=== PATIENT | female | born 1980 | race Caucasian/White ===

== ENCOUNTER 2019-06-24 13:53 | Outpatient (CLI) | payer OTHER, SELFPAY ==
--- NOTE | ~2019-06-24 | XR_ITS ---
EXAMINATION: XR knee RT min 4V DATE: 06/24/2019 14:50 INDICATION: Right knee pain. TECHNIQUE: 4 views of right knee were obtained. COMPARISON: None. FINDINGS: Bone alignment is normal. No fracture. There is mild tricompartmental osteoarthritis. No kn ee joint effusion. IMPRESSION: 1. Mild right knee osteoarthritis. Reviewed, dictated and finalized at location A. T UTILITY PERSON
== END 2019-06-24 13:54 | disposition home or self-care (01) ==
DX: M17.11 Unilateral primary osteoarthritis, right knee (principal)
CPT/HCPCS: 73564

== ENCOUNTER 2019-07-09 09:04 | Outpatient (CLI) | payer OTHER, SELFPAY ==
--- NOTE | 2019-07-09 10:30 | NEURO_ITS ---
Patient Number: [id number] Impression: # Complains of feeling of walking on pins and needles. History of fibromyalgia. # Normal nerve conduction study including motor and sensory nerves. # Normal needle/EMG exam. # Problem could be related to small fiber neuropathy. Nerve Conduction Studies Anti Sensory Summary Table Stim Site NR Peak (ms) P-T Amp (?V) Site1 Site2 Delta-P (ms) Dist (cm) Josh (m/s) Left Sup Fibular Anti Sensory (Ant Lat Mall) 14 cm 3.9 1.5 14 cm Ant Lat Mall 3.9 16.0 41 Right Sup Fibular Anti Sensory (Ant Lat Mall) 14 cm 3.8 48.0 14 cm Ant Lat Mall 3.8 16.0 42 Left Sural Anti Sensory (Lat Mall) Calf 3.9 8.9 Calf Lat Mall 3.9 16.0 41 Right Sural Anti Sensory (Lat Mall) Calf 3.8 6.0 Calf Lat Mall 3.8 16.0 42 Motor Summary Table Stim Site NR Onset (ms) O-P Amp (mV) Site1 Site2 Delta-0 (ms) Dist (cm) Josh (m/s) Left Peroneal Motor (Vastus Med) Ankle 4.3 1.9 Popit Ankle 8.1 38.0 47 Popit 12.4 1.9 Right Peroneal Motor (Vastus Med) Ankle 4.0 1.2 Popit Ankle 7.6 36.0 47 Popit 11.6 1.0 Left Tibial Motor (Abd Woody Brev) Ankle 4.5 6.3 Knee Ankle 9.6 42.0 44 Knee 14.1 2.4 Right Tibial Motor (Abd Woody Brev) Ankle 4.1 3.9 Knee Ankle 10.1 41.0 41 Knee 14.2 2.2 F Wave Studies NR F-Lat (ms) L-R F-Lat (ms) Left Peroneal (Mrkrs) (EDB) 49.58 0.00 Right Peroneal (Mrkrs) (EDB) 49.58 0.00 Left Tibial (Mrkrs) (Abd Hallucis) 52.03 0.39 Right Tibial (Mrkrs) (Abd Hallucis) 51.65 0.39 EMG Side Muscle Nerve Root Ins Act Fibs Amp Dur Recrt Comment Right AntTibialis Dp Br Fibular L4-5 Nml Nml Nml Nml Nml Right Gastroc Tibial S1-2 Nml Nml Nml Nml Nml Right Fibularis Long Sup Br Fibular L5-S1 Nml Nml Nml Nml Nml Right Flex Dig Long Tibial L5-S2 Nml Nml Nml Nml Nml Right Ext Dig Brev Dp Br Fibular L5, S1 Nml Nml Nml Nml Nml Left AntTibialis Dp Br Fibular L4-5 Nml Nml Nml Nml Nml Left Gastroc Tibial S1-2 Nml Nml Nml Nml Nml Left Fibularis Long Sup Br Fibular L5-S1 Nml Nml Nml Nml Nml Left Flex Dig Long Tibial L5-S2 Nml Nml Nml Nml Nml Left Ext Dig Brev Dp Br Fibular L5, S1 Nml Nml Nml Nml Nml MTDD
== END 2019-07-09 09:05 | disposition home or self-care (01) ==
DX: R20.0 Anesthesia of skin (principal)
CPT/HCPCS: 95886; 95910

== ENCOUNTER 2019-07-17 09:15 | Outpatient (CLI) | payer OTHER, SELFPAY | END 2019-07-17 09:16 | disposition home or self-care (01) | PROVIDERS: PCP Internal Medicine | DX: E06.3 Autoimmune thyroiditis (principal) | CPT/HCPCS: 36415; 84443 ==

== ENCOUNTER 2019-11-10 12:21 | Outpatient (CLI) | payer OTHER, SELFPAY ==
[2019-11-10 13:10] LABS: Basophils Absolute Auto 0.1 K/mm3 (0.0-0.1); Basophils Percent Auto 0.6 % (0.2-1.2); Eosinophils Absolute Auto 0.3 K/mm3 (0-0.3); Eosinophils Percent Auto 2.2 % (0-4.4); Hematocrit 39.6 % (37.0-47.0); Hemoglobin 13.3 g/dL (12.0-15.0); Immature Granulocyte Absolute 0.08 K/mm3 (0.00-0.031); Immature Granulocyte Percent A 0.7 % (0-0.5); Lymphocytes Absolute Auto 2.86 K/mm3 (0.9-3.2); Lymphocytes Percent Auto 25.4 % (18.3-44.2); Mean Corpuscular HGB Conc 33.6 g/dl (32-36); Mean Corpuscular Hemoglobin 29.3 pg (26-34); Mean Corpuscular Volume 87.2 fl (80-100); Mean Platelet Volume 9.3 fl (7.4-10.4); Monocytes Absolute Auto 0.6 K/mm3 (0.1-0.6); Monocytes Percent Auto 5.7 % (2.6-8.5); Neutrophils Absolute Auto 7.4 K/mm3 (1.3-6.7); Neutrophils Percent Auto 65.4 % (45.5-73.1); Platelet Count Result 337 k/mm3 (150-375); Red Blood Count 4.54 M/mm3 (4.2-5.4); Red Cell Distribution Width 13.4 % (11.5-14.5); White Blood Count 11.3 K/mm3 (4.5-10.0)
[2019-11-10 13:28] LABS: CRP 2.8 mg/dL (<1.0)
[2019-11-10 13:29] LABS: Rheumatoid Factor < 8.6 IU/ML (<12)
[2019-11-10 14:04] LABS: Hepatitis B Surface Antigen Negative (Negative)
[2019-11-10 14:10] LABS: HAV RESULT Negative (Negative); Hepatitis B Core IgM Result Negative (Negative)
[2019-11-10 14:22] LABS: Hepatitis C Virus Antibody Negative (Negative)
== END 2019-11-10 12:22 | disposition home or self-care (01) ==
PROVIDERS: PCP Nurse Practitioner; Visit Provider Nurse Practitioner
DX: M25.50 Pain in unspecified joint (principal)
CPT/HCPCS: 36415; 80074; 85025; 86038; 86140; 86430

== ENCOUNTER 2019-11-26 08:47 | Outpatient (CLI) | payer OTHER, SELFPAY | END 2019-11-26 08:48 | disposition home or self-care (01) | LOC: ANHLAB 08:50 | PROVIDERS: PCP Nurse Practitioner; Visit Provider Nurse Practitioner | DX: E06.3 Autoimmune thyroiditis (principal) | CPT/HCPCS: 36415; 84443 ==

== ENCOUNTER 2019-11-30 13:42 | Outpatient (CLI) | payer OTHER, SELFPAY ==
[2019-11-30 14:43] LABS: Basophils Absolute Auto 0.1 K/mm3 (0.0-0.1); Basophils Percent Auto 0.5 % (0.2-1.2); Eosinophils Absolute Auto 0.2 K/mm3 (0-0.3); Eosinophils Percent Auto 1.5 % (0-4.4); Hematocrit 41.4 % (37.0-47.0); Hemoglobin 13.9 g/dL (12.0-15.0); Immature Granulocyte Absolute 0.05 K/mm3 (0.00-0.031); Immature Granulocyte Percent A 0.5 % (0-0.5); Lymphocytes Absolute Auto 2.84 K/mm3 (0.9-3.2); Mean Corpuscular HGB Conc 33.6 g/dl (32-36); Mean Corpuscular Volume 86.4 fl (80-100); Mean Platelet Volume 9.4 fl (7.4-10.4); Monocytes Absolute Auto 0.6 K/mm3 (0.1-0.6); Monocytes Percent Auto 5.6 % (2.6-8.5); Neutrophils Absolute Auto 7.2 K/mm3 (1.3-6.7); Neutrophils Percent Auto 65.9 % (45.5-73.1); Platelet Count Result 330 k/mm3 (150-375); Red Blood Count 4.79 M/mm3 (4.2-5.4); Red Cell Distribution Width 13.2 % (11.5-14.5); White Blood Count 10.9 K/mm3 (4.5-10.0)
[2019-11-30 14:53] LABS: Add Urine Microscopic? YES; Appearance Urine Clear (Clear); Bacteria Urine Trace /hpf; Bilirubin Urine Negative (Negative); Blood Urine 1+ (Negative); Color Urine Yellow (Yellow); Glucose Urine UA Negative (Negative); Ketones Urine Negative (Negative); Leukocyte Esterase Ur 1+ LEU/UL (Negative); Mucus Urine Rare /lpf; Nitrate Urine Negative (Negative); Protein Urine Negative (Negative); RBC Urine 0-2 /hpf (0-2); Specific Grav Ur 1.015 (1.001-1.035); Squamous Epithelial Cell Urine Many /hpf (Few); Urobilinogen Urine Negative mg/dL (<2.0); WBC Urine 0-3 /hpf
[2019-11-30 14:59] LABS: Alanine Aminotransferase 16 U/L (4-35); Albumin Level 4.5 g/dL (3.5-5.1); Alkaline Phosphatase 111 U/L (38-126); Anion Gap 10 mmol/L (8-16); Aspartate Amino Transferase 20 U/L (14-36); Bilirubin,Total 0.4 mg/dL (0.2-1.3); Blood Urea Nitrogen 9 mg/dL (7-17); CRP 2.6 mg/dL (<1.0); Calcium 9.3 mg/dL (8.4-10.2); Carbon Dioxide 21 mmol/L (22-30); Chloride 103 mmol/L (98-107); Estimated Glomerular Filt Rate > 60; Glucose 105 mg/dL (65-105); Lipase 93 U/L (23-300); Potassium 3.9 mmol/L (3.4-5.0); Sodium 134 mmol/L (137-145)
[2019-11-30 15:19] LABS: Iron 72 ug/dL (37-170)
[2019-11-30 15:30] LABS: Percent Iron Saturation 20 % (20-50)
[2019-11-30 16:03] LABS: Folic Acid 6.7 ng/mL (2.76->20)
[2019-11-30 16:33] LABS: Vitamin D 25 Hydroxy 42.8 ng/mL
[2019-12-01 08:17] LABS: Rapid Plasma Reagin Non-Reactive (NonReactive)
[2019-12-03 11:53] LABS: Lyme Disease Ab (IgM), Blot Negative (Negative); Lyme Disease Ab(IgG), Blot Negative (Negative)
[2019-12-07 13:24] LABS: Reference Lab Test Result Not Detected
== END 2019-11-30 13:43 | disposition home or self-care (01) ==
PROVIDERS: PCP Internal Medicine; Visit Provider Internal Medicine
DX: E61.1 Iron deficiency (principal); E55.9 Vitamin D deficiency, unspecified; R10.84 Generalized abdominal pain; M79.7 Fibromyalgia; E06.3 Autoimmune thyroiditis; R53.82 Chronic fatigue, unspecified
CPT/HCPCS: 36415; 80053; 81001; 82306; 82607; 82746; 83516; 83540; 83550; 83690; 84443; 85025; 86140; 86592; 86617; 87798

== ENCOUNTER 2019-12-04 15:41 | Outpatient (CLI) | payer OTHER, SELFPAY ==
[2019-12-04 18:24] LABS: Erythrocyte Sedimentation Rate 18 mm/hr (0-20)
[2019-12-08 17:43] LABS: Lyme Disease Ab (IgM), Blot Positive (Negative); Lyme Disease Ab(IgG), Blot Negative (Negative)
[2019-12-09 04:30] LABS: Homocysteine 18.7 umol/L (<10.4)
[2019-12-10 07:00] LABS: Methylmalonic Acid 228 nmol/L (87-318)
== END 2019-12-04 15:42 | disposition home or self-care (01) ==
LOC: ANHLAB 16:06
PROVIDERS: PCP Internal Medicine; Visit Provider Internal Medicine
DX: E53.8 Deficiency of other specified B group vitamins (principal); M79.7 Fibromyalgia; R10.84 Generalized abdominal pain
CPT/HCPCS: 36415; 83090; 83516; 83921; 85652; 86617

== ENCOUNTER 2020-04-09 13:38 | Outpatient (CLI) | payer OTHER, SELFPAY ==
[2020-04-09 14:27] LABS: CRP 1.7 mg/dL (<1.0)
[2020-04-12 21:36] LABS: Anti Cyclic Citrullinated Pept <16 Units (<20)
== END 2020-04-09 13:39 | disposition home or self-care (01) ==
PROVIDERS: PCP Internal Medicine; Visit Provider Internal Medicine
DX: M19.90 Unspecified osteoarthritis, unspecified site (principal)
CPT/HCPCS: 36415; 86140; 86200

== ENCOUNTER 2020-04-09 14:16 | Emergency (ER) | payer OTHER, SELFPAY ==
[2020-04-09 14:18] VITALS: BP 146/100; PULSE 113; RESP 20; TEMP 36.4; O2SAT 100
--- NOTE | 2020-04-09 15:53 | ED.GENADULT ---
HPI - General Adult General Chief complaint: Unspecified Stated complaint: pain Time Seen by Provider: 04/09/20 14:26 Source: patient and family Mode of arrival: ambulatory Limitations: no limitations History of Present Illness HPI narrative: Patient is a 39-year-old female who presents to emergency department for evaluation of bilateral feet pain patient with history of fibromyalgia with history of bilateral foot pain followed by Dr. Briceño who has been evaluating the patient for this and currently has her on medications patient on arrival in no distress was having outpatient blood work performed when she came to the ER for evaluation of her foot discomfort patient denies injury or trauma fever chills or other complaints pain is worse with activity and movement Related Data Allergies Allergy/AdvReac Type Severity Reaction Status Date / Time No Known Allergies Allergy Unknown X Verified 04/09/20 14:39 Review of Systems Review of Systems: All systems reviewed & are unremarkable except as noted in HPI and below PMFSH Past Medical History Medical History (Updated 04/09/20 @ 15:56 by Samson Ball PA-C) Anxiety Depression Fibromyalgia Social History Social History Smoking status: Current every day smoker Alcohol intake: never Gender identity (if verbalized by the patient): Female Exam Narrative: Exam Narrative: GENERAL: Well-appearing, obese, and in no acute distress. HEAD: Normocephalic, atraumatic. EYES: PERRLA and EOMI. ENT: Nares clear, no rhinorrhea or epistaxis. Mucous membranes moist. CHEST: Clear to auscultation. No respiratory distress. No wheezes rales or rhonchi HEART: Regular rate and rhythm. No murmur heard. EXTREMITIES: Normal range of motion. No edema. No deformity of the feet noted SKIN: Warm, dry, no rash. NEURO: No focal deficits. Alert and oriented x3. Cranial nerves II through XII grossly intact. Neurovascularly intact PSYCH: Normal mood and affect. Course Course Emergency Course: Patient in the room in no distress will be discharged home for follow-up with primary care aware of discussion with primary care patient is felt to not warrant further testing at this time given that her primary care doctor is currently working her up for her complaints patient will be given medications to help with her symptoms patient in afebrile nontoxic-appearing in no distress Consultations Consultation #1: Jose Luis patient with Dr. Briceño primary care who will follow the patient Date: 04/09/20 Time: 15:55 Vital Signs Vital signs: Vital Signs Temperature 97.5 F L 04/09/20 14:18 Pulse Rate 113 H 04/09/20 14:18 Respiratory Rate 04/09/20 14:18 Blood Pressure 146/100 H 04/09/20 14:18 Pulse Oximetry 100 04/09/20 14:18 Temperature 97.5 F L 04/09/20 14:18 Pulse Rate 113 H 04/09/20 14:18 Respiratory Rate 20 04/09/20 14:18 Blood Pressure 146/100 H 04/09/20 14:18 Pulse Oximetry 100 04/09/20 14:18 Medical Decision Making MDM Narrative Medical decision making narrative: Patients injury or pain is consistent with musculoskeletal etiology. No signs of neurological or vascular compromise on exam. Compartments and tisues are soft without signs of compartment syndrome. Pain is felt appropriate for further evaluation on an outpatient basis. Vital Signs Vital Signs: Vital Signs Temperature 97.5 F L 04/09/20 14:18 Pulse Rate 113 H 04/09/20 14:18 Respiratory Rate 04/09/20 14:18 Blood Pressure 146/100 H 04/09/20 14:18 Pulse Oximetry 100 04/09/20 14:18 Temperature 97.5 F L 04/09/20 14:18 Pulse Rate 113 H 04/09/20 14:18 Respiratory Rate 04/09/20 14:18 Blood Pressure 146/100 H 04/09/20 14:18 Pulse Oximetry 100 04/09/20 14:18 Discharge Plan Discharge Clinical Impression: Bilateral foot pain Patient Disposition: Home, Self-Care Condition: Stable Instructions: Antibiotic Form, A
== END 2020-04-09 16:05 | disposition home or self-care (01) ==
PROVIDERS: Emergency Provider Emergency Medicine; PCP Internal Medicine
DX: M79.672 Pain in left foot (principal); M79.671 Pain in right foot; M79.7 Fibromyalgia
CPT/HCPCS: 36415; 86140; 86200; 99283

== ENCOUNTER 2020-05-26 12:59 | Outpatient (CLI) | payer OTHER, SELFPAY ==
[2020-05-26 15:44] LABS: Hepatitis B Surface Antigen Negative (Negative)
[2020-05-26 15:50] LABS: HAV RESULT Negative (Negative); Hepatitis B Core IgM Result Negative (Negative)
[2020-05-26 16:02] LABS: Hepatitis C Virus Antibody Negative (Negative)
[2020-05-30 15:09] LABS: Lyme Disease Ab (IgM), Blot Negative (Negative); Lyme Disease Ab(IgG), Blot Negative (Negative)
== END 2020-05-26 13:00 | disposition home or self-care (01) ==
PROVIDERS: PCP Internal Medicine; Visit Provider Internal Medicine Infectious Disease
DX: M25.50 Pain in unspecified joint (principal)
CPT/HCPCS: 36415; 80074; 84439; 84443; 86617; 87801

== ENCOUNTER 2020-05-26 13:11 | Outpatient (CLI) | payer OTHER, SELFPAY ==
[2020-05-26 15:11] LABS: Thyroid Stimulating Hormone 0.017 uIU/mL (0.465-4.680)
[2020-05-26 15:26] LABS: Free T4 Free Thyroxine 1.53 ng/mL (0.78-2.19)
== END 2020-05-26 13:12 | disposition home or self-care (01) ==
LOC: ANHLAB 13:13
PROVIDERS: PCP Internal Medicine; Visit Provider Nurse Practitioner
DX: E03.9 Hypothyroidism, unspecified (principal)
CPT/HCPCS: 36415; 84439; 84443

== ENCOUNTER 2020-08-20 13:23 | Outpatient (CLI) | payer OTHER, SELFPAY ==
[2020-08-20 13:51] LABS: Basophils Percent Auto 0.4 % (0.2-1.2); Eosinophils Absolute Auto 0.1 K/mm3 (0-0.3); Eosinophils Percent Auto 0.8 % (0-4.4); Hematocrit 40.2 % (37.0-47.0); Hemoglobin 13.8 g/dL (12.0-15.0); Immature Granulocyte Absolute 0.05 K/mm3 (0.00-0.031); Immature Granulocyte Percent A 0.5 % (0-0.5); Lymphocytes Absolute Auto 2.78 K/mm3 (0.9-3.2); Lymphocytes Percent Auto 27.2 % (18.3-44.2); Mean Corpuscular HGB Conc 34.3 g/dl (32-36); Mean Corpuscular Hemoglobin 30.3 pg (26-34); Mean Corpuscular Volume 88.2 fl (80-100); Mean Platelet Volume 9.5 fl (7.4-10.4); Monocytes Absolute Auto 0.6 K/mm3 (0.1-0.6); Neutrophils Absolute Auto 6.7 K/mm3 (1.3-6.7); Neutrophils Percent Auto 65.1 % (45.5-73.1); Platelet Count Result 236 k/mm3 (150-375); Red Blood Count 4.56 M/mm3 (4.2-5.4); White Blood Count 10.2 K/mm3 (4.5-10.0)
[2020-08-20 14:03] LABS: Alanine Aminotransferase 12 U/L (4-35); Albumin Level 4.3 g/dL (3.5-5.1); Alkaline Phosphatase 68 U/L (38-126); Anion Gap 10 mmol/L (8-16); Aspartate Amino Transferase 21 U/L (14-36); Bilirubin,Total 0.4 mg/dL (0.2-1.3); Blood Urea Nitrogen 11 mg/dL (7-17); Calcium 9.4 mg/dL (8.4-10.2); Carbon Dioxide 16 mmol/L (22-30); Chloride 110 mmol/L (98-107); Estimated Glomerular Filt Rate 55; Glucose 106 mg/dL (65-105); Phosphorus 3.6 mg/dL (2.5-4.5); Sodium 136 mmol/L (137-145)
[2020-08-20 14:11] LABS: Potassium 3.9 mmol/L (3.4-5.0)
[2020-08-20 15:43] LABS: Thyroid Stimulating Hormone Reflex 0.149 uIU/mL (0.465-4.68)
[2020-08-20 17:40] LABS: Free T4 Free Thyroxine Reflex 1.49 ng/dL (0.78-2.19)
[2020-08-20 18:24] LABS: Total Triiodothyronine (T3) 1.17 NG/ML (0.97-1.69)
[2020-08-21 08:04] LABS: CRP 1.4 mg/dL (<1.0)
[2020-08-24 16:27] LABS: Beta-Gamma Tocopherol 1.2 mg/L (<=4.3); Vitamin A 38 mcg/dL (38-98)
[2020-09-04 08:53] LABS: Scleroderma 70 Antibody <1.0
== END 2020-08-20 13:24 | disposition home or self-care (01) ==
LOC: ANHLAB 13:25
PROVIDERS: PCP Internal Medicine; Visit Provider Internal Medicine
DX: Q80.9 Congenital ichthyosis, unspecified (principal); E06.3 Autoimmune thyroiditis; M15.0 Primary generalized (osteo)arthritis; M79.7 Fibromyalgia; L29.9 Pruritus, unspecified
CPT/HCPCS: 36415; 80069; 80076; 82380; 84439; 84443; 84446; 84480; 84590; 85025; 86003; 86140; 86235; 86695; 86696

== ENCOUNTER 2020-08-29 15:21 | Outpatient (CLI) | payer OTHER, SELFPAY ==
[2020-09-08 21:14] LABS: ANCA Screen Negative (Negative); Myeloperoxidase Ab <1.0 AI (<1.0); Proteinase-3 Ab <1.0 AI (<1.0); S cerevisiae Ab (IgA) 5.6 U (<=20.0); S cerevisiae Ab (IgG) 17.5 U (<=20.0)
== END 2020-08-29 15:22 | disposition home or self-care (01) ==
LOC: ANHLAB 15:23
PROVIDERS: PCP Internal Medicine; Visit Provider Internal Medicine Gastroenterology
DX: R10.84 Generalized abdominal pain (principal); K62.5 Hemorrhage of anus and rectum
CPT/HCPCS: 36415; 86021; 86038; 86671

== ENCOUNTER 2020-11-01 09:52 | Outpatient (CLI) | payer OTHER, SELFPAY ==
--- NOTE | ~2020-11-01 | XR_ITS ---
EXAMINATION: XR UGIAC w barium swallow DATE: 11/01/2020 10:51 INDICATION: Epigastric pain. Dysphagia. TECHNIQUE: The patient drank thick barium, gas-producing crystals, and thin barium. Fluoroscopic spot radiographs of the hypopharynx, esophagus, stomach and proximal small bowel were obtained. Fluorosco py exposure time was 2.2 minutes. A total of 1069 fluoroscopic images were recorded. Total DAP was 14 .845 mGycm^2 COMPARISON: None. FINDINGS: The pharynx is symmetric and without evidence of mass lesion or mucosal irregularity. The esophagus i s normal without mass or stricture. Esophageal motility is normal. There is no hiatal hernia. There w as no gastroesophageal reflux with provocative maneuvers. The stomach and proximal small bowel are no rmal. IMPRESSION: 1. Normal esophagram and upper GI study. Reviewed, dictated and finalized at location A.
== END 2020-11-01 09:53 | disposition home or self-care (01) ==
PROVIDERS: PCP Internal Medicine; Visit Provider Internal Medicine Gastroenterology
DX: R13.10 Dysphagia, unspecified (principal)
CPT/HCPCS: 74246

== ENCOUNTER 2020-11-05 11:11 | Outpatient (CLI) | payer OTHER, SELFPAY ==
--- NOTE | ~2020-11-05 | CT_ITS ---
EXAMINATION: CT abdomen pelvis w con DATE: 11/05/2020 12:42 INDICATION: Abdominal pain, rectal bleeding and melena. TECHNIQUE: Computed tomography (CT) of the abdomen and pelvis was performed with 100 mL Omnipaque-350 intravenous contrast. Automated exposure control and iterative reconstruction technique were employe d. The dose-length product was 976.01 mGy-cm. COMPARISON: None FINDINGS: Mild right basilar atelectasis along the mildly elevated right hemidiaphragm. Heart size is normal. N o pericardial or pleural effusion. Bilateral breast implants. Minimal focal hepatic steatosis at the ligamentum teres. Gallbladder, spleen, pancreas and bilateral adrenal glands are normal. Horseshoe ki dney with 5 mm cyst at the left sided moiety. There is some retained oral contrast material within th e colon from the esophagram and upper GI study performed 4 days prior. There are few diverticula nikita g the sigmoid colon without adjacent from 3 change to suggest diverticulitis. Small bowel and appendi x are normal. Bladder, anteverted uterus and left adnexa are normal. 2.0 cm cyst with peripheral enha ncement at the right ovary likely corpus luteum cyst. Trace amount of likely physiologic free fluid a t the cul-de-sac. No pathologically enlarged abdominal or pelvic lymphadenopathy. Bones are unremarka ble. IMPRESSION: 1. Mild sigmoid diverticulosis. No acute intra-abdominal/pelvic process. 2. Anatomic variant horseshoe kidney. Reviewed, dictated and finalized at location A.
== END 2020-11-05 11:12 | disposition home or self-care (01) ==
LOC: ANHIMG 11:12
PROVIDERS: PCP Internal Medicine; Visit Provider Internal Medicine Gastroenterology
DX: R10.9 Unspecified abdominal pain (principal); K62.5 Hemorrhage of anus and rectum; K57.30 Diverticulosis of large intestine without perforation or abscess without bleeding; Q63.1 Lobulated, fused and horseshoe kidney
CPT/HCPCS: 74177; Q9967

== ENCOUNTER 2020-11-08 16:42 | Outpatient (CLI) | payer OTHER, SELFPAY ==
[2020-11-08 17:14] LABS: Basophils Absolute Auto 0.1 K/mm3 (0.0-0.1); Basophils Percent Auto 0.5 % (0.2-1.2); Eosinophils Absolute Auto 0.1 K/mm3 (0-0.3); Eosinophils Percent Auto 0.9 % (0-4.4); Hematocrit 41.6 % (37.0-47.0); Hemoglobin 13.9 g/dL (12.0-15.0); Immature Granulocyte Absolute 0.05 K/mm3 (0.00-0.031); Immature Granulocyte Percent A 0.5 % (0-0.5); Lymphocytes Absolute Auto 3.09 K/mm3 (0.9-3.2); Lymphocytes Percent Auto 27.9 % (18.3-44.2); Mean Corpuscular HGB Conc 33.4 g/dl (32-36); Mean Corpuscular Hemoglobin 29.4 pg (26-34); Mean Corpuscular Volume 88.1 fl (80-100); Mean Platelet Volume 9.8 fl (7.4-10.4); Monocytes Absolute Auto 0.6 K/mm3 (0.1-0.6); Neutrophils Absolute Auto 7.2 K/mm3 (1.3-6.7); Neutrophils Percent Auto 65.2 % (45.5-73.1); Platelet Count Result 274 k/mm3 (150-375); Red Blood Count 4.72 M/mm3 (4.2-5.4); White Blood Count 11.1 K/mm3 (4.5-10.0)
[2020-11-08 17:15] LABS: Add Urine Microscopic? NO; Appearance Urine Clear (Clear); Bilirubin Urine Negative (Negative); Blood Urine Negative (Negative); Color Urine Yellow (Yellow); Glucose Urine UA Negative (Negative); Ketones Urine Negative (Negative); Leukocyte Esterase Ur Negative LEU/UL (NEGATIVE); Nitrate Urine Negative (Negative); Protein Urine Negative (Negative); Specific Grav Ur 1.016 (1.001-1.035); Urobilinogen Urine Negative mg/dL (<2.0)
[2020-11-08 17:34] LABS: Anion Gap 13 mmol/L (8-16); Blood Urea Nitrogen 8 mg/dL (7-17); CRP 1.2 mg/dL (<1.0); Calcium 9.8 mg/dL (8.4-10.2); Carbon Dioxide 17 mmol/L (22-30); Chloride 107 mmol/L (98-107); Estimated Glomerular Filt Rate 50; Glucose 93 mg/dL (65-110); Potassium 3.6 mmol/L (3.4-5.0); Sodium 137 mmol/L (137-145)
[2020-11-08 18:01] LABS: Iron 63 ug/dL (37-170); Thyroid Stimulating Hormone 0.838 uIU/mL (0.465-4.680)
[2020-11-08 18:10] LABS: Percent Iron Saturation 19 % (20-50)
[2020-11-08 18:19] LABS: Free T4 Free Thyroxine 1.34 ng/mL (0.78-2.19)
== END 2020-11-08 16:43 | disposition home or self-care (01) ==
LOC: ANHLAB 16:45
PROVIDERS: PCP Internal Medicine; Visit Provider Internal Medicine
DX: M79.7 Fibromyalgia (principal); E03.9 Hypothyroidism, unspecified; E61.1 Iron deficiency; Q63.1 Lobulated, fused and horseshoe kidney; K52.9 Noninfective gastroenteritis and colitis, unspecified
CPT/HCPCS: 36415; 80048; 81003; 83540; 83550; 84439; 84443; 85025; 86140

== ENCOUNTER 2020-11-09 16:28 | Outpatient (CLI) | payer OTHER, SELFPAY | END 2020-11-09 16:29 | disposition home or self-care (01) | LOC: ANHLAB 16:31 | PROVIDERS: PCP Internal Medicine; Visit Provider Internal Medicine | DX: K52.9 Noninfective gastroenteritis and colitis, unspecified (principal) | CPT/HCPCS: 87045; 87046; 87269; 87427 ==

== ENCOUNTER 2020-12-08 16:23 | Outpatient (CLI) | payer OTHER, SELFPAY ==
[2020-12-08 16:57] LABS: Basophils Percent Auto 0.3 % (0.2-1.2); Eosinophils Absolute Auto 0.2 K/mm3 (0-0.3); Eosinophils Percent Auto 1.3 % (0-4.4); Hematocrit 38.9 % (37.0-47.0); Hemoglobin 13.5 g/dL (12.0-15.0); Immature Granulocyte Absolute 0.06 K/mm3 (0.00-0.031); Immature Granulocyte Percent A 0.5 % (0-0.5); Lymphocytes Absolute Auto 3.09 K/mm3 (0.9-3.2); Lymphocytes Percent Auto 25.7 % (18.3-44.2); Mean Corpuscular HGB Conc 34.7 g/dl (32-36); Mean Corpuscular Hemoglobin 29.9 pg (26-34); Mean Corpuscular Volume 86.3 fl (80-100); Mean Platelet Volume 9.6 fl (7.4-10.4); Monocytes Absolute Auto 0.6 K/mm3 (0.1-0.6); Monocytes Percent Auto 5.3 % (2.6-8.5); Neutrophils Percent Auto 66.9 % (45.5-73.1); Platelet Count Result 271 k/mm3 (150-375); Red Blood Count 4.51 M/mm3 (4.2-5.4); Red Cell Distribution Width 13.2 % (11.5-14.5)
[2020-12-08 17:08] LABS: Albumin Level 4.5 g/dL (3.5-5.1); Anion Gap 9 mmol/L (8-16); Blood Urea Nitrogen 7 mg/dL (7-17); Calcium 9.3 mg/dL (8.4-10.2); Carbon Dioxide 19 mmol/L (22-30); Chloride 109 mmol/L (98-107); Estimated Glomerular Filt Rate 55; Glucose 90 mg/dL (65-110); Phosphorus 3.7 mg/dL (2.5-4.5); Potassium 3.5 mmol/L (3.4-5.0); Sodium 137 mmol/L (137-145)
[2020-12-08 18:30] LABS: Vitamin D 25 Hydroxy 52.7 ng/mL
== END 2020-12-08 16:24 | disposition home or self-care (01) ==
PROVIDERS: PCP Internal Medicine; Visit Provider Internal Medicine
DX: M79.7 Fibromyalgia (principal); N18.31 Chronic kidney disease, stage 3a; E61.1 Iron deficiency; E03.9 Hypothyroidism, unspecified; E55.9 Vitamin D deficiency, unspecified
CPT/HCPCS: 36415; 80069; 82306; 84443; 85025

== ENCOUNTER 2021-02-14 12:54 | Outpatient (CLI) | payer OTHER, SELFPAY ==
[2021-02-14 13:19] LABS: Basophils Percent Auto 0.3 % (0.2-1.2); Eosinophils Absolute Auto 0.1 K/mm3 (0-0.3); Eosinophils Percent Auto 1.5 % (0-4.4); Hematocrit 39.5 % (37.0-47.0); Hemoglobin 13.1 g/dL (12.0-15.0); Immature Granulocyte Absolute 0.05 K/mm3 (0.00-0.031); Immature Granulocyte Percent A 0.6 % (0-0.5); Lymphocytes Absolute Auto 2.64 K/mm3 (0.9-3.2); Lymphocytes Percent Auto 29.8 % (18.3-44.2); Mean Corpuscular HGB Conc 33.2 g/dl (32-36); Mean Corpuscular Hemoglobin 30.6 pg (26-34); Mean Corpuscular Volume 92.3 fl (80-100); Monocytes Absolute Auto 0.6 K/mm3 (0.1-0.6); Neutrophils Absolute Auto 5.4 K/mm3 (1.3-6.7); Neutrophils Percent Auto 60.8 % (45.5-73.1); Platelet Count Result 243 k/mm3 (150-375); Red Blood Count 4.28 M/mm3 (4.2-5.4); Red Cell Distribution Width 13.2 % (11.5-14.5); White Blood Count 8.9 K/mm3 (4.5-10.0)
[2021-02-14 13:31] LABS: Albumin Level 4.4 g/dL (3.5-5.1); Anion Gap 13 mmol/L (8-16); Blood Urea Nitrogen 20 mg/dL (7-17); Calcium 9.7 mg/dL (8.4-10.2); Carbon Dioxide 17 mmol/L (22-30); Chloride 109 mmol/L (98-107); Estimated Glomerular Filt Rate 54; Glucose 101 mg/dL (65-110); Phosphorus 4.8 mg/dL (2.5-4.5); Sodium 139 mmol/L (137-145)
[2021-02-14 14:00] LABS: Vitamin D 25 Hydroxy 55.1 ng/mL
[2021-02-14 14:14] LABS: Thyroid Stimulating Hormone Reflex 0.084 uIU/mL (0.465-4.68)
[2021-02-14 18:00] LABS: Free T4 Free Thyroxine Reflex 1.53 ng/dL (0.78-2.19)
[2021-02-14 23:05] LABS: Total Triiodothyronine (T3) 1.41 NG/ML (0.97-1.69)
== END 2021-02-14 12:55 | disposition home or self-care (01) ==
LOC: ANHLAB 12:56
PROVIDERS: PCP Internal Medicine; Visit Provider Internal Medicine
DX: M79.7 Fibromyalgia (principal); N18.31 Chronic kidney disease, stage 3a; E61.1 Iron deficiency; E55.9 Vitamin D deficiency, unspecified; E03.9 Hypothyroidism, unspecified
CPT/HCPCS: 36415; 80069; 82306; 84439; 84443; 84480; 85025

== ENCOUNTER 2021-02-27 11:29 | Outpatient (CLI) | payer OTHER, SELFPAY ==
[2021-02-27 18:12] LABS: Sodium Urine Random 76 meq/L
[2021-02-27 18:32] LABS: Sodium 24 Hour Urine 68 mmol/day (40-220); Total Volume 24 Hour Urine 900 ml
[2021-02-28 05:46] LABS: Potassium 24 Hour Urine 20.7 mmol/24 (25-125)
== END 2021-02-27 11:30 | disposition home or self-care (01) ==
LOC: ANHLAB 11:31
PROVIDERS: PCP Internal Medicine; Visit Provider Internal Medicine
DX: E87.2 Acidosis (principal)
CPT/HCPCS: 81050; 82436; 84133; 84300

== ENCOUNTER 2021-09-22 14:59 | Outpatient (CLI) | payer OTHER, SELFPAY ==
[2021-09-22 15:25] LABS: Basophils Percent Auto 0.4 % (0.2-1.2); Eosinophils Absolute Auto 0.1 K/mm3 (0-0.3); Eosinophils Percent Auto 1.2 % (0-4.4); Hematocrit 39.9 % (37.0-47.0); Hemoglobin 13.5 g/dL (12.0-15.0); Immature Granulocyte Absolute 0.03 K/mm3 (0.00-0.031); Immature Granulocyte Percent A 0.3 % (0-0.5); Lymphocytes Absolute Auto 2.65 K/mm3 (0.9-3.2); Lymphocytes Percent Auto 26.2 % (18.3-44.2); Mean Corpuscular HGB Conc 33.8 g/dl (32-36); Mean Corpuscular Hemoglobin 30.5 pg (26-34); Mean Corpuscular Volume 90.1 fl (80-100); Mean Platelet Volume 10.1 fl (7.4-10.4); Monocytes Absolute Auto 0.6 K/mm3 (0.1-0.6); Neutrophils Absolute Auto 6.7 K/mm3 (1.3-6.7); Neutrophils Percent Auto 65.9 % (45.5-73.1); Platelet Count Result 237 k/mm3 (150-375); Red Blood Count 4.43 M/mm3 (4.2-5.4); Red Cell Distribution Width 13.2 % (11.5-14.5); White Blood Count 10.1 K/mm3 (4.5-10.0)
[2021-09-22 15:34] LABS: Hemoglobin A1C 5.1 % (<5.7)
[2021-09-22 15:38] LABS: Alanine Aminotransferase 29 U/L (6-35); Albumin Level 4.5 g/dL (3.5-5.1); Alkaline Phosphatase 69 U/L (38-126); Anion Gap 10 mmol/L (8-16); Aspartate Amino Transferase 29 U/L (14-36); Bilirubin,Total 0.6 mg/dL (0.2-1.3); Blood Urea Nitrogen 12 mg/dL (7-17); CRP 1.3 mg/dL (<1.0); Calcium 9.1 mg/dL (8.4-10.2); Carbon Dioxide 18 mmol/L (22-30); Chloride 109 mmol/L (98-107); Estimated Glomerular Filt Rate 54; Glucose 91 mg/dL (65-110); Potassium 3.9 mmol/L (3.4-5.0); Sodium 137 mmol/L (137-145)
[2021-09-22 15:47] LABS: Iron 81 ug/dL (37-170)
[2021-09-22 15:57] LABS: Percent Iron Saturation 24 % (20-50)
[2021-09-22 16:19] LABS: Thyroid Stimulating Hormone Reflex 0.042 uIU/mL (0.465-4.68)
[2021-09-22 16:31] LABS: Vitamin D 25 Hydroxy 51.2 ng/mL
[2021-09-22 16:41] LABS: Folic Acid 4.7 ng/mL (2.76->20)
[2021-09-22 16:45] LABS: Hepatitis B Surface Antigen Negative (Negative)
[2021-09-22 16:58] LABS: HIV 1/2 Ab P24 Ag Result Negative (Negative)
[2021-09-22 17:03] LABS: Hepatitis C Virus Antibody Negative (Negative)
[2021-09-22 18:12] LABS: Free T4 Free Thyroxine Reflex 1.79 ng/dL (0.78-2.19)
[2021-09-22 19:04] LABS: Total Triiodothyronine (T3) 1.32 NG/ML (0.97-1.69)
== END 2021-09-22 15:00 | disposition home or self-care (01) ==
LOC: ANHLAB 15:03
PROVIDERS: PCP Internal Medicine; Visit Provider Internal Medicine
DX: R20.8 Other disturbances of skin sensation (principal); R53.82 Chronic fatigue, unspecified; E55.9 Vitamin D deficiency, unspecified; Z11.4 Encounter for screening for human immunodeficiency virus [HIV]
CPT/HCPCS: 36415; 80053; 82306; 82607; 82746; 83036; 83540; 83550; 84439; 84443; 84480; 85025; 86140; 86703; 86803; 87340; G0432

== ENCOUNTER 2021-12-14 10:02 | Outpatient (CLI) | payer OTHER, SELFPAY ==
--- NOTE | 2021-12-14 11:00 | NEURO_ITS ---
Impression: # Complains of numbness all over. 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 # Normal needle/EMG exam. # Clinical correlation recommended. Nerve Conduction Studies Anti Sensory Summary Table Stim Site NR Peak (ms) P-T Amp (?V) Site1 Site2 Delta-P (ms) Dist (cm) Josh (m/s) Left Median Anti Sensory (2-3nd Digit) Wrist 2.8 72.5 Wrist 2-3nd Digit 2.8 14.0 50 Wrist 2.7 45.4 Wrist 2-3nd Digit 2.8 14.0 50 Right Median Anti Sensory (2-3nd Digit) Wrist 2.5 42.8 Wrist 2-3nd Digit 2.5 14.0 56 Wrist 2.6 75.1 Wrist 2-3nd Digit 2.5 14.0 56 Left Radial Anti Sensory (Base 1st Digit) Wrist 2.2 38.7 Wrist Base 1st Digit 2.2 0.0 Right Radial Anti Sensory (Base 1st Digit) Wrist 2.3 22.6 Wrist Base 1st Digit 2.3 0.0 Left Sup Fibular Anti Sensory (Ant Lat Mall) NO RESPONSE 14 cm NR 14 cm Ant Lat Mall 16.0 Right Sup Fibular Anti Sensory (Ant Lat Mall) 14 cm 4.0 4.6 14 cm Ant Lat Mall 4.0 16.0 40 Left Sural Anti Sensory (Lat Mall) NO RESPONSE Calf NR Calf Lat Mall 16.0 Right Sural Anti Sensory (Lat Mall) NO RESPONSE Calf NR Calf Lat Mall 16.0 Left Ulnar Anti Sensory (5th Digit) Wrist 2.4 41.9 Wrist 5th Digit 2.4 14.0 58 Right Ulnar Anti Sensory (5th Digit) Wrist 2.3 26.9 Wrist 5th Digit 2.3 14.0 61 Motor Summary Table Stim Site NR Onset (ms) O-P Amp (mV) Site1 Site2 Delta-0 (ms) Dist (cm) Josh (m/s) Left Median Motor (Abd Poll Brev) Wrist 2.5 3.5 Elbow Wrist 4.5 28.0 62 Elbow 7.0 3.2 Right Median Motor (Abd Poll Brev) Wrist 2.4 7.9 Elbow Wrist 4.9 29.0 59 Elbow 7.3 7.4 Left Peroneal Motor (Vastus Med) Ankle 4.0 1.9 Popit Ankle 8.4 40.0 48 Popit 12.4 1.4 Right Peroneal Motor (Vastus Med) Ankle 4.0 2.3 Popit Ankle 7.5 36.0 48 Popit 11.5 2.0 Left Tibial Motor (Abd Woody Brev) Ankle 4.2 6.3 Knee Ankle 8.7 41.0 47 Knee 12.9 4.9 Right Tibial Motor (Abd Woody Brev) Ankle 4.4 8.0 Knee Ankle 9.2 38.0 41 Knee 13.6 3.0 Left Ulnar Motor (Abd Dig Minimi) Wrist 2.2 7.9 A Elbow Wrist 5.5 29.0 53 A Elbow 7.7 5.9 B Elbow Wrist 4.8 22.0 46 B Elbow 7.0 5.8 Right Ulnar Motor (Abd Dig Minimi) Wrist 2.3 7.4 A Elbow Wrist 5.7 30.0 53 A Elbow 8.0 6.6 B Elbow Wrist 4.2 21.0 50 B Elbow 6.5 5.8 F Wave Studies NR F-Lat (ms) L-R F-Lat (ms) Left Median (Mrkrs) (Abd Poll Brev) 26.61 0.18 Right Median (Mrkrs) (Abd Poll Brev) 26.78 0.18 Left Peroneal (Mrkrs) (EDB) 49.53 1.45 Right Peroneal (Mrkrs) (EDB) 50.98 1.45 Left Tibial (Mrkrs) (Abd Hallucis) 49.74 1.23 Right Tibial (Mrkrs) (Abd Hallucis) 50.97 1.23 Left Ulnar (Mrkrs) (Abd Dig Min) 26.62 0.60 Right Ulnar (Mrkrs) (Abd Dig Min) 26.02 0.60 EMG Side Muscle Nerve Root Ins Act Fibs Amp Dur Recrt Comment Right 1stDorInt Ulnar C8-T1 Nml Nml Nml Nml Nml Right Ext Indicis Radial (Post Int) C7-8 Nml Nml Nml Nml Nml Right Ext Digitorum Radial (Post Int) C7-8 Nml Nml Nml Nml Nml Right BrachioRad Radial C5-6 Nml Nml Nml Nml Nml Right PronatorTeres Median C6-7 Nml Nml Nml Nml Nml Right Abd Poll Brev Me
== END 2021-12-14 10:03 | disposition home or self-care (01) ==
LOC: ANHNEURO 10:05
PROVIDERS: PCP Internal Medicine; Visit Provider Internal Medicine
DX: G62.9 Polyneuropathy, unspecified (principal); G56.23 Lesion of ulnar nerve, bilateral upper limbs
CPT/HCPCS: 95886; 95913

== ENCOUNTER 2022-01-12 17:15 | Outpatient (CLI) | payer OTHER, SELFPAY ==
[2022-01-12 17:43] LABS: Albumin Level 4.3 g/dL (3.5-5.1); Anion Gap 11 mmol/L (8-16); Blood Urea Nitrogen 10 mg/dL (7-17); Calcium 9.2 mg/dL (8.4-10.2); Carbon Dioxide 18 mmol/L (22-30); Chloride 108 mmol/L (98-107); Estimated Glomerular Filt Rate 54; Glucose 101 mg/dL (65-110); Phosphorus 3.4 mg/dL (2.5-4.5); Potassium 3.8 mmol/L (3.4-5.0); Sodium 137 mmol/L (137-145)
[2022-01-12 18:14] LABS: Thyroid Stimulating Hormone 0.017 uIU/mL (0.465-4.680)
[2022-01-12 19:02] LABS: Free T4 Free Thyroxine 1.79 ng/mL (0.78-2.19)
== END 2022-01-12 17:16 | disposition home or self-care (01) ==
LOC: ANHLAB 17:16
PROVIDERS: PCP Internal Medicine; Visit Provider Internal Medicine
DX: N18.31 Chronic kidney disease, stage 3a (principal); E03.9 Hypothyroidism, unspecified
CPT/HCPCS: 36415; 80069; 84439; 84443

== ENCOUNTER 2022-11-28 10:05 | Emergency (ER) | payer OTHER, SELFPAY ==
--- NOTE | ~2022-11-28 | US_ITS ---
EXAMINATION: US transvaginal DATE: 11/28/2022 13:52 INDICATION: Abnormal CT with right ovarian cyst TECHNIQUE: Multiple endovaginal sonographic images of the pelvis were obtained. COMPARISON: None. FINDINGS: The uterus measures 7.8 x 4.8 x 4.3 cm. The endometrial complex measures 13 mm in thickness. An echo genic and shadowing IUD is seen in expected position within the endometrial canal. A couple subcentim eter anechoic nabothian cysts at the cervix. The right ovary measures 3.2 x 1.5 x 1.7 cm. 1.4 cm anec hoic cyst/follicle in the right ovary which corresponds to the lesion of concern on prior CT. The lef t ovary measures 2.0 x 1.4 x 1.9 cm. There are couple additional anechoic cysts/follicles in the left ovary the largest measuring 1.4 cm. Vascular flow identified on color Doppler at both ovaries. There is no free fluid in the pelvis. IMPRESSION: 1. Bilateral small anechoic ovarian cysts/follicles which includes the indeterminate cystic lesion of concern noted on the prior CT. 2. IUD in expected position within the endometrial canal of the uterus. Reviewed, dictated and finalized at location B. IMPRESSION: 1. Bilateral small anechoic ovarian cysts/follicles which includes the indeterm inate cystic lesion of concern noted on the prior CT. 2. IUD in expected position within the endometrial canal of the uterus.
--- NOTE | ~2022-11-28 | CT_ITS ---
EXAMINATION: CT abdomen pelvis w con DATE: 11/28/2022 11:50 INDICATION: Right lower quadrant abdominal pain and nausea TECHNIQUE: Computed tomography (CT) of the abdomen and pelvis was performed without intravenous contr ast. Automated exposure control and iterative reconstruction technique were employed. The dose-length product was 620.05 mGy-cm. COMPARISON: 11/05/2020 FINDINGS: Unchanged mild right basilar atelectasis along the mildly elevated right hemidiaphragm. Heart size is normal. No pericardial or pleural effusion. Bilateral breast implants. Unchanged mild focal hepatic steatosis along the ligamentum teres. Gallbladder, spleen, pancreas and bilateral adrenal glands are normal. Horseshoe kidney with no 8 mm cyst at the left-sided moiety. There are few scattered colonic diverticula without adjacent from trace stranding to suggest diverticulitis. Small bowel and appendix are normal. Bladder is normal. T-shaped IUD in expected position within the anteverted uterus. 11 mm cystic lesion with the right-sided uterine fundus abuts the right ovary, unclear whether this is wit hin the ovary or uterus. 1.3 cm left adnexal cyst. Minimal likely physiologic free fluid in the cul-d e-sac. No pathologically enlarged abdominal or pelvic lymphadenopathy. Bones are unremarkable. IMPRESSION: 1. 1.1 cm cystic lesion at the junction of the right adnexa and the right-sided uterine fundus. Is un clear whether this is within the ovary, uterus or intervening broad ligament with differential includ ing ovarian cyst including corpus luteum cyst and tubular cornual ectopic . Recommend correl ation with beta-hCG level. Dr. Trujillo discussed these findings with Dr. Martinez at 12:20 PM. 2. Anatomic variant horseshoe kidney. Reviewed, dictated and finalized at location B. IMPRESSION: 1. 1.1 cm cystic lesion at the junction of the right adnexa and the right-sided uterine fundus. Is unclear whether this is within the ovary, uterus or interve chris broad ligament with differential including ovarian cyst including corpus l uteum cyst and tubular cornual ectopic . Recommend correlation with be ta-hCG level. Dr. Trujillo discussed these findings with Dr. Martinez at 12:2 0 PM. 2. Anatomic variant horseshoe kidney.
[2022-11-28 10:25] VITALS: BP 135/92; PULSE 93; RESP 16; TEMP 36.7; O2SAT 100
[2022-11-28 10:32] VITALS: BP 135/92; PULSE 88; RESP 13; O2SAT 100
[2022-11-28 10:51] LABS: Basophils Percent Auto 0.5 % (0.2-1.2); Eosinophils Absolute Auto 0.1 K/mm3 (0-0.3); Eosinophils Percent Auto 0.7 % (0-4.4); Hematocrit 39.1 % (37.0-47.0); Hemoglobin 13.3 g/dL (12.0-15.0); Immature Granulocyte Absolute 0.03 K/mm3 (0.00-0.031); Immature Granulocyte Percent A 0.4 % (0-0.5); Lymphocytes Percent Auto 25.7 % (18.3-44.2); Mean Corpuscular Hemoglobin 30.2 pg (26-34); Mean Corpuscular Volume 88.9 fl (80-100); Mean Platelet Volume 10.4 fl (7.4-10.4); Monocytes Absolute Auto 0.5 K/mm3 (0.1-0.6); Monocytes Percent Auto 6.1 % (2.6-8.5); Neutrophils Absolute Auto 4.9 K/mm3 (1.3-6.7); Neutrophils Percent Auto 66.6 % (45.5-73.1); Platelet Count Result 204 k/mm3 (150-375); Red Cell Distribution Width 12.2 % (11.5-14.5); White Blood Count 7.4 K/mm3 (4.5-10.0)
[2022-11-28 11:00] VITALS: PULSE 81; RESP 15; O2SAT 100
[2022-11-28 11:01] VITALS: BP 106/75; PULSE 84; RESP 17; O2SAT 97
--- NOTE | 2022-11-28 11:13 | ED.ABDPAIN ---
HPI - Abdominal Pain General Chief Complaint: Abdominal Pain Stated Complaint: severe abd pain Time Seen by Provider: 11/28/22 10:09 Source: patient Mode of arrival: ambulatory Limitations: no limitations History of Present Illness HPI narrative: Patient is a 41-year-old female who presents to the ED with report of RLQ abdominal pain. Patient reports she had a dream that she was having pain in her right lower abdomen on Saturday night. When she woke up Saturday morning, she had pain in her right lower abdomen. Pain has been persistent and constant since then. Progressively worsening. Worse this morning, which prompted her presentation. She has not tried anything for the pain over the last couple of days. She notes history of IBS with diarrhea and history of ovarian cyst. She denies any diarrhea, constipation, nausea, vomiting, fevers, dysuria, hematuria. Related Data Home Medications Medication Instructions Recorded Confirmed aripiprazole 5 mg tablet (Abilify) 5 mg PO DAILY 04/12/21 04/12/21 dextroamphetamine-amphetamine 30 30 mg PO BID 04/12/21 04/12/21 mg tablet (Adderall) ferrous sulfate 27 mg iron tablet 27 mg PO DAILY 04/12/21 04/12/21 levothyroxine 25 mcg tablet 25 mcg PO DAILY 04/12/21 04/12/21 (Synthroid) topiramate 200 mg tablet (Topamax) 200 mg PO DAILY 04/12/21 04/12/21 trazodone 300 mg tablet 300 mg PO QHS 04/12/21 04/12/21 Allergies Allergy/AdvReac Type Severity Reaction Status Date / Time No Known Allergies Allergy Unknown X Verified 04/12/21 10:27 Review of Systems Review of Systems: CONSTITUTIONAL: Denies fever, chills, or sweats. CARDIOVASCULAR: Denies chest pain. RESPIRATORY: Denies dyspnea. GASTROINTESTINAL: See HPI. GENITOURINARY: Denies dysuria or hematuria. SKIN: Denies rash or itching. MUSCULOSKELETAL: Denies back pain, joint pain, or myalgia. All systems reviewed & are unremarkable except as noted in HPI and below PMFSH Past Medical History Medical History Anxiety Depression Fibromyalgia Irritable bowel syndrome with diarrhea Obese Small intestinal bacterial overgrowth (SIBO) Social History Social History Smoking status: Current some day smoker Tobacco type: cigarettes Alcohol intake: never Substance use: never Gender identity (if verbalized by the patient): Female Exam Narrative: GENERAL: Well appearing, well-nourished, non-toxic, in no acute distress. HEAD: Normocephalic, atraumatic. NECK: Supple. No adenopathy, no masses. RESPIRATORY: Airway patent, respirations nonlabored. Clear to auscultation bilaterally, no rales, rhonchi, wheezing. CARDIOVASCULAR: Regular rate and rhythm without murmurs, rubs, or gallops. Peripheral pulses 2+ and equal bilaterally. ABDOMINAL: Soft, focal mild tenderness in right lower abdomen, no rebound, nondistended, no hepatosplenomegaly. Normoactive BS. MUSCULOSKELETAL: Moves all extremities. Strength/ROM intact without gross deformities. SKIN: Warm, dry, normal color. No rashes. NEURO: A&O X3. Somewhat hard of hearing. Speech clear. Cranial nerves II-XII grossly intact. Steady gait. No ataxic movements. PSYCHIATRIC: Appropriate mood and affect. Normal interaction. Course Vital Signs Vital signs: Vital Signs Temperature 98.1 F 11/28/22 10:25 Pulse Rate 93 11/28/22 10:25 Respiratory Rate 16 11/28/22 10:25 Blood Pressure 135/92 H 11/28/22 10:25 Pulse Oximetry 100 11/28/22 10:25 Oxygen Delivery Room Air 11/28/22 10:25 Temperature 98.1 F 11/28/22 10:25 Pulse Rate 63 11/28/22 15:50 Respiratory Rate 18 11/28/22 15:50 Blood Pressure 120/80 11/28/22 15:50 Pulse Oximetry 100 11/28/22 15:50 Oxygen Delivery Room Air 11/28/22 10:25 MDM - Abdominal Pain MDM Narrative Medical decision making narrative: Patient presented to ED with 3-day history of right lower kelby
[2022-11-28 11:14] LABS: Alanine Aminotransferase 17 U/L (6-35); Albumin Level 4.2 g/dL (3.5-5.1); Alkaline Phosphatase 60 U/L (38-126); Anion Gap 10 mmol/L (8-16); Aspartate Amino Transferase 19 U/L (14-36); Bilirubin,Total 0.5 mg/dL (0.2-1.3); Blood Urea Nitrogen 7 mg/dL (7-17); Carbon Dioxide 18 mmol/L (22-30); Chloride 109 mmol/L (98-107); Estimated Glomerular Filt Rate > 60; Glucose 121 mg/dL (65-110); Lipase 59 U/L (23-300); Potassium 3.3 mmol/L (3.4-5.0); Sodium 137 mmol/L (137-145)
[2022-11-28 11:27] VITALS: O2SAT 100
[2022-11-28] MEDS: MORPHINE SULFATE (*CRX) 4 MG/ML INJ IV PUSH ×2 (11:32→14:05)
[2022-11-28] MEDS: ONDANSETRON INJ 4 MG/2 ML VIAL IV PUSH (11:32)
[2022-11-28] MEDS: SODIUM CHLORIDE 0.9% IV 1,000 ML 999 ML IV CONT (11:32)
[2022-11-28 11:37] LABS: Appearance Urine Clear (Clear); Bilirubin Urine Negative (Negative); Blood Urine Negative (Negative); Color Urine Yellow (Yellow); Glucose Urine UA Negative (Negative); Ketones Urine Negative (Negative); Leukocyte Esterase Ur Negative LEU/UL (Negative); Nitrate Urine Negative (Negative); Protein Urine Negative (Negative); Specific Grav Ur 1.006 (1.001-1.035); Urobilinogen Urine 0.2 mg/dL (<2.0)
[2022-11-28 11:42] LABS: Add Urine Microscopic? NO
[2022-11-28 12:42] LABS: Beta HCG Quantitative < 2.39 mIU/ML
[2022-11-28] MEDS: POTASSIUM CHLORIDE 20 MEQ ER TABLET 40 MEQ PO (15:20)
[2022-11-28] MEDS: KETOROLAC 30 MG/ML VIAL (*BKC) IV PUSH (15:20)
--- NOTE | 2022-11-28 15:31 | PC.NURSE ---
Pt advised to call for a ride home. Pt told she was not permitted to drive self home due to morphine. Pt verbalized understanding and states she has arranged for ride home.
--- NOTE | 2022-11-28 15:49 | PC.NURSE ---
pt wheeled to ER waiting room by tech to await ride home. Pt states parents will be picking her up.
[2022-11-28 15:50] VITALS: BP 120/80; PULSE 63; RESP 18; O2SAT 100
== END 2022-11-28 15:53 | disposition home or self-care (01) ==
PROVIDERS: Emergency Provider Physician Assistant; PCP Internal Medicine
DX: N83.201 Unspecified ovarian cyst, right side (principal); M79.7 Fibromyalgia; K58.0 Irritable bowel syndrome with diarrhea; F41.9 Anxiety disorder, unspecified; F32.A Depression, unspecified; F17.210 Nicotine dependence, cigarettes, uncomplicated; Z97.5 Presence of (intrauterine) contraceptive device; Q63.1 Lobulated, fused and horseshoe kidney
CPT/HCPCS: 36415; 74177; 76830; 80053; 81003; 81025; 83690; 84702; 85025; 96361; 96374; 96375; 96376; 99284; A9270; J1885; J2270; J2405; J7030; Q9967

== ENCOUNTER 2022-12-03 11:07 | Outpatient (CLI) | payer OTHER, SELFPAY ==
[2022-12-03 11:54] LABS: Hematocrit 41.1 % (37.0-47.0); Hemoglobin 13.7 g/dL (12.0-15.0); Mean Corpuscular HGB Conc 33.3 g/dl (32-36); Mean Corpuscular Volume 89.9 fl (80-100); Mean Platelet Volume 10.8 fl (7.4-10.4); Platelet Count Result 214 k/mm3 (150-375); Red Blood Count 4.57 M/mm3 (4.2-5.4); Red Cell Distribution Width 12.3 % (11.5-14.5); White Blood Count 8.6 K/mm3 (4.5-10.0)
[2022-12-03 12:03] LABS: Alanine Aminotransferase 17 U/L (6-35); Albumin Level 4.1 g/dL (3.5-5.1); Alkaline Phosphatase 57 U/L (38-126); Anion Gap 6 mmol/L (8-16); Aspartate Amino Transferase 18 U/L (14-36); Bilirubin,Total 0.3 mg/dL (0.2-1.3); Blood Urea Nitrogen 9 mg/dL (7-17); CRP 1.5 mg/dL (<1.0); Calcium 8.9 mg/dL (8.4-10.2); Carbon Dioxide 21 mmol/L (22-30); Chloride 106 mmol/L (98-107); Estimated Glomerular Filt Rate > 60; Glucose 105 mg/dL (65-110); Potassium 3.4 mmol/L (3.4-5.0); Sodium 133 mmol/L (137-145)
[2022-12-03 12:26] LABS: Erythrocyte Sedimentation Rate 15 mm/hr (0-20)
== END 2022-12-03 11:08 | disposition home or self-care (01) ==
LOC: ANHLAB 11:08
PROVIDERS: PCP Internal Medicine; Visit Provider Nurse Practitioner Family
DX: R10.31 Right lower quadrant pain (principal)
CPT/HCPCS: 36415; 80053; 85027; 85652; 86140

== ENCOUNTER 2022-12-05 12:44 | Outpatient (CLI) | payer OTHER, SELFPAY ==
[2022-12-14 22:13] LABS: Calprotectin, Stool 12 mcg/g
== END 2022-12-05 12:45 | disposition home or self-care (01) ==
LOC: ANHLAB 12:46
PROVIDERS: PCP Internal Medicine; Visit Provider Nurse Practitioner Family
DX: R10.31 Right lower quadrant pain (principal)
CPT/HCPCS: 83993

== ENCOUNTER 2022-12-14 12:39 | Outpatient (CLI) | payer OTHER, SELFPAY ==
--- NOTE | ~2022-12-14 | XR_ITS ---
EXAMINATION: XR lumbar spine 2-3V DATE: 12/14/2022 12:57 INDICATION: Low back pain TECHNIQUE: Anteroposterior and lateral views of the lumbar spine, and cone-down lateral view of the l umbosacral junction were obtained. COMPARISON: CT, 11/28/2022 FINDINGS: No fracture, dislocation, or subluxation. The vertebral body heights, alignment, and interv ertebral disc spaces are normal. The paravertebral soft tissues are unremarkable. An IUD is noted. IMPRESSION: 1. No acute osseous abnormality. Reviewed, dictated and finalized at location A.
== END 2022-12-14 12:40 | disposition home or self-care (01) ==
PROVIDERS: PCP Internal Medicine; Visit Provider Internal Medicine
DX: M54.50 Low back pain, unspecified (principal)
CPT/HCPCS: 72100

== ENCOUNTER 2023-01-30 03:18 | Day surgery (SDC) | payer OTHER, SELFPAY ==
[2023-01-22 11:20] VITALS: BMI 30.2
--- NOTE | 2023-01-22 11:37 | PC.NURSE ---
Report to the Outpatient Waiting Room, entrance under the green pavilion located off [facility], at time _0800_ on date _[id number]_. Planned Procedure Time: _1000_. Time changes happen often and if your time is changed the preop area will call you the afternoon before. - You and your visitor will be asked to self-screen and do not enter if you have any COVID symptoms. - A mask is optional within the hospital at this time. Patients may have clear liquids (water, carbonated beverages, clear teas, apple juice) until 3 hours prior to surgery with a maximum of 20 ounces. - No food from midnight until time of surgery Take the following medications with a SIP of water the morning of surgery: ___Aripiprazole, Adderol and Levothyroxine DO NOT STOP ANY OF YOUR OTHER PRESCRIPTION MEDICATIONS PRIOR TO SURGERY ?EXCEPT THE FOLLOWING Medications to discontinue per physician None Date to take last dose Please no make-up, nail malawian, hairspray, perfume, deodorant, or body powder the day of surgery. No jewelry (including any body piercings) or valuables the day of surgery, leave them at home. Please take a shower or bath the night before, or the morning of, surgery with an antibacterial soap. Wear comfortable, loose fitting clothing. - Jewelry must be removed prior to entering the operating room. Rings and piercings that are not removed may be cut off. - The hospital will not accept responsibility for valuables. - Please leave all valuables, including medications, at home the day of surgery. If you are going home after surgery, a licensed batch mixing truck driver must drive you home. - NO public transportation without another adult if you receive anesthesia. - We recommend that an adult stay with you for 24 hours following discharge. - We also recommend that you do not drive, make important decision, drink alcoholic beverages, or take any drugs that were not prescribed by your health care provider for at least 24 hours after your discharge time. Follow any additional instructions given to you from your surgeon. If you or anyone in your household have experienced Covid symptoms in the past week, please notify your surgeon or the nurse liaison at the phone number below for possible testing. Telephone instructions given to __Patient___and asked if any additional questions and then verbalized understanding. Patient advised to call surgeon office or pre surgery nurse liaison [phone] if any additional questions.
[2023-01-30] VITALS (10 sets, daily range): BP systolic 100–136; BP diastolic 52–87; PULSE 46–79; RESP 10–20; TEMP 36.1–36.9; O2SAT 97–100
[2023-01-30] MEDS: LACTATED RINGERS 1,000 ML 30 ML IV CONT ×2 (08:31→12:45)
[2023-01-30] MEDS: ACETAMINOPHEN 500 MG TABLET 1000 MG PO (08:32)
[2023-01-30] MEDS: KETOROLAC 15 MG/ML VIAL (*BKC) IV PUSH (08:33)
[2023-01-30] MEDS: SCOPOLAMINE 1.5 MG PATCH TRANSDERM (08:37)
--- NOTE | 2023-01-30 09:29 | WPDANESEPPF ---
Anes - Initial Pre Proc Eval Procedure: Operation Date: 01/30/23 10:00 Proposed Procedures p Diagnostic Laparoscopy, Hysteroscopy with Valencia Endometrial Ablation - Ankush Amin MD Date/Time: 01/30/23 09:29 Surgeon: Ankush Amin MD Pre Op Diagnosis: Pain in Pelvis, Menorrhagia Patient Data Age: 42 Gender: F Height: 1.68 m Weight: 80.5 kg Last Vital Signs Temp 36.9 C 01/30/23 08:20 Pulse 79 01/30/23 08:20 Resp 20 01/30/23 08:20 BP 136/87 01/30/23 08:20 Pulse Ox 98 01/30/23 08:20 O2 Del Method Room Air 01/30/23 08:20 Allergies Allergy/AdvReac Type Severity Reaction Status Date / Time No Known Allergies Allergy Unknown X Verified 01/30/23 08:07 Home Medications Medication Instructions Recorded Confirmed Type aripiprazole 5 mg tablet (Abilify) 5 mg PO DAILY 04/12/21 01/22/23 History ferrous sulfate 27 mg iron tablet 27 mg PO DAILY 04/12/21 01/22/23 History topiramate 200 mg tablet (Topamax) 200 mg PO DAILY 04/12/21 01/22/23 History trazodone 300 mg tablet 300 mg PO QHS 04/12/21 01/22/23 History aripiprazole 2 mg tablet 2 mg PO DAILY 01/22/23 01/22/23 History dextroamphetamine-amphetamine 10 10 mg PO DAILY 01/22/23 01/22/23 History mg tablet dextroamphetamine-amphetamine 20 20 mg PO QAM 01/22/23 01/22/23 History mg tablet levothyroxine 125 mcg tablet 125 mcg PO DAILY 01/22/23 01/22/23 History Patient hx anesthesia problems: post op nausea/vomiting Family hx anesthesia problems: none Results Review: All pre-operative results and documents have been reviewed as part of the pre-operative evaluation. FORMERLY [facility], [facility] Past Medical History Medical History Anxiety Depression Fibromyalgia Irritable bowel syndrome with diarrhea Obese Small intestinal bacterial overgrowth (SIBO) Surgical History Surgical History (Updated 01/30/23 @ 09:29 by Naman Poon MD) H/O arthroscopic knee surgery H/O breast augmentation Social History Social History Years smoked: 8 Smoking status: Current every day smoker Tobacco type: cigarettes Alcohol intake: former Alcohol use details: Recovering alcoholic Substance use: never Living arrangements: alone Gender identity (if verbalized by the patient): Female Spiritual care concerns: No Anes - Eval Final PreProcedure Day of Procedure 01/30/23 09:29 Patient weight: overweight Heart: regular rate and rhythm Lungs: clear to auscultation Airway: Mallampati scale class II Neurological: alert and oriented Last oral intake: >/= 8 hours ASA classification: III Emergent: no Anesthetic plan: proceed Anesthesia type and monitoring: general ETT and standard monitoring Results Review: All pre-operative results and documents have been reviewed as part of the pre-operative evaluation. Informed Consent: The patient's anesthetic plan and its attendant risks and benefits were discussed with the patient/family/POA. Questions were solicited and answers provided to the satisfaction of the patient/family/POA.
--- NOTE | 2023-01-30 09:55 | WPDHPUPDATE1 ---
History and Physical Update Update Date/Time: 01/30/23 09:55 History and Physical has been reviewed, including an updated exam of the patient. There are NO changes in the patient's condition. Risks, benefits, and alternatives have been discussed and questions answered. Patient agrees to proceed with procedure.
[2023-01-30] MEDS: fentaNYL CITRATE INJ (*CRX) 100 MCG/2 ML VIAL 25 MCG IV PUSH ×4 (12:30→12:56)
--- NOTE | 2023-01-30 12:43 | W.PM.PROC2 ---
Procedure Note - Detailed Date of Procedure 01/30/23 Pre-op Diagnosis Pain in Pelvis, Menorrhagia Post-op Diagnosis Same (With endometriosis.) Procedure Performed Diagnostic laparoscopy, resection fulguration of endometriosis, left ovarian cystectomy, hysteroscopy with endometrial ablation. Surgeon Ankush Amin MD Anesthesia General Indications Pelvic pain, menorrhagia Findings Endometriosis primarily in the left hemipelvis. Some scattered endometrial implants on the right. There was some in the deep cul-de-sac. Left ovarian cyst. Normal vulva vagina and cervix. Normal endometrium and endometrial cavity. Description of Procedure The patient was taken to the operating room. She was prepped and draped in the dorsal lithotomy position after induction general anesthesia. A 5 mm incision was made with a scalpel on the abdominal skin in the left upper quadrant of the abdomen. A 5 mm trocar was inserted into the intra-abdominal cavity under direct visualization the scope. In the same fashion a 5 mm left lower quadrant trocar was inserted and a 5 mm infraumbilical trocar was inserted. The ovary was suspended. A Mikey-Susan needle with an 0 Vicryl was placed through the abdominal wall in the left lower quadrant. The needle was then passed through the ovary. The suture was grasped on the opposite side in brought back through the same defect created by the Mikey-Susan needle. Hemostat was used on the outer surface of the abdomen to hold the uterus suspended. Remanipulated placed the intrauterine cavity using a speculum a tenaculum. A bulb was inflated. The uterus was anteflexed. Using cautery along with blunt and sharp dissection, the peritoneal surface on the left hemipelvis was removed. This is done from the pelvic brim down to the uterine artery area. It was done from the lateral perirectal area on the left to the suspensory ligament the ovary and the ovary. Ureter was dissected out and intact. Veress endometrial implants were cauterized with the deep cul-de-sac and the right hemipelvis. Samples were removed through the trocars. Left ovarian cyst was performed with cautery and sharp dissection. A speculum was placed in the vagina.? Cervix grasped with a tenaculum.? The cervix was dilated to about 1 cm.? The hysteroscope was inserted.? The above findings were noted.? Endometrial curettage was performed with a medium-size curette.? All surfaces of the endometrium were affected by the curettage.? The specimens were collected and sent to pathology.? Measurements were taken of the uterus and cervix.? The uterine length was then entered into the hand piece of the Valencia device.? The device was inserted into the intrauterine cavity.? The array of the device was expanded.? The balloon cuff was inflated.? A good seal was achieved.? The energy and safety cycles were initiated and completed.? The array was collapsed and the instrument was withdrawn after deflating the balloon cuff.? Hysteroscope was reinserted.? Above findings were noted. The hysteroscope was removed. The pelvis was irrigated. The pneumoperitoneum was reduced. The trocars were removed. Skin was closed with subcuticular 4 micro. The patient's incisions were covered with Dermabond. She was taken recovery room in stable condition. Sponge lap and needle counts were correct x2. Estimated Blood Loss -50.0 Urine Output -100.0 Complications No immediate complications Condition Stable Disposition Same day
[2023-01-30] MEDS: oxyCODONE HCL (*CRX) 5 MG TAB IR PO (13:45)
== END 2023-01-30 14:36 | disposition home or self-care (01) ==
PROVIDERS: PCP Internal Medicine; Visit Provider Obstetrics & Gynecology
PROC: 0UDB8ZZ Extraction of Endometrium, Via Natural or Artificial Opening Endoscopic (ICD-10-PCS; CPT 58558; principal; 2023-01-30 10:00)
DX: N92.0 Excessive and frequent menstruation with regular cycle (principal); N83.02 Follicular cyst of left ovary; N80.399 Endometriosis of the pelvic peritoneum, other specified sites, unspecified depth; R10.2 Pelvic and perineal pain; F41.9 Anxiety disorder, unspecified; F32.A Depression, unspecified; K58.0 Irritable bowel syndrome with diarrhea; M79.7 Fibromyalgia; F17.210 Nicotine dependence, cigarettes, uncomplicated; F10.21 Alcohol dependence, in remission
CPT/HCPCS: 58563; 58662; 88305; A9270; J0330; J1100; J1200; J1885; J2250; J2405; J2704; J3010; J7030; J7120

== ENCOUNTER 2023-02-18 12:00 | Inpatient (IN) | payer OTHER, SELFPAY ==
[2023-02-18] VITALS (9 sets, daily range): BP systolic 91–138; BP diastolic 51–89; PULSE 67–93; RESP 14–18; TEMP 36.9–39.2; O2SAT 96–100
--- NOTE | ~2023-02-18 | CT_ITS ---
EXAMINATION: CT abdomen pelvis w con DATE: 02/22/2023 08:37 INDICATION: Abdominal pain and distention. TECHNIQUE: Computed tomography (CT) of the abdomen and pelvis was performed with 100 mL Omnipaque 350 intravenous contrast. Automated exposure control and iterative reconstruction technique were employe d. The dose-length product was 922.71 mGy-cm. COMPARISON: CT abdomen and pelvis 02/18/2023, 11/05/2020 FINDINGS: The visualized portions of the lung bases demonstrate small pleural effusions and mild atel ectasis. There is a small pneumatocele in left lower lobe. There is smooth septal thickening, consist ent with mild pulmonary edema. The heart size is normal. No pericardial effusion. Bilateral breast im plants are noted. There is periportal edema in the liver. The gallbladder is normal in size. Gallblad rosette wall thickening is noted, likely interstitial edema. The spleen, pancreas, and adrenal glands are normal. 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 There is liquid stool in the colon suggesting diarrhea. The appendix measures 8 mm in diameter, which is chron ic. There are no pathologically enlarged lymph nodes. There is trace ascites. There is edema in the t highs and body wall. There is mild thoracic spondylosis. IMPRESSION: 1. Mild pulmonary edema. 2. Small pleural effusions. Reviewed, dictated and finalized at location [facility].
--- NOTE | ~2023-02-18 | CT_ITS ---
EXAMINATION: CT abdomen pelvis w con DATE: 02/18/2023 15:26 INDICATION: Increasing abdominal and pelvic pain following exploratory laparotomy on 01/30/2023 TECHNIQUE: Computed tomography (CT) of the abdomen and pelvis was performed with 100 CC Omnipaque 350 intravenous contrast. Automated exposure control and iterative reconstruction technique were employe d. Exam dose: 907.12 mGy-cm total exam DLP. COMPARISON: 12/08/2022 transvaginal pelvic ultrasound examination 11/28/2022 CT abdomen pelvis FINDINGS: Mild atelectasis in the right lower lobe. The left lung base is clear. Heart size is within normal range. No pericardial or pleural effusion. Bilateral breast implants. No hepatic, splenic, pancreatic, adrenal space-occupying mass lesion. The gallbladder appears unremar kable. No bile duct or pancreatic duct dilatation. Horseshoe kidney. 1 cm left renal cyst. No urinary tract calculus or hydroureteronephrosis is evident . Moderate diffuse thickening of the urinary bladder wall. Normal caliber of the abdominal aorta. No intraperitoneal or retroperitoneal or pelvic mass lesion or adenopathy or ascites is noted. Mild fluid accumulation in the endometrial cavity of uterus. The IUD has been removed since 11/28/2022. There are bilateral adnexal cystic areas, measuring up to approximately 2.3 cm maximal dimension on t he right. There is soft tissue infiltration of the There are bilateral adnexal cystic areas, measuring up to 2.3 cm maximal dimension on the right. Ther e is soft tissue stranding or and/or fluid in both adnexal area since 12/08/2022. Differential diagnos is includes postoperative change, ruptured ovarian cyst, ruptured ectopic gestation, pelvic inflammat ory disease. Mildly increased diameter of the appendix since 11/28/2022, currently measuring up to 8.9 mm. There is minimal periappendiceal stranding or fluid. Recommend clinical correlation to exclude acute appendici tis. IMPRESSION: Removal of IUD; mild fluid accumulation in the endometrial cavity Interval soft tissue and/or fluid density in the adnexal areas since 11/28/2022 which may represent pos toperative change, ruptured cyst, less likely ruptured ectopic gestation, pelvic inflammatory disease Bilateral adnexal cysts, measuring up to 2.3 cm maximal dimension, on the right Borderline size of the appendix and minimal periappendiceal fluid or stranding; recommend clinical co rrelation to exclude acute appendicitis Reviewed, dictated and finalized at [facility]. Reviewed, dictated and finalized at location [facility]. IMPRESSION: Removal of IUD; mild fluid accumulation in the endometrial cavity Interval soft tissue and/or fluid density in the adnexal areas since 11/28/2022 w hich may represent postoperative change, ruptured cyst, less likely ruptured ec topic gestation, pelvic inflammatory disease Bilateral adnexal cysts, measuring up to 2.3 cm maximal dimension, on the right Borderline size of the appendix and minimal periappendiceal fluid or stranding; recommend clinical correlation to exclude acute appendicitis
--- NOTE | 2023-02-18 13:13 | ED.GENADULT ---
HPI - General Adult General Chief complaint: Abdominal Pain Stated complaint: pelvic and abdominal pain Time Seen by Provider: 02/18/23 14:38 History of Present Illness HPI narrative: Joselyn Caraballo is a 42 y/o female [facility] PMHx of getting a laparoscopic exploratory abdominal surgery here on for continued lower abdominal pain. [facility] complaints of worsening lower abdominal pain since the surgery/ she reports her last BM was yesterday / urinary frequency and she feels that her abdomen is bloating. Related Data Home Medications Medication Instructions Recorded Confirmed aripiprazole 5 mg tablet (Abilify) 5 mg PO DAILY 04/12/21 02/18/23 ferrous sulfate 27 mg iron tablet 325 mg PO DAILY 04/12/21 02/18/23 topiramate 200 mg tablet (Topamax) 200 mg PO DAILY 04/12/21 02/18/23 trazodone 300 mg tablet 300 mg PO QHS 04/12/21 02/18/23 aripiprazole 2 mg tablet 2 mg PO DAILY 01/22/23 02/18/23 dextroamphetamine-amphetamine 10 10 mg PO DAILY 01/22/23 02/18/23 mg tablet dextroamphetamine-amphetamine 20 20 mg PO QAM 01/22/23 02/18/23 mg tablet levothyroxine 125 mcg tablet 125 mcg PO DAILY 01/22/23 02/18/23 cyclobenzaprine 10 mg PO Q8H PRN Muscle Pain 02/18/23 02/18/23 Allergies Allergy/AdvReac Type Severity Reaction Status Date / Time aloe vera Allergy Rash Verified 02/23/23 12:45 [facility] Past Medical History Medical History (Updated 02/24/23 @ 14:34 by Keith Briceño MD) CHAVEZ (acute kidney injury) Anxiety Depression Fibromyalgia Hypothyroidism (acquired) Irritable bowel syndrome with diarrhea Obese Small intestinal bacterial overgrowth (SIBO) Surgical History Surgical History H/O arthroscopic knee surgery H/O breast augmentation Family History Family History (Updated 02/24/23 @ 14:22 by Keith Briceño MD) Father No problems noted. Mother No problems noted. Social History Social History Years smoked: 8 Smoking status: Current every day smoker Tobacco type: cigarettes Alcohol intake: former Alcohol use details: Recovering alcoholic Substance use: never Substance use type: does not use Lack of Transportation: No Lack of Food: Never True Current Housing: I Have Housing Concerned About Future Housing: No Difficulty Paying Gas/Electric Bills: No Difficulty Paying for Meds: No Currently Unemployed: No Education: Associate Degree Difficulty w/ Childcare or Family Care: No Living arrangements: alone Gender identity (if verbalized by the patient): Female Spiritual care concerns: No Course Vital Signs Vital signs: Vital Signs Temperature 37.1 C 02/18/23 12:05 Pulse Rate 93 02/18/23 12:05 Respiratory Rate 16 02/18/23 12:05 Blood Pressure 138/76 02/18/23 12:05 Pulse Oximetry 100 02/18/23 12:05 Oxygen Delivery Room Air 02/18/23 12:05 Temperature 36.0 C L 02/25/23 06:00 Pulse Rate 66 02/25/23 06:00 Respiratory Rate 18 02/25/23 06:00 Blood Pressure 109/72 02/25/23 06:00 Pulse Oximetry 100 02/25/23 06:00 Oxygen Delivery Room Air 02/24/23 08:00 Medical Decision Making Vital Signs Vital Signs: Vital Signs Temperature 37.1 C 02/18/23 12:05 Pulse Rate 93 02/18/23 12:05 Respiratory Rate 16 02/18/23 12:05 Blood Pressure 138/76 02/18/23 12:05 Pulse Oximetry 100 02/18/23 12:05 Oxygen Delivery Room Air 02/18/23 12:05 Temperature 36.0 C L 02/25/23 06:00 Pulse Rate 66 02/25/23 06:00 Respiratory Rate 18 02/25/23 06:00 Blood Pressure 109/72 02/25/23 06:00 Pulse Oximetry 100 02/25/23 06:00 Oxygen Delivery Room Air 02/24/23 08:00 Lab Data 02/25/23 06:12 02/25/23 06:12 Labs: Lab Results 02/18/23 02/18/23 02/19/23 Range/Units 13:26 14:34 07:34 WBC 21.7 H 15.7 H (4.5-10.0) K/mm3 RBC 4.59 3.34 L
[2023-02-18 13:32] LABS: Basophils Absolute Auto 0.1 K/mm3 (0.0-0.1); Basophils Percent Auto 0.3 % (0.2-1.2); Hematocrit 42.5 % (37.0-47.0); Hemoglobin 13.8 g/dL (12.0-15.0); Immature Granulocyte Absolute 0.11 K/mm3 (0.00-0.031); Immature Granulocyte Percent A 0.5 % (0-0.5); Lymphocytes Absolute Auto 1.53 K/mm3 (0.9-3.2); Lymphocytes Percent Auto 7.1 % (18.3-44.2); Mean Corpuscular HGB Conc 32.5 g/dl (32-36); Mean Corpuscular Hemoglobin 30.1 pg (26-34); Mean Corpuscular Volume 92.6 fl (80-100); Mean Platelet Volume 10.4 fl (7.4-10.4); Monocytes Percent Auto 4.6 % (2.6-8.5); Neutrophils Percent Auto 87.5 % (45.5-73.1); Platelet Count Result 217 k/mm3 (150-375); Red Blood Count 4.59 M/mm3 (4.2-5.4); Red Cell Distribution Width 13.2 % (11.5-14.5); White Blood Count 21.7 K/mm3 (4.5-10.0)
[2023-02-18 13:45] LABS: Alanine Aminotransferase 16 U/L (6-35); Albumin Level 4.3 g/dL (3.5-5.1); Alkaline Phosphatase 63 U/L (38-126); Anion Gap 7 mmol/L (8-16); Aspartate Amino Transferase 17 U/L (14-36); Bilirubin,Total 1.4 mg/dL (0.2-1.3); Blood Urea Nitrogen 13 mg/dL (7-17); Calcium 8.9 mg/dL (8.4-10.2); Carbon Dioxide 18 mmol/L (22-30); Chloride 108 mmol/L (98-107); Estimated CRCL calculation 63 ml/min; Estimated Glomerular Filt Rate 54; Glucose 103 mg/dL (65-110); Lipase 45 U/L (23-300); Potassium 3.9 mmol/L (3.4-5.0); Sodium 133 mmol/L (137-145)
[2023-02-18 13:46] LABS: Lactic Acid Reflex 1.2 mmol/L (0.7-2.0)
--- NOTE | 2023-02-18 14:38 | ED.ABDPAIN ---
HPI - Abdominal Pain General Chief Complaint: Abdominal Pain Stated Complaint: pelvic and abdominal pain Time Seen by Provider: 02/18/23 14:38 Source: patient Mode of arrival: ambulatory Limitations: no limitations History of Present Illness HPI narrative: 32 years old white female came to the emergency room with diffuse abdominal pain started November 20, 2022, was seen by Dr. Amin, underwent left ovarian cyst removed. And was referred to sailing instructor for further evaluation. Patient reported that nobody knows what is going on and her pain is getting worse. She denies any fever or chills or nausea or vomiting. History of Noah disease, IBS, endometriosis, tobacco abuse. Pain is 10 out of 10. Worse with any movement, steady, nothing make it. She denies any vaginal bleeding or discharge. Related Data Home Medications Medication Instructions Recorded Confirmed aripiprazole 5 mg tablet (Abilify) 5 mg PO DAILY 04/12/21 02/18/23 ferrous sulfate 27 mg iron tablet 325 mg PO DAILY 04/12/21 02/18/23 topiramate 200 mg tablet (Topamax) 200 mg PO DAILY 04/12/21 02/18/23 trazodone 300 mg tablet 300 mg PO QHS 04/12/21 02/18/23 aripiprazole 2 mg tablet 2 mg PO DAILY 01/22/23 02/18/23 dextroamphetamine-amphetamine 10 10 mg PO DAILY 01/22/23 02/18/23 mg tablet dextroamphetamine-amphetamine 20 20 mg PO QAM 01/22/23 02/18/23 mg tablet levothyroxine 125 mcg tablet 125 mcg PO DAILY 01/22/23 02/18/23 cyclobenzaprine 10 mg PO Q8H PRN Muscle Pain 02/18/23 02/18/23 Allergies Allergy/AdvReac Type Severity Reaction Status Date / Time No Known Allergies Allergy Unknown X Verified 01/30/23 08:07 Review of Systems Review of Systems: All systems reviewed & are unremarkable except as noted in HPI and below PMFSH Past Medical History Medical History Anxiety Depression Fibromyalgia Irritable bowel syndrome with diarrhea Obese Small intestinal bacterial overgrowth (SIBO) Surgical History Surgical History H/O arthroscopic knee surgery H/O breast augmentation Social History Social History Years smoked: 8 Smoking status: Current every day smoker Tobacco type: cigarettes Alcohol intake: former Alcohol use details: Recovering alcoholic Substance use: never Living arrangements: alone Gender identity (if verbalized by the patient): Female Spiritual care concerns: No Exam Narrative: General appearance: Well-developed, well-nourished Skin: Normal color Head: Normocephalic, nontraumatic Eyes: Clear conjunctiva ENT: Oropharynx normal, ears normal, nose normal Neck: Supple, nontender Chest and respiratory: Airway patent, no respiratory distress, no accessory muscle use Heart: Regular rate/rhythm Abdomen: Soft, diffuse tenderness, positive guarding, and rebound , Vascular: Normal peripheral pulses, normal capillary refill. Musculoskeletal: Normal range of motion, nontender back Neurologic: Alert and oriented ?3, PERFORMANCE ENGINEER is normal as tested, no gross motor deficit Course Consultations Consultation #1: Dr. Amin Admit to my service Date: 02/18/23 Time: 16:56 Consultation #2: Dr. Bedolla Date: 02/18/23 Time: 16:56 Vital Signs Vital signs: Vital Signs Temperature 37.1 C 02/18/23 12:05 Pulse Rate 93 02/18/23 12:05 Respiratory Rate 16 02/18/23 12:05 Blood Pressure 138/76 02/18/23 12:05 Pulse Oximetry 100 02/18/23 12:05 Oxygen Delivery Room Air 02/18/23 12:05 Temperature 38.3 C H 02/18/23 19:37 Pulse Rate 89 02/18/23 18:23 Respiratory Rate 16
[2023-02-18] MEDS: HYDROmorphone HCL INJ (*CRX) 1 MG/ML SYR 0.5 MG IV PUSH ×2 (14:50→18:50)
[2023-02-18] MEDS: SODIUM CHLORIDE 0.9% IV 1,000 ML 999 ML IV CONT (14:50)
[2023-02-18] MEDS: ONDANSETRON INJ 4 MG/2 ML VIAL IV PUSH (14:51)
[2023-02-18 14:57] LABS: Appearance Urine Clear (Clear); Bacteria Urine None Seen /hpf; Bilirubin Urine Negative (Negative); Blood Urine Trace (Negative); Color Urine Yellow (Yellow); Glucose Urine UA Negative (Negative); Ketones Urine Negative (Negative); Leukocyte Esterase Ur Negative LEU/UL (Negative); Nitrate Urine Negative (Negative); Non Pathogenic Casts 0-2; Protein Urine Negative (Negative); RBC Urine 0-2 /hpf (0-2); Specific Grav Ur 1.018 (1.001-1.035); Squamous Epithelial Cell Urine None seen /hpf (Few); WBC Urine 0-5 /hpf; pH Urine 6.5 (5.0-9.0)
[2023-02-18 15:03] LABS: Add Urine Microscopic? YES
[2023-02-18] MEDS: PIPERACILLN/TAZ 3.375GM/NS50ML 3.375 GM/50 ML BAG IVPB (17:03)
[2023-02-18] MEDS: SODIUM CHLORIDE 0.9% IV 1,000 ML 150 ML IV CONT (17:18)
[2023-02-18] MEDS: ACETAMINOPHEN 500 MG TABLET 1000 MG PO (18:38)
--- NOTE | 2023-02-18 20:36 | PC.NURSE ---
Spoke with Dr. Amin at this time r/t patient having uncontrolled pain with current orders. New orders received for dilaudid 2mg IVP Q4H PRN for pain.
[2023-02-18] MEDS: HYDROmorphone HCL INJ (*CRX) 1 MG/ML SYR 2 MG IV PUSH (20:58)
[2023-02-19] VITALS: BP 99/55; PULSE 65; RESP 14; TEMP 37; O2SAT 98
[2023-02-19] MEDS: PIPERACILLN/TAZ 3.375GM/NS50ML 3.375 GM/50 ML BAG IVPB ×5 (00:17→23:03)
[2023-02-19] MEDS: SODIUM CHLORIDE 0.9% IV 1,000 ML 150 ML IV CONT ×4 (00:27→23:03)
[2023-02-19] MEDS: HYDROmorphone HCL INJ (*CRX) 1 MG/ML SYR 2 MG IV PUSH ×6 (01:23→23:02)
[2023-02-19 04:00] VITALS: BP 90/54; PULSE 82; RESP 16; TEMP 37.1; O2SAT 100
--- NOTE | 2023-02-19 06:03 | PC.NURSE ---
Spoke with Dr. Amin r/t patient's low BP's this shift. New order received for NS 1L IV bolus x1.
[2023-02-19 06:41] VITALS: BP 106/62
[2023-02-19] MEDS: SODIUM CHLORIDE 0.9% IV 1,000 ML 999 ML IV CONT (06:45)
[2023-02-19 07:50] LABS: Basophils Percent Auto 0.2 % (0.2-1.2); Eosinophils Percent Auto 0.3 % (0-4.4); Hematocrit 31.3 % (37.0-47.0); Hemoglobin 10.2 g/dL (12.0-15.0); Immature Granulocyte Absolute 0.12 K/mm3 (0.00-0.031); Immature Granulocyte Percent A 0.8 % (0-0.5); Lymphocytes Absolute Auto 1.37 K/mm3 (0.9-3.2); Lymphocytes Percent Auto 8.7 % (18.3-44.2); Mean Corpuscular HGB Conc 32.6 g/dl (32-36); Mean Corpuscular Hemoglobin 30.5 pg (26-34); Mean Corpuscular Volume 93.7 fl (80-100); Mean Platelet Volume 10.3 fl (7.4-10.4); Monocytes Absolute Auto 0.8 K/mm3 (0.1-0.6); Monocytes Percent Auto 5.3 % (2.6-8.5); Neutrophils Absolute Auto 13.3 K/mm3 (1.3-6.7); Neutrophils Percent Auto 84.7 % (45.5-73.1); Platelet Count Result 152 k/mm3 (150-375); Red Blood Count 3.34 M/mm3 (4.2-5.4); Red Cell Distribution Width 13.2 % (11.5-14.5); White Blood Count 15.7 K/mm3 (4.5-10.0)
--- NOTE | 2023-02-19 09:03 | PM.IMHP ---
H&P: HPI History of Present Illness Date/Time: 02/19/23 09:03 Chief Complaint: Abdominal pain Narrative: This patient is a 42-year-old female who is 3 weeks postop from resection fulguration of endometriosis in the deep pelvis. She presented to the emergency department with acute abdominal pain. She has severe abdominal pain. It started about 24 hours ago and became worse over time. Seems to be focused in the right lower quadrant. She was evaluated in the emergency department. She was afebrile, with guarding and diffuse abdominal pain she has elevated white count. CT scan revealed some concern about the appendix and also some concern about the bilateral adnexa adnexa. The bilateral adnexa areas or deep pelvic sidewalls did have resection of the peritoneum on the left and fulguration of some endometriosis on the right. This could cause or explain the findings there. Being 3 weeks postop I feel it is unlikely that this is related to an infection or causative. But, it is still possible. I will await General surgery's opinion. Perhaps diagnostic laparoscopy is required here. Review of Systems Review of Systems: All systems reviewed & are unremarkable except as noted in HPI and below Constitutional: Constitutional: Denies chills, Denies fatigue, Denies fever(s) and Denies weakness Eyes: Eyes: Denies blurry vision, Denies change in vision, Denies loss of peripheral vision, Denies loss of vision, Denies other visual disturbances and Denies eye pain ENT: Denies vertigo, Denies dizziness, Denies hearing loss, Denies mouth pain, Denies nasal obstruction, Denies neck mass and Denies neck pain Cardiovascular: Cardiovascular: Denies chest pain, Denies diaphoresis, Denies syncope, Denies leg edema and Denies dyspnea Respiratory: Respiratory: Denies chest congestion, Denies cough, Denies hemoptysis, Denies dyspnea and Denies wheezing Gastrointestinal: Gastrointestinal: Denies abdominal pain, Denies constipation, Denies diarrhea, Denies nausea and Denies vomiting Genitourinary: Genitourinary: Denies hematuria, Denies change in libido, Denies nocturia, Denies genital lesions, Denies flank pain and Denies urinary urgency Musculoskeletal: Musculoskeletal: Denies abnormal gait, Denies back pain, Denies myalgias, Denies arthralgias, Denies joint swelling, Denies muscle weakness and Denies neck pain Integumentary/Breasts: Skin/Breast: Denies swelling, Denies breast pain, Denies breast mass, Denies dry skin, Denies nipple discharge, Denies unusual bruising and Denies jaundice Neurologic: Denies Neuro-related abnormal movements, Denies Abnormal speech present, Denies abnormal gait, Denies behavioral changes, Denies confusion, Denies vertigo, Denies dizziness, Denies syncope, Denies loss of vision, Denies memory loss, Denies convulsions and Denies weakness Psychiatric: Psychiatric: Denies abnormal sleep pattern, Denies behavioral changes, Denies change in libido, Denies confusion, Denies depression, Denies anhedonia and Denies memory loss Endocrine: Endocrine: Reports no additional endocrine complaints, Denies change in libido and Denies fatigue Hematologic/Lymphatic: Hematologic/Lymphatic: Reports no additional hematologic/lymphatic complaints Allergic/Immunologic: Allergic/Immunologic: Reports no additional allergic/immunologic complaints and Denies wheezing PMFSH Past Medical History Medical History Anxiety Depression Fibromyalgia Irritable bowel syndrome with diarrhea Obese Small intestinal bacterial overgrowth (SIBO) Surgical History Surgical History H/O arthroscopic knee surgery H/O breast augmentation Social History Social History Years smoked: 8 Smoking status: Current every day smoker Tobacco type: cigarettes Alcohol intake: former Alcohol use details: Recovering alcoholic
--- NOTE | 2023-02-19 11:23 | PM.CNGS ---
Assessment and Plan Assessment and plan (1) Abnormal CT of the abdomen: Code(s): R93.5 - Abnormal findings on diagnostic imaging of other abdominal regions, including retroperitoneum Status: Acute Assessment and Plan: CT abdomen and pelvis was reviewed by Dr. Bedolla with the Radiologist this morning. The appendix is filled with gas and does not have any significant inflammatory stranding around it to suggest acute appendicitis. Most inflammatory stranding is actually on the left side around her left ovary. She is primarily complaining of generalized abdominal pain worse on the left towards the left flank. On exam, she is diffusely tender and does not seem localized to the RLQ. At this time, it seems unlikely that her ongoing abdominal pain since November is related to her appendix. Her presentation and exam do not correlate with acute appendicitis. We would recommend continuing IV antibiotics and monitoring for now. Dr. Bedolla will discuss the case with Dr. Amin with further plans pending their conversation. (2) Abdominal pain: Code(s): R10.9 - Unspecified abdominal pain Status: Acute Assessment and Plan: Her presentation with abdominal pain since November and her physical exam do not correlate with what is typically seen with acute appendicitis. Would recommend evaluating for other possible etiologies. Dr. Bedolla will discuss with OBGYN. (3) Leukocytosis: Code(s): D72.829 - Elevated white blood cell count, unspecified Status: Acute Assessment and Plan: WBC 21.7 on admission and down to 15 today. Continue IV Antibiotics and monitor. This does not appear to be related to her appendix as mentioned above. (4) Irritable bowel syndrome with diarrhea: Code(s): K58.0 - Irritable bowel syndrome with diarrhea Status: Acute Plan I have discussed the patient's case and plan of care with Dr. Bedolla. History of Present Illness Consult details Consult date: 02/19/23 Reason for consult: other (Possible acute appendicitis) Requesting physician: Lisa Bedolla MD Narrative: This is a 42-year-old woman who recently underwent diagnostic laparoscopy, resection fulguration of endometriosis, left ovarian cystectomy, hysteroscopy with endometrial ablation by Dr. Amin on 01/30/23. She has a history of IBS and SIBO after workup for chronic abdominal pain for many years. She developed a new onset of generalized abdominal pain in November of 2022 that brought her into the ER. Her pain began 1 week after IUD placement by her Avionics Manager. Initially, she also noted urinary frequency and thought it could be urinary related. Her abdominal pain became severe enough that she went into the ER. CT scan abdomen and pelvis showed a cystic lesion at the junction of the right adnexa and right-sided uterine fundus. No other acute intraabdominal findings. Labs showed a normal WBC count. She was discharged home and recommended to follow-up with OBGYN. She saw her wind science and planning who gave the option of doing a diagnostic laparoscopic. Initially, she was hesitant as she thought her abdominal pain was GI related. Eventually, her pain was not improving and she decided to proceed with surgery on 01/30/23 as mentioned above. Following surgery, her abdominal pain has been unchanged. When asked to describe her pain, she reports this is cramping, sharp, and severe in nature. She had additional incisional soreness, but no improvement in abdominal pain. She also reports associated nausea, but no vomiting. Bowels have been moving normally since surgery. She does report a subjective fever over the past few days as well and took Tylenol. She reports she came into the ER last night because she could not take the pain any longer. In the ER, her WBC count was 21,700. UA negative. CT abdomen/pelvis showed mild fluid accumulation in the endometrial cavity, interval soft tissue and/or fluid density in the adnexal areas since November, bilateral adnexal cysts measuring
[2023-02-19 12:00] LABS: Basophils Percent Auto 0.3 % (0.2-1.2); Eosinophils Percent Auto 0.3 % (0-4.4); Hematocrit 31.5 % (37.0-47.0); Hemoglobin 10.2 g/dL (12.0-15.0); Immature Granulocyte Absolute 0.11 K/mm3 (0.00-0.031); Immature Granulocyte Percent A 0.7 % (0-0.5); Lymphocytes Absolute Auto 1.66 K/mm3 (0.9-3.2); Lymphocytes Percent Auto 11.1 % (18.3-44.2); Mean Corpuscular HGB Conc 32.4 g/dl (32-36); Mean Corpuscular Hemoglobin 30.5 pg (26-34); Mean Corpuscular Volume 94.3 fl (80-100); Mean Platelet Volume 10.2 fl (7.4-10.4); Monocytes Absolute Auto 0.8 K/mm3 (0.1-0.6); Monocytes Percent Auto 5.2 % (2.6-8.5); Neutrophils Absolute Auto 12.3 K/mm3 (1.3-6.7); Neutrophils Percent Auto 82.4 % (45.5-73.1); Platelet Count Result 153 k/mm3 (150-375); Red Blood Count 3.34 M/mm3 (4.2-5.4); Red Cell Distribution Width 13.2 % (11.5-14.5)
[2023-02-19 14:00] VITALS: BP 101/62; PULSE 75; RESP 22; TEMP 36.6; O2SAT 100
[2023-02-19] MEDS: ONDANSETRON INJ 4 MG/2 ML VIAL IV PUSH ×2 (18:46→23:08)
[2023-02-19 20:00] VITALS: PULSE 92; RESP 12; O2SAT 100
[2023-02-19] MEDS: traZODone HCL 50 MG TABLET 300 MG PO (21:02)
[2023-02-19 22:00] VITALS: BP 122/76; PULSE 92; RESP 12; TEMP 36.9; O2SAT 100
[2023-02-20] MEDS: ACETAMINOPHEN 500 MG TABLET PO ×3 (01:24→15:40)
[2023-02-20] MEDS: PIPERACILLN/TAZ 3.375GM/NS50ML 3.375 GM/50 ML BAG IVPB ×3 (05:35→17:17)
[2023-02-20] MEDS: LEVOTHYROXINE SODIUM 125 MCG TABLET PO (05:35)
[2023-02-20 06:00] VITALS: BP 94/56; PULSE 72; RESP 18; TEMP 36.2; O2SAT 100
[2023-02-20] MEDS: HYDROmorphone HCL INJ (*CRX) 1 MG/ML SYR 2 MG IV PUSH ×5 (06:05→22:22)
[2023-02-20 08:00] VITALS: BP 110/64; PULSE 60; RESP 18; TEMP 36.7; O2SAT 98
[2023-02-20] MEDS: TOPIRAMATE 100 MG TABLET 200 MG PO ×2 (09:26→20:55)
[2023-02-20] MEDS: ARIPiprazole 5 MG TABLET PO (09:26)
[2023-02-20 09:42] LABS: Basophils Percent Auto 0.3 % (0.2-1.2); Eosinophils Absolute Auto 0.2 K/mm3 (0-0.3); Eosinophils Percent Auto 1.3 % (0-4.4); Hematocrit 30.6 % (37.0-47.0); Hemoglobin 10.1 g/dL (12.0-15.0); Immature Granulocyte Absolute 0.05 K/mm3 (0.00-0.031); Immature Granulocyte Percent A 0.4 % (0-0.5); Lymphocytes Absolute Auto 2.49 K/mm3 (0.9-3.2); Mean Corpuscular Hemoglobin 30.5 pg (26-34); Mean Corpuscular Volume 92.4 fl (80-100); Mean Platelet Volume 10.1 fl (7.4-10.4); Monocytes Absolute Auto 0.7 K/mm3 (0.1-0.6); Monocytes Percent Auto 5.9 % (2.6-8.5); Neutrophils Absolute Auto 8.5 K/mm3 (1.3-6.7); Neutrophils Percent Auto 71.1 % (45.5-73.1); Platelet Count Result 158 k/mm3 (150-375); Red Blood Count 3.31 M/mm3 (4.2-5.4); Red Cell Distribution Width 13.3 % (11.5-14.5); White Blood Count 11.9 K/mm3 (4.5-10.0)
[2023-02-20 12:00] VITALS: BP 96/67; PULSE 55; RESP 18; TEMP 36.8; O2SAT 99
--- NOTE | 2023-02-20 12:08 | PM.GYNPNOP ---
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 Describes some increased abdominal distension. She has some diarrhea. This is probably related to her antibiotics both the distension, gas, diarrhea. No distress, afebrile now for over 24 hours, white count is coming down. Patient does continue to have significant pain. She has required IV pain medication. To continue observation IV antibiotics. Infection source cannot be identified but she appears to be improving. Time Spent With Patient Time: Total time spent is greater than 50% in coordination of care (as documented) at patient's floor/unit and/or counseling patient: Time with patient: 15 - 25 minutes CRIMINAL JUSTICE SOCIAL WORKER- PN:Jasiel Post-Op Subjective Date/time seen: 02/20/23 12:08 Interval history: Patient appears to be improved today, states she is in less pain. Describes some increased abdominal distension. She has some diarrhea. This is probably related to her antibiotics both the distension, gas, diarrhea. No distress, afebrile now for over 24 hours, white count is coming down. Patient does continue to have significant pain. She has required IV pain medication. To continue observation IV antibiotics. Infection source cannot be identified but she appears to be improving. Exam Const: General: cooperative, healthy appearing, comfortable and no acute distress Orientation/consciousness: oriented to person, oriented to place and oriented to time HENMT: Head: normal to inspection Ears: external ears normal Face/Nose/Sinus: Normal external nose present and normal facial exam Face and sinus: normal facial exam Eyes: General: appearance normal, both eyes and all related structures Neck: Neck: normal visual inspection, trachea midline and supple Resp: Auscultation: clear to auscultation bilaterally, no crackles, no rales, no rhonchi and no wheezes Cardio: Rate: regular rate Rhythm: regular rhythm Heart sounds: no click, no murmurs and no rubs GI: GI Palp: No abdominal tenderness, No Soft to palpation, No Tenderness to palpation present (GI) and No Palpable mass present Auscultation: normal bowel sounds Skin: General skin exam: normal color and no rashes or lesions noted Neuro: General: oriented to person, oriented to place and oriented to time Extrem: General: normal to inspection, no joint enlargement, no clubbing, cyanosis or edema, no pedal edema and no calf tenderness Psych: Appearance: grossly normal Mental Status: mental status grossly normal Speech and movement: Normal speech and movement present CRIMINAL JUSTICE SOCIAL WORKER - PN: Obj Data Vital Signs Vital Signs: Vital Signs - 24 hr 02/19/23 14:00 02/19/23 22:00 02/19/23 20:00 Temperature 97.8 F 98.4 F Pulse Rate 75 92 92 Respiratory Rate 22 H 12 12 Blood Pressure 101/62 122/76 Pulse Oximetry 100 100 100 Oxygen Delivery Room Air 02/20/23 06:00 02/20/23 08:00 02/20/23 08:00 Temperature 97.1 F L 98.1 F Pulse Rate 72 60 Respiratory Rate 18 18 Blood Pressure 94/56 L 110/64 Pulse Oximetry 100 98 Oxygen Delivery Room Air Intake/Output Intake/Output: Intake & Output 02/17/23 02/18/23 02/19/23 02/20/23 23:59 23:59 23:59 23:59 Intake Total 2049 3950 1092 Balance 2049 3950 1092 Meds/Results Medications: Active Medications Generic Name Dose Route Start Last Admin Trade Name Freq PRN Reason Stop Dose Admin Acetaminophen 500 mg 02/20/23 01:07 02/20/23 11:35 Acetaminophen 500 Mg Tablet PO 500 mg Q4H PRN Administration Mild Pain (1-3) or Fever Aripiprazole 5 mg 02/20/23 09:00 02/20/23 09:26 Aripiprazole 5 Mg Tablet PO 5 mg DAILY TONIE Administration Cyclobenzaprine HCl 10 mg 02/19/23 17:26 Cyclobenzaprine Hcl 10 Mg Tablet PO Q8H PRN [facility] [place]
--- NOTE | 2023-02-20 12:12 | PM.PNGS ---
Progress Note: A&P Assessment and Plan (1) Abdominal pain: Code(s): R10.9 - Unspecified abdominal pain Status: Acute Assessment and Plan: exam slightly improved, WBC 11k, cont abx, serial exams, ADAT Subjective Subjective Date/Time Seen: 02/20/23 12:12 Interval history: feels a little better, reports bloating, some diarrhea Review of Systems Review of Systems: All systems reviewed & are unremarkable except as noted in HPI and below Exam Const: General: cooperative, no acute distress and lethargic Resp: Auscultation: clear to auscultation bilaterally Cardio: Rate: regular rate Rhythm: regular rhythm GI: Inspection: normal to inspection and distended GI Palp: Yes abdominal tenderness, Yes Soft to palpation, Yes Tenderness to palpation present (GI), No Guarding due to palpation present (GI) and No Rigid due to palpation Other: diffuse TTP, L>R, improved since yest Objective Data Vital Signs Vital Signs: Vital Signs - 24 hr 02/19/23 14:00 02/19/23 22:00 02/19/23 20:00 Temperature 36.6 C 36.9 C Pulse Rate 75 92 92 Respiratory Rate 22 H 12 12 Blood Pressure 101/62 122/76 Pulse Oximetry 100 100 100 Oxygen Delivery Room Air 02/20/23 06:00 02/20/23 08:00 02/20/23 08:00 Temperature 36.2 C L 36.7 C Pulse Rate 72 60 Respiratory Rate 18 18 Blood Pressure 94/56 L 110/64 Pulse Oximetry 100 98 Oxygen Delivery Room Air Intake/Output Intake/Output: Intake & Output 02/17/23 02/18/23 02/19/23 02/20/23 23:59 23:59 23:59 23:59 Intake Total 2049 3950 1092 Balance 2049 3950 1092 Meds/Results Medications: Active Medications Generic Name Dose Route Start Last Admin Trade Name Freq PRN Reason Stop Dose Admin Acetaminophen 500 mg 02/20/23 01:07 02/20/23 11:35 Acetaminophen 500 Mg Tablet PO 500 mg Q4H PRN Administration Mild Pain (1-3) or Fever Aripiprazole 5 mg 02/20/23 09:00 02/20/23 09:26 Aripiprazole 5 Mg Tablet PO 5 mg DAILY TONIE Administration Cyclobenzaprine HCl 10 mg 02/19/23 17:26 Cyclobenzaprine Hcl 10 Mg Tablet PO Q8H PRN Muscle Spasm Ferrous Sulfate 325 mg 02/20/23 12:00 Ferrous Sulfate [address] PO NOON [facility] Hydromorphone HCl 2 mg 02/18/23 20:37 02/20/23 10:09 Hydromorphone Hcl Inj (*Crx) 1 Mg/Ml Syr IV PUSH 2 mg Q4H PRN Administration Pain Piperacillin/Tazobactam/Dextrose 3.375 gm in 50 mls @ 100 mls/hr 02/19/23 00:00 02/20/23 11:36 Zosyn 3.375 Gm/Ns 50 Ml IVPB 100 mls/hr Q6H TONIE Administration Sodium Chloride 1,000 mls @ 150 mls/hr 02/18/23 17:00 02/19/23 23:03 Normal Saline Iv IV CONT 150 mls/hr .Q6H40M TONIE Administration Levothyroxine Sodium 125 mcg 02/20/23 06:30 02/20/23 05:35 Levothyroxine Sodium 125 Mcg Tablet PO 125 mcg DAILY@0630 TONIE Administration Ondansetron HCl 4 mg 02/18/23 16:59 02/19/23 23:08 Ondansetron Inj 4 Mg/2 Ml Vial IV PUSH 4 mg Q4H PRN Administration Nausea Oxycodone/Acetaminophen 1 tablet 02/19/23 17:36 Oxycodone/Acetaminophen (*Crx) 5-325 Mg Tablet PO Q4H PRN Pain Rated 4-6 Topiramate 200 mg 02/20/23 09:00 02/20/23 09:26 Topiramate 100 Mg Tablet PO 200 mg DAILY TONIE Administration Trazodone HCl 300 mg 02/19/23 20:00 02/19/23 21:02 Trazodone Hcl 50 Mg Tablet PO 300 mg HS PRN Administration Insomnia Radiology Results: ITS Impressions Abdomen/Pelvis CT 02/18/23 15:41 IMPRESSION: Removal of IUD; mild fluid accumulation in the endometrial cavity Interval soft tissue and/or fluid density in the adnexal areas since 11/28/2022 which may represent postoperative change, ruptured cyst, less likely ruptured ectopic gestation, pelvic inflammatory disease Bilateral adnexal cysts, measuring up to 2.3 cm maximal dimension, on the right Borderline size of the appendix and minimal periappendiceal fluid or stranding; recommend clinical correlation to exclude acute ap
[2023-02-20 12:15] LABS: Alanine Aminotransferase 10 U/L (6-35); Alkaline Phosphatase 45 U/L (38-126); Anion Gap 5 mmol/L (8-16); Aspartate Amino Transferase 13 U/L (14-36); Bilirubin,Total 0.9 mg/dL (0.2-1.3); Blood Urea Nitrogen 5 mg/dL (7-17); Calcium 8.1 mg/dL (8.4-10.2); Carbon Dioxide 19 mmol/L (22-30); Chloride 114 mmol/L (98-107); Estimated CRCL calculation 63 ml/min; Estimated Glomerular Filt Rate 54; Glucose 99 mg/dL (65-110); Potassium 3.4 mmol/L (3.4-5.0); Sodium 138 mmol/L (137-145)
[2023-02-20] MEDS: SODIUM CHLORIDE 0.9% IV 1,000 ML 150 ML IV CONT ×2 (17:16→22:21)
[2023-02-20] MEDS: oxyCODONE/ACETAMINOPHEN (*CRX) 5-325 MG TABLET 1 TABLET PO (20:55)
[2023-02-20] MEDS: traZODone HCL 50 MG TABLET 300 MG PO (20:55)
[2023-02-20 21:41] VITALS: BP 102/68; PULSE 56; RESP 16; TEMP 36.6; O2SAT 100
[2023-02-21] MEDS: PIPERACILLN/TAZ 3.375GM/NS50ML 3.375 GM/50 ML BAG IVPB ×5 (00:31→23:44)
[2023-02-21 01:01] VITALS: BP 92/55; PULSE 50; RESP 16; TEMP 37.1; O2SAT 99
[2023-02-21] MEDS: HYDROmorphone HCL INJ (*CRX) 1 MG/ML SYR 2 MG IV PUSH (02:18)
[2023-02-21] MEDS: oxyCODONE/ACETAMINOPHEN (*CRX) 5-325 MG TABLET 1 TABLET PO ×5 (05:33→23:48)
[2023-02-21] MEDS: LEVOTHYROXINE SODIUM 125 MCG TABLET PO (05:33)
[2023-02-21 06:00] VITALS: BP 107/73; PULSE 60; RESP 14; TEMP 36.2; O2SAT 99
[2023-02-21] MEDS: ACETAMINOPHEN 500 MG TABLET PO ×2 (07:16→11:13)
[2023-02-21] MEDS: ARIPiprazole 5 MG TABLET PO (08:06)
[2023-02-21] MEDS: CYCLOBENZAPRINE HCL 10 MG TABLET PO (08:18)
[2023-02-21] MEDS: FERROUS SULFATE 325 MG TABLET DR PO (11:10)
[2023-02-21] MEDS: SODIUM CHLORIDE 0.9% IV 1,000 ML 150 ML IV CONT (12:17)
[2023-02-21 14:00] VITALS: PULSE 68; RESP 16; TEMP 36.4; O2SAT 97
--- NOTE | 2023-02-21 14:40 | PM.PNGS ---
Progress Note: A&P Assessment and Plan (1) Abdominal pain: Code(s): R10.9 - Unspecified abdominal pain Status: Acute Assessment and Plan: Still having abdominal pain that has moved to the upper abdomen, but still also having lower abdominal pain worse on the left. We feel this is not acute appendicitis. Unclear source for her abdominal pain, but no improvement. Recommend to continue the IV antibiotics and will consult GI today as she was scheduled to see GI as an outpatient for further workup but pain continues to be uncontrolled. WBC trending down as of yesterday. Will repeat labs again tomorrow. Plan I have discussed the patient's case and plan of care with Dr. Bedolla. Subjective Subjective Date/Time Seen: 02/21/23 14:40 Patient reports: still having pain, flatus, diarrhea, nausea and vomiting Interval history: Patient feels her abdominal pain has gotten worse today and is primarily in the upper abdomen under her breasts. She still have lower abdominal pain, but this has improved. The worst pain is still in the LUQ and LLQ radiating to her left flank. She reports intermittent nausea and had an episode of vomiting 2 nights ago, but not yesterday or today. She has a hx of IBS and deals with constipation and diarrhea. Since admission, she feels her diarrhea has gotten worse. No fevers. No other complaints at this time. Exam Const: General: uncomfortable Orientation/consciousness: patient oriented x3 GI: Inspection: non-distended GI Palp: Yes Soft to palpation, Yes Tenderness to palpation present (GI) (diffusely tender, worse in the LUQ and LLQ), No Guarding due to palpation present (GI) and No Rebound tenderness present Auscultation: normal bowel sounds Objective Data Vital Signs Vital Signs: Vital Signs - 24 hr 02/20/23 21:41 02/21/23 01:01 02/21/23 06:00 Temperature 97.8 F 98.7 F 97.2 F L Pulse Rate 56 L 50 L 60 Respiratory Rate 16 16 14 Blood Pressure 102/68 92/55 L 107/73 Pulse Oximetry 100 99 99 Intake/Output Intake/Output: Intake & Output 02/18/23 02/19/23 02/20/23 02/21/23 23:59 23:59 23:59 23:59 Intake Total 2049 3950 4186 1650 Balance 2050 3950 4186 1650 Meds/Results Medications: Active Medications Generic Name Dose Route Start Last Admin Trade Name Freq PRN Reason Stop Dose Admin Acetaminophen 500 mg 02/20/23 01:07 02/21/23 11:13 Acetaminophen 500 Mg Tablet PO 500 mg Q4H PRN Administration Mild Pain (1-3) or Fever Aripiprazole 5 mg 02/20/23 09:00 02/21/23 08:06 Aripiprazole 5 Mg Tablet PO 5 mg DAILY TONIE Administration Cyclobenzaprine HCl 10 mg 02/19/23 17:26 02/21/23 08:18 Cyclobenzaprine Hcl 10 Mg Tablet PO 10 mg Q8H PRN Administration Muscle Spasm Ferrous Sulfate 325 mg 02/20/23 12:00 02/21/23 11:10 Ferrous Sulfate [address] PO 325 mg NOON TONIE Administration Hydromorphone HCl 2 mg 02/18/23 20:37 02/21/23 02:18 Hydromorphone Hcl Inj (*Crx) 1 Mg/Ml Syr IV PUSH 2 mg Q4H PRN Administration Pain Piperacillin/Tazobactam/Dextrose 3.375 gm in 50 mls @ 100 mls/hr 02/19/23 00:00 02/21/23 11:40 Zosyn 3.375 Gm/Ns 50 Ml IVPB Infused Q6H TONIE Infusion Sodium Chloride 1,000 mls @ 150 mls/hr 02/18/23 17:00 02/21/23 12:17 Normal Saline Iv IV CONT 150 mls/hr .Q6H40M TONIE Administration Levothyroxine Sodium 125 mcg 02/20/23 06:30 02/21/23 05:33 Levothyroxine Sodium 125 Mcg Tablet PO 125 mcg DAILY@0630 TONIE Administration Ondansetron HCl 4 mg 02/18/23 16:59 02/19/23 23:08 Ondansetron Inj 4 Mg/2 Ml Vial IV PUSH 4 mg Q4H PRN Administration Nausea Oxycodone/Acetaminophen 1 tablet 02/19/23 17:36 02/21/23 13:39 Oxycodone/Acetaminophen (*Crx) 5-325 Mg Tablet PO 1 tablet Q4H PRN Administration Pain Rated 4-6 Topiramate 200 mg 02/20/23 21:00 02/20/23 20:55 Topiramate 100 Mg Tablet PO 200 mg HS TONIE Administration Trazodone HCl 300 mg 1
--- NOTE | 2023-02-21 19:05 | PM.GYNPNOP ---
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 Resolution of fever and white count Time Spent With Patient Time: Total time spent is greater than 50% in coordination of care (as documented) at patient's floor/unit and/or counseling patient: Time with patient: 15 - 25 minutes STRAW HAT PLUNGER OPERATOR- PN:Subj Post-Op Subjective Date/time seen: 02/21/23 19:05 Interval history: Reports increasing abdominal distension, positive flatus, positive bowel movement, no nausea or vomiting. She denies any fevers or chills. She denies any chest pain shortness of breath. Denies any diarrhea Exam Const: General: cooperative, healthy appearing, comfortable and no acute distress Orientation/consciousness: oriented to person, oriented to place and oriented to time HENMT: Head: normal to inspection Ears: external ears normal Face/Nose/Sinus: Normal external nose present and normal facial exam Face and sinus: normal facial exam Eyes: General: appearance normal, both eyes and all related structures Neck: Neck: normal visual inspection, trachea midline and supple Resp: Auscultation: clear to auscultation bilaterally, no crackles, no rales, no rhonchi and no wheezes Cardio: Rate: regular rate Rhythm: regular rhythm Heart sounds: no click, no murmurs and no rubs GI: GI Palp: Yes abdominal tenderness, Yes Firmness to palpation present (GI), Yes Tenderness to palpation present (GI), No Guarding due to palpation present (GI), No Rigid due to palpation, No Palpable mass present and Yes Other GI palpation findings present ( distended, positive bowel sounds) Auscultation: normal bowel sounds Skin: General skin exam: normal color and no rashes or lesions noted Neuro: General: oriented to person, oriented to place and oriented to time Extrem: General: normal to inspection, no joint enlargement, no clubbing, cyanosis or edema, no pedal edema and no calf tenderness Psych: Appearance: grossly normal Mental Status: mental status grossly normal Speech and movement: Normal speech and movement present STRAW HAT PLUNGER OPERATOR - PN: Obj Data Vital Signs Vital Signs: Vital Signs - 24 hr 02/20/23 21:41 02/21/23 01:01 02/21/23 06:00 Temperature 97.8 F 98.7 F 97.2 F L Pulse Rate 56 L 50 L 60 Respiratory Rate 16 16 14 Blood Pressure 102/68 92/55 L 107/73 Pulse Oximetry 100 99 99 02/21/23 14:00 Temperature 97.6 F Pulse Rate 68 Respiratory Rate 16 Blood Pressure Pulse Oximetry 97 Intake/Output Intake/Output: Intake & Output 02/18/23 02/19/23 02/20/23 02/21/23 23:59 23:59 23:59 23:59 Intake Total 2049 3950 4186 1820 Balance 2049 3950 4186 1820 Meds/Results Medications: Active Medications Generic Name Dose Route Start Last Admin Trade Name Freq PRN Reason Stop Dose Admin Acetaminophen 500 mg 02/20/23 01:07 02/21/23 11:13 Acetaminophen 500 Mg Tablet PO 500 mg Q4H PRN Administration Mild Pain (1-3) or Fever Aripiprazole 5 mg 02/20/23 09:00 02/21/23 08:06 Aripiprazole 5 Mg Tablet PO 5 mg DAILY OTNIE Administration Cyclobenzaprine HCl 10 mg 02/19/23 17:26 02/21/23 08:18 Cyclobenzaprine Hcl 10 Mg Tablet PO 10 mg Q8H PRN Administration Muscle Spasm Ferrous Sulfate 325 mg 02/20/23 12:00 02/21/23 11:10 Ferrous Sulfate [address] PO 325 mg NOON TONIE Administration Hydromorphone HCl 2 mg 02/18/23 20:37 02/21/23 02:18 Hydromorphone Hcl Inj (*Crx) 1 Mg/Ml Syr IV PUSH 2 mg Q4H PRN Administration Pain Piperacillin/Tazobactam/Dextrose 3.375 gm in 50 mls @ 100 mls/hr 02/19/23 00:00 02/21/23 17:55 Zosyn 3.375 Gm/Ns 50 Ml IVPB Infused Q6H TONIE Infusion Levothyroxine Sodium 125 mcg 02/20/23 06:30 02/21/23 05:33 Levothyroxine Sodium 125 Mcg Tablet PO 125 mcg D
[2023-02-21] MEDS: TOPIRAMATE 100 MG TABLET 200 MG PO (20:19)
[2023-02-21] MEDS: traZODone HCL 50 MG TABLET 300 MG PO (20:20)
[2023-02-21 22:00] VITALS: BP 102/61; PULSE 53; RESP 16; TEMP 36.8; O2SAT 99
[2023-02-22] MEDS: oxyCODONE/ACETAMINOPHEN (*CRX) 5-325 MG TABLET 1 TABLET PO ×5 (05:56→23:50)
[2023-02-22] MEDS: LEVOTHYROXINE SODIUM 125 MCG TABLET PO (05:56)
[2023-02-22] MEDS: PIPERACILLN/TAZ 3.375GM/NS50ML 3.375 GM/50 ML BAG IVPB ×4 (05:57→23:17)
[2023-02-22 06:00] VITALS: BP 90/59; PULSE 54; RESP 16; TEMP 36.9; O2SAT 99
[2023-02-22 07:01] LABS: Hematocrit 31.3 % (37.0-47.0); Hemoglobin 9.8 g/dL (12.0-15.0); Mean Corpuscular HGB Conc 31.3 g/dl (32-36); Mean Corpuscular Hemoglobin 30.2 pg (26-34); Mean Corpuscular Volume 96.6 fl (80-100); Mean Platelet Volume 11.9 fl (7.4-10.4); Platelet Count Result 158 k/mm3 (150-375); Red Blood Count 3.24 M/mm3 (4.2-5.4); Red Cell Distribution Width 14.1 % (11.5-14.5); White Blood Count 9.2 K/mm3 (4.5-10.0)
[2023-02-22 07:14] LABS: Anion Gap 5 mmol/L (8-16); Blood Urea Nitrogen 2 mg/dL (7-17); Carbon Dioxide 16 mmol/L (22-30); Chloride 115 mmol/L (98-107); Estimated CRCL calculation 63 ml/min; Estimated Glomerular Filt Rate 54; Glucose 86 mg/dL (65-110); Potassium 3.6 mmol/L (3.4-5.0); Sodium 136 mmol/L (137-145)
[2023-02-22] MEDS: ARIPiprazole 5 MG TABLET PO (08:16)
[2023-02-22] MEDS: FERROUS SULFATE 325 MG TABLET DR PO (11:31)
[2023-02-22 14:00] VITALS: BP 121/83; PULSE 56; RESP 17; TEMP 36.5; O2SAT 100
--- NOTE | 2023-02-22 17:12 | WPDGICN ---
Assessment and Plan Assessment and plan (1) Abdominal pain: Code(s): R10.9 - Unspecified abdominal pain Status: Acute Assessment and Plan: Patient has rather diffuse abdominal pain. She appears to have a chronic pain that is poorly described is been present for some time. This is admixed because of recent laparoscopy and gynecological procedures including removal of a right ovarian cyst and hysteroscopy. At the time of admission had elevated white count likely related to this procedure this is now resolved. In the past she was described as having irritable bowel syndrome, she apparently had a history of small intestinal bacterial overgrowth. And has been told she had fibromyalgia. This may be difficult to assess given her recent procedure. It seems prudent at some point in the future when she is stable to do both colonoscopy an EGD to exclude any organic disease. Her chronic pain may be functional. Probably best not to pursue these procedures while hospitalized after her recent guide any procedure. these can be performed as an outpatient. (2) Ovarian cyst: Code(s): N83.209 - Unspecified ovarian cyst, unspecified side Status: Acute (3) Leukocytosis: Code(s): D72.829 - Elevated white blood cell count, unspecified Status: Acute GI Consult Note Consult date/time: 02/22/23 17:12 Reason for consult: Abdominal pain. HPI: Joselyn Caraballo is a 42 year old female I am asked to see at the request of the gynecology and surgery department because of chronic abdominal pain. Patient has underlying history of fibromyalgia, anxiety and depression. Previously felt to have irritable bowel syndrome with diarrhea. She has been seen by the GI service at 1 point intermittently. Patient is now seen in the setting of having had recent laparoscopy. Apparently had endometriosis. She recently had rupture of ovarian cyst. At the time of admission she had elevated white count which has now returned to normal. Intermixed with abdominal pain from this procedure she complains of a chronic poorly described abdominal pain. She recently underwent left ovarian cystectomy she also had a hysteroscopy with endometrial ablation on 01/30/2023. Patient gives a history of previous GI endoscopies that were apparently unremarkable. These old records are not available for review. Patient tends to think that her abdominal pain is related to GI issues. She has had no bleeding. Apparently no fever has been reported. Pain initially was in the right lower quadrant but has subsequently become rather diffuse. She states she does have diarrhea but primarily only since hospital stay. Review of Systems Review of Systems: Review of systems noncontributory. [facility] Past Medical History Medical History Anxiety Depression Fibromyalgia Irritable bowel syndrome with diarrhea Obese Small intestinal bacterial overgrowth (SIBO) Surgical History Surgical History H/O arthroscopic knee surgery H/O breast augmentation Social History Social History Years smoked: 8 Smoking status: Current every day smoker Tobacco type: cigarettes Alcohol intake: former Alcohol use details: Recovering alcoholic Substance use: never Substance use type: does not use Lack of Transportation: No Lack of Food: Never True Current Housing: I Have Housing Concerned About Future Housing: No Difficulty Paying Gas/Electric Bills: No Difficulty Paying for Meds: No Currently Unemployed: No Education: Associate Degree Difficulty w/ Childcare or Family Care: No Living arrangements: alone Gender identity (if verbalized by the patient): Female Spiritual care concerns: No Meds Home Medications and Allergies Home Medications Medication Instruct
--- NOTE | 2023-02-22 17:50 | PM.PNGS ---
Progress Note: A&P Assessment and Plan (1) Abdominal pain: Code(s): R10.9 - Unspecified abdominal pain Status: Acute Assessment and Plan: exam slowly improving, WBC normalized, repeat CT largely unremarkable, appreciate GI input and recs, no acute surgical issues, will s/o, call c ?s, issues Subjective Subjective Date/Time Seen: 02/22/23 17:50 Interval history: still c diffuse pain, though worse in LLQ, diana diet, +bowel fxn Review of Systems Review of Systems: All systems reviewed & are unremarkable except as noted in HPI and below Exam Const: General: cooperative, no acute distress and uncomfortable Resp: Auscultation: clear to auscultation bilaterally Cardio: Rate: regular rate Rhythm: regular rhythm GI: Inspection: normal to inspection and distended GI Palp: Yes abdominal tenderness, Yes Soft to palpation, Yes Tenderness to palpation present (GI), No Guarding due to palpation present (GI) and No Rigid due to palpation Objective Data Vital Signs Vital Signs: Vital Signs - 24 hr 02/21/23 20:00 02/21/23 22:00 02/22/23 06:00 Temperature 36.8 C 36.9 C Pulse Rate 53 L 54 L Respiratory Rate 16 16 Blood Pressure 102/61 90/59 L Pulse Oximetry 99 99 Oxygen Delivery Room Air 02/22/23 08:15 02/22/23 14:00 Temperature 36.5 C Pulse Rate 56 L Respiratory Rate 17 Blood Pressure 121/83 Pulse Oximetry 100 Oxygen Delivery Room Air Intake/Output Intake/Output: Intake & Output 02/19/23 02/20/23 02/21/23 02/22/23 23:59 23:59 23:59 23:59 Intake Total 3950 4186 2162 412 Balance 3950 4186 2162 412 Meds/Results Medications: Active Medications Generic Name Dose Route Start Last Admin Trade Name Freq PRN Reason Stop Dose Admin Acetaminophen 500 mg 02/20/23 01:07 02/21/23 11:13 Acetaminophen 500 Mg Tablet PO 500 mg Q4H PRN Administration Mild Pain (1-3) or Fever Aripiprazole 5 mg 02/20/23 09:00 02/22/23 08:16 Aripiprazole 5 Mg Tablet PO 5 mg DAILY TONIE Administration Cyclobenzaprine HCl 10 mg 02/19/23 17:26 02/21/23 08:18 Cyclobenzaprine Hcl 10 Mg Tablet PO 10 mg Q8H PRN Administration Muscle Spasm Ferrous Sulfate 325 mg 02/20/23 12:00 02/22/23 11:31 Ferrous Sulfate [address] PO 325 mg NOON TONIE Administration Hydromorphone HCl 2 mg 02/18/23 20:37 02/21/23 02:18 Hydromorphone Hcl Inj (*Crx) 1 Mg/Ml Syr IV PUSH 2 mg Q4H PRN Administration Pain Piperacillin/Tazobactam/Dextrose 3.375 gm in 50 mls @ 100 mls/hr 02/19/23 00:00 02/22/23 17:19 Zosyn 3.375 Gm/Ns 50 Ml IVPB 100 mls/hr Q6H TONIE Administration Levothyroxine Sodium 125 mcg 02/20/23 06:30 02/22/23 05:56 Levothyroxine Sodium 125 Mcg Tablet PO 125 mcg DAILY@0630 TONIE Administration Ondansetron HCl 4 mg 02/18/23 16:59 02/19/23 23:08 Ondansetron Inj 4 Mg/2 Ml Vial IV PUSH 4 mg Q4H PRN Administration Nausea Oxycodone/Acetaminophen 1 tablet 02/19/23 17:36 02/22/23 14:53 Oxycodone/Acetaminophen (*Crx) 5-325 Mg Tablet PO 1 tablet Q4H PRN Administration Pain Rated 4-6 Topiramate 200 mg 02/20/23 21:00 02/21/23 20:19 Topiramate 100 Mg Tablet PO 200 mg HS TONIE Administration Trazodone HCl 300 mg 02/19/23 20:00 02/21/23 20:20 Trazodone Hcl 50 Mg Tablet PO 300 mg HS PRN Administration Insomnia Radiology Results: ITS Impressions Abdomen/Pelvis CT 02/22/23 08:38 IMPRESSION: 1. Mild pulmonary edema. 2. Small pleural effusions. Labs Labs: Laboratory Results - last 24 hr 02/22/23 06:20 WBC 9.2 RBC 3.24 L Hgb 9.8 L Hct 31.3 L MCV 96.6 MCH 30.2 MCHC 31.3 L RDW 14.1 Plt Count 158 MPV 11.9 H Sodium 136 L Potassium 3.6 Chloride 115 H Carbon Dioxide 16 L Anion Gap 5 L BUN 2 L Creatinine 1.10 H Estim Creat Clear Calc 63 Estimated GFR 54 L Glucose 86 Calcium 8.0 L
--- NOTE | 2023-02-22 17:52 | PM.GYNPNOP ---
PHYSICIAN PRACTICE CONSULTANT - A/P Assessment and plan (1) Abdominal pain: Code(s): R10.9 - Unspecified abdominal pain Status: Acute (2) Small intestinal bacterial overgrowth (SIBO): Code(s): K63.89 - Other specified diseases of intestine Status: Acute (3) Irritable bowel syndrome with diarrhea: Code(s): K58.0 - Irritable bowel syndrome with diarrhea Status: Acute Plan 02/22/23 17:52Abdominal pain persists, GI has seen her and developed an outpatient plan for colonoscopy and EGD, normal CT of the abdomen pelvis today , essentially. Discussed discharge tomorrow. Patient is unsure if she can not function given her pain at home. Her distention is a little better. Uncertain what more can be done for her in the hospital. Resolution of fever, resolution white count elevation. Unremarkable abdominal exam for acute problem. re-evaluate tomorrow and consider discharge Time Spent With Patient Time: Total time spent is greater than 50% in coordination of care (as documented) at patient's floor/unit and/or counseling patient: Time with patient: 15 - 25 minutes PHYSICIAN PRACTICE CONSULTANT- PN:Subj Post-Op Subjective Date/time seen: 02/22/23 17:52Abdominal pain persists, GI has seen her and developed an outpatient plan for colonoscopy and EGD, normal CT of the abdomen pelvis today , essentially. Discussed discharge tomorrow. Patient is unsure if she can not function given her pain at home. Her distention is a little better. Uncertain what more can be done for her in the hospital. Resolution of fever, resolution white count elevation. Unremarkable abdominal exam for acute problem. re-evaluate tomorrow and consider discharge Interval history: Reports increasing abdominal distension, positive flatus, positive bowel movement, no nausea or vomiting. She denies any fevers or chills. She denies any chest pain shortness of breath. Denies any diarrhea PHYSICIAN PRACTICE CONSULTANT - PN: Obj Data Vital Signs Vital Signs: Vital Signs - 24 hr 02/21/23 20:00 02/21/23 22:00 02/22/23 06:00 Temperature 98.3 F 98.4 F Pulse Rate 53 L 54 L Respiratory Rate 16 16 Blood Pressure 102/61 90/59 L Pulse Oximetry 99 99 Oxygen Delivery Room Air 02/22/23 08:15 02/22/23 14:00 Temperature 97.7 F Pulse Rate 56 L Respiratory Rate 17 Blood Pressure 121/83 Pulse Oximetry 100 Oxygen Delivery Room Air Intake/Output Intake/Output: Intake & Output 02/19/23 02/20/23 02/21/23 02/22/23 23:59 23:59 23:59 23:59 Intake Total 3950 4186 2162 412 Balance 3950 4186 2162 412 Meds/Results Medications: Active Medications Generic Name Dose Route Start Last Admin Trade Name Freq PRN Reason Stop Dose Admin Acetaminophen 500 mg 02/20/23 01:07 02/21/23 11:13 Acetaminophen 500 Mg Tablet PO 500 mg Q4H PRN Administration Mild Pain (1-3) or Fever Aripiprazole 5 mg 02/20/23 09:00 02/22/23 08:16 Aripiprazole 5 Mg Tablet PO 5 mg DAILY TONIE Administration Cyclobenzaprine HCl 10 mg 02/19/23 17:26 02/21/23 08:18 Cyclobenzaprine Hcl 10 Mg Tablet PO 10 mg Q8H PRN Administration Muscle Spasm Ferrous Sulfate 325 mg 02/20/23 12:00 02/22/23 11:31 Ferrous Sulfate [address] PO 325 mg NOON TONIE Administration Hydromorphone HCl 2 mg 02/18/23 20:37 02/21/23 02:18 Hydromorphone Hcl Inj (*Crx) 1 Mg/Ml Syr IV PUSH 2 mg Q4H PRN Administration Pain Piperacillin/Tazobactam/Dextrose 3.375 gm in 50 mls @ 100 mls/hr 02/19/23 00:00 02/22/23 17:19 Zosyn 3.375 Gm/Ns 50 Ml IVPB 100 mls/hr Q6H TONIE Administration Levothyroxine Sodium 125 mcg 02/20/23 06:30 02/22/23 05:56 Levothyroxine Sodium 125 Mcg Tablet PO 125 mcg DAILY@0630 TONIE Administration Ondansetron HCl 4 mg 02/18/23 16:59 02/19/23 23:08 Ondansetron Inj 4 Mg/2 Ml Vial IV PUSH 4 mg Q4H PRN Administration Nausea Oxycodone/Acetaminophen 1 tablet 02/19/23 17:36 02/22/23 14:53 Oxycodone/Acetaminophen (*Crx) 5-325 Mg Tabl
[2023-02-22] MEDS: traZODone HCL 50 MG TABLET 300 MG PO (19:55)
[2023-02-22] MEDS: CYCLOBENZAPRINE HCL 10 MG TABLET PO (19:55)
[2023-02-22] MEDS: TOPIRAMATE 100 MG TABLET 200 MG PO (19:56)
[2023-02-22 22:00] VITALS: BP 120/79; PULSE 71; RESP 16; TEMP 36.3; O2SAT 98
[2023-02-23] MEDS: LEVOTHYROXINE SODIUM 125 MCG TABLET PO (05:52)
[2023-02-23] MEDS: PIPERACILLN/TAZ 3.375GM/NS50ML 3.375 GM/50 ML BAG IVPB ×4 (05:53→23:28)
[2023-02-23 06:00] VITALS: BP 104/71; PULSE 51; RESP 14; TEMP 36.1; O2SAT 96
[2023-02-23] MEDS: ARIPiprazole 5 MG TABLET PO (08:09)
[2023-02-23] MEDS: oxyCODONE/ACETAMINOPHEN (*CRX) 5-325 MG TABLET 1 TABLET PO ×3 (09:20→20:40)
[2023-02-23] MEDS: FERROUS SULFATE 325 MG TABLET DR PO (11:39)
[2023-02-23 14:00] VITALS: BP 119/86; PULSE 50; RESP 14; TEMP 36.2; O2SAT 98
--- NOTE | 2023-02-23 15:20 | WPDGIPROGNO ---
Progress Note: A&P Assessment and Plan (1) Abdominal pain: Code(s): R10.9 - Unspecified abdominal pain Status: Acute Assessment and Plan: improved she has scopes [address] Devi at another institution we can arrange egd/colonoscopy as outpatient- evaluate for microscopic colitis, celiac, etc (2) Irritable bowel syndrome with diarrhea: Code(s): K58.0 - Irritable bowel syndrome with diarrhea Status: Acute Assessment and Plan: baseline colonoscopy as outpatient (3) Leukocytosis: Code(s): D72.829 - Elevated white blood cell count, unspecified Status: Acute Assessment and Plan: resolved recent obstetrics gynecology md intervention probably home tomorrow (4) Ovarian cyst: Code(s): N83.209 - Unspecified ovarian cyst, unspecified side Status: Acute Subjective Date/time seen: 02/23/23 15:20 Interval history: she is more comfortable since admission, still abdominal pain and loose stools but close to baseline. Review of Systems Review of Systems: All systems reviewed & are unremarkable except as noted in HPI and below Exam Const: General: cooperative, no acute distress and uncomfortable HENMT: Face/Nose/Sinus: Normal nares present Eyes: Sclera: sclerae normal Neck: Neck: supple Resp: Auscultation: clear to auscultation bilaterally Cardio: Rate: regular rate Rhythm: regular rhythm GI: Inspection: normal to inspection and distended GI Palp: Yes abdominal tenderness, Yes Soft to palpation, No Guarding due to palpation present (GI) and No Rigid due to palpation Skin: General skin exam: normal color Neuro: Speech: normal speech Motor exam (neuro): 5/5 motor strength present throughout Extrem: General: normal to inspection Psych: Affect: normal affect Objective Data Vital Signs Vital Signs: Vital Signs - 24 hr 02/22/23 18:00 02/22/23 20:00 02/22/23 22:00 Temperature 97.3 F L Pulse Rate 71 Respiratory Rate 16 Blood Pressure 120/79 Pulse Oximetry 98 Oxygen Delivery Room Air Room Air 02/23/23 06:00 02/23/23 08:05 Temperature 97.0 F L Pulse Rate 51 L Respiratory Rate 14 Blood Pressure 104/71 Pulse Oximetry 96 Oxygen Delivery Room Air Intake/Output Intake/Output: Intake & Output 02/20/23 02/21/23 02/22/23 02/23/23 23:59 23:59 23:59 23:59 Intake Total 4186 2162 1634 390 Balance 4186 2162 1634 390 Meds/Results Medications: Active Medications Generic Name Dose Route Start Last Admin Trade Name Freq PRN Reason Stop Dose Admin Acetaminophen 500 mg 02/20/23 01:07 02/21/23 11:13 Acetaminophen 500 Mg Tablet PO 500 mg Q4H PRN Administration Mild Pain (1-3) or Fever Aripiprazole 5 mg 02/20/23 09:00 02/23/23 08:09 Aripiprazole 5 Mg Tablet PO 5 mg DAILY TONIE Administration Cyclobenzaprine HCl 10 mg 02/19/23 17:26 02/22/23 19:55 Cyclobenzaprine Hcl 10 Mg Tablet PO 10 mg Q8H PRN Administration Muscle Spasm Ferrous Sulfate 325 mg 02/20/23 12:00 02/23/23 11:39 Ferrous Sulfate [address] PO 325 mg NOON TONIE Administration Hydromorphone HCl 2 mg 02/18/23 20:37 02/21/23 02:18 Hydromorphone Hcl Inj (*Crx) 1 Mg/Ml Syr IV PUSH 2 mg Q4H PRN Administration Pain Piperacillin/Tazobactam/Dextrose 3.375 gm in 50 mls @ 100 mls/hr 02/19/23 00:00 02/23/23 12:09 Zosyn 3.375 Gm/Ns 50 Ml IVPB Infused Q6H TONIE Infusion Levothyroxine Sodium 125 mcg 02/20/23 06:30 02/23/23 05:52 Levothyroxine Sodium 125 Mcg Tablet PO 125 mcg DAILY@0630 TONIE Administration Ondansetron HCl 4 mg 02/18/23 16:59 02/19/23 23:08 Ondansetron Inj 4 Mg/2 Ml Vial IV PUSH 4 mg Q4H PRN Administration Nausea Oxycodone/Acetaminophen 1 tablet 02/19/23 17:36 02/23/23 09:20 Oxycodone/Acetaminophen (*Crx) 5-325 Mg Tablet PO 1 tablet Q4H PRN Administration Pain Rated 4-6 Topiramate 200 mg 02/20/23 21:00 02/22/23 19:56 Topiramate 100 Mg Tabl
[2023-02-23] MEDS: CYCLOBENZAPRINE HCL 10 MG TABLET PO (15:55)
[2023-02-23] MEDS: TOPIRAMATE 100 MG TABLET 200 MG PO (20:40)
[2023-02-23] MEDS: traZODone HCL 50 MG TABLET 300 MG PO (21:13)
[2023-02-23 22:00] VITALS: BP 110/75; PULSE 57; RESP 18; TEMP 35.7; O2SAT 99
[2023-02-24] MEDS: oxyCODONE/ACETAMINOPHEN (*CRX) 5-325 MG TABLET 1 TABLET PO ×4 (00:44→21:24)
[2023-02-24] MEDS: CYCLOBENZAPRINE HCL 10 MG TABLET PO (00:44)
--- NOTE | 2023-02-24 01:09 | PC.NURSE ---
Daylight Savings Time For Daylight Savings Time Ending in the Fall - Clocks are moved back. For Daylight Savings Time Beginning in the Spring - Clocks are moved ahead. For [facility], the time of change occurs at 0200 hrs. Time is taken from the magnetic observer. This entry on the patient's chart recognizes the change in time reflected during documentation. Example: 2 entries for vital signs may be charted for 0200 hrs.
[2023-02-24] MEDS: ACETAMINOPHEN 500 MG TABLET PO ×2 (05:14→17:03)
[2023-02-24] MEDS: HYDROmorphone HCL INJ (*CRX) 1 MG/ML SYR 2 MG IV PUSH (05:14)
[2023-02-24] MEDS: LEVOTHYROXINE SODIUM 125 MCG TABLET PO (05:14)
[2023-02-24] MEDS: PIPERACILLN/TAZ 3.375GM/NS50ML 3.375 GM/50 ML BAG IVPB ×3 (05:15→18:15)
[2023-02-24 06:00] VITALS: BP 110/77; PULSE 51; RESP 16; TEMP 35.9; O2SAT 99
[2023-02-24] MEDS: ARIPiprazole 5 MG TABLET PO (07:38)
[2023-02-24 08:00] VITALS: O2SAT 99
--- NOTE | 2023-02-24 09:02 | PM.GYNPNOP ---
SECURITY CONTROL ROOM OFFICER - A/P Assessment and plan (1) Irritable bowel syndrome with diarrhea: Code(s): K58.0 - Irritable bowel syndrome with diarrhea Status: Acute (2) Small intestinal bacterial overgrowth (SIBO): Code(s): K63.89 - Other specified diseases of intestine Status: Acute (3) Abdominal pain: Code(s): R10.9 - Unspecified abdominal pain Status: Acute Plan Resolution of fever, resolution of leukocytosis, improved abdominal pain, GI contact with discussion of follow-up, DC today, pain medication, follow-up with me in 1 week Time Spent With Patient Time: Total time spent is greater than 50% in coordination of care (as documented) at patient's floor/unit and/or counseling patient: Time with patient: 15 - 25 minutes SECURITY CONTROL ROOM OFFICER- PN:Jasiel Post-Op Subjective Date/time seen: 02/24/23 09:02 Interval history: she is more comfortable since admission, still abdominal pain and loose stools but close to baseline. Exam Const: General: healthy appearing, comfortable and no acute distress Resp: Auscultation: clear to auscultation bilaterally, no rales, no rhonchi and no wheezes Cardio: Rate: regular rate Heart sounds: no click, no murmurs and no rubs GI: Inspection: non-distended Auscultation: normal bowel sounds Extrem: General: normal to inspection, no pedal edema and no calf tenderness SECURITY CONTROL ROOM OFFICER - PN: Obj Data Vital Signs Vital Signs: Vital Signs - 24 hr 02/23/23 14:00 02/23/23 22:00 02/23/23 20:00 Temperature 97.2 F L 96.3 F L Pulse Rate 50 L 57 L Respiratory Rate 14 18 Blood Pressure 119/86 110/75 Pulse Oximetry 98 99 Oxygen Delivery Room Air 02/24/23 06:00 02/24/23 08:00 Temperature 96.7 F L Pulse Rate 51 L Respiratory Rate 16 Blood Pressure 110/77 Pulse Oximetry 99 99 Oxygen Delivery Room Air Intake/Output Intake/Output: Intake & Output 02/21/23 02/22/23 02/23/23 02/24/23 23:59 23:59 23:59 22:59 Intake Total 2162 1634 1170 250 Balance 2162 1634 1170 250 Meds/Results Medications: Active Medications Generic Name Dose Route Start Last Admin Trade Name Freq PRN Reason Stop Dose Admin Acetaminophen 500 mg 02/20/23 01:07 02/24/23 05:14 Acetaminophen 500 Mg Tablet PO 500 mg Q4H PRN Administration Mild Pain (1-3) or Fever Aripiprazole 5 mg 02/20/23 09:00 02/24/23 07:38 Aripiprazole 5 Mg Tablet PO 5 mg DAILY TONIE Administration Cyclobenzaprine HCl 10 mg 02/19/23 17:26 02/24/23 00:44 Cyclobenzaprine Hcl 10 Mg Tablet PO 10 mg Q8H PRN Administration Muscle Spasm Ferrous Sulfate 325 mg 02/20/23 12:00 02/23/23 11:39 Ferrous Sulfate [address] PO 325 mg NOON TONIE Administration Hydromorphone HCl 2 mg 02/18/23 20:37 02/24/23 05:14 Hydromorphone Hcl Inj (*Crx) 1 Mg/Ml Syr IV PUSH 2 mg Q4H PRN Administration Pain Piperacillin/Tazobactam/Dextrose 3.375 gm in 50 mls @ 100 mls/hr 02/19/23 00:00 02/24/23 05:15 Zosyn 3.375 Gm/Ns 50 Ml IVPB 100 mls/hr Q6H TONIE Administration Levothyroxine Sodium 125 mcg 02/20/23 06:30 02/24/23 05:14 Levothyroxine Sodium 125 Mcg Tablet PO 125 mcg DAILY@0630 TONIE Administration Ondansetron HCl 4 mg 02/18/23 16:59 02/19/23 23:08 Ondansetron Inj 4 Mg/2 Ml Vial IV PUSH 4 mg Q4H PRN Administration Nausea Oxycodone/Acetaminophen 1 tablet 02/19/23 17:36 02/24/23 07:42 Oxycodone/Acetaminophen (*Crx) 5-325 Mg Tablet PO 1 tablet Q4H PRN Administration Pain Rated 4-6 Topiramate 200 mg 02/20/23 21:00 02/23/23 20:40 Topiramate 100 Mg Tablet PO 200 mg HS TONIE Administration Trazodone HCl 300 mg 02/19/23 20:00 02/23/23 21:13 Trazodone Hcl 50 Mg Tablet PO 300 mg HS PRN Administration Insomnia Radiology Results: ITS Impressions Abdomen/Pelvis CT 02/22/23 08:38 IMPRESSION: 1. Mild pulmonary edema. 2. Small pleural effusions. Labs 02/22/23 06:20 02/22/23 06:20
--- NOTE | 2023-02-24 09:05 | PM.DS ---
DS: Admitting Diagnosis Discharge Date February 24, 2023 Admitting Diagnosis abdominal pain DS: Discharge Diagnosis Discharge Diagnosis (1) Abdominal pain: Code(s): R10.9 - Unspecified abdominal pain Status: Acute DS: Summary Hospital Course Hospital Course: 42-year-old female admitted for abdominal pain, fever, leukocytosis. She had evaluation, imaging, observation, supportive care for 5 days. She was seen by Gastroenterology. She is known to have irritable bowel. Question of appendicitis and postoperative sequelae. Does not appear to be the etiology of her pain. Fever resolved with antibiotics. Afebrile now for 4 days. Discharge home only on pain medication. She will have follow-up with GI and follow-up with me in 1 week Time Spent with Patient Time attestation: Total time spent providing and/or coordinating discharge services: Discharge Plan Discharge Consulting providers: Lisa Bedolla; Ambrosio Solomon Discharging Clinician: Ankush Amin Patient Disposition: Home, Self-Care Activity: pelvic rest Diet: regular Patient Instructions: Antibiotic Form Stand Alone Forms: General Discharge Information Follow-up/Referrals: Ankush Amni MD [Physician] - Discharge Medications: New oxycodone-acetaminophen 5-325 mg Tablet 1 tablet PO Q4H PRN (Reason: Pain Rated 4-6) Qty: 20 0RF Continued ferrous sulfate 27 mg iron tablet 325 mg PO DAILY aripiprazole [Abilify] 5 mg tablet 5 mg PO DAILY trazodone 300 mg tablet 300 mg PO QHS topiramate [Topamax] 200 mg tablet 200 mg PO DAILY Rx Instructions: takes at night. dextroamphetamine-amphetamine 10 mg tablet 10 mg PO DAILY Rx Instructions: Takes at 1pm levothyroxine 125 mcg tablet 125 mcg PO DAILY dextroamphetamine-amphetamine 20 mg tablet 20 mg PO QAM Rx Instructions: Takes at 1pm daily aripiprazole 2 mg tablet 2 mg PO DAILY cyclobenzaprine 10 mg PO Q8H PRN (Reason: Muscle Pain) oxycodone-acetaminophen 5-325 mg tablet 1 tablet PO Q4H PRN (Reason: pain) Qty: 20 0RF Date of admission: 02/21/23 09:56 Primary Care Provider: Keith Briceño Admitting Provider: Ankush Amin Attending physician on admission: Ankush Amin Condition: Stable
[2023-02-24 10:18] LABS: Anion Gap 10 mmol/L (8-16); Blood Urea Nitrogen 5 mg/dL (7-17); Calcium 8.8 mg/dL (8.4-10.2); Carbon Dioxide 20 mmol/L (22-30); Chloride 109 mmol/L (98-107); Estimated CRCL calculation 50 ml/min; Estimated Glomerular Filt Rate 41; Glucose 121 mg/dL (65-110); Hematocrit 36.6 % (37.0-47.0); Mean Corpuscular HGB Conc 32.8 g/dl (32-36); Mean Corpuscular Hemoglobin 30.9 pg (26-34); Mean Corpuscular Volume 94.3 fl (80-100); Platelet Count Result 189 k/mm3 (150-375); Potassium 3.1 mmol/L (3.4-5.0); Red Blood Count 3.88 M/mm3 (4.2-5.4); Red Cell Distribution Width 14.5 % (11.5-14.5); Sodium 139 mmol/L (137-145)
[2023-02-24] MEDS: FERROUS SULFATE 325 MG TABLET DR PO (11:08)
--- NOTE | 2023-02-24 13:00 | WPDGIPROGNO ---
Progress Note: A&P Assessment and Plan (1) Abdominal pain: Code(s): R10.9 - Unspecified abdominal pain Status: Acute Assessment and Plan: improved she has scopes [address] Devi at another institution if patient is going home today then will arrange egd/colonoscopy as outpatient- evaluate for microscopic colitis, celiac, etc (2) Irritable bowel syndrome with diarrhea: Code(s): K58.0 - Irritable bowel syndrome with diarrhea Status: Acute Assessment and Plan: baseline colonoscopy as outpatient if she is going home (3) Leukocytosis: Code(s): D72.829 - Elevated white blood cell count, unspecified Status: Acute Assessment and Plan: resolved recent licensed land surveyor intervention (4) Ovarian cyst: Code(s): N83.209 - Unspecified ovarian cyst, unspecified side Status: Acute Subjective Date/time seen: 02/24/23 13:00 Interval history: overall better, still pain, also in her back and diarrhea but baseline she is tolerating diet Review of Systems Review of Systems: All systems reviewed & are unremarkable except as noted in HPI and below Exam Const: General: cooperative, no acute distress and uncomfortable HENMT: Face/Nose/Sinus: Normal nares present Eyes: Sclera: sclerae normal Neck: Neck: supple Resp: Auscultation: clear to auscultation bilaterally Cardio: Rate: regular rate Rhythm: regular rhythm GI: Inspection: normal to inspection and distended GI Palp: Yes abdominal tenderness (mild left sided pain, no rebound- also back pain), Yes Soft to palpation, No Guarding due to palpation present (GI) and No Rigid due to palpation Skin: General skin exam: normal color Neuro: Speech: normal speech Motor exam (neuro): 5/5 motor strength present throughout Extrem: General: normal to inspection Psych: Affect: normal affect Objective Data Vital Signs Vital Signs: Vital Signs - 24 hr 02/23/23 22:00 02/23/23 20:00 02/24/23 06:00 Temperature 96.3 F L 96.7 F L Pulse Rate 57 L 51 L Respiratory Rate 18 16 Blood Pressure 110/75 110/77 Pulse Oximetry 99 99 Oxygen Delivery Room Air 02/24/23 08:00 Temperature Pulse Rate Respiratory Rate Blood Pressure Pulse Oximetry 99 Oxygen Delivery Room Air Intake/Output Intake/Output: Intake & Output 1102/22/23 02/23/23 02/24/23 23:59 23:59 23:59 22:59 Intake Total 2162 1634 1170 590 Balance 2162 1634 1170 590 Meds/Results Medications: Active Medications Generic Name Dose Route Start Last Admin Trade Name Freq PRN Reason Stop Dose Admin Acetaminophen 500 mg 02/20/23 01:07 02/24/23 05:14 Acetaminophen 500 Mg Tablet PO 500 mg Q4H PRN Administration Mild Pain (1-3) or Fever Aripiprazole 5 mg 02/20/23 09:00 02/24/23 07:38 Aripiprazole 5 Mg Tablet PO 5 mg DAILY TONIE Administration Cyclobenzaprine HCl 10 mg 02/19/23 17:26 02/24/23 00:44 Cyclobenzaprine Hcl 10 Mg Tablet PO 10 mg Q8H PRN Administration Muscle Spasm Ferrous Sulfate 325 mg 02/20/23 12:00 02/24/23 11:08 Ferrous Sulfate [address] PO 325 mg NOON TONIE Administration Hydromorphone HCl 2 mg 02/18/23 20:37 02/24/23 05:14 Hydromorphone Hcl Inj (*Crx) 1 Mg/Ml Syr IV PUSH 2 mg Q4H PRN Administration Pain Piperacillin/Tazobactam/Dextrose 3.375 gm in 50 mls @ 100 mls/hr 02/19/23 00:00 02/24/23 12:28 Zosyn 3.375 Gm/Ns 50 Ml IVPB Infused Q6H TONIE Infusion Levothyroxine Sodium 125 mcg 02/20/23 06:30 02/24/23 05:14 Levothyroxine Sodium 125 Mcg Tablet PO 125 mcg DAILY@0630 TONIE Administration Ondansetron HCl 4 mg 02/18/23 16:59 02/19/23 23:08 Ondansetron Inj 4 Mg/2 Ml Vial IV PUSH 4 mg Q4H PRN Administration Nausea Oxycodone/Acetaminophen 1 tablet 02/19/23 17:36 02/24/23 07:42 Oxycodone/Acetaminophen (*Crx) 5-325 Mg Tablet PO 1 tablet Q4H PRN Administration Pain Rated 4-6 Topiramate 200 mg
--- NOTE | 2023-02-24 13:20 | P.CONIM_ITS ---
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, fused and horseshoe kidney Status: Acute Assessment and Plan: * Anatomically stable by CT (3) Abdominal pain: Code(s): R10.9 - Unspecified abdominal pain Status: Acute Assessment and Plan: * Fever, leukocytosis, and pain are c/w pelvic inflammation and possible infection * If this is true then her pain should continue to improve as has her fever and leukocytosis (4) Post-op pain: Code(s): G89.18 - Other acute postprocedural pain Status: Acute Assessment and Plan: * More widespread and associated with more symptoms that would be expected from incisional pain (5) Diarrhea: Code(s): R19.7 - Diarrhea, unspecified Status: Acute Assessment and Plan: * IBS vs IBD vs secondary to pelvic infection vs c diff vs covid vs other infectious etiology (though stool culture NEGATIVE) vs sprue vs hyperthyroid (overuse of med?) * GI plans EGD and colonoscopy soon (6) Hypokalemia: Code(s): E87.6 - Hypokalemia Status: Acute Assessment and Plan: * Likely due to saline diuresis combined with diarrhea * 02/24 PO replacement ordered (7) Fluid overload: Code(s): E87.70 - Fluid overload, unspecified Status: Acute Assessment and Plan: * She received approximately 8 L of fluid after admission * Resolving after discontinuation of IVF (8) Metabolic acidosis: Code(s): E87.20 - Acidosis, unspecified Status: Acute Assessment and Plan: * Hyperchloremic, non-anion gap acidosis * c/w hx of significant diarrhea (9) Hypothyroidism (acquired): Code(s): E03.9 - Hypothyroidism, unspecified Status: Acute Assessment and Plan: * Continue home dose of levothyroxine * Check TSHr HPI Date of Consult Consult date: 02/24/23 Requesting Physician: Ankush Amin MD Primary Care Provider: Keith Briceño MD Consult Narrative Narrative: Joselyn Caraballo is a 42 year old female who was to have an increase in her creatinine from baseline 1.1 admission to 1.4 today. For that reason I was consulted by Dr. Amin. Joselyn was admitted 02/18/2023 due to worsening lower abdominal discomfort with associated bloating and loose stools that were progressive for a few days prior to admission. No else in the family had some symptoms. On 01/30/2023 she had the following surgeries [facility]: Diagnostic laparoscopy, resection fulguration of endometriosis, left ovarian cystectomy, hysteroscopy with endometrial ablation. Upon admission CT scan of abd/pevis w/ contrast on February 18 showed: ?Removal of IUD; mild fluid accumulation in the endometrial cavity Interval soft tissue and/or fluid density in the adnexal areas since 11/28/2022 which may represent postoperative change, ruptured cyst, less likely ruptured ectopic gestation, pelvic inflammatory disease Bilateral adnexal cysts, measuring up to 2.3 cm maximal dimension, on the right Borderline size of the appendix and minimal
--- NOTE | 2023-02-24 13:20 | PM.IMCN ---
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, fused and horseshoe kidney Status: Acute Assessment and Plan: Anatomically stable by CT (3) Abdominal pain: Code(s): R10.9 - Unspecified abdominal pain Status: Acute Assessment and Plan: Fever, leukocytosis, and pain are c/w pelvic inflammation and possible infection If this is true then her pain should continue to improve as has her fever and leukocytosis (4) Post-op pain: Code(s): G89.18 - Other acute postprocedural pain Status: Acute Assessment and Plan: More widespread and associated with more symptoms that would be expected from incisional pain (5) Diarrhea: Code(s): R19.7 - Diarrhea, unspecified Status: Acute Assessment and Plan: IBS vs IBD vs secondary to pelvic infection vs c diff vs covid vs other infectious etiology (though stool culture NEGATIVE) vs sprue vs hyperthyroid (overuse of med?) GI plans EGD and colonoscopy soon (6) Hypokalemia: Code(s): E87.6 - Hypokalemia Status: Acute Assessment and Plan: Likely due to saline diuresis combined with diarrhea 02/24 PO replacement ordered (7) Fluid overload: Code(s): E87.70 - Fluid overload, unspecified Status: Acute Assessment and Plan: She received approximately 8 L of fluid after admission Resolving after discontinuation of IVF (8) Metabolic acidosis: Code(s): E87.20 - Acidosis, unspecified Status: Acute Assessment and Plan: Hyperchloremic, non-anion gap acidosis c/w hx of significant diarrhea (9) Hypothyroidism (acquired): Code(s): E03.9 - Hypothyroidism, unspecified Status: Acute Assessment and Plan: Continue home dose of levothyroxine Check TSHr HPI Date of Consult Consult date: 02/24/23 Requesting Physician: Ankush Amin MD Primary Care Provider: Keith Briceño MD Consult Narrative Narrative: Joselyn Caraballo is a 42 year old female who was to have an increase in her creatinine from baseline 1.1 admission to 1.4 today. For that reason I was consulted by Dr. Amin. Joselyn was admitted 02/18/2023 due to worsening lower abdominal discomfort with associated bloating and loose stools that were progressive for a few days prior to admission. No else in the family had some symptoms. On 01/30/2023 she had the following surgeries [facility]: Diagnostic laparoscopy, resection fulguration of endometriosis, left ovarian cystectomy, hysteroscopy with endometrial ablation. Upon admission CT scan of abd/pevis w/ contrast on February 18 showed: ?Removal of IUD; mild fluid accumulation in the endometrial cavity Interval soft tissue and/or fluid density in the adnexal areas since 11/28/2022 which may represent postoperative change, ruptured cyst, less likely ruptured ectopic gestation, pelvic inflammatory disease Bilateral adnexal cysts, measuring up to 2.3 cm maximal dimension, on the right Borderline size of the appendix and minimal periappendiceal fluid or stranding; recommend clinical correlation to exclude acute appendicitis. She also had a leukocytosis of 21,700 with a left shift and she was febrile at 102.5. She was treated with IV Zosyn and though her white count normalized by 02/22 and fever resolved by 02/19 her lower abdominal pain and diarrhea persisted. When she did have fevers she did have chills and increased body odor but not diaphoresis. S
[2023-02-24 14:00] VITALS: BP 104/69; PULSE 70; RESP 14; TEMP 36.6; O2SAT 100
[2023-02-24] MEDS: POTASSIUM CHLORIDE 20 MEQ ER TABLET 40 MEQ PO ×2 (14:57→18:14)
[2023-02-24 15:44] LABS: Appearance Urine Clear (Clear); Bacteria Urine None Seen /hpf; Bilirubin Urine Negative (Negative); Blood Urine 2+ (Negative); Color Urine Yellow (Yellow); Glucose Urine UA Negative (Negative); Ketones Urine Negative (Negative); Leukocyte Esterase Ur Trace LEU/UL (Negative); Nitrate Urine Negative (Negative); Non Pathogenic Casts 0-2; Protein Urine Negative (Negative); RBC Urine 0-2 /hpf (0-2); Specific Grav Ur 1.013 (1.001-1.035); Squamous Epithelial Cell Urine Occasional /hpf (Few); Urobilinogen Urine 0.2 mg/dL (<2.0)
[2023-02-24 15:47] LABS: Add Urine Microscopic? YES
[2023-02-24 16:11] LABS: SARS-CoV-2 RNA PCR Negative (Negative)
[2023-02-24 16:42] LABS: Toxigenic C. Diff NEGATIVE (NEGATIVE)
[2023-02-24] MEDS: HYDROmorphone HCL INJ (*CRX) 1 MG/ML SYR IV PUSH (17:03)
[2023-02-24] MEDS: TOPIRAMATE 100 MG TABLET 200 MG PO (21:23)
[2023-02-24] MEDS: traZODone HCL 50 MG TABLET 300 MG PO (21:23)
[2023-02-24 22:00] VITALS: BP 108/84; PULSE 54; RESP 14; TEMP 36.3; O2SAT 97
[2023-02-25] MEDS: PIPERACILLN/TAZ 3.375GM/NS50ML 3.375 GM/50 ML BAG IVPB ×3 (00:13→11:41)
[2023-02-25] MEDS: HYDROmorphone HCL INJ (*CRX) 1 MG/ML SYR IV PUSH ×5 (00:14→23:03)
[2023-02-25] MEDS: ACETAMINOPHEN 500 MG TABLET PO ×5 (00:19→23:04)
[2023-02-25] MEDS: oxyCODONE/ACETAMINOPHEN (*CRX) 5-325 MG TABLET 1 TABLET PO ×4 (02:37→20:15)
[2023-02-25 06:00] VITALS: BP 109/72; PULSE 66; RESP 18; TEMP 36; O2SAT 100
[2023-02-25] MEDS: LEVOTHYROXINE SODIUM 125 MCG TABLET PO (06:02)
[2023-02-25 06:56] LABS: Hemoglobin 10.7 g/dL (12.0-15.0); Mean Corpuscular HGB Conc 31.5 g/dl (32-36); Mean Corpuscular Hemoglobin 30.5 pg (26-34); Mean Corpuscular Volume 96.9 fl (80-100); Platelet Count Result 190 k/mm3 (150-375); Red Blood Count 3.51 M/mm3 (4.2-5.4); Red Cell Distribution Width 14.3 % (11.5-14.5); White Blood Count 9.1 K/mm3 (4.5-10.0)
[2023-02-25 07:09] LABS: Albumin Level 3.2 g/dL (3.5-5.1); Anion Gap 8 mmol/L (8-16); Blood Urea Nitrogen 5 mg/dL (7-17); CRP 3.2 mg/dL (<1.0); Calcium 8.5 mg/dL (8.4-10.2); Carbon Dioxide 18 mmol/L (22-30); Chloride 111 mmol/L (98-107); Estimated CRCL calculation 58 ml/min; Estimated Glomerular Filt Rate 49; Glucose 99 mg/dL (65-110); Magnesium 2.1 mg/dL (1.6-2.3); Phosphorus 3.5 mg/dL (2.5-4.5); Potassium 3.2 mmol/L (3.4-5.0); Sodium 137 mmol/L (137-145)
[2023-02-25] MEDS: ARIPiprazole 5 MG TABLET PO (08:43)
--- NOTE | 2023-02-25 09:44 | PM.GYNPNOP ---
SYSTEM DEVELOPER ASSOCIATE MANAGER - A/P Assessment and plan (1) Abdominal pain: Code(s): R10.9 - Unspecified abdominal pain Status: Acute Plan Initiated discharge is today, patient was kept after creatinine was elevated. Creatinine appears to be improving. Weight Internal medicine's opinion and clearance for discharge. She has follow-up arranged. Pain is stable. gastroenterology consult may be significant and determining etiology of abdominal pain Time Spent With Patient Time: Total time spent is greater than 50% in coordination of care (as documented) at patient's floor/unit and/or counseling patient: Time with patient: less than 15 minutes SYSTEM DEVELOPER ASSOCIATE MANAGER- PN:Subj Post-Op Subjective Date/time seen: 02/25/23 09:44 Initiated discharge is today, patient was kept after creatinine was elevated. Creatinine appears to be improving. Weight Internal medicine's opinion and clearance for discharge. She has follow-up arranged. Interval history: overall better, still pain, also in her back and diarrhea but baseline she is tolerating diet SYSTEM DEVELOPER ASSOCIATE MANAGER - PN: Obj Data Vital Signs Vital Signs: Vital Signs - 24 hr 02/24/23 14:00 02/24/23 22:00 02/25/23 06:00 Temperature 97.9 F 97.3 F L 96.8 F L Pulse Rate 70 54 L 66 Respiratory Rate 14 14 18 Blood Pressure 104/69 108/84 109/72 Pulse Oximetry 100 97 100 Oxygen Delivery 02/25/23 08:40 Temperature Pulse Rate Respiratory Rate Blood Pressure Pulse Oximetry Oxygen Delivery Room Air Intake/Output Intake/Output: Intake & Output 02/23/23 02/24/23 02/24/23 02/25/23 00:59 00:59 23:59 23:59 Intake Total 50 Balance 50 Meds/Results Medications: Active Medications Generic Name Dose Route Start Last Admin Trade Name Freq PRN Reason Stop Dose Admin Acetaminophen 500 mg 02/20/23 01:07 02/25/23 06:28 Acetaminophen 500 Mg Tablet PO 500 mg Q4H PRN Administration Mild Pain (1-3) or Fever Aripiprazole 5 mg 02/20/23 09:00 02/25/23 08:43 Aripiprazole 5 Mg Tablet PO 5 mg DAILY TONIE Administration Hydromorphone HCl 1 mg 02/24/23 15:13 02/25/23 06:01 Hydromorphone Hcl Inj (*Crx) 1 Mg/Ml Syr IV PUSH 1 mg Q4H PRN Administration Pain Piperacillin/Tazobactam/Dextrose 3.375 gm in 50 mls @ 100 mls/hr 02/19/23 00:00 02/25/23 06:02 Zosyn 3.375 Gm/Ns 50 Ml IVPB 100 mls/hr Q6H TONIE Administration Levothyroxine Sodium 125 mcg 02/20/23 06:30 02/25/23 06:02 Levothyroxine Sodium 125 Mcg Tablet PO 125 mcg DAILY@0630 TONIE Administration Oxycodone/Acetaminophen 1 tablet 02/19/23 17:36 02/25/23 08:45 Oxycodone/Acetaminophen (*Crx) 5-325 Mg Tablet PO 1 tablet Q4H PRN Administration Pain Rated 4-6 Topiramate 200 mg 02/20/23 21:00 02/24/23 21:23 Topiramate 100 Mg Tablet PO 200 mg HS TONIE Administration Trazodone HCl 300 mg 02/19/23 20:00 02/24/23 21:23 Trazodone Hcl 50 Mg Tablet PO 300 mg HS PRN Administration Insomnia Radiology Results: ITS Impressions Abdomen/Pelvis CT 02/22/23 08:38 IMPRESSION: 1. Mild pulmonary edema. 2. Small pleural effusions. Labs 02/25/23 06:12 02/25/23 06:12 Labs: Laboratory Results - last 24 hr 02/24/23 02/24/23 02/25/23 10:01 15:23 06:12 WBC 10.0 9.1 RBC 3.88 L 3.51 L Hgb 12.0 10.7 L Hct 36.6 L 34.0 L MCV 94.3 96.9 MCH 30.9 30.5 MCHC 32.8 31.5 L RDW 14.5 14.3 Plt Count 189 190 MPV 11.0 H 11.0 H Sodium 139 137 Potassium 3.1 L 3.2 L Chloride 109 H 111 H Carbon Dioxide 20 L 18 L Anion Gap 10 8 BUN 5 L 5 L Creatinine 1.40 H 1.20 H Estim Creat Clear Calc 50 58 Estimated GFR 41 L 49 L Glucose 121 H 99 Calcium 8.8 8.5 Phosphorus 3.5 Magnesium 2.1 C-Reactive Protein 3.2 H Albumin 3.2 L TSH (Reflex) 13.000 H Free T4 0.90 Urine Color Yellow Urine Appearance Clear Urine pH 7.0 Ur Specific [place] 1.013 Urine Protein Negative
--- NOTE | 2023-02-25 10:00 | P.PNIM_ITS ---
Progress Note: A&P Assessment and Plan (1) CHAVEZ (acute kidney injury): Code(s): N17.9 - Acute kidney failure, unspecified Status: Acute Assessment and Plan: * Baseline creatinine 1.1, 02/24 1.4 improved * Likely contrast nephropathy due to CT with contrast 02/18 and 02/22 * Less likely due to interstitial nephritis due to piperacillin * She has no stigmata of autoimmune disease at this time * Encouraged adequate po intake * Avoid nephrotoxic drugs, including IV contrast * UA with few WBC cells, urine culture pending. 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 May represent postoperative change ruptures chest less likely ruptured gestation pelvic inflammatory disease. Borderline size the appendix and minimal periappendiceal fluid or stranding. General surgery has evaluated for possible appendicitis. Repeat CT abdomen with colon suggesting diarrhea chronic appendiceal dilatation measuring 8 mm in diameter. (4) Post-op pain: Code(s): G89.18 - Other acute postprocedural pain Status: Acute Assessment and Plan: * More widespread and associated with more symptoms that would be expected from incisional pain (5) Diarrhea: Code(s): R19.7 - Diarrhea, unspecified Status: Acute Assessment and Plan: * IBS vs IBD vs secondary to pelvic infection vs c diff vs covid vs other infectious etiology (though stool culture NEGATIVE) vs sprue vs hyperthyroid (overuse of med?) * GI plans EGD and colonoscopy soon as an outpatient basis C diff is negative Irritable bowel syndrome versus inflammatory bowel disease (6) Hypokalemia: Code(s): E87.6 - Hypokalemia Status: Acute Assessment and Plan: * Likely due to saline diuresis combined with diarrhea * 02/24 PO replacement ordered 02/25 p.o. replacement ordered (7) Fluid overload: Code(s): E87.70 - Fluid overload, unspecified Status: Acute Assessment and Plan: * She received approximately 8 L of fluid after admission * Resolving after discontinuation of IVF Findings of fluid overload CT abdomen and pelvis (8) Metabolic acidosis: Code(s): E87.20 - Acidosis, unspecified Status: Acute Assessment and Plan: * Hyperchloremic, non-anion gap acidosis * c/w hx of significant diarrhea (9) Hypothyroidism (acquired): Code(s): E03.9 - Hypothyroidism, unspecified Status: Acute Assessment and Plan: * Continue home dose of levothyroxine * TSH is 13 Will repeat as outpatient basis Subjective Date/time seen: 02/25/23 10:00 Interval history: Patient continues to complain of abdominal pain. Diarrhea with family 6 stool per day. Denies any nausea vomiting and tolerating diet. Remains afebrile. Review of Systems Review of Systems: All systems reviewed & are unremarkable except as noted in HPI and below Exam Narrative: HEENT: PERRL, sclerae nonicteric NECK: No JVD, adenopathy, or thyromegaly CHEST: Clear to auscultation. Normal effort. HEART: NL S1/S2, regular, no murmur ABDOMEN: BS+, soft, TENDER HYPOGASTRIC TO BILATE
--- NOTE | 2023-02-25 10:00 | PM.IMPN ---
Progress Note: A&P Assessment and Plan (1) CHAVEZ (acute kidney injury): Code(s): N17.9 - Acute kidney failure, unspecified Status: Acute Assessment and Plan: Baseline creatinine 1.1, 02/24 1.4 improved Likely contrast nephropathy due to CT with contrast 02/18 and 02/22 Less likely due to interstitial nephritis due to piperacillin She has no stigmata of autoimmune disease at this time Encouraged adequate po intake Avoid nephrotoxic drugs, including IV contrast UA with few WBC cells, urine culture pending. 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 May represent postoperative change ruptures chest less likely ruptured gestation pelvic inflammatory disease. Borderline size the appendix and minimal periappendiceal fluid or stranding. General surgery has evaluated for possible appendicitis. Repeat CT abdomen with colon suggesting diarrhea chronic appendiceal dilatation measuring 8 mm in diameter. (4) Post-op pain: Code(s): G89.18 - Other acute postprocedural pain Status: Acute Assessment and Plan: More widespread and associated with more symptoms that would be expected from incisional pain (5) Diarrhea: Code(s): R19.7 - Diarrhea, unspecified Status: Acute Assessment and Plan: IBS vs IBD vs secondary to pelvic infection vs c diff vs covid vs other infectious etiology (though stool culture NEGATIVE) vs sprue vs hyperthyroid (overuse of med?) GI plans EGD and colonoscopy soon as an outpatient basis C diff is negative Irritable bowel syndrome versus inflammatory bowel disease (6) Hypokalemia: Code(s): E87.6 - Hypokalemia Status: Acute Assessment and Plan: Likely due to saline diuresis combined with diarrhea 02/24 PO replacement ordered 02/25 p.o. replacement ordered (7) Fluid overload: Code(s): E87.70 - Fluid overload, unspecified Status: Acute Assessment and Plan: She received approximately 8 L of fluid after admission Resolving after discontinuation of IVF Findings of fluid overload CT abdomen and pelvis (8) Metabolic acidosis: Code(s): E87.20 - Acidosis, unspecified Status: Acute Assessment and Plan: Hyperchloremic, non-anion gap acidosis c/w hx of significant diarrhea (9) Hypothyroidism (acquired): Code(s): E03.9 - Hypothyroidism, unspecified Status: Acute Assessment and Plan: Continue home dose of levothyroxine TSH is 13 Will repeat as outpatient basis Subjective Date/time seen: 02/25/23 10:00 Interval history: Patient continues to complain of abdominal pain. Diarrhea with family 6 stool per day. Denies any nausea vomiting and tolerating diet. Remains afebrile. Review of Systems Review of Systems: All systems reviewed & are unremarkable except as noted in HPI and below Exam Narrative: HEENT: PERRL, sclerae nonicteric NECK: No JVD, adenopathy, or thyromegaly CHEST: Clear to auscultation. Normal effort. HEART: NL S1/S2, regular, no murmur ABDOMEN: BS+, soft, TENDER HYPOGASTRIC TO BILATERAL LOWER QUADRANTS WITHOUT REBOUND OR GUARDING OR MASS EXTREMITIES: No cyanosis, edema, or clubbing NEUROLOGIC: CN intact and symmetric to inspection. MUSCULOSKELETAL: Tone and strength symmetric. PSYCH: Alert. Oriented to person, place, time, and situation. Objective Data Vital Signs Vital Signs: Vital Signs - 24 hr 02/24/23 14:00 02/24/23 22:00 02/25/23 06:00 Temperature 97.9 F 97.3 F L 96.8 F L Pulse Rate 70 54 L 66 Respiratory Rate
[2023-02-25 12:07] LABS: Total Triiodothyronine (T3) 0.96 NG/ML (0.97-1.69)
--- NOTE | 2023-02-25 12:22 | WPDGIPROGNO ---
Progress Note: A&P Assessment and Plan (1) Irritable bowel syndrome with diarrhea: Code(s): K58.0 - Irritable bowel syndrome with diarrhea Status: Acute Assessment and Plan: Patient with irritable bowel syndrome with diarrhea. We can arrange outpatient colonoscopy an EGD through the GI office. Patient should call there after discharge to arrange this as an electively as an outpatient. Suggest deferring invasive testing to allow some healing after recent gynecological procedures. (2) Abdominal pain: Code(s): R10.9 - Unspecified abdominal pain Status: Acute Assessment and Plan: Abdominal pain appears improved. No organic disease identified. She did have recent drainage of a variance this. Admitted with leukocytosis and abdominal pain this seems to be resolving. (3) Diarrhea: Code(s): R19.7 - Diarrhea, unspecified Status: Acute Assessment and Plan: Patient complains of diarrhea. Previous colonoscopy performed elsewhere was unremarkable. Stool cultures previously negative. Agree with repeat endoscopy as an outpatient to exclude any additional organic disease. (4) Horseshoe kidney: Code(s): Q63.1 - Lobulated, fused and horseshoe kidney Status: Acute Subjective Date/time seen: 02/25/23 12:22 Interval history: Patient continues to complain of diarrhea. Only has had this long-term. Previous workup by Dr. Park in [place] was unremarkable. Patient states abdominal pain improving. Tolerating regular Diet Review of Systems Review of Systems: review of systems noncontributory. Exam Narrative: Physical exam reveals patient to be alert. Vital signs stable. She is afebrile. HEENT exam reveals no icterus. Lungs are clear. Heart without murmur. Abdomen soft vague low abdominal discomfort reported. Objective Data Vital Signs Vital Signs: Vital Signs - 24 hr 02/24/23 14:00 02/24/23 22:00 02/25/23 06:00 Temperature 97.9 F 97.3 F L 96.8 F L Pulse Rate 70 54 L 66 Respiratory Rate 14 14 18 Blood Pressure 104/69 108/84 109/72 Pulse Oximetry 100 97 100 Oxygen Delivery 02/25/23 08:40 Temperature Pulse Rate Respiratory Rate Blood Pressure Pulse Oximetry Oxygen Delivery Room Air Intake/Output Intake/Output: Intake & Output 02/23/23 02/24/23 02/24/23 02/25/23 00:59 00:59 23:59 23:59 Intake Total 340 Balance 340 Meds/Results Medications: Active Medications Generic Name Dose Route Start Last Admin Trade Name Freq PRN Reason Stop Dose Admin Acetaminophen 500 mg 02/20/23 01:07 02/25/23 11:40 Acetaminophen 500 Mg Tablet PO 500 mg Q4H PRN Administration Mild Pain (1-3) or Fever Aripiprazole 5 mg 02/20/23 09:00 02/25/23 08:43 Aripiprazole 5 Mg Tablet PO 5 mg DAILY TONIE Administration Hydromorphone HCl 1 mg 02/24/23 15:13 02/25/23 11:41 Hydromorphone Hcl Inj (*Crx) 1 Mg/Ml Syr IV PUSH 1 mg Q4H PRN Administration Pain Piperacillin/Tazobactam/Dextrose 3.375 gm in 50 mls @ 100 mls/hr 02/19/23 00:00 02/25/23 11:41 Zosyn 3.375 Gm/Ns 50 Ml IVPB 100 mls/hr Q6H TONIE Administration Levothyroxine Sodium 125 mcg 02/20/23 06:30 02/25/23 06:02 Levothyroxine Sodium 125 Mcg Tablet PO 125 mcg DAILY@0630 TONIE Administration Oxycodone/Acetaminophen 1 tablet 02/19/23 17:36 02/25/23 08:45 Oxycodone/Acetaminophen (*Crx) 5-325 Mg Tablet PO 1 tablet Q4H PRN Administration Pain Rated 4-6 Topiramate 200 mg 02/20/23 21:00 02/24/23 21:23 Topiramate 100 Mg Tablet PO 200 mg HS TONIE Administration Trazodone HCl 300 mg 02/19/23 20:00 02/24/23 21:23 Trazodone Hcl 50 Mg Tablet PO 300 mg HS PRN Administration Insomnia Radiology Results: ITS Impressions Abdomen/Pelvis CT 02/22/23 08:38 IMPRESSION: 1. Mild pulmonary edema. 2. Small pleural effusions. Labs Labs: Laboratory Results - last 24 hr
[2023-02-25] MEDS: POTASSIUM CHLORIDE 20 MEQ ER TABLET 40 MEQ PO (13:29)
[2023-02-25 14:00] VITALS: BP 117/71; PULSE 58; RESP 18; TEMP 36.5; O2SAT 98
[2023-02-25 16:32] VITALS: O2SAT 97
[2023-02-25] MEDS: TOPIRAMATE 100 MG TABLET 200 MG PO (20:14)
[2023-02-25] MEDS: traZODone HCL 50 MG TABLET 300 MG PO (20:15)
[2023-02-25 22:00] VITALS: BP 126/73; PULSE 52; RESP 16; TEMP 36.6; O2SAT 98
[2023-02-26] MEDS: oxyCODONE/ACETAMINOPHEN (*CRX) 5-325 MG TABLET 1 TABLET PO ×4 (01:10→15:05)
[2023-02-26] MEDS: HYDROmorphone HCL INJ (*CRX) 1 MG/ML SYR IV PUSH ×2 (03:31→08:36)
[2023-02-26 06:00] VITALS: BP 108/78; PULSE 50; RESP 14; TEMP 36.7; O2SAT 100
[2023-02-26] MEDS: LEVOTHYROXINE SODIUM 125 MCG TABLET PO (06:13)
[2023-02-26 07:04] LABS: Basophils Percent Auto 0.5 % (0.2-1.2); Eosinophils Absolute Auto 0.4 K/mm3 (0-0.3); Eosinophils Percent Auto 4.2 % (0-4.4); Hematocrit 35.1 % (37.0-47.0); Immature Granulocyte Absolute 0.14 K/mm3 (0.00-0.031); Immature Granulocyte Percent A 1.6 % (0-0.5); Lymphocytes Absolute Auto 2.83 K/mm3 (0.9-3.2); Lymphocytes Percent Auto 32.7 % (18.3-44.2); Mean Corpuscular HGB Conc 31.3 g/dl (32-36); Mean Corpuscular Hemoglobin 30.6 pg (26-34); Mean Corpuscular Volume 97.5 fl (80-100); Mean Platelet Volume 10.8 fl (7.4-10.4); Monocytes Absolute Auto 0.5 K/mm3 (0.1-0.6); Monocytes Percent Auto 5.3 % (2.6-8.5); Neutrophils Absolute Auto 4.8 K/mm3 (1.3-6.7); Neutrophils Percent Auto 55.7 % (45.5-73.1); Platelet Count Result 221 k/mm3 (150-375); Red Cell Distribution Width 14.2 % (11.5-14.5); White Blood Count 8.7 K/mm3 (4.5-10.0)
[2023-02-26 07:17] LABS: Alanine Aminotransferase 10 U/L (6-35); Albumin Level 3.4 g/dL (3.5-5.1); Alkaline Phosphatase 55 U/L (38-126); Anion Gap 4 mmol/L (8-16); Aspartate Amino Transferase 15 U/L (14-36); Bilirubin,Total 0.4 mg/dL (0.2-1.3); Blood Urea Nitrogen 7 mg/dL (7-17); CRP 2.8 mg/dL (<1.0); Calcium 8.7 mg/dL (8.4-10.2); Carbon Dioxide 24 mmol/L (22-30); Chloride 108 mmol/L (98-107); Estimated CRCL calculation 58 ml/min; Estimated Glomerular Filt Rate 49; Glucose 89 mg/dL (65-110); Lipase 36 U/L (23-300); Magnesium 2.2 mg/dL (1.6-2.3); Phosphorus 3.7 mg/dL (2.5-4.5); Potassium 3.5 mmol/L (3.4-5.0); Sodium 136 mmol/L (137-145)
[2023-02-26 08:00] VITALS: O2SAT 100
[2023-02-26] MEDS: ARIPiprazole 5 MG TABLET PO (08:32)
[2023-02-26] MEDS: ACETAMINOPHEN 500 MG TABLET PO (08:35)
[2023-02-26 09:54] LABS: IFOB Positive Control Positive; Immunochemical Fecal Occult Bl Negative (N)
[2023-02-26 10:23] LABS: Toxigenic C. Diff NEGATIVE (NEGATIVE)
--- NOTE | 2023-02-26 11:33 | WPDGIPROGNO ---
Progress Note: A&P Assessment and Plan (1) Diarrhea: Code(s): R19.7 - Diarrhea, unspecified Status: Acute Assessment and Plan: Patient complains of diarrhea. Apparently she has trouble with this for a long time. It appears to be more frequent over recent days. Stool cultures to be repeated at this time. Because of long-standing problems anticipate outpatient colonoscopy an EGD. I would prefer to defer this because of recent gyne procedure . At the time of admission patient had significant leukocytosis and abdominal pain attributed to procedure (2) Abdominal pain: Code(s): R10.9 - Unspecified abdominal pain Status: Acute Assessment and Plan: abdominal pain resolved. Leukocytosis resolved. Suggest follow-up electively in the office for ongoing evaluation of her chronic abdominal pain. Subjective Date/time seen: 02/26/23 11:33 Interval history: Patient continues to reports frequent diarrhea. She reports that she has diarrhea every time she urinates. No bleeding noted. Repeat stool cultures have been ordered and pending. I do not see any recent stool cultures on the record. Review of Systems Review of Systems: Review of systems noncontribut Exam Narrative: Physical exam reveals patient be alert comfortable at rest vital signs stable. HEENT exam is unremarkable. Patient anicteric. Lungs are clear. Heart without murmur. Abdomen soft nontender. Objective Data Vital Signs Vital Signs: Vital Signs - 24 hr 02/25/23 14:00 02/25/23 16:32 02/25/23 20:00 Temperature 97.7 F Pulse Rate 58 L Respiratory Rate 18 Blood Pressure 117/71 Pulse Oximetry 98 97 Oxygen Delivery Room Air Room Air 02/25/23 22:00 02/26/23 06:00 02/26/23 08:00 Temperature 97.9 F 98.0 F Pulse Rate 52 L 50 L Respiratory Rate 16 14 Blood Pressure 126/73 108/78 Pulse Oximetry 98 100 100 Oxygen Delivery Room Air Intake/Output Intake/Output: Intake & Output 02/24/23 02/24/23 02/25/23 02/26/23 00:59 23:59 23:59 23:59 Intake Total 1370 240 Balance 1370 240 Meds/Results Medications: Active Medications Generic Name Dose Route Start Last Admin Trade Name Freq PRN Reason Stop Dose Admin Acetaminophen 500 mg 02/20/23 01:07 02/26/23 08:35 Acetaminophen 500 Mg Tablet PO 500 mg Q4H PRN Administration Mild Pain (1-3) or Fever Aripiprazole 5 mg 02/20/23 09:00 02/26/23 08:32 Aripiprazole 5 Mg Tablet PO 5 mg DAILY TONIE Administration Hydromorphone HCl 1 mg 02/24/23 15:13 02/26/23 08:36 Hydromorphone Hcl Inj (*Crx) 1 Mg/Ml Syr IV PUSH 1 mg Q4H PRN Administration Pain Levothyroxine Sodium 125 mcg 02/20/23 06:30 02/26/23 06:13 Levothyroxine Sodium 125 Mcg Tablet PO 125 mcg DAILY@0630 TONIE Administration Oxycodone/Acetaminophen 1 tablet 02/19/23 17:36 02/26/23 06:13 Oxycodone/Acetaminophen (*Crx) 5-325 Mg Tablet PO 1 tablet Q4H PRN Administration Pain Rated 4-6 Topiramate 200 mg 02/20/23 21:00 02/25/23 20:14 Topiramate 100 Mg Tablet PO 200 mg HS TONIE Administration Trazodone HCl 300 mg 02/19/23 20:00 02/25/23 20:15 Trazodone Hcl 50 Mg Tablet PO 300 mg HS PRN Administration Insomnia Radiology Results: ITS Impressions Abdomen/Pelvis CT 02/22/23 08:38 IMPRESSION: 1. Mild pulmonary edema. 2. Small pleural effusions. Labs Labs: Laboratory Results - last 24 hr 02/25/23 02/26/23 02/26/23 06:12 06:21 09:04 WBC 8.7 RBC 3.60 L Hgb 11.0 L Hct 35.1 L MCV 97.5 MCH 30.6 MCHC 31.3 L RDW 14.2 Plt Count 221 MPV 10.8 H Immature Gran % (Auto) 1.6 H Neut % (Auto) 55.7 Lymph % (Auto) 32.7 Maverick % (Auto) 5.3 Eos % (Auto) 4.2 Baso % (Auto) 0.5 Lymph # (Auto) 2.83 Maverick # (Auto) 0.5 Eos # (Auto) 0.4 H Baso # (Auto) 0.0 Abs Immat Gran (auto) 0.14 H Absolute Neuts (auto) 4.8 Absolute Nu
[2023-02-26 13:55] VITALS: BP 132/76; PULSE 60; RESP 18; TEMP 35.7; O2SAT 99
--- NOTE | 2023-02-26 14:38 | PM.IMPN ---
Progress Note: A&P Assessment and Plan (1) CHAVEZ (acute kidney injury): Code(s): N17.9 - Acute kidney failure, unspecified Status: Acute Assessment and Plan: Baseline creatinine 1.1, 02/24 1.4 improved Likely contrast nephropathy due to CT with contrast 02/18 and 02/22 Less likely due to interstitial nephritis due to piperacillin She has no stigmata of autoimmune disease at this time Encouraged adequate po intake Avoid nephrotoxic drugs, including IV contrast UA with few WBC cells, urine culture no growth. 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 May represent postoperative change ruptures chest less likely ruptured gestation pelvic inflammatory disease. Borderline size the appendix and minimal periappendiceal fluid or stranding. General surgery has evaluated for possible appendicitis. Repeat CT abdomen with colon suggesting diarrhea chronic appendiceal dilatation measuring 8 mm in diameter. Possible irritable bowel syndrome Use of amitriptyline to discuss as an outpatient basis CT also had findings of endometriosis follow-up with gynecology with regard to this (4) Post-op pain: Code(s): G89.18 - Other acute postprocedural pain Status: Acute Assessment and Plan: More widespread and associated with more symptoms that would be expected from incisional pain (5) Diarrhea: Code(s): R19.7 - Diarrhea, unspecified Status: Acute Assessment and Plan: IBS vs IBD vs secondary to pelvic infection vs c diff vs covid vs other infectious etiology (though stool culture NEGATIVE) vs sprue vs hyperthyroid (overuse of med?) GI plans EGD and colonoscopy soon as an outpatient basis C diff is negative Irritable bowel syndrome versus inflammatory bowel disease She is scheduled to get colonoscopy as an outpatient basis Deferred due to recent gynecological procedure (6) Hypokalemia: Code(s): E87.6 - Hypokalemia Status: Acute Assessment and Plan: Likely due to saline diuresis combined with diarrhea 02/24 PO replacement ordered 02/25 p.o. replacement ordered (7) Fluid overload: Code(s): E87.70 - Fluid overload, unspecified Status: Acute Assessment and Plan: She received approximately 8 L of fluid after admission Resolving after discontinuation of IVF Findings of fluid overload CT abdomen and pelvis (8) Metabolic acidosis: Code(s): E87.20 - Acidosis, unspecified Status: Acute Assessment and Plan: Hyperchloremic, non-anion gap acidosis c/w hx of significant diarrhea (9) Hypothyroidism (acquired): Code(s): E03.9 - Hypothyroidism, unspecified Status: Acute Assessment and Plan: Continue home dose of levothyroxine TSH is 13 Will repeat as outpatient basis Subjective Date/time seen: 02/26/23 14:38 Interval history: Patient continues to report abdominal soreness. Continue to have some diarrhea. No bleeding. Review of Systems Review of Systems: All systems reviewed & are unremarkable except as noted in HPI and below Exam Narrative: HEENT: PERRL, sclerae nonicteric NECK: No JVD, adenopathy, or thyromegaly CHEST: Clear to auscultation. Normal effort. HEART: NL S1/S2, regular, no murmur ABDOMEN: BS+, soft, hypersensitive and TENDER HYPOGASTRIC TO BILATERAL LOWER QUADRANTS WITHOUT REBOUND OR GUARDING OR MASS EXTREMITIES: No cyanosis, edema, or clubbing NEUROLOGIC: CN intact and symmetric to inspection. MUSCULOSKELETAL: Tone and
== END 2023-02-26 15:20 | disposition home or self-care (01) | DRG 251 ==
LOC: ANHED 14:38 → ANH3MEDSUR 17:48
PROVIDERS: Internal Medicine; Internal Medicine Gastroenterology; Nurse Practitioner Family; Preventive Medicine Aerospace Medicine; Admitting Provider Obstetrics & Gynecology; Emergency Provider Emergency Medicine; PCP Internal Medicine; Visit Provider Obstetrics & Gynecology
DX: R10.9 Unspecified abdominal pain (principal); N17.8 Other acute kidney failure; E87.21 Acute metabolic acidosis; E03.9 Hypothyroidism, unspecified; N14.11 Contrast-induced nephropathy; T50.8X5A Adverse effect of diagnostic agents, initial encounter; N83.202 Unspecified ovarian cyst, left side; K58.0 Irritable bowel syndrome with diarrhea; M79.7 Fibromyalgia; F41.9 Anxiety disorder, unspecified; K63.89 Other specified diseases of intestine; G89.18 Other acute postprocedural pain; F32.A Depression, unspecified; Q63.1 Lobulated, fused and horseshoe kidney; D72.828 Other elevated white blood cell count; E87.70 Fluid overload, unspecified; E87.6 Hypokalemia; E66.9 Obesity, unspecified; Z68.29 Body mass index [BMI] 29.0-29.9, adult; Z87.891 Personal history of nicotine dependence
CPT/HCPCS: 36415; 74177; 80048; 80053; 80069; 81001; 81025; 82274; 83605; 83690; 83735; 84100; 84439; 84443; 84480; 85025; 85027; 86140; 87045; 87086; 87427; 87449; 87493; 87635; 89055; 96361; 96365; 96366; 96375; 96376; 99285; A9270; G0378; G0379; J1170; J2405; J2543; J7030; Q9967

== ENCOUNTER 2023-03-04 12:15 | Outpatient (CLI) | payer OTHER, SELFPAY ==
[2023-03-04 13:05] LABS: Basophils Absolute Auto 0.1 K/mm3 (0.0-0.1); Basophils Percent Auto 0.9 % (0.2-1.2); Eosinophils Absolute Auto 0.1 K/mm3 (0-0.3); Eosinophils Percent Auto 1.8 % (0-4.4); Hematocrit 42.4 % (37.0-47.0); Hemoglobin 13.7 g/dL (12.0-15.0); Immature Granulocyte Absolute 0.04 K/mm3 (0.00-0.031); Immature Granulocyte Percent A 0.5 % (0-0.5); Lymphocytes Absolute Auto 2.96 K/mm3 (0.9-3.2); Lymphocytes Percent Auto 38.4 % (18.3-44.2); Mean Corpuscular HGB Conc 32.3 g/dl (32-36); Mean Corpuscular Hemoglobin 30.2 pg (26-34); Mean Corpuscular Volume 93.4 fl (80-100); Monocytes Absolute Auto 0.5 K/mm3 (0.1-0.6); Monocytes Percent Auto 6.6 % (2.6-8.5); Neutrophils Percent Auto 51.8 % (45.5-73.1); Platelet Count Result 284 k/mm3 (150-375); Red Blood Count 4.54 M/mm3 (4.2-5.4); Red Cell Distribution Width 13.7 % (11.5-14.5); White Blood Count 7.7 K/mm3 (4.5-10.0)
[2023-03-04 13:17] LABS: Alanine Aminotransferase 18 U/L (6-35); Albumin Level 4.6 g/dL (3.5-5.1); Alkaline Phosphatase 61 U/L (38-126); Anion Gap 15 mmol/L (8-16); Aspartate Amino Transferase 23 U/L (14-36); Bilirubin,Total 0.6 mg/dL (0.2-1.3); Blood Urea Nitrogen 15 mg/dL (7-17); CRP 1.2 mg/dL (<1.0); Calcium 9.4 mg/dL (8.4-10.2); Carbon Dioxide 21 mmol/L (22-30); Chloride 104 mmol/L (98-107); Cholesterol 229 mg/dL (0-200); Estimated Glomerular Filt Rate 54; Glucose 103 mg/dL (65-110); HDL Direct 50 mg/dL; Potassium 4.1 mmol/L (3.4-5.0); Sodium 140 mmol/L (137-145); Triglycerides 103 mg/dL (<150)
[2023-03-04 13:26] LABS: LDL Cholesterol Direct 133 mg/dL
[2023-03-04 13:36] LABS: Vitamin D 25 Hydroxy 25.7 ng/mL
[2023-03-04 14:47] LABS: Iron 159 ug/dL (37-170)
[2023-03-04 14:49] LABS: Percent Iron Saturation 54 % (20-50)
[2023-03-04 16:20] LABS: Thyroid Stimulating Hormone Reflex 0.709 uIU/mL (0.465-4.68)
== END 2023-03-04 12:16 | disposition home or self-care (01) ==
PROVIDERS: PCP Internal Medicine; Referring Provider Internal Medicine Gastroenterology; Visit Provider Internal Medicine
DX: E61.1 Iron deficiency (principal); R53.82 Chronic fatigue, unspecified; E55.9 Vitamin D deficiency, unspecified; E78.5 Hyperlipidemia, unspecified
CPT/HCPCS: 36415; 80053; 80061; 82306; 83540; 83550; 84443; 85025; 86140

== ENCOUNTER 2023-03-28 04:04 | Day surgery (SDC) | payer OTHER, SELFPAY ==
[2023-03-13 10:47] VITALS: BMI 30.7
--- NOTE | 2023-03-26 12:03 | SUR.PREOP ---
Patient called regarding upcoming procedure. Reviewed preop instructions, appointment times, and procedure prep.
[2023-03-28 09:45] VITALS: BP 129/88; PULSE 85; RESP 20; TEMP 36.4; O2SAT 99; BMI 31.3
[2023-03-28] MEDS: LACTATED RINGERS 1,000 ML 150 ML IV CONT (10:09)
--- NOTE | 2023-03-28 10:11 | WPDHPUPDATE1 ---
History and Physical Update Update Date/Time: 03/28/23 10:11 History and Physical has been reviewed, including an updated exam of the patient. There are NO changes in the patient's condition. Risks, benefits, and alternatives have been discussed and questions answered. Patient agrees to proceed with procedure.
--- NOTE | 2023-03-28 10:31 | WPDANESEPPF ---
Anes - Initial Pre Proc Eval Procedure: Operation Date: 03/28/23 12:30 Proposed Procedures p Esophagogastroduodenoscopy & Colonoscopy - Ambrosio Solomon MD Date/Time: 03/28/23 10:31 Surgeon: Ambrosio Solomon MD Pre Op Diagnosis: Irritable bowel syndrome with diarrhea Patient Data Age: 42 Gender: F Height: 1.68 m Weight: 88.1 kg Last Vital Signs Temp 97.6 F 03/28/23 09:45 Pulse 85 03/28/23 09:45 Resp 20 03/28/23 09:45 BP 129/88 03/28/23 09:45 Pulse Ox 99 03/28/23 09:45 O2 Del Method Room Air 03/28/23 09:45 Allergies Allergy/AdvReac Type Severity Reaction Status Date / Time aloe vera Allergy Rash Verified 03/28/23 09:44 Home Medications Medication Instructions Recorded Confirmed Type aripiprazole 5 mg tablet (Abilify) 5 mg PO DAILY 04/12/21 03/13/23 History ferrous sulfate 27 mg iron tablet 325 mg PO DAILY 04/12/21 03/13/23 History topiramate 200 mg tablet (Topamax) 200 mg PO HS 04/12/21 03/13/23 History trazodone 300 mg tablet 300 mg PO QHS 04/12/21 03/13/23 History aripiprazole 2 mg tablet 2 mg PO DAILY 01/22/23 03/13/23 History levothyroxine 125 mcg tablet 125 mcg PO DAILY 01/22/23 03/13/23 History cyclobenzaprine 10 mg PO Q8H PRN Muscle Pain 02/18/23 03/13/23 History oxycodone-acetaminophen 5 mg-325 1 tablet PO Q4H PRN pain #20 tabs 02/24/23 03/13/23 Rx mg tablet sodium,potassium,mag sulfates 17.5 See Rx Instructions PO .COMPLEX 03/07/23 Rx gram-3.13 gram-1.6 gram oral soln #354 mL (Suprep Bowel Prep Kit) acetaminophen 325 mg tablet 650 mg PO Q4H PRN Pain 03/13/23 03/13/23 History Patient hx anesthesia problems: none Family hx anesthesia problems: none Results Review: All pre-operative results and documents have been reviewed as part of the pre-operative evaluation. [facility] Past Medical History Medical History CHAVEZ (acute kidney injury) Anxiety Depression Fibromyalgia Hypothyroidism (acquired) Irritable bowel syndrome with diarrhea Obese Small intestinal bacterial overgrowth (SIBO) Surgical History Surgical History H/O arthroscopic knee surgery H/O breast augmentation Family History Family History Father No problems noted. Mother No problems noted. Social History Social History Years smoked: 8 Smoking status: Former smoker Tobacco type: cigarettes Alcohol intake: former Alcohol use details: Recovering alcoholic Substance use: never Substance use type: does not use Lack of Transportation: No Lack of Food: Never True Current Housing: I Have Housing Concerned About Future Housing: No Difficulty Paying Gas/Electric Bills: No Difficulty Paying for Meds: No Currently Unemployed: No Education: Associate Degree Difficulty w/ Childcare or Family Care: No Living arrangements: with family Gender identity (if verbalized by the patient): Female Spiritual care concerns: No Anes - Eval Final PreProcedure Day of Procedure 03/28/23 10:31 Patient weight: obese Heart: regular rate and rhythm Lungs: clear to auscultation Airway: Mallampati scale class II Neurological: alert and oriented Last oral intake: >/= 8 hours ASA classification: III Emergent: no Anesthetic plan: proceed Anesthesia type and monitoring: general GIVS and standard monitoring Results Review: All pre-operative results and documents have been reviewed as part of the pre-operative evaluation. Informed Consent: The patient's anesthetic plan and its attendant risks and benefits were discussed with the patient/family/POA. Questions were solicited and answers provided to the satisfaction of the patient/family/POA.
--- NOTE | 2023-03-28 10:58 | SUR.OPER ---
EGD started at 1050 and ended at 1053. Colonoscopy started at 1057.
--- NOTE | 2023-03-28 11:07 | SUR.OPER ---
Unable to obtain Transverse Colon Polyp. Dr. Solomon aware.
[2023-03-28 11:15] VITALS: BP 112/77; PULSE 66; RESP 22; O2SAT 96
[2023-03-28 11:25] VITALS: BP 96/52; PULSE 69; RESP 22; O2SAT 100
[2023-03-28 11:35] VITALS: BP 106/66; PULSE 61; RESP 17; O2SAT 100
== END 2023-03-28 11:47 | disposition home or self-care (01) ==
PROVIDERS: PCP Internal Medicine; Visit Provider Internal Medicine Gastroenterology
PROC: 0DJ08ZZ Inspection of Upper Intestinal Tract, Via Natural or Artificial Opening Endoscopic (ICD-10-PCS; CPT 43235; principal; 2023-03-28 12:30)
DX: K58.0 Irritable bowel syndrome with diarrhea (principal); D12.2 Benign neoplasm of ascending colon; D12.3 Benign neoplasm of transverse colon; K64.8 Other hemorrhoids; Q63.1 Lobulated, fused and horseshoe kidney; G89.18 Other acute postprocedural pain; N83.209 Unspecified ovarian cyst, unspecified side; E03.9 Hypothyroidism, unspecified; M79.7 Fibromyalgia; F41.9 Anxiety disorder, unspecified; F32.A Depression, unspecified; F10.21 Alcohol dependence, in remission; E66.9 Obesity, unspecified; Z68.31 Body mass index [BMI] 31.0-31.9, adult; Z79.891 Long term (current) use of opiate analgesic; F17.210 Nicotine dependence, cigarettes, uncomplicated
CPT/HCPCS: 45385; 43239; 87081; 88305; J2704; J7120

== ENCOUNTER 2023-07-03 12:59 | Outpatient (CLI) | payer OTHER, SELFPAY ==
[2023-07-03 14:30] LABS: Thyroid Stimulating Hormone 0.036 uIU/mL (0.465-4.680)
[2023-07-03 14:49] LABS: Free T4 Free Thyroxine 1.64 ng/mL (0.78-2.19)
[2023-07-03 15:06] LABS: Folic Acid 4.7 ng/mL (2.76->20)
[2023-07-06 06:06] LABS: Triiodothyronine T3 Free 2.9 pg/mL (2.3-4.2)
[2023-07-06 14:45] LABS: Methylmalonic Acid 430 nmol/L (87-318)
[2023-07-06 14:54] LABS: Vitamin D 1,25 (OH)2 Total 24 pg/mL (18-72); Vitamin D2 1,25 (OH)2 <8 pg/mL; Vitamin D3 1,25 (OH)2 24 pg/mL
[2023-07-10 14:20] LABS: Vitamin B1 7 nmol/L (8-30)
== END 2023-07-03 13:00 | disposition home or self-care (01) ==
LOC: ANHLAB 13:00
PROVIDERS: PCP Internal Medicine; Visit Provider Psychiatry & Neurology Neurology
DX: G62.9 Polyneuropathy, unspecified (principal); E55.9 Vitamin D deficiency, unspecified
CPT/HCPCS: 36415; 82607; 82652; 82746; 83921; 84425; 84439; 84443; 84481; 86038; 86334

== ENCOUNTER 2023-07-24 12:15 | Outpatient (CLI) | payer OTHER, SELFPAY ==
[2023-07-24 13:01] LABS: Glucose Fasting 101 mg/dL
[2023-07-24 14:41] LABS: Glucose 1 Hour 135 mg/dL
[2023-07-24 15:23] LABS: Glucose 2 Hour 134 mg/dL
== END 2023-07-24 12:16 | disposition home or self-care (01) ==
PROVIDERS: PCP Internal Medicine; Visit Provider Psychiatry & Neurology Neurology
DX: G62.9 Polyneuropathy, unspecified (principal); Z13.1 Encounter for screening for diabetes mellitus
CPT/HCPCS: 36415; 82951

== ENCOUNTER 2023-10-02 12:40 | Outpatient (CLI) | payer OTHER, SELFPAY ==
[2023-10-03 13:13] LABS: Red Blood Cell Folate 423 ng/mL RBC (>280)
[2023-10-05 04:53] LABS: Methylmalonic Acid 736 nmol/L (87-318)
[2023-10-07 13:58] LABS: Immunofixation, Serum Normal pattern.
[2023-10-07 15:08] LABS: Vitamin B1 8 nmol/L (8-30)
== END 2023-10-02 12:41 | disposition home or self-care (01) ==
LOC: ANHLAB 12:41
PROVIDERS: PCP Internal Medicine; Visit Provider Psychiatry & Neurology Neurology
DX: G62.9 Polyneuropathy, unspecified (principal); R20.8 Other disturbances of skin sensation; M25.50 Pain in unspecified joint
CPT/HCPCS: 36415; 82607; 82747; 83921; 84425; 86334

== ENCOUNTER 2024-01-13 13:55 | Outpatient (CLI) | payer OTHER, SELFPAY ==
--- NOTE | ~2024-01-13 | XR_ITS ---
3 VIEWS LUMBAR SPINE Ordering provider: Hira Asencio MD History: . CHRONIC LOW BACK PAIN . Comparison: December 14, 2022 FINDINGS: VERTEBRAL BODIES: No visible fracture or subluxation. Degenerative changes. DISK SPACES: Narrowing of the disc L5-S1. Facet joint disease at the level of L5. SOFT TISSUES: Normal. IMPRESSION: No acute osseous abnormality lumbar spine. Reviewed, dictated and finalized at location A.
[2024-01-13 15:53] LABS: Folic Acid 4.8 ng/mL (2.76->20)
[2024-01-16 11:19] LABS: Vitamin B1 10 nmol/L (8-30)
[2024-01-24 12:48] LABS: Methylmalonic Acid 162 nmol/L (55-335)
== END 2024-01-13 13:56 | disposition home or self-care (01) ==
PROVIDERS: PCP Internal Medicine; Visit Provider Psychiatry & Neurology Neurology
DX: G62.9 Polyneuropathy, unspecified (principal); G89.29 Other chronic pain
CPT/HCPCS: 36415; 72100; 82607; 82746; 83921; 84425; 86038; 86039

== ENCOUNTER 2024-07-14 13:06 | Outpatient (CLI) | payer OTHER, SELFPAY ==
--- NOTE | 2024-07-14 14:15 | NEURO_ITS ---
Impression: #Nondiabetic person Complains of being in pain all the time. ? # Extra strength stimuli needed to obtain the nerve responses. ? # Left ulnar neuropathy Across the elbow.? # Normal needle/EMG exam with no fibs ,or myotonia. ? # Clinical correlation recommended. Nerve Conduction Studies Anti Sensory Summary Table ?Stim Site NR Peak (ms) P-T Amp (?V) Site1 Site2 Delta-P (ms) Dist (cm) Josh (m/s) Left Median Anti Sensory (2-3nd Digit) Wrist ? 3.1 87.4 Wrist 2-3nd Digit 3.1 14.0 45 Wrist ? 3.1 65.4 Wrist 2-3nd Digit 3.1 14.0 45 Right Median Anti Sensory (2-3nd Digit) Wrist ? 3.2 45.5 Wrist 2-3nd Digit 3.2 14.0 44 Wrist ? 3.1 57.7 Wrist 2-3nd Digit 3.2 14.0 44 Left Radial Anti Sensory (Base 1st Digit) Wrist ? 2.8 28.5 Wrist Base 1st Digit 2.8 0.0 Right Radial Anti Sensory (Base 1st Digit) Wrist ? 2.9 20.1 Wrist Base 1st Digit 2.9 0.0 Left Ulnar Anti Sensory (5th Digit) Wrist ? 2.7 80.1 Wrist 5th Digit 2.7 14.0 52 Right Ulnar Anti Sensory (5th Digit) Wrist ? 2.3 53.1 Wrist 5th Digit 2.3 14.0 61 Motor Summary Table ?Stim Site NR Onset (ms) O-P Amp (mV) Site1 Site2 Delta-0 (ms) Dist (cm) Josh (m/s) Left Median Motor (Abd Poll Brev) Wrist ? 2.7 6.9 Elbow Wrist 4.3 26.0 60 Elbow ? 7.0 7.1 Right Median Motor (Abd Poll Brev) Wrist ? 2.7 7.8 Elbow Wrist 4.3 26.0 60 Elbow ? 7.0 7.6 Left Ulnar Motor (Abd Dig Minimi) Wrist ? 2.1 6.9 A Elbow Wrist 5.7 27.0 47 A Elbow ? 7.8 5.0 B Elbow Wrist 5.0 22.0 44 B Elbow ? 7.1 4.1 Right Ulnar Motor (Abd Dig Minimi) Wrist ? 2.7 6.7 A Elbow Wrist 5.3 31.0 58 A Elbow ? 8.0 5.5 B Elbow Wrist 3.7 21.0 57 B Elbow ? 6.4 4.2 F Wave Studies ?NR F-Lat (ms) L-R F-Lat (ms) Left Median (Mrkrs) (Abd Poll Brev) ? 27.73 0.98 Right Median (Mrkrs) (Abd Poll Brev) ? 28.71 0.98 Left Ulnar (Mrkrs) (Abd Dig Min) ? 27.98 1.30 Right Ulnar (Mrkrs) (Abd Dig Min) ? 29.28 1.30 EMG ?Side Muscle Nerve Root Ins Act Fibs Amp Dur Recrt Comment Right 1stDorInt Ulnar C8-T1 Nml Nml Nml Nml Nml Right Ext Indicis Radial (Post Int) C7-8 Nml Nml Nml Nml Nml Right Ext Digitorum Radial (Post Int) C7-8 Nml Nml Nml Nml Nml Right BrachioRad Radial C5-6 Nml Nml Nml Nml Nml Right PronatorTeres Median C6-7 Nml Nml Nml Nml Nml Right Abd Poll Brev Median C8-T1 Nml Nml Nml Nml Nml Right ABD Dig Min Ulnar C8-T1 Nml Nml Nml Nml Nml Right FlexPolLong Median (Ant Int) C7-8 Nml Nml Nml Nml Nml Right Abd Poll Long Radial (Post Int) C7-8 Nml Nml Nml Nml Nml Left 1stDorInt Ulnar C8-T1 Nml Nml Nml Nml Nml Left Ext Indicis Radial (Post Int) C7-8 Nml Nml Nml Nml Nml Left Ext Digitorum Radial (Post Int) C7-8 Nml Nml Nml Nml Nml Left BrachioRad Radial C5-6 Nml Nml Nml Nml Nml Left PronatorTeres Median C6-7 Nml Nml Nml Nml Nml Left Abd Poll Brev Median C8-T1 Nml Nml Nml Nml Nml Left ABD Dig Min Ulnar C8-T1 Nml Nml Nml Nml Nml MTDD
--- OUTSIDE RECORDS SUMMARY | 2024-07-14 15:09 | XMS_ITS | Clinical Summary ---
Author Organization [facility] Address [address] [place] [address] Phone Care Team Providers Care Supervisor Accounting Clerks Name Role Phone Provider, None Primary Care Provider Unavailabl e Allergies No known active allergies Medications levothyroxine (SYNTHROID) 100 MCG Tablet 100 mcg. 1 10/13/2018 Active albuterol 108 (90 Base) MCG/ACT Aerosol Solution 08/20/2018 Active citalopram (CELEXA) 40 MG Tablet TK 1 T PO QD 0 10/13/2018 Active cyclobenzaprine (FLEXERIL) 10 MG Tablet TK 1 T PO BID PRN 2 10/13/2018 Active folic acid (FOLVITE) 1 MG Tablet TK 1 T PO QD 0 08/18/2018 Active LORazepam (ATIVAN) 0.5 MG Tablet 0 08/11/2018 Active Melatonin 5 MG Tablet TK 1 T PO QD HS WF PRN 1 09/15/2018 Active propranolol (INDERAL) 20 MG Tablet 08/25/2018 Active topiramate (TOPAMAX) 25 MG Tablet TK 1 T PO QD 1 10/13/2018 Active vitamin B-1 (THIAMINE) 100 MG Tablet TK 1 T PO QD FOR 10 DAYS 0 09/15/2018 Active traMADol (ULTRAM) 50 MG Tablet TK 1-2 TS PO Q 8 HOURS PRN 0 10/14/2018 Active traZODone (DESYREL) 100 MG Tablet TK 1 T PO QD HS 1 10/13/2018 Active amphetamine-dext roamphetamine (ADDERALL) 20 MG Tablet Take 20 mg by mouth 2 times daily. 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 Class 1 obesity due to exces s calories with serious comorbidity and body mass index (BMI) of 31.0 to 31.9 in adult 10/24/2018 Family History Medical History Relation Name Comments Crohn's Disease Brother 1 No Known Problems Brother 2 No Known Problems Father Heart Surgery Mother Hypertension Mother Thyroid Disease Mother Relation Name Status Comments Brother 1 Alive Brother 2 Alive Father Alive Mother Alive Social History Tobacco Use Types Packs/Day Years Used Date Smoking Tobacco: Some Days Cigarettes Smokeless Tobacco: Never Tobacco Cessation:Ready to Q uit: No; Counseling Given: Yes Alcohol Use Standard Drinks/Week Comments Not Currently 0 (1 standard drink = 0.6 oz pur e alcohol) Sexually Active Control Partners Comments Yes Male Comments No Sex and Gender Information Value Date Recorded Sex Assigned at Not on file Legal Sex Female 10:51 AM CDT Gender Identity Not on file Sexual Orientation Not on file Last Filed Vital Signs Vital Sign Reading Time Taken Comments Blood Pressure 118/82 01/22/2019 2:35 PM CDT Pulse 88 01/22/2019 2:35 PM CDT Temperature 36.3 C (97.4 F) 01/22/2019 2:35 PM CDT Respiratory Rate 16 01/22/2019 2:35 PM CDT Oxygen Saturation 98% 01/22/2019 2:35 PM CDT Inhaled Oxygen Concentration - - Weight 88.9 kg (196 lb) 01/22/2019 2:35 PM CDT Height 167.6 cm (5' 6 ) 01/22/2019 2:35 PM CDT Body Mass Index 31.64 01/22/2019 2:35 PM CDT Plan of Treatment Health Maintenance Due Date Last Done Comments Hepatitis C Virus (HCV) Screening 1978 TdaP Immunization 1978 Hepatitis B Immunization (1 of 3 - 19+ 3-dose series) 1997 Colonoscopy 12/14/2023 Colorectal Cancer Screening 12/14/2023 Influenza Immunization (#1) 2023 SARS-COV-2 Immunization (3 - 2023- season) 2023 02/17/2021, 06/26/2020 Respiratory Syncytial Virus (RSV) Immunization (Adult) (1 - 1-dose 75+ series) 2053 Meningococcal Immunization (ACWY) Aged Out No longer eligible b ased on patient's age to complete this topic Pneumococcal Immunization Combined Aged Out No longer eligible b ased on patient's age to complete this topic Rotavirus Immunization Aged Out No lo nger eligible based on patient's age to complete this topic Insurance MEDICAID [employer] Care Teams Supervisor Accounting Clerks Relationship Specialty Start Date End Date Provider, None [place] PCP - General 12/24/17
--- OUTSIDE RECORDS SUMMARY | 2024-07-14 15:09 | XMS_ITS | Data Portability ---
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 Pain in pelvis [id number] R10.2 This patient is a 41-year-ol d female who presents for follow-up on pelvic pain. Her pain is improved somewhat. Patient is still suffering. 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 We agreed urology consult today. We talked about her ultrasound results in detail. We spent 20 minutes face-to-fa ce. More than 50% was counseling . She does have some findings that might be consistent with her pain include hemorrhagi c corpus luteum cyst and some cystic structures in the left side with fluid. She returned 6 weeks for repeat ultrasound and an appointmen t with me. To arrange urology referral. Patient would like to know her pain is not related to her kidneys [id number] Johnnie Amin MD [place] [address] [address] 01/01/2023 10:09:10 01/01/2023 11:13:02 Vaginal discharge [id number] N89.8 42-year-ol d female who reports vaginal discharge. She does not use any odor. She denies any pruritus. We agreed to tree. Vaginal swab was taken. The vulva and distal vagina appear normal. We talked about her pelvic pain. Recently had blackout after her masturbati ng at the time orgasm. States intense pain was produced with orgasm. Likely muscle spasm or uterine cramping. Has follow-up ultrasound and follow-up after ultrasound for pelvic pain. [id number] Rosita Marilla [place] [address] [address] 01/03/2023 14:02:36 01/03/2023 15:35:42 Pain in pelvis [id number] R10.2 [id number] Johnnie Amin MD [place] [address],[place] [address] 01/05/2023 11:58:11 01/05/2023 13:08:07 Menorrhagia [id number] N92.0 Pain in pelvis [id number] R10.2 42-year-ol d female with severe pelvic pain and menorrhagi a. We talked about treatment options. We talked about medical treatment options. She we spent 40 minutes face-to-fa ce. More than 50% was counseling . Made a decision to perform surgery. Ultimately we agreed to diagnostic laparoscop y and endometria l ablation. She has over 7 weeks of marked pelvic pain. She has longstandi ng menorrhagi a. She has failed medical treatments . There is ovarian cyst on the left. There was free fluid in the left and for previous ultrasound . [id number] Johnnie Amin MD [place] [address] [address] 01/23/2023 14:56:56 01/23/2023 15:36:21 Pain in pelvis [id number] R10.2 this patient is a 42-year-ol d female who presents for preoperati ve care. She has pelvic pain and menorrhagi a. We have agreed to perform diagnostic laparoscop y and endometria l ablation she understand s the risks, benefits, and alternativ es. She has completed the informed consent process and is ready to proceed. Menorrhagia [id number] N9 2.0 [id number] Gerri Dayday [place] [address] [address] 01/31/2023 10:00:51 01/31/2023 10:04:47 [id number] Johnnie Amin MD [place] [address],[place] [address] 02/06/2023 15:07:00 02/06/2023 15:47:01 [id number] oJhnnie Amin MD [place] [address] [address] 03/08/2023 10:10:50 03/08/2023 12:15:53 Pain in pelvis [id number] R10.2 42-year-ol d female presents for follow-up after hospital admission. She was admitted for abdominal pain. She had intractabl e nausea. She reports continued upper abdominal pain. She also talks about pelvic pain. I have been unable to solve her pelvic pain problem and we will send her to a pelvic pain specialist . We did a diagnostic laparoscop y. If she appeared to have endometrio sis. Some peritoneum of the left hemipelvis was removed as well as fulguratio n of endometrio sis on the right side. There was no endometrio sis within the biopsies. There was some chronic inflammati on with fibrosis and congestion . Vascularit y. Patient has some psychiatri c and some chronic pain issues. To follow up as needed. To see pelvic pain specialist . Has colonoscop y scheduled. She continues to work on upper abdominal pain problem. Spent 20 minutes face-to-fa ce. More than 50% was counseling . Health Concerns Section Related Observation LastModified by Organization Detai ls LastModified Time None Recorded Concern Status LastModified by Organization Details LastModified Time None Recorded Advance Directives Directive None Recorded Payers Encounter Date Sequence Insurance Name Policy Number Policy Dominguez Covered Member ID Dominguez Member ID Guarantor Name 01/05/2023 1 [facility] ON OR AFTER 10/20/20 (MEDICAID REPLACEMENT - HMO) Joselyn K Caraballo [id number] Joselyn K Caraballo 01/23/2023 1 [facility] ON OR AFTER 10/20/20 (MEDICAID REPLACEMENT - HMO) Joselyn K Caraballo [id number] Joselyn K Caraballo 01/30/2023 1 [facility] ON OR AFTER 10/20/20 (MEDICAID REPLACEMENT - HMO) Joselyn K Caraballo [id number] Joselyn K Caraballo 02/06/2023 1 [facility] ON OR AFTER 10/20/20 (MEDICAID REPLACEMENT - HMO) Joselyn K Caraballo [id number] Joselyn K Caraballo 03/08/2023 1 [facility] ON OR AFTER 10/20/20 (MEDICAID REPLACEMENT - HMO) Joselyn K Caraballo [id number] Joselyn K Caraballo Notes Date Note Type Note Provider Name and Address Organization Details Recorded Time 01/05/2023 text/html 42-year-old fema le with severe pelvic pain and menorrhagia. We talked about treatment options. We talked about medical treatment options. She we spent 40 minutes [id number]. More than 50% was counseling. Made a decision to perform surgery. Ultimately we agreed to diagnostic laparoscopy and endometrial ablation. She has over 7 weeks of marked pelvic pain. She has longstanding menorrhagia. She has failed medical treatments. Johnnie Amin MD [address], [place], [address], [facility] 01/05/2023 13:06:26 01/23/2023 text/html This patient is a 42-year-old female with menorrhagia pelvic pain. Agreed formal diagnostic laparoscopy endometrial ablation. The patient understands the procedure. The procedure was described to the patient in great detail. the patient also understands the risks. The risks were also explained in detail. She understands that injuries May occur during surgery. She understands these injuries can result in hospitalization, more surgery, and severe illness. She understands there is risk of hemorrhage and infection. Johnnie Amin MD [address], [place], [address], [facility] 01/23/2023 15:29:58 02/06/2023 text/html 42-year-old tenzin suero presents for postop follow-up. She had a diagnostic laparoscopy, endometrial ablation. She is recovering normally. endometriosis was not found, however there was some chronic inflammation and increased vascularity. Left ovarian cyst was removed. She is doing well. Her incisions are clean dry and intact. She is recovering normally. She will follow-up as needed. Recommended seeing her primary care doctor to determine next step in Evaluating her pelvic pain Johnnie Amin MD [address], [place], [address], [facility] 02/06/2023 15:44:52 03/08/2023 text/html 42-year-old tenzin suero presents for follow-up after hospital admission. She was admitted for abdominal pain. She had intractable nausea. She reports continued upper abdominal pain. She also talks about pelvic pain. I have been unable to solve her pelvic pain problem and we will send her to a pelvic pain specialist. We did a diagnostic laparoscopy. If she appeared to have endometriosis. Some peritoneum of the left hemipelvis was removed as well as fulguration of endometriosis on the right side. There was no endometriosis within the biopsies. There was some chronic inflammation with fibrosis and congestion. Vascularity. Patient has some psychiatric and some chronic pain issues. To follow up as needed. To see pelvic pain specialist. Has colonoscopy scheduled. She continues to work on upper abdominal pain problem. Johnnie Amin MD [address], [place], [address], [facility] 03/08/2023 12:11:03 OBGyn Episode Ob Episode Information Episode Created Date Number of Fetuses Patient Bloodtype Patient rh Status Prepregnancy Weight lbs Domestic Partner Domestic Partner Phone Father Name Interlocking Installer Status 07/20/19 21 1 CLOSED Fetus Data First Name Last Name Admitted to NICU Weight (g) Sex Living Outcome Pediatric Complications Fetus ID Race Codes Race Delivery Type 3912.23 1 [id number] Vaginal Delivery Emir Calculation Initial Emir Date Initial Exam Date Initial Exam Provider Initial Ultrasound Date Last Menstrual Period Date Ultra Sound Weeks Gestation 0 Eighteen To Twenty Week Emir Update Ultra Sound Date Fundal Height At Umbil Quickening Date Ultra Sound Latest Weeks Gestation Final Emir Confirmed By Final Emir Confirmed Date Final Emir Date Ultra Sound Latest Days Gestation 0 0 Menstrual History Last Menstrual Date Menses Monthly On Bcp Conception Prior Menses Frequency Hcg Plus Date Menarche Onset Age Delivery Information Delivery Date Delivery Type Labor Anesthesia Weeks Gestation Incision Type Labor Labor Length Hrs Delivered By Post Complications Tubal Sterilization Discharge Date Comments 1 39 jaundice Discharge Information Feeding Method Contraceptive Method Maternal HG B and HCT Levels
--- OUTSIDE RECORDS SUMMARY | 2024-07-14 15:09 | XMS_ITS | Referral Summary ---
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 Active dextroamphetami ne-amphetamine (ADDERALL) 30 mg tablet Active ferrous sulfate 325 mg (65 mg of elemental iron) tabletIndicatio ns:Iron Deficiency Anemia Take 65 mg of elemental iron by mouth daily with breakfast Active cyclobenzaprine (FLEXERIL) 10 mg tablet Take 10 mg by mouth 3 (three) times a day as needed for muscle spasms Active acetaminophen (TYLENOL) 325 mg tablet Take 650 mg by mouth every 6 (six) hours as needed for pain Active cyanocobalamin, vitamin B-12, 1,000 mcg/mL kit Inject 1,000 mcg as directed every 30 (thirty) days Active ARIPiprazole (ABILIFY) 5 mg tablet Take 2 mg by mouth daily Active traZODone (DESYREL) 300 mg tablet Take 300 mg by mouth nightly Active topiramate (TOPAMAX) 200 mg tablet Take 200 mg by mouth 2 (two) times a day Active nicotine (NICODERM CQ) 21 mg 2 Active latanoprost (XALATAN) 0.005 % ophthalmic solution 2 Active Active Problems No known active problems Immunizations Immunization Administration Dates Next Due Magdy (J&J) SARS-CoV-2 Vaccination 06/26/2020 Social History Tobacco Use Types Packs/Day Years Used Date Smoking Tobacco: Never Assessed Comments Unknown Sex and Gender Information Value Date Recorded Sex Assigned at Not on file Legal Sex Female 9:26 AM CDT Gender Identity Female 02/05/2022 9:18 PM CDT Sexual Orientation Straight 02/05/2022 9: 18 PM CDT Plan of Treatment Not on file Insurance [facility] Care Teams 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
--- OUTSIDE RECORDS SUMMARY | 2024-07-14 15:09 | XMS_ITS | Clinical Summary ---
Author Organization [facility] [employer] Address [address] [place] [address] Care Team Providers Care Collections Analyst Name Role Phone Keith Briceño MD Primary Care Provider [phone] [facility] [employer],non-owned Affiliates and Associated Physician Practices is amultiple site organization consisting of ambulatory clinics and hospital sitesin [place], [place], [place] and [place]. This disclosure is being madepursuant to the Care Everywhere program and may not contain all information available regarding this patient. Last updated 18.[facility] [employer] Allergies No known active allergies Medications * Be aware that medications may not be up to date on this document. Alwaysverify current medications with the patient. Medication Sig Dispensed Refills Start Date End Date Status acetaminophen (TYLENOL) 500 MG tablet acetaminophen 500 mg tablet Active cyclobenzaprine (FLEXERIL) 10 MG tablet cyclobenzaprine 10 mg tablet 10/13/2018 Active FEROSUL 325 (65 Fe) MG tablet TK / T PO D 06/22/2019 Active levothyroxine (SYNTHROID) 125 MCG tablet 2 mcg 07/03/2019 Active nicotine (NICODERM CQ) 21 MG/24HR patch nicotine 21 mg/24 hr daily transdermal patch Active ofloxacin (OCUFLOX) 0.3 % ophthalmic solution 06/28/2018 Active OLANZapine (ZYPREXA) 10 MG tablet olanzapine 10 mg tablet Active propranolol (INDERAL) 20 MG tablet propranolol 20 mg tablet 08/25/2018 Active propranolol (INDERAL) 10 MG tablet propranolol 10 mg tablet Active SUMAtriptan (IMITREX) 50 MG tablet sumatriptan 50 mg tablet 12/18/2017 Active thiamine (VITAMIN B1) 100 MG tablet TK 1 T PO QD FOR 10 DAYS 09/15/2018 Active tiZANidine (ZANAFLEX) 4 MG tablet TK 1 T PO TID PRN 05/01/2019 Active traMADol (ULTRAM) 50 MG tablet TK 1 T PO BID FOR 14 DAYS PRN 07/03/2019 Active zolpidem (AMBIEN) 10 MG tablet TK 1 T PO HS PRN 06/23/2019 Active brimonidine (ALPHAGAN P) 0.15 % ophthalmic solution 05/30/2020 Active latanoprost (XALATAN) 0.005 % ophthalmic solution 05/30/2020 Active iron polysaccharides (NIFEREX 150) 150 MG capsule Poly-Iron 150 mg iron capsule Active amphetamine-dextroamp hetamine (ADDERALL) 10 MG tablet 06/21/2020 Active ketoconazole (NIZORAL) 2 % shampooIndications:Ot her seborrheic dermatitis Apply to wet hair, leave on for 3 minutes, then rinse; three times weekly. 30 days supply 120 mL 5 09/27/2020 Active topiramate (TOPAMAX) 200 MG tablet 11/28/2020 Active traZODone (DESYREL) 300 MG Take 300 mg by mouth once daily Active cyanocobalamin (VITAMIN B-12) injection 1,000 mcg Active ARIPiprazole (ABILIFY) 5 MG tablet Take 2 mg by mouth once daily Active triamcinolone acetonide (KENALOG) 0.1 % ointment APPLY TO AFFECTED AREA TWICE DAILY X 7 DAYS 07/19/2020 Active predniSONE (DELTASONE) 50 MG tablet 09/28/2020 Active sucralfate (CARAFATE) 1 GM tablet 11/28/2020 Active omeprazole (PRILOSEC) 20 MG capsule Take 20 mg by mouth once daily 10/29/2020 Active polyethylene glycol 3350 (MIRALAX) 17 GM/SCOOP powder 09/22/2020 Active Active Problems Problem Noted Date Diagnosed Date Other seborrheic dermatitis 07/04/2020 Assessment & Plan (07/04/2020 4:21 PM CDT): - Uncontrolled on scalp - Discussed diagnosis, typical course, and treatment options - Start ketoconazole 2% shampoo TIW to scalp Ichthyosis vulgaris 07/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 Assessment & Plan (07/04/2020 4:23 PM CDT): - Uncontrolled - Pt notes lifelong dry skin problem that has been worsened in recent months - Physical exam c/w icthyosis vulgaris/xerosis cutis - Reviewed etiology, prognosis, and treatment options - Recommend: Starting Cerave-SA cream or other Cerave product to entire body after showering and multiple times per day Start to apply triamcinolone cream daily PRN for itchy areas (use for no more than 15 days per month and avoid face/genitals) Dry skin hand out provided (Avoid long showers, hot showers etc) Degenerative disc disease, lumbar 07/04/2020 Chronic post-traumatic stress disorder (PTSD) Nerve pain 07/04/2020 Assessment & Plan (07/04/2020 4:25 PM CDT): - Pt notes OSH Neuro diagnosed her with small nerve neuropathy and she has not followed up with them - Recommend follow up with neurology to discuss symptoms Attention deficit disorder (ADD) without hyperac tivity 07/21/2019 Elevated BP without diagnosis of hypertension BAN (generalized anxiety disorder) 07/21/2019 Unspecified convulsions 07/21/2019 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 07/07/2019 Osteoarthritis 07/02/2019 Tobacco use disorder 01/22/2019 Assessment & Plan (07/04/2020 4:25 PM CDT): - Advised smoking cessation Abnormal EKG 10/29/2018 Fibromyalgia 10/29/2018 Assessment & Plan (07/04/2020 4:24 PM CDT): - Pt in tears over significant diffuse body pain in setting of prior diagnosis of fibromyalgia - Pt stopped gabapentin in past 2/2 bad side effects - Recommend referral to [facility] Rheumatology for evaluation Malignant neoplasm of ovary 10/29/2018 Tobacco dependence syndrome 10/29/2018 Class 1 obesity due to exces s calories with serious comorbidity and body mass index (BMI) of 31.0 to 31.9 in adult 10/24/2018 Hypothyroidism due to Noah's thyroiditis Atrial tachycardia 12/20/2017 Bipolar affective disorder, currently manic, mod erate 12/20/2017 Contusion of coccyx 12/20/2017 Acute bilateral low back pain without sciatica 0 12/18/2017 Migraine with aura and with status migrainosus, not intractable 12/18/2017 Body mass index (bmi) 31.0-31.9, adult 8 Hyponatremia 04/26/2017 Iron deficiency anemia 04/26/2017 Subacute pansinusitis 04/26/2017 Body mass index (bmi) 32.0-32.9, adult 7 Screening for other and unsp ecified cardiovascular conditions 02/22/2017 Resolved Problems Problem Noted Date Diagnosed Date Resolved Date Bipolar affective disorder, current episode hypomanic 07/21/2019 07/04/2020 Anxiety disorder, unspecified 10/29/2018 07/04/2020 Family History Medical History Relation Name Comments Cancer - Colon Brother Crohn's Disease Brother None Known Father Thyroid Disease Mother Relation Name Status Comments Brother Alive Father Alive Mother Alive Social History Tobacco Use Types Packs/Day Years Used Date Smoking Tobacco: Some Days Smokeless Tobacco: Never Alcohol Use Standard Drinks/Week Comments Not Currently 0 (1 standard drink = 0.6 oz pur e alcohol) Sex and Gender Information Value Date Recorded Sex Assigned at Female 01/16/2023 5:46 PM CDT Gender Identity Female 01/16/2023 5:46 PM CDT Sexual Orientation Straight 01/16/2023 5: 46 PM CDT Last Filed Vital Signs Vital Sign Reading Time Taken Comments Blood Pressure - - Pulse - - Temperature 36.6 C (97.9 F) 07/04/2020 1:22 PM CDT Respiratory Rate - - Oxygen Saturation - - Inhaled Oxygen Concentration - - Weight 97.1 kg (214 lb) 02/18/2024 1:36 PM CDT Height 167.6 cm (5' 6 ) 02/18/2024 1:36 PM CDT Body Mass Index 34.54 02/18/2024 1:36 PM CDT Plan of Treatment Upcoming Encounters Date Type Department Care Team (Late st Contact Info) Description 07/21/2024 1:00 PM CDT Office Visit [facility] - Rheumatology [address] [place] [id number] Babatunde Lopez MD [address] [place] [address] Health Maintenance Due Date Last Done Comments COLOGUARD (AGES 45-75) - COL ON CA SCREENING 1978 COLON MONITORING 1978 COLONOSCOPY - COLON CA SCREENING 1978 CT COLONOGRAPHY - COLON CA SCREENING 1978 Colorectal Cancer Screening 1978 FIT - COLON CA SCREENING 1978 FLEX SIG - COLON CA SCREENING 1978 LIPID TESTING 1978 PAP SMEAR 1978 HIV SCREENING 1993 HEPATITIS C SCREENING 12/08/1996 DTAP/TDAP/TD VACCINES (1 - Tdap) 1997 HEPATITIS B VACCINE (1 of 3 - 19+ 3-dose series) 1997 PNEUMOCOCCAL VACCINE (1 of 2 - PCV) 1997 COVID-19 VACCINE (2 - 2023-2 5 season) 2023 06/26/2020 INFLUENZA VACCINE (#1) 2023 MAMMOGRAM 02/17/2026 02/18/2024, 01/16/2023 ZOSTER VACCINE (1 of 2) 2028 HIB VACCINE Aged Out No longer eligi ble based on patient's age to complete this topic HPV VACCINE Aged Out No longer eligi ble based on patient's age to complete this topic MENINGOCOCCAL (Group B) VACCINE SHARED DECISION-MAKING Aged Out No longer eligible based on patient's age to complete this topic MENINGOCOCCAL GROUPS A/C/Y/W VACCINE Aged Out No longer eligible b ased on patient's age to complete this topic Procedures Procedure Name Priority Date/Time Associated Diagnosis Comments MAMMO BILAT IMPLANT SCREEN W KIRBY Routine 02/18/2024 1:36 PM CDT Encounter for screening mammogram for malignant neoplasm of breast from Last 3 Months or Most Recently Relevant to Health Maintenance Results * Mammo Bilat Implant Screen W Kirby (02/18/2024 1:36 PM CDT) Anatomical Region Laterality Modality Breast Bilateral Mammography 02/18/2024 1:42 PM CDT Impressions 02/18/2024 1:48 PM CDT IMPRESSION: Benign mammogram, without evidence of malignancy. RECOMMENDATION: Screening mammography in one year, pending no interval breast concerns. Patient will receive the examination results by lay letter. OVERALL ASSESSMENT: BI-RADS CATEGORY 2: BENIGN. Dictated and interpreted by Charly Zurita MD (assistant to the president). I, Gladis Duran DO have personally reviewed and interpreted this examination/study. > Interpreting Provider: Gladis Duran DO on 02/18/2024 1:48 PM Narrative 02/18/2024 1:48 PM CDT EXAMINATIONS: BILATERAL DIGITAL SCREENING MAMMOGRAM WITH IMPLANTS AND BILATERAL BREAST TOMOSYNTHESIS [place]ATION[place] [facility] [place]: 02/18/2024 HISTORY: Screening. History of breast augmentation. RISK ASSESSMENT CALCULATION: Patient completed a breast cancer risk assessment during her appointment 02/18/2024. Based upon the information she provided and her mammographic breast density, her lifetime risk of developing breast cancer is 13 % (Average Risk <15%; Intermediate / Moderate Risk 15-19; High Risk > 20%). Risk assessment based upon the BRCAPRO model. COMPARISON: Comparison is made to prior mammogram dated 01/16/2023. TECHNIQUE: Bilateral synthetic 2-D digital mammogram images and bilateral digital breast tomosynthesis (3D) were obtained and reviewed in the craniocaudal and mediolateral oblique projections with the breast implants displaced. Bilateral craniocaudal and mediolateral oblique conventional full field digital images were also obtained to include the bilateral breast implants. . A total of 8 images obtained. Transpara AI was utilized in the interpretation. BREAST PARENCHYMAL COMPOSITION: Category B: There are scattered areas of fibroglandular density. FINDINGS: There are subglandular saline breast implants, which limit evaluation of the breast parenchyma There are no suspicious findings or evidence of malignancy on mammography. No change from prior. Keith Briceño MD MAMMO ORDERABLES from Last 3 Months or Most Recently Relevant to Health Maintenance Care Teams Collections Analyst Relationship Specialty Start Date End Date Keith Briceño MD [address] [place] [address] PCP - General Internal Medicine 01/21/23
--- OUTSIDE RECORDS SUMMARY | 2024-07-14 15:09 | XMS_ITS ---
Author Organization [facility] Address [address] [place] [address] Care Team Providers Care Duct Cleaner Name Role Phone Keith Briceño Primary Care Provider [phone] Nanci Potts Unavailable [phone] REASON FOR VISIT therapy Social History Sex Assigned At : Social History Observation Description Sex Assigned At Female Encounters Encounter Location Date Provider Diagnosis [facility] [place] [address] 05/28/2024 Nanci Potts Depressive disorder F32.9 and Generalized anxiety disorder F41.1 Assessments Encounter Date Diagnosis (ICD Code) Assessment Notes Treatment Notes Treatment Clinical Notes Section Notes 05/28/2024 Depressive disorder (ICD-10 - F32.9) r/o bipolar disorder, r/o BPD, r/o somatoform disorder 05/28/2024 Generalized anxiety disorder (ICD-10 - F41.1) Plan Of Treatment Next Appt Details Provider Name:Lon pineda, 07/22/2024 10:00:00 AM, [address] [facility] , [place], [address], Progress Notes * Mathieu CARABALLOOB:1980 (43 yo F)Acc No.[id number]:05/28/2024 Patient: Kirk Joselyn RICHARDS Provider: Renetta Potts :1980 A ge:43 Y S ex:Female Date:05/28/2024 Address:[facility] Pcp:Keith Briceño Subjective: * Chief Complaints: * T herapy * HPI: D epression Screening: PHQ-9 L ittle interest or pleasure in doing things N early every day, F eeling down, depressed, or hopeless N early every day, T rouble falling or staying asleep, or sleeping too much N early every day, F eeling tired or having little energy N early every day, P oor appetite or overeating N early every day, F eeling bad about yourself or that you are a failure, or have let yourself or your family down N early every day, T rouble concentrating on things, such as reading the newspaper or watching television?Nearly every day, M oving or speaking so slowly that other people could have noticed; or the opposite, being so fidgety or restless that you have been moving around a lot more than usual N early every day, T houghts that you would be better off or of hurting yourself in some way N ot at all, T otal Score 2 4, I nterpretation S evere Depression. I ntervention D epression Screening Findings P ositive, F ollow-Up for Depression N o Referral necessary, patient involved in behavioral health treatment .. B ehavioral Health Treatment: Relay Telegrapher met with Joselyn for session providing individual therapy. Relay Telegrapher utilized solution focused approach: active listening, validation, motivational interviewing along with facilitating feedback and introspection skills Joselyn is working on. Relay Telegrapher acknowledged insights with patterns and skills, assisted in re-framing, and growth (working on changes in behaviors and responses with factors in relationships and self). * Medical History: * Medications: Objective: * Examination: G eneral Examination: E jeffery reflected on factors in ongoing stressors (physical pain, grandmother on hospice, parents dog was put to sleep) and changes (prioritizing goals and taking time to reflect on thoughts, focusing on her breathing and triggers, watching tv shows and movies). Joselyn acknowledged pieces/factors of healthy insight and changes she would like to continue to implement as she moves forward. Assessment: * Assessment: 1. D epressive disorder - F32.9 (Primary) N otes :r/o bipolar disorder, r/o BPD, r/o somatoform disorder 2 . G eneralized anxiety disorder - F41.1 Plan: * Treatment: * Procedure Codes: 9 0832 PSYTX PT&/FAMILY 30 MINUTES, Modifiers: AJ * Care Plan Details* * ALLERGY IMMUNOLOGY Electronically co-signed by Marlyn Jo LCSW, [id number] on 06/01/2024 at 09:06 AM MD ALLERGY IMMUNOLOGY Sign off status: Completed true * Provider: Renetta Potts Date: 0 05/28/2024 Generated for Philip England/Kathy on: 0 07/14/2024 03:08 PM CDT History and Physical Notes * HPI (History of Present Illness) Category Sub-Category Detail Notes Category Not es Depression Screening PHQ-9 Little inte rest or pleasure in doing things: Nearly every day Feeling down, depressed, or hopeless: Ne clover every day Trouble falling or staying asleep, or sl eeping too much: Nearly every day Feeling tired or having little energy: N early every day Poor appetite or overeating: Nearly ever y day Feeling bad about yourself o r that you are a failure, or have let yourself or your family down: Nearly every day Trouble concentrating on thi ngs, such as reading the newspaper or watching television: Nearly every day Moving or speaking so slowly that other people could have noticed; or the opposite, being so fidgety or restless that you have been moving around a lot more than usual: Nearly every day Thoughts that you would be b gabi off or of hurting yourself in some way: Not at all Total Score: 24 Interpretation: Severe Depression Intervention Depression Screening Findings: P ositive Follow-Up for Depression: No Referral necessary, patient involved in behavioral health treatment . Examination Category Sub-Category Detail Notes Category Not es General Examination Joselyn ref lected on factors in ongoing stressors (physical pain, grandmother on hospice, parents dog was put to sleep) and changes (prioritizing goals and taking time to reflect on thoughts, focusing on her breathing and triggers, watching tv shows and movies). Joselyn acknowledged pieces/factors of healthy insight and changes she would like to continue to implement as she moves forward
--- OUTSIDE RECORDS SUMMARY | 2024-07-14 15:09 | XMS_ITS ---
Author Organization [facility] Address [address] [place] [address] Care Team Providers Care Maple Sugar Maker Name Role Phone Keith Briceño Primary Care Provider Nanci Potts Unavailable [phone] REASON FOR VISIT therapy Social History Sex Assigned At : Social History Observation Description Sex Assigned At Female Encounters Encounter Location Date Provider Diagnosis [facility] [place] [address] 06/04/2024 Nanci Potts Depressive disorder F32.9 Assessments Encounter Date Diagnosis (ICD Code) Assessment Notes Treatment Notes Treatment Clinical Notes Section Notes 06/04/2024 Depressive disorder (ICD-10 - F32.9) r/o bipolar disorder, r/o BPD, r/o somatoform disorder Plan Of Treatment Next Appt Details Provider Name:Lon pineda, 07/22/2024 10:00:00 AM, [address] [facility] , [place], [address], Progress Notes * Mathieu CARABALLOOB:1980 (43 yo F)Acc No.[id number]:06/04/2024 Patient: Kirk Joselyn RICHARDS Provider: Renetta Potts :1980 A ge:43 Y S ex:Female Date:06/04/2024 Address:[address] [place], [place] Pcp:Keith Briceño Subjective: * Chief Complaints: * [...] health treatment .. B ehavioral Health Treatment: Manager Organizational met with Joselyn for session providing individual therapy. Manager Organizational utilized solution focused approach: active listening, validation, motivational interviewing along with facilitating feedback and introspection skills Joselyn is working on. Manager Organizational acknowledged insights with patterns and skills, assisted in re-framing, and growth (working on changes in behaviors and responses with factors in relationships and self). * Medical History: * Medications: Objective: * Examination: G eneral Examination: E jeffery reflected on factors in ongoing stressors (physical pain, grandmother and parents dog passing within a short peroid of time) and changes (prioritizing goals and taking time to reflect on thoughts, focusing on her breathing and triggers, watching tv shows and movies). Joselyn verbalized she was not yet ready to fully process her grandmother's passing. E jeffery acknowledged pieces/factors of healthy insight and changes she would like to continue to implement as she moves forward. Assessment: * Assessment: 1. D epressive disorder - F32.9 (Primary) N otes :r/o bipolar disorder, r/o BPD, r/o somatoform disorder Plan: * Treatment: * Procedure Codes: 9 0832 PSYTX PT&/FAMILY 30 MINUTES, Modifiers: AJ * Care Plan Details* * ET SALES SUPERVISOR Electronically co-signed by Marlyn Jo LCSW, [id number] on 06/05/2024 at 12:40 PM TICKET SALES SUPERVISOR Sign off status: Completed true * Provider: Renetta Potts Date: 0 06/04/2024 Generated for Philip razo/Jessica/Kathy on: 0 07/14/2024 03:09 PM CDT History and Physical Notes * [...] factors in ongoing stressors (physical pain, grandmother and parents dog passing within a short peroid of time) and changes (prioritizing goals and taking time to reflect on thoughts, focusing on her breathing and triggers, watching tv shows and movies). Joselyn verbalized she was not yet ready to fully process her grandmother's passing. Joselyn acknowledged pieces/factors of healthy insight and changes she would like to continue to implement as she moves forward
--- OUTSIDE RECORDS SUMMARY | 2024-07-14 15:09 | XMS_ITS | Clinical Summary ---
Author Organization [facility] [employer] Address [address] [place] [address] Care Team Providers Care Yoke Setter Name Role Phone Keith Briceño MD Primary Care Provider [phone] Allergies No known active allergies Medications levothyroxine (SYNTHROID) 125 mcg tablet Take 125 mcg by mouth control clerk head before breakfast Active dextroamphetami ne-amphetamine (ADDERALL) 30 [...] Next Due Magdy (J&J) SARS-CoV-2 Vaccination 06/26/2020 Surgical History Surgery Date Site/Laterality Comments COMBINED AUGMENTATION MAMMAPLASTY AND ABDOMINOPLASTY KNEE ARTHROSCOPY WISDOM TOOTH EXTRACTION Medical History Medical History Date Comments Arthritis Migraine Noah's disease History of degenerative disc disease Horseshoe kidney Fibromyalgia Social History Tobacco Use Types Packs/Day Years Used Date Smoking Tobacco: Never Assessed Comments Unknown Sex and Gender Information Value Date Recorded Sex Assigned at Not on file Legal Sex Female 9:26 AM CDT Gender Identity Female 02/05/2022 9:18 PM CDT Sexual Orientation Straight 02/05/2022 9: 18 PM CDT Obstetrics History Plan of Treatment Health Maintenance Due Date Last Done Comments Breast Cancer Screening-Mammogram 1980 Cervical Cancer Screening 1980 Colon Cancer Screening-Colonoscopy 1980 Depression Screening 1980 Hepatitis C Screening 1978 DTaP/Tdap/Td Vaccine (1 - Tdap) 1989 Hepatitis B Screening 1996 Regular Well Visit/Exam 18-64 1996 Covid-19 Vaccine (3 2023-2 5 season) 2023 02/17/2021, 06/26/2020 Influenza Vaccine (#1) 2023 HPV Vaccines Aged Out No longer eligi ble based on patient's age to complete this topic Pneumococcal vaccine <65 Aged Out No longer eligible based on patient's age to complete this topic Insurance [facility] Care Teams Yoke Setter Relationship Specialty Start Date End Date Keith Briceño MD [address] [facility] [place] [address] PCP - General Internal Medicine 11/10/20
--- OUTSIDE RECORDS SUMMARY | 2024-07-14 15:10 | XMS_ITS | Encounter Summary ---
Author Organization [facility] Address [address] [facility] [place] [address] Care Team Providers Care Payroll Auditor Name Role Phone Jairo Shaw APRN-PLASTIC SURGERY SPECIALIST Primary Care Provide r Keith Briceño MD Primary Care Provider [phone] Reason for Visit * Reason Onset Date Comments Future Appointment 07/14/2019 Encounter Details Date Type Department Care Team (Late Contact Info) Description 07/14/2019 Telephone [facility] - Orthopedics [address] [place] [address], [place] [address] Serge Shah MD [address] [place] [address] OF ORTHOPEDIC SURGERY [place], [place] [id number] Future Appointment Social History Tobacco Use Types Packs/Day Years Used Date Smoking Tobacco: Never Assessed Sex and Gender Information Value Date Recorded Sex Assigned at Female 01/16/2023 5:46 PM CDT Gender Identity Female 01/16/2023 5:46 PM CDT Sexual Orientation Straight 01/16/2023 5: 46 PM CDT documented as of this encounter Plan of Treatment Upcoming Encounters Date Type Department Care Team (Late Contact Info) Description 07/21/2024 1:00 PM CDT Office Visit [facility] - Rheumatology [facility] [place] [phone] Babatunde Lopez MD [address] [place] [phone] documented as of this encounter Visit Diagnoses Not on filedocumented in this encounter Care Teams Payroll Auditor Relationship Specialty Start Date End Date Jairo Shaw APRN-PLASTIC SURGERY SPECIALIST [address] [place] [address] [place] [address] PCP - General Nurse Practitioner Gerontology 06/14/20 01/20/23 Keith Briceño MD [address] [place] [address] [place] [address] PCP - General Internal Medicine 01/21/23 documented as of this encounter
--- OUTSIDE RECORDS SUMMARY | 2024-07-14 15:10 | XMS_ITS | CONTINUITY OF CARE DOCUMENT ---
Author Name dk root Address Unknown Organization [facility] Address [address] [facility] [address] [place] [address] Phone [phone] Care Team Providers Care Second Ride Fare Collector Name Role Phone Petar COMBS, Alex Unavailable Raymond HVAC SHEET METAL INSTALLER, Merissa Unavailable [phone] Raymond HVAC SHEET METAL INSTALLER, Merissa Unavailable PROBLEMS Condition Status Date Provider Notes Family History of Hypertension: active ? Daniel Davey MD Cardiovascular screening active Alex keenan MD Fibromyalgia active Alex Davey MD Anxiety/ depression / ADD active Alex alex MD Tobacco abuse active Alex Davey MD Abnormal EKG active Alex Davey MD Ovarian cancer, in remission active Zuleika Davey MD ENCOUNTERS Date Type Provider Location Encounter Diag nosis - In-person encounter Office Visit Alex Davey MD [facility] Family History of Hypertension:Cardiova scular screeningFibromyalgia Anxiety/ depression / ADDTobacco abuseAbnormal EKGOvarian cancer, in remission VITAL SIGNS Date Observation Value Provider Body Mass Index (Ratio) 34.61 kg/m2 Daniel Davey MD blood pressure, cuff size large Cr edith Crespo blood pressure, diastolic 80 mm[Hg] Cr edith Crespo blood pressure, systolic 125 mm[Hg] Cry stal Zak oxygen saturation, oximetry 98 % Akila Crespo respiratory rate E&M 17 /min Akila Crespo pulse rate 86 /min Akila interiano blood pressure, resting No Keyla diogenes Crespo height E&M 65 [in_i] Akila interiano weight E&M 208 [lb_av] Akila interiano ALLERGIES No Known Drug Allergies HISTORY OF MEDICATION USE Medication Status Instructions Dates Provider Indications Com ments FOLIC ACID 1 MG ORAL TABLET active TK 1 T PO QD Akila Crespo #30, 30 days supply, Prescribed by ELIANE BARAJAS, Filled 08/18/2018 PROPRANOLOL HCL 10 MG ORAL TABLET active take one tablet by mouth as needed Akila Crespo #60, 30 days supply, Prescribed by LUL WILSON, Filled 08/20/2018 ALBUTEROL SULFATE HFA 108 (90 BASE) MCG/ACT INHALATION AEROSOL SOLUTION active Akila Crespo #8.5, 30 days supply, Prescribed by LUL WILSON, Filled 08/20/2018 VITAMIN B1 100 MG ORAL TABLET active TK 1 T PO QD FOR 10 DAYS Akila Crespo #50, 10 days supply, Prescribed by PAWAN LOU, Filled 09/15/2018 MELATONIN 5 MG ORAL TABLET active TK 1 T PO QD HS WF PRN Akila Crespo #30, 30 days supply, Prescribed by PADMINI JOLLEY, Filled 09/15/2018 CITALOPRAM HYDROBROMIDE 40 MG ORAL TABLET active TK 1 T PO QD Akila Crespo #30, 30 days supply, Prescribed by PADMINI JOLLEY, Filled 10/13/2018 TRAZODONE HCL 100 MG ORAL TABLET active TK 1 T PO QD HS Akila Crespo #30, 30 days supply, Prescribed by MINERVA PRINCE, Filled 10/13/2018 TOPIRAMATE 25 MG ORAL TABLET active TK 1 T PO QD Akila Crespo #30, 30 days supply, Prescribed by PADMINI JOLLEY, Filled 10/13/2018 LEVOTHYROXINE SODIUM 100 MCG ORAL TABLET active TK 1 T PO QD IN THE MORNING OES Akila Crespo #30, 30 days supply, Prescribed by PADMINI JOLLEY, Filled 10/13/2018 CYCLOBENZAPRINE HCL 10 MG ORAL TABLET active TK 1 T PO BID PRN Akila Crespo #60, 30 days supply, Prescribed by MINERVA PRINCE, Filled 10/13/2018 TRAMADOL HCL 50 MG ORAL TABLET active TK 1 - 2 TS PO Q 8 H PRN Akila Crespo #12, 2 days supply, Prescribed by PEEWEE SAMUELS, Filled 10/27/2018 SOCIAL HISTORY Date Observation Value Provider number of grandchildren Alex Davey MD social history E&M S moking History: P atmarry currently smokes every day. P atmarry has been counseled to quit. Alex Davey MD social history reviewed E&M revi ewed - no changes required Alex Davey MD smoking/tobacco cess ation, patient education and counseling yes Alex Davey MD smoking, date started 2013 Mally l Zak cigarette use yes Akila Steward ms smoking status Current every day smoker C kourtney Crespo FAMILY HISTORY Family Member Condition Mother Family History of Hy pertension: INSURANCE PROVIDERS Payer name Policy type / Coverage type [place] red green party ID [place] MEDICA[place] (2) Medicaid [id number] ADVANCE DIRECTIVES Name Date POWER OF [employer]BAND [employer]ZER TREATMENT PLAN Date Name Performer Cardiology:STRONGLY ENCOURAGED TO STOP SMOKING; SMOKING CESSATION TECHNIQUES DISCUSSED. Alex Davey MD Cardiology:On multip le medications. She can take Adderall and it is unlikely to affect her QTC. Alex Davey MD Cardiology:Continues on multiple medications. Alex Davey MD Cardiology:Prolonged QTC seen on EKG from your office. Her EKG today showed normal QTC of 402. The patient attributes the abnormal EKG to having an energy drink before. I did discuss with her the risks of prolonged QTC including sudden cardiac and that the combination of medications she is on increases that risk. She verbalized understanding. Alex Davey MD HISTORY OF PROCEDURES Procedure Date Procedure Name Provider Procedure Notes S tatus EKG Alex Davey MD complet ed
== END 2024-07-14 13:07 | disposition home or self-care (01) ==
LOC: ANHNEURO 13:07
PROVIDERS: PCP Internal Medicine; Visit Provider Internal Medicine
DX: M79.641 Pain in right hand (principal); G56.22 Lesion of ulnar nerve, left upper limb
CPT/HCPCS: 95886; 95911

== ENCOUNTER 2024-09-09 12:43 | Outpatient (CLI) | payer OTHER, SELFPAY ==
--- NOTE | ~2024-09-09 | US_ITS ---
Renal-Bladder ultrasound Clinical History: Chronic kidney disease Technique: Real-time sonographic imaging of the kidneys and urinary bladder was performed. Findings: Horseshoe kidney noted. The right renal moiety measures 12.2 cm in length and the left ben l moiety measures 10.5 cm. There is no hydronephrosis or renal calculus identified. Renal cortical ec hogenicity is within normal limits. Left renal cyst present, measuring 1.7 cm. The urinary bladder is partially distended at the time of this exam. No intraluminal echoes are ident ified. No abnormal wall thickening is seen. Impression: Horseshoe kidney. No hydronephrosis evident. Reviewed, dictated and finalized at location M. Impression: Horseshoe kidney. No hydronephrosis evident.
--- OUTSIDE RECORDS SUMMARY | 2024-09-09 12:51 | XMS_ITS | Encounter Summary ---
Author Organization [facility] Address [address] [place] [address] Care Team Providers Care Cold Mill Supervisor Name Role Phone Keith Briceño MD Primary Care Provider [phone] Reason for Visit * Reason Onset Date Comments Med Question 07/31/2024 Encounter Details Date Type Department Care Team (Late st Contact Info) Description 07/31/2024 Telephone [facility] - Dermatology [address] [facility], [place] [phone] Rema Raygoza MD [address] [facility] [place] [address] Med Question Social History Tobacco Use Types Packs/Day Years Used Date Smoking Tobacco: Some Days Smokeless Tobacco: Never Alcohol Use Standard Drinks/Week Comments Not Currently 0 (1 standard drink = 0.6 oz pur e alcohol) PHQ-2 Answer Date Recorded Patient Health Questionnaire-2 Score 6 07/30/2024 Comments No Sex and Gender Information Value Date Recorded Sex Assigned at Female 01/16/2023 5:46 PM CDT Legal Sex Female 8:36 PM SYSTEMS ACCOUNTANT Gender Identity Female 01/16/2023 5:46 PM CDT Sexual Orientation Straight 01/16/2023 5: 46 PM CDT documented as of this encounter Miscellaneous Notes * Telephone Encounter - Nettie Patten - 07/31/2024 1:25 PM CDT Pt stating that medication urea (Carmol;Vanamide) 40 % cream is not being covered by insurance she is asking for alternative. CB# [phone] documented in this encounter Plan of Treatment Upcoming Encounters Date Type Department Care Team (Late st Contact Info) Description 10/05/2024 11:00 AM CDT Office Visit [facility] - Rheumatology [address] [place] [address], [place] [phone] Babatunde Lopez MD [facility] [place] [phone] 12/01/2024 8:50 AM CDT Office Visit [facility] - Dermatology [address] [place] [address], [place] [address] Rema Raygoza MD [address] [facility] [place] [phone] documented as of this encounter Visit Diagnoses Not on filedocumented in this encounter Care Teams Cold Mill Supervisor Relationship Specialty Start Date End Date Keith Briceño MD [address] [facility] [address] PCP - General Internal Medicine 01/21/23 documented as of this encounter
--- OUTSIDE RECORDS SUMMARY | 2024-09-09 12:51 | XMS_ITS | Clinical Summary ---
Author Organization [facility] Address [address] [place] [address] Phone Care Team Providers Care Project Controller Name Role Phone Provider, None Primary Care [...] Insurance MEDICAID [employer] Care Teams Project Controller Relationship Specialty Start Date End Date Provider, None [place] PCP - General 12/24/17
--- OUTSIDE RECORDS SUMMARY | 2024-09-09 12:51 | XMS_ITS | Encounter Summary ---
Author Organization [facility] Address [address] [place] [address] Care Team Providers Care Sack Repairer Name Role Phone Jairo Shaw APRN-ADULT AND PEDIATRIC NEUROLOGIST Primary Care Provide r Keith Briceño MD Primary Care Provider [phone] Reason for Visit * Reason Onset Date Comments Future Appointment 07/14/2019 Encounter Details Date Type Department Care Team (Late Contact Info) Description 07/14/2019 Telephone [facility] - Orthopedics [address] [place] [phone] Serge Shah MD [address] [place] [place] [address] OF ORTHOPEDIC SURGERY [place], [place] [phone] Future Appointment Social History Tobacco Use Types Packs/Day Years Used Date Smoking Tobacco: Never Assessed Comments Unknown Sex and Gender Information Value Date Recorded Sex Assigned at Female 01/16/2023 5:46 PM CDT Legal Sex Female 8:36 PM MEDICAL ADVISOR Gender Identity Female 01/16/2023 5:46 PM CDT Sexual Orientation Straight 01/16/2023 5: 46 PM CDT documented as of this encounter Plan of Treatment Upcoming Encounters Date Type Department Care Team (Late Contact Info) Description 10/05/2024 11:00 AM CDT Office Visit [facility] - Rheumatology [address] [place] [phone] Babatunde Lopez MD [address] [place] [phone] 12/01/2024 8:50 AM CDT Office Visit [facility] - Dermatology [address] [facility], [place] [phone] Rema Raygoza MD [address] [facility] [place] [place] [phone] documented as of this encounter Visit Diagnoses Not on filedocumented in this encounter Care Teams Sack Repairer Relationship Specialty Start Date End Date Jairo Shaw APRN-ADULT AND PEDIATRIC NEUROLOGIST [address] [place] [address] [place] [address] PCP - General Nurse Practitioner Gerontology 06/14/20 01/20/23 Keith Briceño MD [address] [place] [address] [place] [address] PCP - General Internal Medicine 01/21/23 documented as of this encounter
--- OUTSIDE RECORDS SUMMARY | 2024-09-09 12:51 | XMS_ITS | Referral Summary ---
Author Organization [facility] Address [address] [place] [address] Care Team Providers Care Senior Vice President And Chief Information Officer Name Role Phone Keith Briceño MD Primary Care Provider [phone] Allergies No known active allergies Medications levothyroxine (SYNTHROID) 125 mcg tablet Take 125 mcg by mouth trust officer before breakfast Active dextroamphetami ne-amphetamine (ADDERALL) 30 [...] Plan of Treatment Not on file Insurance [facility] Care Teams Senior Vice President And Chief Information Officer Relationship Specialty Start Date End Date eKith Briceño MD [address] [place] [address] [address] [facility] [address] PCP - General Internal Medicine 11/10/20
--- OUTSIDE RECORDS SUMMARY | 2024-09-09 12:51 | XMS_ITS | Clinical Summary ---
Author Organization [facility] [employer] Address [address] [place] [address] Care Team Providers Care Screen Printing Machine Operator Helper Name Role Phone Keith Briceño MD Primary Care Provider [phone] Allergies No known active allergies Medications levothyroxine (SYNTHROID) 125 mcg tablet Take 125 mcg by mouth medical unit secretary before breakfast Active dextroamphetami ne-amphetamine (ADDERALL) 30 [...] problems Immunizations Immunization Administration Dates Next Due [facility] ([facility]) SARS-CoV-2 Vaccination 06/26/2020 Surgical History Surgery [...] Well Visit/Exam 18-64 1996 Covid-19 Vaccine (3 - 2023-2 5 season) 2023 02/17/2021, 06/26/2020 Influenza Vaccine (Season Ended) 2024 HPV Vaccines Aged Out No longer eligi ble based on patient's age to complete this topic Pneumococcal vaccine <65 Aged Out No longer eligible based on patient's age to complete this topic Insurance [facility] Care Teams Screen Printing Machine Operator Helper Relationship Specialty Start Date End Date Keith Briceño MD [address] [place] [address] PCP - General Internal Medicine 11/10/20
--- OUTSIDE RECORDS SUMMARY | 2024-09-09 12:51 | XMS_ITS | CONTINUITY OF CARE DOCUMENT ---
Author Name dk root Address Unknown Organization [facility] Address [address] [place] [address] Phone [phone] Care Team Providers Care Product Safety Consultant Name Role Phone Petar COMBS, Alex Unavailable Raymond SCIENTIFIC ADVISOR, Merissa Unavailable Raymond SCIENTIFIC ADVISOR, Merissa Unavailable PROBLEMS Condition Status Date Provider [...] In-person encounter Office Visit Alex Davey MD [facility] Family History of Hypertension:Cardiova scular screeningFibromyalgia [...] Payer name Policy type / Coverage type [place] [employer] party ID [employer]ICA[employer] (2) Medicaid [id number] ADVANCE DIRECTIVES Name Date 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
--- OUTSIDE RECORDS SUMMARY | 2024-09-09 12:51 | XMS_ITS | Patient Health Record ---
[facility] Address [address] [place] [address] Care Team Providers Care Tool Machine Set Up Operator Name Role Phone Keith Briceño Primary Care Provider Marlyn Jo Unavailable [phone] Lon Gabriel Unavailable [phone] Rolanda Harris Unavailable [phone] PottsNanci gallegos Unavailable [phone] Allergies Allergen (clinical drug ingredient) Drug/Non Drug Allergy documented on EMR Reaction Allergy Type Onset Date Status dicyclomine Bentyl Unknown Drug Allergy Activ e sucralfate Carafate Unknown Drug Allergy Active Reason For Referral Reason sees hearing consult ants Diagnosis 1 Bilateral hearing lo ss, unspecified hearing loss type (H91.93) [facility] Referring Provider First Name Keith Referring Provider Last Name Keyanna Referring Provider Speciality Internal M edicine Referred Provider Specialty Audiologists General Notes LUIS ANTONIO Crespo, Helga Hanson 01/23/2024 02:18:26 PM > [facility]erral [facility] Pis[facility] . Letter to pt. Clinical Notes [facility], [address] [facility], [address], [place] [address], , fax#[phone] Referral Priority Routine Reason Therapy - Client calvin Christine, whom she saw frequent, as her therapist. She is requesting reassignment. Uses closed captions due to hearing loss. Requests female trained in recovery due to hx of alcoholism. Diagnosis 1 Depressive disorder (F32.9) Diagnosis 2 Adult attention defi cit disorder (F98.8) Diagnosis 3 Chronic fatigue (R53 .82) Referral Organization [facility] Referring Provider First Name Dinorah Referring Provider Last Name Tim person Referring Provider Speciality Mental [facility] counseling Referred Provider Specialty Behavioral [facility] Clinical Notes Nicolas Neely 09/07/2024 03:29:20 PM > Contractor Buyer called and left voicemail message for client, NighatjeanDinorah sylvester 09/08/2024 03:02:56 PM > Contractor Buyer called and left voicemail Referral Priority Routine Medications Medication SIG (Take, Route, Frequency, Duration) Notes Start Date End Date Status Adderall 10 MG 1 tablet Orally Once a day before 3 pm. for 30 days 08/26/2024 Active Latanoprost 0.005 % 1 drop into affected eye in the evening Ophthalmic Once a day Unknown Lurasidone HCl 20 MG 1 tablet in the andrew chris with food Orally Once a day for 30 days 09/24/2023 Active Adderall 10 MG 1 tablet Orally Once a day before 3pm in the afternoon for 30 days 07/28/2024 Active Baclofen 10 MG 1 tablet as needed Orally EVERY 8 HOURS As needed FOR PAIN 03/19/2023 Unknown Adderall 20 MG 1 tablet Orally Once a day. for 30 days 08/26/2024 Active Brimonidine Tartrate 0.15 % 1 drop into affected eye Ophthalmic every 8 hrs Unknown Topiramate 200 MG TAKE 1 TABLET BY ANN TH DAILY for 90 Active Rollator Ultra-Light - as directed as needed 08/19 Unknown Adderall 20 MG 1 tablet Orally Once a day for 30 days 07/28/2024 Active Nicotine Step 1 21 MG/24HR APPLY 1 PATCH TO SKIN ONCE DAILY for 28 Unknown FeroSul 325 (65 Fe) mg TAKE 1 TABLET BY MOUTH DAILY for 30 Active Rimegepant Sulfate 75 MG 1 tablet on the tongue and allow to dissolve Orally DAILY As needed ONSET OF MIGRAINE (MAXIMUM OF 18 DOSES PER MONTH) 08/15/2023 Not-Taking DTx Wally - Miscellaneous - CANE WITH CURVED HANDLE EXTERNALLY DAILY As needed AMBULATION 02/05/2024 Active Tylenol 325 MG two tablets as neede d for pain Orally twice a day for 30 days 01/12/2020 Unknown Acetaminophen-Codeine 300-30 MG 1 tablet as needed Orally daily As needed headache 08/16/2023 Active diazePAM 5 MG 1 tablet as needed f or severe anxiety or flying Orally Once a day for 14 days 08/26/2024 Active Triamcinolone Acetonide 0.1 % 1 application Externally Twice a day for 7 Unknown Levothyroxine Sodium 175 MCG 1 tablet in the morning on an empty stomach Orally Once a day for 30 days Active Cetirizine HCl 10 MG 1 tablet as needed for allergy symptoms. Take at bedtime. Orally Once a day for 30 days Active tiZANidine HCl 4.000 1 tablet as needed Orally Three times a day for 30 days Unknown Folic Acid 1 MG 1 tablet Orally Once a day for 30 day(s) 12/14/2019 Unknown traZODone HCl 150 mg 2 tablets before be d once a day for 30 days Active One-A-Day Womens Formula - as directed Orally Unknown Immunizations Vaccine Route Administration Date Status Comme [facility] COVID-19 Moderna Unknown 02/17/2021 Administered Social History Tobacco Use: Social History Observation Description Date Details (start date - stop date) Never Smoker NA - NA Sex Assigned At : Social History Observation Description Sex Assigned At Female Tobacco Control (Standard) Question Answer Notes Tobacco use: Nonsmoker AUDIT-C (Standard) Question Answer Notes Did you have a drink containing alcohol in the p ast year? No Points 0 Interpretation Negative Section Notes: Problems Problem Type SNOMED Code ICD Code Onset Dates Problem Status W/U Status Risk Notes Problem Iron deficiency (31738611) Iron deficiency (E61.1) Active confirmed Problem Tobacco user (546274679) Nicotine dependence, unspecified, uncomplicated (F17.200) Active confirmed Problem Generalized anxiety disorder (14712737) Generalized anxiety disorder (F41.1) Active confirmed Problem Chronic tension-type headache (454673922) Chronic tension-type headache, not intractable (G44.229) Active confirmed Problem 30072978 Other chronic pain (G89.29) Active confirmed Problem 196485515 Low back pain (M54.5) Active confirmed Problem Fibromyalgia (563234350) Fibromyalgia (M79.7) Active confirmed Problem Anxiety (68411672) Anxiety (F41.9) Active confi rmed Problem 04828191 Vitamin D deficiency (E55.9) Active confirmed Problem Migraine (36968550) Migraine (G43.909) Active confirmed Problem Hypothyroidism (34465192) Hypothyroidism (E03.9) Active confirmed Problem Urinary incontinence (264178750) Urinary incontinence (R32) Active confirmed Problem 23616695 Depressive disorder (F32.9) 019 Active confirmed r/o bipolar disorder, r/o BPD, r/o somatoform disorder Problem 919128404 Diverticulosis (K57.90) Active confirmed Problem Attention deficit disorder (73945887) Attention deficit disorder (F90.0) Active confirmed Problem Overweight (246395247) Over weight (E66.3) Active confirmed Problem 79845188 Chronic fatigue (R53.82) Active confirmed Problem 38965718 MARLIN (obstructive sleep apnea) (G47.33) Active confirmed Problem Seasonal allergy (168326970) Seasonal allergies (J30.2) Active confirmed Problem 8130315 Arthritis (M19.90) Active confirmed Problem 821109143 Vitamin B12 deficiency (E53.8) Active confirmed Problem 103887607091158 Obesity (BMI 30.0-34.9) (E66.9) Active confirmed Problem Adjustment disorder (59054964) Grief reaction (F43.20) 020 Active confirmed Problem 275037095 Insomnia, unspecified type (G47.00) Active confirmed Problem 289051983 Menorrhagia with irregular cycle (N92.1) Active confirmed Problem Hyperlipidaemia (13070358) Hyperlipidemia, unspecified hyperlipidemia type (E78.5) 020 Active confirmed Problem Migraine without aura, not refractory (408369382) Migraine without aura and without status migrainosus, not intractable (G43.009) Active confirmed Problem Hearing loss (14529393) Hearing loss, bilateral (H91.93) Active confirmed Problem Primary osteoarthritis (828238622) Primary osteoarthritis involving multiple joints (M15.0) Active confirmed Problem 20650844 Irritable bowel syndrome, unspecified type (K58.9) Active confirmed Problem 215607628 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) Active confirmed Problem 479914226 Tobacco use disorder (F17.200) Active confirmed Problem 15601619 Bilateral hearing loss, unspecified hearing loss type (H91.93) Active confirmed Problem 833893470 Sensorineural hearing loss (SNHL) of both ears (H90.3) Active confirmed Problem 201323730 Adult attention deficit disorder (F98.8) Active confirmed Problem 981938579 Obesity, unspecified classification, unspecified obesity type, unspecified whether serious comorbidity present (E66.9) Active confirmed Problem 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 Problem 905961674 Muscle tension headache (G44.209) Active confirmed Problem Lesion of ulnar nerve (937832864) 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) Active confirmed Problem 355954647 Ulnar neuropathy at elbow, unspecified laterality (G56.20) 022 Active confirmed bilateral Problem 861934799 Stage 3a chronic kidney disease (N18.31) Active confirmed Problem 532686406 Hx of skin malignancy (Z85.828) Active confirmed Problem 8652437667633250 Right patellofemoral syndrome (M22.2X1) Active confirmed Problem 33536462 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 confirmed Problem 251824816 Alcohol related disorder (F10.99) Active confirmed Problem 856740846 Food intolerance in adult (K90.49) Active confirmed Problem 08379942 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 confirmed Problem 138469881 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) Active confirmed Vital Signs Heart Rate 97 /min 09/07/2024 Respiratory Rate 16 /min 09/07/2024 Blood pressure diastolic 82 mm Hg 09/07/2024 Oximetry 98 % 09/07/2024 Height 65.5 in 09/07/2024 Blood pressure systolic 138 mm Hg 09/07/2024 Weight 203.4 lbs 09/07/2024 BMI 33.33 kg/m2 09/07/2024 Encounters Encounter Location Date Provider Diagnosis [address] [place] [address] 09/13/2023 Marlyn Jo Depressive disorder F32.9 and Generalized anxiety disorder F41.[address] [facility] [place] [address] 09/24/2023 Lon Gabriel Adult attention deficit disorder F98.8 and Depressive disorder F32.[address] [address] 10/04/2023 Marlyn Sanftleben Anxiety F41.[address] [place] [address] 10/08/2023 Keith Briceño Vitamin B12 deficien cy E53.[address] [place] [address] 10/08/2023 Marlyn Sanftleben Generalized anxiety disorder F41.[address] [place] [address] 10/16/2023 Keith Briceño B12 deficiency E53.[address] [address] 10/18/2023 Marlyn Sanftleben Depressive disorder F32.9 and Generalized anxiety disorder F41.[address] [address] 10/21/2023 Lon Gabriel Depressive disorder F32.9 and Attention deficit disorder F90.[address] [place] [address] 10/23/2023 Keith Briceño Vitamin B 12 deficiency E53.[address] [address] 10/31/2023 Marlyn Sanftleben Anxiety F41.[address] [address] 11/18/2023 Lon Gabriel Depressive disorder F32.9 ; Adult attention deficit disorder F98.8 and Generalized anxiety disorder F41.[address] [address] 11/20/2023 Marlyn Sanftleben Depressive disorder F32.9 and Generalized anxiety disorder F41.[address] [address] 11/27/2023 Marlyn Sanftleben [address] [address] 12/04/2023 Marlyn Sanftleben Depressive disorder F32.9 and Generalized anxiety disorder F41.[address] [address] 12/11/2023 Marlyn Sanftleben Generalized anxiety disorder F41.1 and Depressive disorder F32.[address] [address] 12/18/2023 Lon Gabriel Depressive disorder F32.9 ; Adult attention deficit disorder F98.8 and Generalized anxiety disorder F41.[address] [address] 12/25/2023 Marlyn Sanftleben Anxiety F41.[address] [address] 01/07/2024 Keith Briceño Dorsalgia of lumbosacral region M54.50 ; Leg weakness, bilateral M62.81 ; Urinary incontinence R32 ; Leg numbness R20.0 and Nutritional counseling Z71.[address] [address] 01/07/2024 Marlyn Sanftleben Generalized anxiety disorder F41.[address] [address] 01/14/2024 Lon Gabriel Attention deficit disorder F90.0 and Depressive disorder F32.[address] [address] 01/21/2024 Marlyn Sanftleben Anxiety F41.[address] [address] 02/04/2024 Nanci Potts Generalized anxiety disorder F41.[address] [address] 02/05/2024 Keith Briceño Nutritional counseli ng Z71.3 and Primary osteoarthritis involving multiple joints M15.[address] [address] 02/12/2024 Lon Gabriel Depressive disorder F32.9 ; Attention deficit disorder F90.0 and Seasonal allergies J30.[address] [address] 02/18/2024 Nancisantiago Potts Anxiety F41.[address] [address] 02/27/2024 Nanci Delroy [address] [address] 03/12/2024 Nanci Potts Generalized anxiety disorder F41.[address] [address] 03/16/2024 Lon Gabriel Adult attention deficit disorder F98.8 ; Depressive disorder F32.9 and Generalized anxiety disorder F41.1 [place] [place] [address] 03/26/2024 Nanci Delroy Anxiety F41.9 and Depressive disorder F32.9 [address] [place] [address] 04/13/2024 Nancisantiago Potts Generalized anxiety disorder F41.1 and Depressive disorder F32.[address] [address] 04/23/2024 Lon Gabriel Nutritional counseli ng Z71.3 ; Depressive disorder F32.9 ; Adult attention deficit disorder F98.8 and Generalized anxiety disorder F41.1 [address] [place] [place] [address] 04/27/2024 Nancisantiago Potts Depressive disorder F32.9 and Generalized anxiety disorder F41.[address] [address] 05/06/2024 Keith Briceño Nutritional counseli ng Z71.3 and Right hand pain M79.641 [address] [place] [address] 05/14/2024 Nanci Potts Depressive disorder F32.9 and Generalized anxiety disorder F41.[address] [place] [address] 05/27/2024 Lon Gabriel Adult attention deficit disorder F98.8 ; Depressive disorder F32.9 and Generalized anxiety disorder F41.1 [facility] [address] [place] [address] 05/28/2024 Nancisantiago Potts Depressive disorder F32.9 and Generalized anxiety disorder F41.1 [facility] [address] [place] [address] 06/04/2024 Nancisantiago Potts Depressive disorder F32.[address] [address] 06/24/2024 Lon Gabriel Attention deficit disorder F90.0 ; Depressive disorder F32.9 and Generalized anxiety disorder F41.[address] [address] 07/22/2024 Keith Briceño Ulnar neuropathy at elbow of left upper extremity G56.22 ; Fibromyalgia M79.7 and Over weight E66.[address] [address] 07/28/2024 Lon Gabriel Depressive disorder F32.9 ; Adult attention deficit disorder F98.8 and Generalized anxiety disorder F41.[address] [address] 08/25/2024 Lon Gabriel Depressive disorder F32.9 ; Adult attention deficit disorder F98.8 ; Generalized anxiety disorder F41.1 and Seasonal allergies J30.2 [facility] [address] [place] [address] 09/07/2024 Keith Briceño Left hip pain M25.55 2 ; Stage 3a chronic kidney disease N18.31 ; Fibromyalgia M79.7 ; Noah's disease E06.3 and Vitamin B12 deficiency E53.[address] [place] [address] 09/13/2023 Keith Briceño [address] [place] [address] 09/24/2023 Lon Gabriel [address] [place] [address] 10/02/2023 Keith Romeoner [address] [place] [address] 01/17/2024 Keith Keyanna Bilateral hearing loss, unspecified hearing loss type H91.[address] [place] [address] 03/13/2024 Lon Gabriel [address] [place] [address] 03/21/2024 Lon Gabriel [address] [place] [address] 05/18/2024 Rolanda Harris Depressive disorder F32.9 and Attention deficit disorder F90.[address] [place] [address] 05/27/2024 Keith Briceño [address] [place] [address] 10/02/2023 Keith Romeoner [address] [place] [address] 02/07/2024 Keith Briceño Primary osteoarthrit is involving multiple joints M15.0 Assessments Encounter Date Diagnosis (ICD Code) Assessment Notes Treatment Notes Treatment Clinical Notes Section Notes 01/17/2024 Bilateral hearing loss, unspecified hearing loss type (ICD-10 - H91.93) 10/08/2023 Vitamin B12 deficiency (ICD-10 - E53.8) 09/07/2024 Left hip pain (ICD-10 - M25.552) SUSPECT OA, TROCHANTERIC BURSITIS. RAUL SIGNED FOR IMAGING FROM [facility]. 09/07/2024 Stage 3a chronic kidney disease (ICD-10 - N18.31) MOST RECENT CREATININE 07/2024 INCREASED TO 1.66. CONTINUE TO AVOID NSAIDS. 06/24/2024 Depressive disorder (ICD-10 - F32.9) r/o bipolar disorder, r/o BPD, r/o somatoform disorder 06/24/2024 Attention deficit disorder (ICD-10 - F90.0) 06/04/2024 Depressive disorder (ICD-10 - F32.9) r/o bipolar disorder, r/o BPD, r/o somatoform disorder 05/27/2024 Depressive disorder (ICD-10 - F32.9) r/o bipolar disorder, r/o BPD, r/o somatoform disorder Client declines changes to treatment plan. Encouraged client to think about this in near future given continued severe depression. She denies SI. 05/27/2024 Adult attention deficit disorder (ICD-10 - F98.8) Client declines changes to treatment plan. Encouraged client to think about this in near future given continued severe depression. She denies SI. 05/18/2024 Depressive disorder (ICD-10 - F32.9) 05/14/2024 Depressive disorder (ICD-10 - F32.9) r/o bipolar disorder, r/o BPD, r/o somatoform disorder 05/06/2024 Right hand pain (ICD-10 - M79.641) 05/06/2024 Nutritional counseling (ICD-10 - Z71.3) 05/28/2024 Depressive disorder (ICD-10 - F32.9) r/o bipolar disorder, r/o BPD, r/o somatoform disorder 04/23/2024 Depressive disorder (ICD-10 - F32.9) r/o bipolar disorder, r/o BPD, r/o somatoform disorder Client very depressed due to ongoing health issues. She continues to resist any treatment plan changes. She is in therapy and attends AA meetings and has further support from her AA sponsor. 04/23/2024 Nutritional counseling (ICD-10 - Z71.3) Client very depressed due to ongoing health issues. She continues to resist any treatment plan changes. She is in therapy and attends AA meetings and has further support from her AA sponsor. 04/13/2024 Generalized anxiety disorder (ICD-10 - F41.1) 03/26/2024 Anxiety (ICD-10 - F41.9) 03/26/2024 Depressive disorder (ICD-10 - F32.9) 10/04/2023 Anxiety (ICD-10 - F41.9) 09/24/2023 Adult attention deficit disorder (ICD-10 - F98.8) Client open to trial of switching aripiprazole to Latuda to see if helpful for recent weight gain of unknown origin. Did discuss with client that high dose trazodone can cause wt gain though client has been on same dose for years. Discussed in near future changing the high level of trazodone client is on to a TCA for better pain control. Client is hesitant as she has been in the past, though she is more open to this idea than in the past. Writes down suggestion of nortriptyline to discuss with neurology. Suggested if neurology would like to take over trazodone prescription to titrate down and to something else this is appropriate action as well for her future pain control needs. Client verbalizes understanding. 09/13/2023 Depressive disorder (ICD-10 - F32.9) r/o bipolar disorder, r/o BPD, r/o somatoform disorder 02/18/2024 Anxiety (ICD-10 - F41.9) 04/27/2024 Depressive disorder (ICD-10 - F32.9) r/o bipolar disorder, r/o BPD, r/o somatoform disorder 07/22/2024 Fibromyalgia (ICD-10 - M79.7) 12/18/2023 Depressive disorder (ICD-10 - F32.9) r/o bipolar disorder, r/o BPD, r/o somatoform disorder Client requests prn script for emergency anxiety medication as she states she really needed something when her uncle and provider was out of town. Valium 5 mg prn written for as client states she needs this medication for flying. No other changes to treatment plan. Despite ongoing low mood, client does not want her mental health medications changed stating she feels her issues are r/t situational stressors. 01/14/2024 Attention deficit disorder (ICD-10 - F90.0) 10/08/2023 Generalized anxiety disorder (ICD-10 - F41.1) 10/16/2023 B12 deficiency (ICD-10 - E53.8) 10/21/2023 Depressive disorder (ICD-10 - F32.9) r/o bipolar disorder, r/o BPD, r/o somatoform disorder 10/23/2023 Vitamin B 12 deficiency (ICD-10 - E53.8) 11/18/2023 Depressive disorder (ICD-10 - F32.9) r/o bipolar disorder, r/o BPD, r/o somatoform disorder Client feels depression r/t chronic pain. Does not want medication changes. Has upcoming apt with pain management. 07/22/2024 Ulnar neuropathy at elbow of left upper extremity (ICD-10 - G56.22) AVOID PRESSURE TO ELBOW. REPORT ANY WORSENING. 07/28/2024 Depressive disorder (ICD-10 - F32.9) r/o bipolar disorder, r/o BPD, r/o somatoform disorder Client continues to c/o moderate to severe depression, daytime fatigue. Discussions of lowering trazodone dose, adding antidepressant or other medication changes continue to be met with hesitancy. Client f/u with new bone tender and is hopeful for medical treatment that will also aide her mood. 12/25/2023 Anxiety (ICD-10 - F41.9) 12/11/2023 Generalized anxiety disorder (ICD-10 - F41.1) 08/25/2024 Depressive disorder (ICD-10 - F32.9) r/o bipolar disorder, r/o BPD, r/o somatoform disorder 12/04/2023 Depressive disorder (ICD-10 - F32.9) r/o bipolar disorder, r/o BPD, r/o somatoform disorder 11/20/2023 Depressive disorder (ICD-10 - F32.9) r/o bipolar disorder, r/o BPD, r/o somatoform disorder 10/31/2023 Anxiety (ICD-10 - F41.9) 10/18/2023 Depressive disorder (ICD-10 - F32.9) r/o bipolar disorder, r/o BPD, r/o somatoform disorder 03/16/2024 Adult attention deficit disorder (ICD-10 - F98.8) 03/12/2024 Generalized anxiety disorder (ICD-10 - F41.1) 02/12/2024 Depressive disorder (ICD-10 - F32.9) r/o bipolar disorder, r/o BPD, r/o somatoform disorder Client feels her fatigue might be partially r/t seasonal allergies. States she doesn't buy OTC allergy medicine due to cost. That she would use zyrtec if she could. Sending in generic zyrtec for client. Instructed client to try to take in evening/bedtime due to it possibly causing drowsiness. No other treatment plan changes. 02/12/2024 Attention deficit disorder (ICD-10 - F90.0) Client feels her fatigue might be partially r/t seasonal allergies. States she doesn't buy OTC allergy medicine due to cost. That she would use zyrtec if she could. Sending in generic zyrtec for client. Instructed client to try to take in evening/bedtime due to it possibly causing drowsiness. No other treatment plan changes. 02/07/2024 Primary osteoarthritis involving multiple joints (ICD-10 - M15.0) 02/05/2024 Primary osteoarthritis involving multiple joints (ICD-10 - M15.0) 02/05/2024 Nutritional counseling (ICD-10 - Z71.3) 02/04/2024 Generalized anxiety disorder (ICD-10 - F41.1) 01/21/2024 Anxiety (ICD-10 - F41.9) 01/07/2024 Leg weakness, bilateral (ICD-10 - M62.81) 01/07/2024 Dorsalgia of lumbosacral region (ICD-10 - M54.50) LOW BACK PAIN, LEG WEAKNESS AND NUMBNESS, URINARY INCONTINENCE, GAIT AND BALANCE ISSUES ARE CONCERNING FOR RADICULOPATHY VS MS VS CAUDA EQUINA SYNDROME. SHE WAS PREVIOUSLY UNABLE TO TOLERATE AND ADEQUATE COURSE OF PHYSICAL THERAPY, THEREFORE IT IS CLINICALLY APPROPRIATE TO PROCEED WITH IMAGING. MRI WITH AND WITHOUT CONTRAST ORDERED. DISCUSSED AT LENGTH WITH JOSELYN. 01/07/2024 Generalized anxiety disorder (ICD-10 - F41.1) 03/16/2024 Depressive disorder (ICD-10 - F32.9) r/o bipolar disorder, r/o BPD, r/o somatoform disorder 01/07/2024 Urinary incontinence (ICD-10 - R32) 02/12/2024 Seasonal allergies (ICD-10 - J30.2) Client feels her fatigue might be partially r/t seasonal allergies. States she doesn't buy OTC allergy medicine due to cost. That she would use zyrtec if she could. Sending in generic zyrtec for client. Instructed client to try to take in evening/bedtime due to it possibly causing drowsiness. No other treatment plan changes. 08/25/2024 Adult attention deficit disorder (ICD-10 - F98.8) 10/18/2023 Generalized anxiety disorder (ICD-10 - F41.1) 11/20/2023 Generalized anxiety disorder (ICD-10 - F41.1) 12/11/2023 Depressive disorder (ICD-10 - F32.9) r/o bipolar disorder, r/o BPD, r/o somatoform disorder 12/04/2023 Generalized anxiety disorder (ICD-10 - F41.1) 07/28/2024 Adult attention deficit disorder (ICD-10 - F98.8) Client continues to c/o moderate to severe depression, daytime fatigue. Discussions of lowering trazodone dose, adding antidepressant or other medication changes continue to be met with hesitancy. Client f/u with new bone tender and is hopeful for medical treatment that will also aide her mood. 11/18/2023 Adult attention deficit disorder (ICD-10 - F98.8) Client feels depression r/t chronic pain. Does not want medication changes. Has upcoming apt with pain management. 10/21/2023 Attention deficit disorder (ICD-10 - F90.0) 12/18/2023 Adult attention deficit disorder (ICD-10 - F98.8) Client requests prn script for emergency anxiety medication as she states she really needed something when her uncle and provider was out of town. Valium 5 mg prn written for as client states she needs this medication for flying. No other changes to treatment plan. Despite ongoing low mood, client does not want her mental health medications changed stating she feels her issues are r/t situational stressors. 01/14/2024 Depressive disorder (ICD-10 - F32.9) r/o bipolar disorder, r/o BPD, r/o somatoform disorder 07/22/2024 Over weight (ICD-10 - E66.3) 04/27/2024 Generalized anxiety disorder (ICD-10 - F41.1) 09/13/2023 Generalized anxiety disorder (ICD-10 - F41.1) 09/24/2023 Depressive disorder (ICD-10 - F32.9) r/o bipolar disorder, r/o BPD, r/o somatoform disorder Client open to trial of switching aripiprazole to Latuda to see if helpful for recent weight gain of unknown origin. Did discuss with client that high dose trazodone can cause wt gain though client has been on same dose for years. Discussed in near future changing the high level of trazodone client is on to a TCA for better pain control. Client is hesitant as she has been in the past, though she is more open to this idea than in the past. Writes down suggestion of nortriptyline to discuss with neurology. Suggested if neurology would like to take over trazodone prescription to titrate down and to something else this is appropriate action as well for her future pain control needs. Client verbalizes understanding. 04/13/2024 Depressive disorder (ICD-10 - F32.9) r/o bipolar disorder, r/o BPD, r/o somatoform disorder 04/23/2024 Adult attention deficit disorder (ICD-10 - F98.8) Client very depressed due to ongoing health issues. She continues to resist any treatment plan changes. She is in therapy and attends AA meetings and has further support from her AA sponsor. 05/27/2024 Generalized anxiety disorder (ICD-10 - F41.1) Client declines changes to treatment plan. Encouraged client to think about this in near future given continued severe depression. She denies SI. 05/18/2024 Attention deficit disorder (ICD-10 - F90.0) 05/14/2024 Generalized anxiety disorder (ICD-10 - F41.1) 05/28/2024 Generalized anxiety disorder (ICD-10 - F41.1) 06/24/2024 Generalized anxiety disorder (ICD-10 - F41.1) 09/07/2024 Fibromyalgia (ICD-10 - M79.7) LETTER GIVEN FOR HH AID. HANDICAPPED PARKING FORM COMPLETED. 04/23/2024 Generalized anxiety disorder (ICD-10 - F41.1) Client very depressed due to ongoing health issues. She continues to resist any treatment plan changes. She is in therapy and attends AA meetings and has further support from her AA sponsor. 03/16/2024 Generalized anxiety disorder (ICD-10 - F41.1) 12/18/2023 Generalized anxiety disorder (ICD-10 - F41.1) Client requests prn script for emergency anxiety medication as she states she really needed something when her uncle and provider was out of town. Valium 5 mg prn written for as client states she needs this medication for flying. No other changes to treatment plan. Despite ongoing low mood, client does not want her mental health medications changed stating she feels her issues are r/t situational stressors. 11/18/2023 Generalized anxiety disorder (ICD-10 - F41.1) Client feels depression r/t chronic pain. Does not want medication changes. Has upcoming apt with pain management. 08/25/2024 Generalized anxiety disorder (ICD-10 - F41.1) 07/28/2024 Generalized anxiety disorder (ICD-10 - F41.1) Client continues to c/o moderate to severe depression, daytime fatigue. Discussions of lowering trazodone dose, adding antidepressant or other medication changes continue to be met with hesitancy. Client f/u with new bone tender and is hopeful for medical treatment that will also aide her mood. 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 SUSPECT ABSORPTION ISSUES, POSSIBLY DUE TO DOSING TIMES, VS ADHERENCE ISSUES. SHE IS DUE FOR F/U LABS IN ONE WEEK (6 WEEKS SINCE DOSE INCREASE ON 07/31/2024). 01/07/2024 Leg numbness (ICD-10 - R20.0) 01/07/2024 Nutritional counseling (ICD-10 - Z71.3) 08/25/2024 Seasonal allergies (ICD-10 - J30.2) 09/07/2024 Vitamin B12 deficiency (ICD-10 - E53.8) 09[place]24/2023 [place]. Discussed sleep hygiene and caffeine intake with encouragement to limit electronic devices an hour before bed and to limit caffeine after 3:00pm. Exercise benefits for mood and health discussed. Psychoeducation regarding psychiatric illness provided. Client was educated about risks and benefits of medication, alternatives to medication, off label uses of medication, suicidal ideation with SSRIs, self-administrati on and compliance with medication along with how to safely store medication. Verbal informed consent obtained. Client agrees to return sooner if symptoms worsen or if suicidal or homicidal ideations occur. Client has the phone number to the 24-hour crisis line at [facility]. Questions addressed. Client verbalized understanding of all information and is agreeable to treatment plan. Client open to trial of switching aripiprazole to Latuda to see if helpful for recent weight gain of unknown origin. Did discuss with client that high dose trazodone can cause wt gain though client has been on same dose for years. Discussed in near future changing the high level of trazodone client is on to a TCA for better pain control. Client is hesitant as she has been in the past, though she is more open to this idea than in the past. Writes down suggestion of nortriptyline to discuss with neurology. Suggested if neurology would like to take over trazodone prescription to titrate down and to something else this is appropriate action as well for her future pain control needs. Client verbalizes understanding. 10/21/2023 [place]. Discussed sleep hygiene and caffeine intake with encouragement to limit electronic devices an hour before bed and to limit caffeine after 3:00pm. Exercise benefits for mood and health discussed. Psychoeducation regarding psychiatric illness provided. Client was educated about risks and benefits of medication, alternatives to medication, off label uses of medication, suicidal ideation with SSRIs, self-administrati on and compliance with medication along with how to safely store medication. Verbal informed consent obtained. Client agrees to return sooner if symptoms worsen or if suicidal or homicidal ideations occur. Client has the phone number to the 24-hour crisis line at [facility]. Questions addressed. Client verbalized understanding of all information and is agreeable to treatment plan. 11/18/2023 [place]. Discussed sleep hygiene and caffeine intake with encouragement to limit electronic devices an hour before bed and to limit caffeine after 3:00pm. Exercise benefits for mood and health discussed. Psychoeducation regarding psychiatric illness provided. Client was educated about risks and benefits of medication, alternatives to medication, off label uses of medication, suicidal ideation with SSRIs, self-administrati on and compliance with medication along with how to safely store medication. Verbal informed consent obtained. Client agrees to return sooner if symptoms worsen or if suicidal or homicidal ideations occur. Client has the phone number to the 24-hour crisis line at [facility]. Questions addressed. Client verbalized understanding of all information and is agreeable to treatment plan. Client feels depression r/t chronic pain. Does not want medication changes. Has upcoming apt with pain management. 12/18/2023 [place]. Discussed sleep hygiene and caffeine intake with encouragement to limit electronic devices an hour before bed and to limit caffeine after 3:00pm. Exercise benefits for mood and health discussed. Psychoeducation regarding psychiatric illness provided. Client was educated about risks and benefits of medication, alternatives to medication, off label uses of medication, suicidal ideation with SSRIs, self-administrati on and compliance with medication along with how to safely store medication. Verbal informed consent obtained. Client agrees to return sooner if symptoms worsen or if suicidal or homicidal ideations occur. Client has the phone number to the 24-hour crisis line at [facility]. Questions addressed. Client verbalized understanding of all information and is agreeable to treatment plan. Client requests prn script for emergency anxiety medication as she states she really needed something when her uncle and provider was out of town. Valium 5 mg prn written for as client states she needs this medication for flying. No other changes to treatment plan. Despite ongoing low mood, client does not want her mental health medications changed stating she feels her issues are r/t situational stressors. 12/25/2023 Other Client is engaged in short term brief intervention therapy. 01/07/2024 Other Client is engaged in short term brief intervention therapy. 01/14/2024 [place]. Discussed sleep hygiene and caffeine intake with encouragement to limit electronic devices an hour before bed and to limit caffeine after 3:00pm. Exercise benefits for mood and health discussed. Psychoeducation regarding psychiatric illness provided. Client was educated about risks and benefits of medication, alternatives to medication, off label uses of medication, suicidal ideation with SSRIs, self-administrati on and compliance with medication along with how to safely store medication. Verbal informed consent obtained. Client agrees to return sooner if symptoms worsen or if suicidal or homicidal ideations occur. Client has the phone number to the 24-hour crisis line at [facility]. Questions addressed. Client verbalized understanding of all information and is agreeable to treatment plan. 01/21/2024 Other Client is engaged in short term brief intervention therapy. 02/12/2024 [place]. Discussed sleep hygiene and caffeine intake with encouragement to limit electronic devices an hour before bed and to limit caffeine after 3:00pm. Exercise benefits for mood and health discussed. Psychoeducation regarding psychiatric illness provided. Client was educated about risks and benefits of medication, alternatives to medication, off label uses of medication, suicidal ideation with SSRIs, self-administrati on and compliance with medication along with how to safely store medication. Verbal informed consent obtained. Client agrees to return sooner if symptoms worsen or if suicidal or homicidal ideations occur. Client has the phone number to the 24-hour crisis line at [facility]. Questions addressed. Client verbalized understanding of all information and is agreeable to treatment plan. Client feels her fatigue might be partially r/t seasonal allergies. States she doesn't buy OTC allergy medicine due to cost. That she would use zyrtec if she could. Sending in generic zyrtec for client. Instructed client to try to take in evening/bedtime due to it possibly causing drowsiness. No other treatment plan changes. 03/16/2024 [place]. Discussed sleep hygiene and caffeine intake with encouragement to limit electronic devices an hour before bed and to limit caffeine after 3:00pm. Exercise benefits for mood and health discussed. Psychoeducation regarding psychiatric illness provided. Client was educated about risks and benefits of medication, alternatives to medication, off label uses of medication, suicidal ideation with SSRIs, self-administrati on and compliance with medication along with how to safely store medication. Verbal informed consent obtained. Client agrees to return sooner if symptoms worsen or if suicidal or homicidal ideations occur. Client has the phone number to the 24-hour crisis line at [facility]. Questions addressed. Client verbalized understanding of all information and is agreeable to treatment plan. 04/23/2024 [place]. Discussed sleep hygiene and caffeine intake with encouragement to limit electronic devices an hour before bed and to limit caffeine after 3:00pm. Exercise benefits for mood and health discussed. Psychoeducation regarding psychiatric illness provided. Client was educated about risks and benefits of medication, alternatives to medication, off label uses of medication, suicidal ideation with SSRIs, self-administrati on and compliance with medication along with how to safely store medication. Verbal informed consent obtained. Client agrees to return sooner if symptoms worsen or if suicidal or homicidal ideations occur. Client has the phone number to the 24-hour crisis line at [facility]. Questions addressed. Client verbalized understanding of all information and is agreeable to treatment plan. Client very depressed due to ongoing health issues. She continues to resist any treatment plan changes. She is in therapy and attends AA meetings and has further support from her AA sponsor. 05/27/2024 [place]. Discussed sleep hygiene and caffeine intake with encouragement to limit electronic devices an hour before bed and to limit caffeine after 3:00pm. Exercise benefits for mood and health discussed. Psychoeducation regarding psychiatric illness provided. Client was educated about risks and benefits of medication, alternatives to medication, off label uses of medication, suicidal ideation with SSRIs, self-administrati on and compliance with medication along with how to safely store medication. Verbal informed consent obtained. Client agrees to return sooner if symptoms worsen or if suicidal or homicidal ideations occur. Client has the phone number to the 24-hour crisis line at [facility]. Questions addressed. Client verbalized understanding of all information and is agreeable to treatment plan. Client declines changes to treatment plan. Encouraged client to think about this in near future given continued severe depression. She denies SI. 06/24/2024 [place]. Discussed sleep hygiene and caffeine intake with encouragement to limit electronic devices an hour before bed and to limit caffeine after 3:00pm. Exercise benefits for mood and health discussed. Psychoeducation regarding psychiatric illness provided. Client was educated about risks and benefits of medication, alternatives to medication, off label uses of medication, suicidal ideation with SSRIs, self-administrati on and compliance with medication along with how to safely store medication. Verbal informed consent obtained. Client agrees to return sooner if symptoms worsen or if suicidal or homicidal ideations occur. Client has the phone number to the 24-hour crisis line at [facility]. Questions addressed. Client verbalized understanding of all information and is agreeable to treatment plan. 07/28/2024 [place]. Discussed sleep hygiene and caffeine intake with encouragement to limit electronic devices an hour before bed and to limit caffeine after 3:00pm. Exercise benefits for mood and health discussed. Psychoeducation regarding psychiatric illness provided. Client was educated about risks and benefits of medication, alternatives to medication, off label uses of medication, suicidal ideation with SSRIs, self-administrati on and compliance with medication along with how to safely store medication. Verbal informed consent obtained. Client agrees to return sooner if symptoms worsen or if suicidal or homicidal ideations occur. Client has the phone number to the 24-hour crisis line at [facility]. Questions addressed. Client verbalized understanding of all information and is agreeable to treatment plan. Client continues to c/o moderate to severe depression, daytime fatigue. Discussions of lowering trazodone dose, adding antidepressant or other medication changes continue to be met with hesitancy. Client f/u with new bone tender and is hopeful for medical treatment that will also aide her mood. 08/25/2024 [place]. Discussed sleep hygiene and caffeine intake with encouragement to limit electronic devices an hour before bed and to limit caffeine after 3:00pm. Exercise benefits for mood and health discussed. Psychoeducation regarding psychiatric illness provided. Client was educated about risks and benefits of medication, alternatives to medication, off label uses of medication, suicidal ideation with SSRIs, self-administrati on and compliance with medication along with how to safely store medication. Verbal informed consent obtained. Client agrees to return sooner if symptoms worsen or if suicidal or homicidal ideations occur. Client has the phone number to the 24-hour crisis line at [facility]. Questions addressed. Client verbalized understanding of all information and is agreeable to treatment plan. 09/07/2024 Other [place] NOT[place] FOR RX VALIUM AND ADDERALL Plan Of Treatment Future Test Test Name Order Date EMG/NCV ARMS 05/06/2024 Ultrasound : Renal Complete 09/07/2024 Vitamin B1 (Thiamine), Blood 09/07/2024 UA/M w/rflx Culture, Routine 09/07/2024 Next Appt Details Provider Name:Lon pineda, 09/22/2024 10:00:00 AM, [address], [place], [address], Insurance Providers Payer Name Payer Address Payer Phone Subscriber Number Group Number Insured Name Patient Relationship to Insured Coverage Start Date Coverage End Date [facility] Attn Claims Department [address] [place] [address] [id number] Joselyn Caraballo Self - patient is the insured 9 [employer] Attn Claims Department [address] [place] [address] [id number] Joselyn Caraballo Self - patient is the insured 0 [employer] Att[employer] Claims Department [address] [place] [address] [id number] Joselyn Caraballo Self - patient is the insured 9 [employer] Attn Claims Department [address] [place] [address] [id number] Joselyn Caraballo Self - patient is the insured 4 Medications Administered Medication Instructions Date of Administration Dosage Notes Cyanocobalamin (B-12) 01/18/2020 1000 ug [id number]-[id number]-[id number] ard Pt tolerated injection well. Pt voiced no questions or concerns. Cyanocobalamin (B-12) 05/11/2020 1000 ug Man ufact Motley, patient tolerated well. Cyanocobalamin (B-12) 10/08/2023 1000 ug Cyanocobalamin (B-12) 10/16/2023 1000 ug Cyanocobalamin (B-12) 10/23/2023 1000 ug Medical (General) History Medical History History ICD Code Fibromyalgia Noah's disease Hypothyroidism Iron deficiency Hearing loss, bilateral Osteoarthritis Glaucoma Small fiber neuropathy seizures starting in early 30s, last one in 2017 Surgical History Surgery Date(Month/Year) breast augmentation 2002 Ovarian Cancer 2016 Opherecotmy 2017 melanoma removal 2015 left mensicus repair 2013 Tubal ligation 01/2023 Hospitalization History Reason Date(Month/Year) [place] 01/2023
--- OUTSIDE RECORDS SUMMARY | 2024-09-09 12:51 | XMS_ITS | Clinical Summary ---
Author Organization [facility] [employer] Address [address] 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 This disclosure is being madepursuant to the Care Everywhere program and may not contain all information available regarding this patient. Last updated 18.[facility] [employer] Allergies Active Allergy Reactions Criticality Noted Date Comments Gabapentin Dizziness,Numbness,P alpitations,Shortn ess of Breath,Skin Reactions,Tinnitus,Vision Changes High 07/21/2024 Medications * Be aware that medications may not be up to date on this document. Alwaysverify current medications with the patient. acetaminophen (TYLENOL) 500 MG tablet acetaminophen 500 mg tablet Active cyclobenzaprin e (FLEXERIL) 10 MG tablet cyclobenzaprine 10 mg tablet 10/14/19 19 Active FEROSUL 325 (65 Fe) MG tablet TK /2 T PO D 06/22/19 20 Active amphetamine-de xtroamphetamin e (ADDERALL) 10 MG tablet 06/22/19 21 Active topiramate (TOPAMAX) 200 MG tablet 11/29/19 21 Active diazePAM (Valium) 5 MG tablet 12/18/19 24 Active amphetamine-de xtroamphetamin e (Adderall) 20 MG tablet 07/21/19 25 Active traZODone (Desyrel) 150 MG tablet Take 2 (two) tablets by mouth at bedtime 06/30/19 25 Active cyanocobalamin (Vitamin B-12) 500 MCG tablet Take 1 (one) tablet by mouth once daily Activ e cetirizine (ZyrTEC) 10 MG tablet Take 1 (one) tablet by mouth once daily Activ e lurasidone (Latuda) 20 MG tablet Take 0.5 (one-half) tablet by mouth daily with food Active levothyroxine (Synthroid) 175 MCG tabletIndicati ons:Hypothyroi dism Take 1 (one) tablet by mouth daily before breakfast Reasons: Underactive Thyroid 90 tablet 3 07/31/19 25 026 Active vitamin D, ergocalciferol , (Drisdol) 1.25 MG (69323 UT) capsuleIndicat ions:Vitamin D Deficiency Take 1 (one) capsule by mouth Two times a week for 24 doses Reasons: Vitamin D Deficiency 24 capsule 07/31/19 25 025 Active urea (Carmol;Vanami de) 40 % creamIndicatio ns:Hyperkerato sis Apply to affected areas two times daily. Reasons: Thickening of Outer Layer of Skin 227 g 11 07/31/19 25 Active mometasone (Elocon) 0.1 % ointmentIndica tions:Dermatit is Apply pea size amount BID PRN to rash/pruritus, use 2 weeks max then 4-5 day holiday before restarting. 30ds Reasons: Skin Inflammation 45 g 11 07/31/19 25 Active Active Problems Problem Noted Date Diagnosed [...] bad side effects - Recommend referral to [facility] Rheumatology for evaluation Malignant neoplasm of ovary [...] 07/21/2019 07/04/2020 Anxiety disorder, unspecified 10/29/2018 07/04/2020 Encounters Date Type Department Care Team Description 08/31/2024 Telephone [facility] - Rheumatology [address] [place] [phone] Babatunde Lopez MD Med Question 07/31/2024 Telephone [facility] - Dermatology [address] [place] [phone] Rema Raygoza MD Med Question 07/30/2024 1:00 PM CDT Office Visit [facility] - Dermatology [address] [place] [phone] Rema Raygoza MD Ichthyosis vulgaris (Primary Dx) 07/30/2024 9:00 AM CDT Office Visit [facility] - Rheumatology [address] [place] [phone] Babatunde Lopez MD Polyarthralgia (Primary Dx); Sensorineural hearing loss (SNHL), bilateral; Asteatotic eczema; Eczema craquele; 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; Skin desquamation; Hypovitaminosis D 07/30/2024 Travel 07/22/2024 Orders Only [facility] - Rheumatology [address] [place] [phone] Babatunde Lopez MD 07/21/2024 3:43 PM CDT - 07/21/2024 11:59 PM CDT Hospital Encounter [facility] OP [address] [place] [address] Babatunde Lopez MD Discharge Disposition: Home or Self Care 07/21/2024 1:00 PM CDT Office Visit [facility] - Rheumatology [address] [place] [address] Babatunde Lopez MD Polyarthralgia (Primary Dx); Sensorineural hearing loss (SNHL), bilateral; Asteatotic eczema; Skin desquamation; Eczema craquele; Horseshoe kidney; 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 07/21/2024 Travel from Last 3 Months Family History Medical History Relation Name Comments Cancer - Colon Brother Crohn's Disease Brother None Known Father Thyroid Disease Mother Relation Name Status Comments Brother Alive Father Alive Mother Alive Social History Tobacco Use Types Packs/Day Years Used Date Smoking Tobacco: Some Days Smokeless Tobacco: Never Tobacco Cessation:Ready to Q uit: Not Asked; Counseling Given: Not Answered Alcohol Use Standard Drinks/Week Comments Not Currently 0 (1 standard drink = 0.6 oz pur e alcohol) PHQ-2 Answer Date Recorded Patient Health Questionnaire-2 Score 6 07/30/2024 Comments No Sex and Gender Information Value Date Recorded Sex Assigned at Female 01/16/2023 5:46 PM CDT 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 Gender Identity Female 01/16/2023 5:46 PM CDT Sexual Orientation Straight 01/16/2023 5: 46 PM CDT Last Filed Vital Signs Vital Sign Reading Time Taken Comments Blood Pressure 109/80 07/30/2024 9:31 AM CDT Pulse 66 07/30/2024 9:31 AM CDT Temperature 36.7 C (98 F) 07/30/2024 9:31 AM CDT Respiratory Rate - - Oxygen Saturation 97% 07/30/2024 9:31 AM CDT Inhaled Oxygen Concentration - - Weight 96.2 kg (212 lb) 07/30/2024 9:31 AM CDT Height 167.6 cm (5' 6 ) 07/30/2024 9:31 AM CDT Body Mass Index 34.22 07/30/2024 9:31 AM CDT Plan of Treatment Upcoming Encounters Date Type Department Care Team (Late st Contact Info) Description 10/05/2024 11:00 AM CDT Office Visit [facility] - Rheumatology [address] [place] [phone] Babatunde Lopez MD [address] [place] [address] 12/01/2024 8:50 AM CDT Office Visit [facility] - Dermatology [address] [facility] [place] [address] Rema Raygoza MD [address] [facility] [place] [place] [address] Health Maintenance Due Date Last Done Comments COLOGUARD (AGES 45-75) - COL ON CA SCREENING 1978 COLON MONITORING 1978 COLONOSCOPY - COLON CA SCREENING 1978 CT COLONOGRAPHY - COLON CA SCREENING 1978 Colorectal Cancer Screening 1978 FIT - COLON CA SCREENING 1978 FLEX SIG - COLON CA SCREENING 1978 LIPID TESTING 1978 PAP SMEAR 1978 HEPATITIS C SCREENING 12/08/1996 DTAP/TDAP/TD VACCINES (1 - Tdap) 1997 HEPATITIS B VACCINE (1 of 3 - 19+ 3-dose series) 1997 PNEUMOCOCCAL VACCINE (1 of 2 - PCV) 1997 COVID-19 VACCINE (2 - 2023-2 5 season) 2023 06/26/2020 INFLUENZA VACCINE (Season Ended) 2024 MAMMOGRAM 02/17/2026 02/18/2024, 01/16/2023 SCREENING FOR DIABETES 07/23/2027 , 07/22/2024 ZOSTER VACCINE (1 of 2) 2028 HIV SCREENING Completed 07/22/2024 HIB VACCINE Aged Out No longer eligi [...] Procedure Name Priority Date/Time Associated Diagnosis Comments T4 FREE 07/22/2024 2:19 PM CDT THYROID PEROXIDASE ANTIBODY Routine 07/22/2024 2:19 PM CDT Polyarthralgia Sensorineural hearing loss (SNHL), bilateral Asteatotic eczema Skin desquamation Eczema craquele 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 THYROGLOBULIN ANTIBODY Routine 2:19 PM CDT Polyarthralgia Sensorineural hearing loss (SNHL), bilateral Asteatotic eczema Skin desquamation Eczema craquele 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 HEMOGLOBIN A1C Routine 07/22/2024 2:19 PM CDT Polyarthralgia Sensorineural hearing loss (SNHL), bilateral Asteatotic eczema Skin desquamation Eczema craquele [place]orseshoe kidney HIV-1 HIV-2 ANTIBODY + HIV P24 AG PANEL Routine 07/22/2024 2:19 PM CDT Polyarthralgia Sensorineural hearing loss (SNHL), bilateral Asteatotic eczema Skin desquamation Eczema craquele [place]orseshoe kidney ZINC BLOOD Routine 07/22/2024 2:19 PM CDT Polyarthralgia Sensorineural hearing loss (SNHL), bilateral Asteatotic eczema Skin desquamation Eczema craquele Horseshoe kidney VITAMIN A Routine 07/22/2024 2:19 PM CDT Polyarthralgia Sensorineural hearing loss (SNHL), bilateral Asteatotic eczema Skin desquamation Eczema craquele [place]orseshoe kidney VITAMIN D 25-HYDROXY Routine 07/22/2024 2:19 PM CDT Skin desquamation Eczema craquele Polyarthralgia Sensorineural hearing loss (SNHL), bilateral Horseshoe kidney TSH REFLEX FREE T4 Routine 07/22/2024 2: 19 PM CDT Skin desquamation Eczema craquele Polyarthralgia Sensorineural hearing loss (SNHL), bilateral [place]orseshoe kidney ERYTHROCYTE SEDIMENTATION RATE Routine 07/22/2024 2:19 PM CDT Skin desquamation Eczema craquele Polyarthralgia Sensorineural hearing loss (SNHL), bilateral [place]orseshoe kidney C-REACTIVE PROTEIN Routine 07/22/2024 2: 19 PM CDT Skin desquamation Eczema craquele Polyarthralgia Sensorineural hearing loss (SNHL), bilateral Horseshoe kidney COMPREHENSIVE METABOLIC PANEL Routine 07/22/2024 2:19 PM CDT Skin desquamation Eczema craquele Polyarthralgia Sensorineural hearing loss (SNHL), bilateral Horseshoe kidney CBC W AUTO DIFFERENTIAL Routine 07/22/2024 2:19 PM CDT Skin desquamation Eczema craquele Polyarthralgia Sensorineural hearing loss (SNHL), bilateral [place]orseshoe kidney XR PELVIS 3VW OR MORE Routine 07/21/2024 4:49 PM CDT Polyarthralgia XR WRIST RIGHT 2VW Routine 07/21/2024 4: 49 PM CDT Polyarthralgia XR WRIST LEFT 2VW Routine 07/21/2024 4:4 9 PM CDT Polyarthralgia XR HAND LEFT 3VW OR MORE Routine 07/21/2024 4:49 PM CDT Polyarthralgia XR HAND RIGHT 3VW OR MORE Routine 07/21/2024 4:49 PM CDT Polyarthralgia XR ELBOW RIGHT 2VW Routine 07/21/2024 4: 49 PM CDT Polyarthralgia XR ELBOW LEFT 2VW Routine 07/21/2024 4:4 9 PM CDT Polyarthralgia XR CERVICAL SPINE 4 OR 5VW Routine 07/21/2024 4:49 PM CDT Polyarthralgia XR SHOULDER LEFT 2VW OR MORE Routine 07/21/2024 4:49 PM CDT Polyarthralgia XR SHOULDER RIGHT 2VW OR MORE Routine 07/21/2024 4:49 PM CDT Polyarthralgia XR THORACIC SPINE 2VW Routine 07/21/2024 4:49 PM CDT Polyarthralgia XR LUMBAR SPINE 2 OR 3VW Routine 07/21/2024 4:49 PM CDT Polyarthralgia XR SI JOINTS 3VW OR MORE Routine 07/21/2024 4:49 PM CDT Polyarthralgia XR HIP LEFT 2VW OR MORE Routine 07/21/2024 4:49 PM CDT Polyarthralgia XR HIP RIGHT 2VW OR MORE Routine 07/21/2024 4:49 PM CDT Polyarthralgia XR KNEE RIGHT 3VW Routine 07/21/2024 4:4 9 PM CDT Polyarthralgia XR KNEE LEFT 3VW Routine 07/21/2024 4:49 PM CDT Polyarthralgia XR ANKLE RIGHT 2VW Routine 07/21/2024 4: 49 PM CDT Polyarthralgia XR FOOT RIGHT 3VW OR MORE Routine 07/21/2024 4:49 PM CDT Polyarthralgia XR FOOT LEFT 3VW OR MORE Routine 07/21/2024 4:49 PM CDT Polyarthralgia XR ANKLE LEFT 2VW Routine 07/21/2024 4:4 9 PM CDT Polyarthralgia MAMMO BILAT IMPLANT SCREEN W KIRBY Routine 02/18/2024 1:36 PM CDT Encounter for screening mammogram for malignant neoplasm of breast from Last 3 Months or Most Recently Relevant to Health Maintenance Results * HIV-1 HIV-2 ANTIBODY + HIV P24 AG PANEL (07/22/2024 2:19 PM CDT) HIV Screen 4th Generation w Reflex NON-REACT ABDULLAHI NON-REACT ABDULLAHI [facility] Comment: HIV-1 antigen and HIV-1/HIV-2 antibodies were not detected. There is no laboratory evidence of HIV infection. PLEASE NOTE: This information has been disclosed to you from records whose confidentiality may be protected by state law. If your state requires such protection, then the state law prohibits you from making any further disclosure of the information without the specific written consent of the person to whom it pertains, or as otherwise permitted by law. A general authorization for the release of medical or other information is NOT sufficient for this purpose. For additional information please refer to http://education.Bridg/faq/CTD280 (This link is being provided for informational/ educational purposes only.) The performance of this assay has not been clinically validated in patients less than 2 years old. Test Performed at: [facility] [place] [address] [place] [address] GERARDO BOUCHER MD Blood BLOOD SPECIMEN / Unknown 07/22/2024 2:19 PM CDT 07/22/2024 2:22 PM CDT Babatunde Lopez MD LAB - CHEMISTRY ORDERABLES Final Result [address] [address] * (ABNORMAL) TSH REFLEX FREE T4 (07/22/2024 2:19 PM CDT) Pathologist [facility] TSH with Reflex FT4 116.91(H) mIU/L [facility] Comment: Reference Range > or = 20 Years 0.40-4.50 Ranges First trimester 0.26-2.66 Second trimester 0.55-2.73 Third trimester 0.43-2.91 Test Performed at: [facility] [address] GERARDO BOUCHER MD Blood BLOOD SPECIMEN / Unknown 07/22/2024 2:19 PM CDT 07/22/2024 2:22 PM CDT Babatunde Lopez MD LAB - CHEMISTRY ORDERABLES Final Result [address] [address] * C-REACTIVE PROTEIN (07/22/2024 2:19 PM CDT) C-Reactive Protein 5.1 <8.0 mg/L [facility] Comment: Test Performed at: [facility] [address] GERARDO BOUCHER MD Blood BLOOD SPECIMEN / Unknown 07/22/2024 2:19 PM CDT 07/22/2024 2:22 PM CDT Babatunde Lopez MD LAB - CHEMISTRY ORDERABLES Final Result Performing Organization Address [facility]/ZIP Co de Phone Number [address] [address] * (ABNORMAL) THYROID PEROXIDASE ANTIBODY (07/22/2024 2:19 PM CDT) Thyroid Peroxidase TPO Antibody 374(H) <9 IU/mL [facility] Comment: Test Performed at: [facility] [address] [address] SEJAL CERNA Blood BLOOD SPECIMEN / Unknown 07/22/2024 2:19 PM CDT 07/22/2024 2:22 PM CDT Babatunde Lopez MD LAB - CHEMISTRY ORDERABLES Final Result Performing Organization Address City/[facility]/ZIP Co de Phone Number [facility] [id number] [place] [phone] * (ABNORMAL) THYROGLOBULIN ANTIBODY (07/22/2024 2:19 PM CDT) Thyroglobulin Antibody 2(H) < or = 1 IU/mL [facility] Comment: Test Performed at: [facility] [place] [address] [place] [address] SEJAL CERNA Blood BLOOD SPECIMEN / Unknown 07/22/2024 2:19 PM CDT 07/22/2024 2:22 PM CDT Babatunde Lopez MD LAB - CHEMISTRY ORDERABLES Final Result Performing Organization Address [facility] de Phone Number [facility] [address] [place] [address] * (ABNORMAL) ZINC BLOOD (07/22/2024 2:19 PM CDT) Zinc 57(L) 60 - 130 mcg/dL [facility] Comment: This test was developed and its analytical performance characteristics have been determined by [facility] [place], [place]. It has not been cleared or approved by the U.S. Food and Drug Administration. This assay has been validated pursuant to the CLIA regulations and is used for clinical purposes. Test Performed at: [facility] [address] [place], [place] ULYSSES REAGAN MD,PHD Blood BLOOD SPECIMEN / Unknown 07/22/2024 2:19 PM CDT 07/22/2024 2:22 PM CDT Babatunde Lopez MD LAB - CHEMISTRY ORDERABLES Final Result Performing Organization Address [facility] de Phone Number [facility] [address] [place] [address] * VITAMIN A (07/22/2024 2:19 PM CDT) Vitamin A 41 38 - 98 mcg/dL [facility] Comment: (Note) Clin Chem Vol. 34.No.8. [id number]. 1998 Vitamin supplementation within 24 hours prior to blood draw may affect the accuracy of results. This test was developed and its analytical performance characteristics have been determined by [facility]. It has not been cleared or approved by the FDA. This assay has been validated pursuant to the CLIA regulations and is used for clinical purposes. [facility] med fusion [address] [address],[address] [facility] [address] Lizz Banks MD, PhD REPORT COMMENT: FASTING:NO Test Performed at: [facility] [address] [facility] [address] [place] [address] LIZZ BANKS MD,PHD Blood BLOOD SPECIMEN / Unknown 07/22/2024 2:19 PM CDT 07/22/2024 2:22 PM CDT Babatunde Lopez MD LAB - CHEMISTRY ORDERABLES Final Result Performing Organization Address [facility]/ZIP Co de Phone Number [address] [address] * HEMOGLOBIN A1C (07/22/2024 2:19 PM CDT) Hemoglobin A1c 5.3 <5.7 % of total Hgb [facility] Comment: For the purpose of screening for the presence of diabetes: <5.7% Consistent with the absence of diabetes 5.7-6.4% Consistent with increased risk for diabetes (prediabetes) > or =6.5% Consistent with diabetes This assay result is consistent with a decreased risk of diabetes. Currently, no consensus exists regarding use of hemoglobin A1c for diagnosis of diabetes in children. According to [place] Diabetes Association (ADA) guidelines, hemoglobin A1c <7.0% represents optimal control in non- diabetic patients. Different metrics may apply to specific patient populations. Standards of Medical Care in Diabetes(ADA). Test Performed at: [facility] [address] GERARDO BOUCHER MD Blood BLOOD SPECIMEN / Unknown 07/22/2024 2:19 PM CDT 07/22/2024 2:22 PM CDT Babatunde Lopez MD LAB - CHEMISTRY ORDERABLES Final Result Performing Organization Address [facility]/ZIP Co de Phone Number [address] [address] * (ABNORMAL) VITAMIN D 25-HYDROXY (07/22/2024 2:19 PM CDT) Vitamin D, 25 Hydroxy 7(L) 30 - 100 ng/mL [facility] Comment: Vitamin D Status 25-OH Vitamin D: Deficiency: <20 ng/mL Insufficiency: 20 - 29 ng/mL Optimal: > or = 30 ng/mL For 25-OH Vitamin D testing on patients on D2-supplementation and patients for whom quantitation of D2 and D3 fractions is required, the QuestAssureD(TM) 25-OH VIT D, (D2,D3), LC/MS/MS is recommended: order code 24035 (patients >2yrs). See Note 1 Note 1 For additional information, please refer to http://education.Soma/faq/MET547 (This link is being provided for informational/ educational purposes only.) Test Performed at: [facility] [address] [place] [address] GERARDO BOUCHER MD Blood BLOOD SPECIMEN / Unknown 07/22/2024 2:19 PM CDT 07/22/2024 2:22 PM CDT Babatunde Lopez MD LAB - CHEMISTRY ORDERABLES Final Result Performing Organization Address [facility]/ZIP Co de Phone Number [address] [address] * ERYTHROCYTE SEDIMENTATION RATE (07/22/2024 2:19 PM CDT) Pathologist [facility] Erythrocyte Sedimentation Rate Westergren 2 < OR = 20 mm/h [facility] Comment: Test Performed at: [facility] [address] GERARDO BOUCHER MD Blood BLOOD SPECIMEN / Unknown 07/22/2024 2:19 PM CDT 07/22/2024 2:22 PM CDT Babatunde Lopez MD LAB - HEMATOLOGY ORDERABLES Tamiko l Result Performing Organization Address City/[facility]/ZIP Co de Phone Number [address] [address] * CBC WITH DIFFERENTIAL (07/22/2024 2:19 PM CDT) Pathologist [facility] White Blood Cell Count 9.4 3.8 - 10.8 Thousand/u L [facility] RBC 4.04 3.80 - 5.10 Million/uL [facility] Hemoglobin 13.2 11.7 - 15.5 g/dL [facility] Hematocrit 40.2 35.0 - 45.0 % [facility] MCV 99.5 80.0 - 100.0 fL [facility] MCH 32.7 27.0 - 33.0 pg [facility] MCHC 32.8 32.0 - 36.0 g/dL [facility] Comment: For adults, a slight decrease in the calculated MCHC value (in the range of 30 to 32 g/dL) is most likely not clinically significant; however, it should be interpreted with caution in correlation with other red cell parameters and the patient's clinical condition. RDW 13.8 11.0 - 15.0 % [facility] Platelet Count 252 140 - 400 Thousand/u L [facility] MPV 10.5 7.5 - 12.5 fL [facility] Neutrophil Absolute 5978 1500 - 7800 cells/uL [facility] Lymphocytes Absolute 2876 850 - 3900 cells/uL [facility] Absolute Monocytes 432 200 - 950 cells/uL [facility] Eosinophils Absolute 56 15 - 500 cells/uL [facility] Basophils Absolute 56 0 - 200 cells/uL [facility] Granulocytes % 63.6 % [facility] Lymphocytes % 30.6 % [facility] Monocytes % 4.6 % [facility] Eosinophils % 0.6 % [facility] Basophils % 0.6 % [facility] Comment: Test Performed at: [facility] [address] GERRADO BOUCHER MD Blood BLOOD SPECIMEN / Unknown 07/22/2024 2:19 PM CDT 07/22/2024 2:22 PM CDT Babatunde Lopez MD LAB - HEMATOLOGY ORDERABLES Tamiko l Result [address] [address] * (ABNORMAL) COMPREHENSIVE METABOLIC PANEL (07/22/2024 2:19 PM CDT) Pathologist [facility] Glucose 88 65 - 139 mg/dL [facility] Comment: Non-fasting reference interval BUN 9 7 - 25 mg/dL [facility] Creatinine 1.66(H) 0.50 - 0.99 mg/dL [facility] eGFR by Cystatin C 39(L) > OR = 60 mL/min/1. 73m2 [facility] BUN/Creatinine Ratio 5(L) 6 - 22 (calc) [facility] Sodium 135 135 - 146 mmol/L [facility] Potassium 3.5 3.5 - 5.3 mmol/L [facility] Chloride 104 98 - 110 mmol/L [facility] CO2 22 20 - 32 mmol/L [facility] Calcium 9.6 8.6 - 10.2 mg/dL [facility] Protein Total 7.9 6.1 - 8.1 g/dL [facility] Albumin 5.1 3.6 - 5.1 g/dL [facility] Globulin Total 2.8 1.9 - 3.7 g/dL (calc) [facility] Albumin/Globulin Ratio 1.8 1.0 - 2.5 (calc) [facility] Bilirubin Total 0.6 0.2 - 1.2 mg/dL [facility] Alkaline Phosphatase 49 31 - 125 U/L [facility] AST 18 10 - 35 U/L [facility] ALT 8 6 - 29 U/L [facility] Comment: Test Performed at: [facility] [address] GERARDO BOUCHER MD Blood BLOOD SPECIMEN / Unknown 07/22/2024 2:19 PM CDT 07/22/2024 2:22 PM CDT Babatunde Lopez MD LAB - CHEMISTRY ORDERABLES Final Result Performing Organization Address [facility] de Phone Number [address] [address] * (ABNORMAL) T4 FREE (07/22/2024 2:19 PM CDT) [facility] T4 Free 0.2(L) 0.8 - 1.8 ng/dL [facility] Comment: Test Performed at: [facility] [address] GERARDO BOUCHER MD 07/22/2024 2:19 PM CDT 07/22/2024 2:22 PM CDT Babatunde Lopez MD LAB - CHEMISTRY ORDERABLES Final Result Performing Organization Address [facility] Co de Phone Number [address] [address] * XR Knee Right 3Vw (07/21/2024 4:49 PM CDT) Anatomical Region Laterality Modality Lower Extremity Digital Radiogra phy 07/21/2024 4:54 PM CDT Impressions 07/21/2024 5:47 PM CDT Impression: 1.Right hand: Normal. 2.Left hand: Normal. 3.Right wrist: Normal. 4.Left wrist: Normal. 5.Right elbow: Normal. 6.Left elbow: Normal. 7.Right shoulder: Normal. 8.Left shoulder: Normal. 9.Right hip: Normal. 10.Left hip: Normal. 11.Pelvis: Mild degenerative change of the left sacroiliac joint. 12.Sacroiliac joints: Mild degenerative change of the left sacroiliac joint. The left sacroiliac joint is normal. 13.Right knee: Very small osteophytes indicating degenerative change, without joint space narrowing. 14.Left knee: Small to moderate small osteophytes indicating degenerative change, without joint space narrowing. 15.Right ankle: Normal. 16.Left ankle: Normal. 17.Right foot: Normal. 18.Left foot: Normal. 19.Cervical spine: Mild degenerative disc disease at C5-6. 20.Thoracic spine: Normal. 21.Lumbar spine: Normal. > Interpreting Provider: Clyde Shrestha MD on 07/21/2024 5:47 PM Narrative 07/21/2024 5:47 PM CDT PROCEDURE: XR HAND RIGHT 3VW OR MORE, XR PELVIS 3VW OR MORE, XR WRIST RIGHT 2VW, XR WRIST LEFT 2VW, XR SI JOINTS 3VW OR MORE, XR SHOULDER RIGHT 2VW OR MORE, XR SHOULDER LEFT 2VW OR MORE, XR KNEE RIGHT 3VW, XR KNEE LEFT 3VW, XR HIP RIGHT 2VW OR MORE, XR HIP LEFT 2VW OR MORE, XR HAND LEFT 3VW OR MORE, XR FOOT RIGHT 3VW OR MORE, XR FOOT LEFT 3VW OR MORE, XR ELBOW RIGHT 2VW, XR ELBOW LEFT 2VW, XR ANKLE RIGHT 2VW, XR ANKLE LEFT 2VW, XR THORACIC SPINE 2VW, XR LUMBAR SPINE 2 OR 3VW, XR CERVICAL SPINE 4 OR 5VW DATE/TIME OF EXAM: 07/21/2024 4:50 PM CLINICAL INFORMATION: None relevant/not provided if blank. Indication: M25.50: Polyarthralgia Additional History: COMPARISON: None. FINDINGS: Right hand: No fracture or dislocation is present. The joint spaces are normal. No erosions are seen. Bone density is normal. The soft tissues are normal. Left hand: No fracture or dislocation is present. The joint spaces are normal. No erosions are seen. Bone density is normal. The soft tissues are normal. Right wrist: No fracture or dislocation is present. The joint spaces are normal. No erosions are seen. Bone density is normal. The soft tissues are normal. Left wrist: No fracture or dislocation is present. The joint spaces are normal. No erosions are seen. Bone density is normal. The soft tissues are normal. Right elbow: No acute fracture or dislocation is present. The joint spaces are normal. No erosions are seen. There is no effusion. Left elbow: No acute fracture or dislocation is present. The joint spaces are normal. No erosions are seen. There is no effusion. Right shoulder: There is no fracture or dislocation. There is no acromioclavicular or glenohumeral arthritis. Left shoulder: There is no fracture or dislocation. There is no acromioclavicular or glenohumeral arthritis. Pelvis: There is no fracture. The pubic symphysis and hip joint spaces are normal. There is mild degenerative change of the sacroiliac joints with small osteophytes. There are no erosions. There are no iliac crest enthesophytes. Sacroiliac joints: The right sacroiliac joint is normal without erosion, widening, narrowing, sclerosis, or ankylosis. The left sacroiliac joint has small osteophytes consistent with early osteoarthritis. There is no erosion, widening, narrowing, or ankylosis. No fracture is present. The hip joint spaces and pubic symphysis is normal. Right hip: No fracture or dislocation is present. The joint space is normal. There are no erosions. Left hip: No fracture or dislocation is present. The joint space is normal. There are no erosions. Right knee: No fracture or dislocation is present. The joint spaces are normal. There is very small osteophyte formation indicating early degenerative change. There are no erosions. There is no effusion. Left knee: No fracture or dislocation is present. The joint spaces are normal. There is small to moderate tricompartmental osteophyte formation. There are no erosions. There is no effusion. Right ankle: No fracture or dislocation is present. The joint spaces are normal. No erosions are seen. Bone density is normal. The soft tissues are normal. Left ankle: No fracture or dislocation is present. The joint spaces are normal. No erosions are seen. Bone density is normal. The soft tissues are normal. Right foot: No fracture or dislocation is present. The joint spaces are normal. No erosions are seen. Bone density is normal. The soft tissues are normal. Left foot: No fracture or dislocation is present. The joint spaces are normal. No erosions are seen. Bone density is normal. The soft tissues are normal. Cervical spine: The cervical lordosis is normal. No fracture or subluxation is present with flexion or extension. The intervertebral disc spaces are normal. There are small anterior osteophytes at C5-6 indicating early degenerative disc disease. Thoracic spine: The thoracic kyphosis is normal. There is no fracture or subluxation. The disc spaces are normal. Lumbar spine: The lumbar lordosis is normal. No fracture or subluxation is present. The intervertebral disc spaces are normal. There are a few small endplate osteophytes indicating early degenerative change. The facet joints are normal. Procedure Note Clyde Shrestha MD - 07/21/2024 PROCEDURE: XR HAND RIGHT 3VW OR MORE, XR PELVIS 3VW OR MORE, XR WRIST RIGHT 2VW, XR WRIST LEFT 2VW, XR SI JOINTS 3VW OR MORE, XR SHOULDERRIGHT 2VW OR MORE, XR SHOULDER LEFT 2VW OR MORE, XR KNEE RIGHT 3VW, XR KNEELEFT 3VW, XR HIP RIGHT 2VW OR MORE, XR HIP LEFT 2VW OR MORE, XR HAND LEFT 3VWOR MORE, XR FOOT RIGHT 3VW OR MORE, XR FOOT LEFT 3VW OR MORE, XR ELBOWRIGHT 2VW, XR ELBOW LEFT 2VW, XR ANKLE RIGHT 2VW, XR ANKLE LEFT 2VW, XRTHORACIC SPINE 2VW, XR LUMBAR SPINE 2 OR 3VW, XR CERVICAL SPINE 4 OR 5VW DATE/TIME OF EXAM: 07/21/2024 4:50 PM CLINICAL INFORMATION: None relevant/not provided if blank. Indication: M25.50: Polyarthralgia Additional History: COMPARISON: None. FINDINGS: Right hand: No fracture or dislocation is present. The joint spaces are normal. No erosions are seen. Bone density is normal. The soft tissues are normal. Left hand: No fracture or dislocation is present. The joint spaces are normal. No erosions are seen. Bone density is normal. The soft tissues are normal. Right wrist: No fracture or dislocation is present. The joint spaces are normal. No erosions are seen. Bone density is normal. The soft tissues are normal. Left wrist: No fracture or dislocation is present. The joint spaces are normal. No erosions are seen. Bone density is normal. The soft tissues are normal. Right elbow: No acute fracture or dislocation is present. The joint spaces arenormal. No erosions are seen. There is no effusion. Left elbow: No acute fracture or dislocation is present. The joint spaces arenormal. No erosions are seen. There is no effusion. Right shoulder: There is no fracture or dislocation. There is no acromioclavicular or glenohumeral arthritis. Left shoulder: There is no fracture or dislocation. There is no acromioclavicular or glenohumeral arthritis. Pelvis: There is no fracture. The pubic symphysis and hip joint spaces arenormal. There is mild degenerative change of the sacroiliac joints with small osteophytes. There are no erosions. There are no iliac crest enthesophytes. Sacroiliac joints: The right sacroiliac joint is normal without erosion, widening,narrowing, sclerosis, or ankylosis. The left sacroiliac joint has smallosteophytes consistent with early osteoarthritis. There is no erosion, widening, narrowing, or ankylosis. No fracture is present. The hip joint spacesand pubic symphysis is normal. Right hip: No fracture or dislocation is present. The joint space is normal. Thereare no erosions. Left hip: No fracture or dislocation is present. The joint space is normal. Thereare no erosions. Right knee: No fracture or dislocation is present. The joint spaces are normal.There is very small osteophyte formation indicating early degenerative change. There are no erosions. There is no effusion. Left knee: No fracture or dislocation is present. The joint spaces are normal.There is small to moderate tricompartmental osteophyte formation. There are no erosions. There is no effusion. Right ankle: No fracture or dislocation is present. The joint spaces are normal. No erosions are seen. Bone density is normal. The soft tissues are normal. Left ankle: No fracture or dislocation is present. The joint spaces are normal. No erosions are seen. Bone density is normal. The soft tissues arenormal. Right foot: No fracture or dislocation is present. The joint spaces are normal. No erosions are seen. Bone density is normal. The soft tissues arenormal. Left foot: No fracture or dislocation is present. The joint spaces are normal. No erosions are seen. Bone density is normal. The soft tissues are normal. Cervical spine: The cervical lordosis is normal. No fracture or subluxation is present with flexion or extension. The intervertebral disc spaces are normal. There are small anterior osteophytes at C5-6 indicating earlydegenerative disc disease. Thoracic spine: The thoracic kyphosis is normal. There is no fracture or subluxation.The disc spaces are normal. Lumbar spine: The lumbar lordosis is normal. No fracture or subluxation is present.The intervertebral disc spaces are normal. There are a few small endplate osteophytes indicating early degenerative change. The facet joints are normal. Impression: 1.Right hand: Normal. 2.Left hand: Normal. 3.Right wrist: Normal. 4.Left wrist: Normal. 5.Right elbow: Normal. 6.Left elbow: Normal. 7.Right shoulder: Normal. 8.Left shoulder: Normal. 9.Right hip: Normal. 10.Left hip: Normal. 11.Pelvis: Mild degenerative change of the left sacroiliac joint. 12.Sacroiliac joints: Mild degenerative change of the left sacroiliac joint. The left sacroiliac joint is normal. 13.Right knee: Very small osteophytes indicating degenerative change, without joint space narrowing. 14.Left knee: Small to moderate small osteophytes indicatingdegenerative change, without joint space narrowing. 15.Right ankle: Normal. 16.Left ankle: Normal. 17.Right foot: Normal. 18.Left foot: Normal. 19.Cervical spine: Mild degenerative disc disease at C5-6. 20.Thoracic spine: Normal. 21.Lumbar spine: Normal. > Interpreting Provider: Clyde Shrestha MD on 07/21/2024 5:47 PM Babatunde Lopez MD DIAGNOSTIC IMAGING ORDERABLES Fi nal Result * XR Foot Right 3Vw or More (07/21/2024 4:49 PM CDT) Anatomical Region Laterality Modality Ankle / Foot Digital Radiogra phy 07/21/2024 4:54 PM CDT Impressions 07/21/2024 5:47 PM CDT Impression: 1.Right hand: Normal. 2.Left hand: Normal. 3.Right wrist: Normal. 4.Left wrist: Normal. 5.Right elbow: Normal. 6.Left elbow: Normal. 7.Right shoulder: Normal. 8.Left shoulder: Normal. 9.Right hip: Normal. 10.Left hip: Normal. 11.Pelvis: Mild degenerative change of the left sacroiliac joint. 12.Sacroiliac joints: Mild degenerative change of the left sacroiliac joint. The left sacroiliac joint is normal. 13.Right knee: Very small osteophytes indicating degenerative change, without joint space narrowing. 14.Left knee: Small to moderate small osteophytes indicating degenerative change, without joint space narrowing. 15.Right ankle: Normal. 16.Left ankle: Normal. 17.Right foot: Normal. 18.Left foot: Normal. 19.Cervical spine: Mild degenerative disc disease at C5-6. 20.Thoracic spine: Normal. 21.Lumbar spine: Normal. > Interpreting Provider: Clyde Shrestha MD on 07/21/2024 5:47 PM Narrative 07/21/2024 5:47 PM CDT PROCEDURE: XR HAND RIGHT 3VW OR MORE, XR PELVIS 3VW OR MORE, XR WRIST RIGHT 2VW, XR WRIST LEFT 2VW, XR SI JOINTS 3VW OR MORE, XR SHOULDER RIGHT 2VW OR MORE, XR SHOULDER LEFT 2VW OR MORE, XR KNEE RIGHT 3VW, XR KNEE LEFT 3VW, XR HIP RIGHT 2VW OR MORE, XR HIP LEFT 2VW OR MORE, XR HAND LEFT 3VW OR MORE, XR FOOT RIGHT 3VW OR MORE, XR FOOT LEFT 3VW OR MORE, XR ELBOW RIGHT 2VW, XR ELBOW LEFT 2VW, XR ANKLE RIGHT 2VW, XR ANKLE LEFT 2VW, XR THORACIC SPINE 2VW, XR LUMBAR SPINE 2 OR 3VW, XR CERVICAL SPINE 4 OR 5VW DATE/TIME OF EXAM: 07/21/2024 4:50 PM CLINICAL INFORMATION: None relevant/not provided if blank. Indication: M25.50: Polyarthralgia Additional History: COMPARISON: None. FINDINGS: Right hand: No fracture or dislocation is present. The joint spaces are normal. No erosions are seen. Bone density is normal. The soft tissues are normal. Left hand: No fracture or dislocation is present. The joint spaces are normal. No erosions are seen. Bone density is normal. The soft tissues are normal. Right wrist: No fracture or dislocation is present. The joint spaces are normal. No erosions are seen. Bone density is normal. The soft tissues are normal. Left wrist: No fracture or dislocation is present. The joint spaces are normal. No erosions are seen. Bone density is normal. The soft tissues are normal. Right elbow: No acute fracture or dislocation is present. The joint spaces are normal. No erosions are seen. There is no effusion. Left elbow: No acute fracture or dislocation is present. The joint spaces are normal. No erosions are seen. There is no effusion. Right shoulder: There is no fracture or dislocation. There is no acromioclavicular or glenohumeral arthritis. Left shoulder: There is no fracture or dislocation. There is no acromioclavicular or glenohumeral arthritis. Pelvis: There is no fracture. The pubic symphysis and hip joint spaces are normal. There is mild degenerative change of the sacroiliac joints with small osteophytes. There are no erosions. There are no iliac crest enthesophytes. Sacroiliac joints: The right sacroiliac joint is normal without erosion, widening, narrowing, sclerosis, or ankylosis. The left sacroiliac joint has small osteophytes consistent with early osteoarthritis. There is no erosion, widening, narrowing, or ankylosis. No fracture is present. The hip joint spaces and pubic symphysis is normal. Right hip: No fracture or dislocation is present. The joint space is normal. There are no erosions. Left hip: No fracture or dislocation is present. The joint space is normal. There are no erosions. Right knee: No fracture or dislocation is present. The joint spaces are normal. There is very small osteophyte formation indicating early degenerative change. There are no erosions. There is no effusion. Left knee: No fracture or dislocation is present. The joint spaces are normal. There is small to moderate tricompartmental osteophyte formation. There are no erosions. There is no effusion. Right ankle: No fracture or dislocation is present. The joint spaces are normal. No erosions are seen. Bone density is normal. The soft tissues are normal. Left ankle: No fracture or dislocation is present. The joint spaces are normal. No erosions are seen. Bone density is normal. The soft tissues are normal. Right foot: No fracture or dislocation is present. The joint spaces are normal. No erosions are seen. Bone density is normal. The soft tissues are normal. Left foot: No fracture or dislocation is present. The joint spaces are normal. No erosions are seen. Bone density is normal. The soft tissues are normal. Cervical spine: The cervical lordosis is normal. No fracture or subluxation is present with flexion or extension. The intervertebral disc spaces are normal. There are small anterior osteophytes at C5-6 indicating early degenerative disc disease. Thoracic spine: The thoracic kyphosis is normal. There is no fracture or subluxation. The disc spaces are normal. Lumbar spine: The lumbar lordosis is normal. No fracture or subluxation is present. The intervertebral disc spaces are normal. There are a few small endplate osteophytes indicating early degenerative change. The facet joints are normal. Procedure Note Clyde Shrestha MD - 07/21/2024 PROCEDURE: XR HAND RIGHT 3VW OR MORE, XR PELVIS 3VW OR MORE, XR WRIST RIGHT 2VW, XR WRIST LEFT 2VW, XR SI JOINTS 3VW OR MORE, XR SHOULDERRIGHT 2VW OR MORE, XR SHOULDER LEFT 2VW OR MORE, XR KNEE RIGHT 3VW, XR KNEELEFT 3VW, XR HIP RIGHT 2VW OR MORE, XR HIP LEFT 2VW OR MORE, XR HAND LEFT 3VWOR MORE, XR FOOT RIGHT 3VW OR MORE, XR FOOT LEFT 3VW OR MORE, XR ELBOWRIGHT 2VW, XR ELBOW LEFT 2VW, XR ANKLE RIGHT 2VW, XR ANKLE LEFT 2VW, XRTHORACIC SPINE 2VW, XR LUMBAR SPINE 2 OR 3VW, XR CERVICAL SPINE 4 OR 5VW DATE/TIME OF EXAM: 07/21/2024 4:50 PM CLINICAL INFORMATION: None relevant/not provided if blank. Indication: M25.50: Polyarthralgia Additional History: COMPARISON: None. FINDINGS: Right hand: No fracture or dislocation is present. The joint spaces are normal. No erosions are seen. Bone density is normal. The soft tissues are normal. Left hand: No fracture or dislocation is present. The joint spaces are normal. No erosions are seen. Bone density is normal. The soft tissues are normal. Right wrist: No fracture or dislocation is present. The joint spaces are normal. No erosions are seen. Bone density is normal. The soft tissues are normal. Left wrist: No fracture or dislocation is present. The joint spaces are normal. No erosions are seen. Bone density is normal. The soft tissues are normal. Right elbow: No acute fracture or dislocation is present. The joint spaces arenormal. No erosions are seen. There is no effusion. Left elbow: No acute fracture or dislocation is present. The joint spaces arenormal. No erosions are seen. There is no effusion. Right shoulder: There is no fracture or dislocation. There is no acromioclavicular or glenohumeral arthritis. Left shoulder: There is no fracture or dislocation. There is no acromioclavicular or glenohumeral arthritis. Pelvis: There is no fracture. The pubic symphysis and hip joint spaces arenormal. There is mild degenerative change of the sacroiliac joints with small osteophytes. There are no erosions. There are no iliac crest enthesophytes. Sacroiliac joints: The right sacroiliac joint is normal without erosion, widening,narrowing, sclerosis, or ankylosis. The left sacroiliac joint has smallosteophytes consistent with early osteoarthritis. There is no erosion, widening, narrowing, or ankylosis. No fracture is present. The hip joint spacesand pubic symphysis is normal. Right hip: No fracture or dislocation is present. The joint space is normal. Thereare no erosions. Left hip: No fracture or dislocation is present. The joint space is normal. Thereare no erosions. Right knee: No fracture or dislocation is present. The joint spaces are normal.There is very small osteophyte formation indicating early degenerative change. There are no erosions. There is no effusion. Left knee: No fracture or dislocation is present. The joint spaces are normal.There is small to moderate tricompartmental osteophyte formation. There are no erosions. There is no effusion. Right ankle: No fracture or dislocation is present. The joint spaces are normal. No erosions are seen. Bone density is normal. The soft tissues are normal. Left ankle: No fracture or dislocation is present. The joint spaces are normal. No erosions are seen. Bone density is normal. The soft tissues arenormal. Right foot: No fracture or dislocation is present. The joint spaces are normal. No erosions are seen. Bone density is normal. The soft tissues arenormal. Left foot: No fracture or dislocation is present. The joint spaces are normal. No erosions are seen. Bone density is normal. The soft tissues are normal. Cervical spine: The cervical lordosis is normal. No fracture or subluxation is present with flexion or extension. The intervertebral disc spaces are normal. There are small anterior osteophytes at C5-6 indicating earlydegenerative disc disease. Thoracic spine: The thoracic kyphosis is normal. There is no fracture or subluxation.The disc spaces are normal. Lumbar spine: The lumbar lordosis is normal. No fracture or subluxation is present.The intervertebral disc spaces are normal. There are a few small endplate osteophytes indicating early degenerative change. The facet joints are normal. Impression: 1.Right hand: Normal. 2.Left hand: Normal. 3.Right wrist: Normal. 4.Left wrist: Normal. 5.Right elbow: Normal. 6.Left elbow: Normal. 7.Right shoulder: Normal. 8.Left shoulder: Normal. 9.Right hip: Normal. 10.Left hip: Normal. 11.Pelvis: Mild degenerative change of the left sacroiliac joint. 12.Sacroiliac joints: Mild degenerative change of the left sacroiliac joint. The left sacroiliac joint is normal. 13.Right knee: Very small osteophytes indicating degenerative change, without joint space narrowing. 14.Left knee: Small to moderate small osteophytes indicatingdegenerative change, without joint space narrowing. 15.Right ankle: Normal. 16.Left ankle: Normal. 17.Right foot: Normal. 18.Left foot: Normal. 19.Cervical spine: Mild degenerative disc disease at C5-6. 20.Thoracic spine: Normal. 21.Lumbar spine: Normal. > Interpreting Provider: Clyde Shrestha MD on 07/21/2024 5:47 PM Babatunde Lopez MD DIAGNOSTIC IMAGING ORDERABLES Fi nal Result * XR Foot Left 3Vw or More (07/21/2024 4:49 PM CDT) Anatomical Region Laterality Modality Ankle / Foot Digital Radiogra phy 07/21/2024 4:54 PM CDT Impressions 07/21/2024 5:47 PM CDT Impression: 1.Right hand: Normal. 2.Left hand: Normal. 3.Right wrist: Normal. 4.Left wrist: Normal. 5.Right elbow: Normal. 6.Left elbow: Normal. 7.Right shoulder: Normal. 8.Left shoulder: Normal. 9.Right hip: Normal. 10.Left hip: Normal. 11.Pelvis: Mild degenerative change of the left sacroiliac joint. 12.Sacroiliac joints: Mild degenerative change of the left sacroiliac joint. The left sacroiliac joint is normal. 13.Right knee: Very small osteophytes indicating degenerative change, without joint space narrowing. 14.Left knee: Small to moderate small osteophytes indicating degenerative change, without joint space narrowing. 15.Right ankle: Normal. 16.Left ankle: Normal. 17.Right foot: Normal. 18.Left foot: Normal. 19.Cervical spine: Mild degenerative disc disease at C5-6. 20.Thoracic spine: Normal. 21.Lumbar spine: Normal. > Interpreting Provider: Clyde Shrestha MD on 07/21/2024 5:47 PM Narrative 07/21/2024 5:47 PM CDT PROCEDURE: XR HAND RIGHT 3VW OR MORE, XR PELVIS 3VW OR MORE, XR WRIST RIGHT 2VW, XR WRIST LEFT 2VW, XR SI JOINTS 3VW OR MORE, XR SHOULDER RIGHT 2VW OR MORE, XR SHOULDER LEFT 2VW OR MORE, XR KNEE RIGHT 3VW, XR KNEE LEFT 3VW, XR HIP RIGHT 2VW OR MORE, XR HIP LEFT 2VW OR MORE, XR HAND LEFT 3VW OR MORE, XR FOOT RIGHT 3VW OR MORE, XR FOOT LEFT 3VW OR MORE, XR ELBOW RIGHT 2VW, XR ELBOW LEFT 2VW, XR ANKLE RIGHT 2VW, XR ANKLE LEFT 2VW, XR THORACIC SPINE 2VW, XR LUMBAR SPINE 2 OR 3VW, XR CERVICAL SPINE 4 OR 5VW DATE/TIME OF EXAM: 07/21/2024 4:50 PM CLINICAL INFORMATION: None relevant/not provided if blank. Indication: M25.50: Polyarthralgia Additional History: COMPARISON: None. FINDINGS: Right hand: No fracture or dislocation is present. The joint spaces are normal. No erosions are seen. Bone density is normal. The soft tissues are normal. Left hand: No fracture or dislocation is present. The joint spaces are normal. No erosions are seen. Bone density is normal. The soft tissues are normal. Right wrist: No fracture or dislocation is present. The joint spaces are normal. No erosions are seen. Bone density is normal. The soft tissues are normal. Left wrist: No fracture or dislocation is present. The joint spaces are normal. No erosions are seen. Bone density is normal. The soft tissues are normal. Right elbow: No acute fracture or dislocation is present. The joint spaces are normal. No erosions are seen. There is no effusion. Left elbow: No acute fracture or dislocation is present. The joint spaces are normal. No erosions are seen. There is no effusion. Right shoulder: There is no fracture or dislocation. There is no acromioclavicular or glenohumeral arthritis. Left shoulder: There is no fracture or dislocation. There is no acromioclavicular or glenohumeral arthritis. Pelvis: There is no fracture. The pubic symphysis and hip joint spaces are normal. There is mild degenerative change of the sacroiliac joints with small osteophytes. There are no erosions. There are no iliac crest enthesophytes. Sacroiliac joints: The right sacroiliac joint is normal without erosion, widening, narrowing, sclerosis, or ankylosis. The left sacroiliac joint has small osteophytes consistent with early osteoarthritis. There is no erosion, widening, narrowing, or ankylosis. No fracture is present. The hip joint spaces and pubic symphysis is normal. Right hip: No fracture or dislocation is present. The joint space is normal. There are no erosions. Left hip: No fracture or dislocation is present. The joint space is normal. There are no erosions. Right knee: No fracture or dislocation is present. The joint spaces are normal. There is very small osteophyte formation indicating early degenerative change. There are no erosions. There is no effusion. Left knee: No fracture or dislocation is present. The joint spaces are normal. There is small to moderate tricompartmental osteophyte formation. There are no erosions. There is no effusion. Right ankle: No fracture or dislocation is present. The joint spaces are normal. No erosions are seen. Bone density is normal. The soft tissues are normal. Left ankle: No fracture or dislocation is present. The joint spaces are normal. No erosions are seen. Bone density is normal. The soft tissues are normal. Right foot: No fracture or dislocation is present. The joint spaces are normal. No erosions are seen. Bone density is normal. The soft tissues are normal. Left foot: No fracture or dislocation is present. The joint spaces are normal. No erosions are seen. Bone density is normal. The soft tissues are normal. Cervical spine: The cervical lordosis is normal. No fracture or subluxation is present with flexion or extension. The intervertebral disc spaces are normal. There are small anterior osteophytes at C5-6 indicating early degenerative disc disease. Thoracic spine: The thoracic kyphosis is normal. There is no fracture or subluxation. The disc spaces are normal. Lumbar spine: The lumbar lordosis is normal. No fracture or subluxation is present. The intervertebral disc spaces are normal. There are a few small endplate osteophytes indicating early degenerative change. The facet joints are normal. Procedure Note Clyde Shrestha MD - 07/21/2024 PROCEDURE: XR HAND RIGHT 3VW OR MORE, XR PELVIS 3VW OR MORE, XR WRIST RIGHT 2VW, XR WRIST LEFT 2VW, XR SI JOINTS 3VW OR MORE, XR SHOULDERRIGHT 2VW OR MORE, XR SHOULDER LEFT 2VW OR MORE, XR KNEE RIGHT 3VW, XR KNEELEFT 3VW, XR HIP RIGHT 2VW OR MORE, XR HIP LEFT 2VW OR MORE, XR HAND LEFT 3VWOR MORE, XR FOOT RIGHT 3VW OR MORE, XR FOOT LEFT 3VW OR MORE, XR ELBOWRIGHT 2VW, XR ELBOW LEFT 2VW, XR ANKLE RIGHT 2VW, XR ANKLE LEFT 2VW, XRTHORACIC SPINE 2VW, XR LUMBAR SPINE 2 OR 3VW, XR CERVICAL SPINE 4 OR 5VW DATE/TIME OF EXAM: 07/21/2024 4:50 PM CLINICAL INFORMATION: None relevant/not provided if blank. Indication: M25.50: Polyarthralgia Additional History: COMPARISON: None. FINDINGS: Right hand: No fracture or dislocation is present. The joint spaces are normal. No erosions are seen. Bone density is normal. The soft tissues are normal. Left hand: No fracture or dislocation is present. The joint spaces are normal. No erosions are seen. Bone density is normal. The soft tissues are normal. Right wrist: No fracture or dislocation is present. The joint spaces are normal. No erosions are seen. Bone density is normal. The soft tissues are normal. Left wrist: No fracture or dislocation is present. The joint spaces are normal. No erosions are seen. Bone density is normal. The soft tissues are normal. Right elbow: No acute fracture or dislocation is present. The joint spaces arenormal. No erosions are seen. There is no effusion. Left elbow: No acute fracture or dislocation is present. The joint spaces arenormal. No erosions are seen. There is no effusion. Right shoulder: There is no fracture or dislocation. There is no acromioclavicular or glenohumeral arthritis. Left shoulder: There is no fracture or dislocation. There is no acromioclavicular or glenohumeral arthritis. Pelvis: There is no fracture. The pubic symphysis and hip joint spaces arenormal. There is mild degenerative change of the sacroiliac joints with small osteophytes. There are no erosions. There are no iliac crest enthesophytes. Sacroiliac joints: The right sacroiliac joint is normal without erosion, widening,narrowing, sclerosis, or ankylosis. The left sacroiliac joint has smallosteophytes consistent with early osteoarthritis. There is no erosion, widening, narrowing, or ankylosis. No fracture is present. The hip joint spacesand pubic symphysis is normal. Right hip: No fracture or dislocation is present. The joint space is normal. Thereare no erosions. Left hip: No fracture or dislocation is present. The joint space is normal. Thereare no erosions. Right knee: No fracture or dislocation is present. The joint spaces are normal.There is very small osteophyte formation indicating early degenerative change. There are no erosions. There is no effusion. Left knee: No fracture or dislocation is present. The joint spaces are normal.There is small to moderate tricompartmental osteophyte formation. There are no erosions. There is no effusion. Right ankle: No fracture or dislocation is present. The joint spaces are normal. No erosions are seen. Bone density is normal. The soft tissues are normal. Left ankle: No fracture or dislocation is present. The joint spaces are normal. No erosions are seen. Bone density is normal. The soft tissues arenormal. Right foot: No fracture or dislocation is present. The joint spaces are normal. No erosions are seen. Bone density is normal. The soft tissues arenormal. Left foot: No fracture or dislocation is present. The joint spaces are normal. No erosions are seen. Bone density is normal. The soft tissues are normal. Cervical spine: The cervical lordosis is normal. No fracture or subluxation is present with flexion or extension. The intervertebral disc spaces are normal. There are small anterior osteophytes at C5-6 indicating earlydegenerative disc disease. Thoracic spine: The thoracic kyphosis is normal. There is no fracture or subluxation.The disc spaces are normal. Lumbar spine: The lumbar lordosis is normal. No fracture or subluxation is present.The intervertebral disc spaces are normal. There are a few small endplate osteophytes indicating early degenerative change. The facet joints are normal. Impression: 1.Right hand: Normal. 2.Left hand: Normal. 3.Right wrist: Normal. 4.Left wrist: Normal. 5.Right elbow: Normal. 6.Left elbow: Normal. 7.Right shoulder: Normal. 8.Left shoulder: Normal. 9.Right hip: Normal. 10.Left hip: Normal. 11.Pelvis: Mild degenerative change of the left sacroiliac joint. 12.Sacroiliac joints: Mild degenerative change of the left sacroiliac joint. The left sacroiliac joint is normal. 13.Right knee: Very small osteophytes indicating degenerative change, without joint space narrowing. 14.Left knee: Small to moderate small osteophytes indicatingdegenerative change, without joint space narrowing. 15.Right ankle: Normal. 16.Left ankle: Normal. 17.Right foot: Normal. 18.Left foot: Normal. 19.Cervical spine: Mild degenerative disc disease at C5-6. 20.Thoracic spine: Normal. 21.Lumbar spine: Normal. > Interpreting Provider: Clyde Shrestha MD on 07/21/2024 5:47 PM Babatunde Lopez MD DIAGNOSTIC IMAGING ORDERABLES Fi nal Result * XR Ankle Right 2Vw (07/21/2024 4:49 PM CDT) Anatomical Region Laterality Modality Lower Extremity Digital Radiogra phy 07/21/2024 4:54 PM CDT Impressions 07/21/2024 5:47 PM CDT Impression: 1.Right hand: Normal. 2.Left hand: Normal. 3.Right wrist: Normal. 4.Left wrist: Normal. 5.Right elbow: Normal. 6.Left elbow: Normal. 7.Right shoulder: Normal. 8.Left shoulder: Normal. 9.Right hip: Normal. 10.Left hip: Normal. 11.Pelvis: Mild degenerative change of the left sacroiliac joint. 12.Sacroiliac joints: Mild degenerative change of the left sacroiliac joint. The left sacroiliac joint is normal. 13.Right knee: Very small osteophytes indicating degenerative change, without joint space narrowing. 14.Left knee: Small to moderate small osteophytes indicating degenerative change, without joint space narrowing. 15.Right ankle: Normal. 16.Left ankle: Normal. 17.Right foot: Normal. 18.Left foot: Normal. 19.Cervical spine: Mild degenerative disc disease at C5-6. 20.Thoracic spine: Normal. 21.Lumbar spine: Normal. > Interpreting Provider: Clyde Shrestha MD on 07/21/2024 5:47 PM Narrative 07/21/2024 5:47 PM CDT PROCEDURE: XR HAND RIGHT 3VW OR MORE, XR PELVIS 3VW OR MORE, XR WRIST RIGHT 2VW, XR WRIST LEFT 2VW, XR SI JOINTS 3VW OR MORE, XR SHOULDER RIGHT 2VW OR MORE, XR SHOULDER LEFT 2VW OR MORE, XR KNEE RIGHT 3VW, XR KNEE LEFT 3VW, XR HIP RIGHT 2VW OR MORE, XR HIP LEFT 2VW OR MORE, XR HAND LEFT 3VW OR MORE, XR FOOT RIGHT 3VW OR MORE, XR FOOT LEFT 3VW OR MORE, XR ELBOW RIGHT 2VW, XR ELBOW LEFT 2VW, XR ANKLE RIGHT 2VW, XR ANKLE LEFT 2VW, XR THORACIC SPINE 2VW, XR LUMBAR SPINE 2 OR 3VW, XR CERVICAL SPINE 4 OR 5VW DATE/TIME OF EXAM: 07/21/2024 4:50 PM CLINICAL INFORMATION: None relevant/not provided if blank. Indication: M25.50: Polyarthralgia Additional History: COMPARISON: None. FINDINGS: Right hand: No fracture or dislocation is present. The joint spaces are normal. No erosions are seen. Bone density is normal. The soft tissues are normal. Left hand: No fracture or dislocation is present. The joint spaces are normal. No erosions are seen. Bone density is normal. The soft tissues are normal. Right wrist: No fracture or dislocation is present. The joint spaces are normal. No erosions are seen. Bone density is normal. The soft tissues are normal. Left wrist: No fracture or dislocation is present. The joint spaces are normal. No erosions are seen. Bone density is normal. The soft tissues are normal. Right elbow: No acute fracture or dislocation is present. The joint spaces are normal. No erosions are seen. There is no effusion. Left elbow: No acute fracture or dislocation is present. The joint spaces are normal. No erosions are seen. There is no effusion. Right shoulder: There is no fracture or dislocation. There is no acromioclavicular or glenohumeral arthritis. Left shoulder: There is no fracture or dislocation. There is no acromioclavicular or glenohumeral arthritis. Pelvis: There is no fracture. The pubic symphysis and hip joint spaces are normal. There is mild degenerative change of the sacroiliac joints with small osteophytes. There are no erosions. There are no iliac crest enthesophytes. Sacroiliac joints: The right sacroiliac joint is normal without erosion, widening, narrowing, sclerosis, or ankylosis. The left sacroiliac joint has small osteophytes consistent with early osteoarthritis. There is no erosion, widening, narrowing, or ankylosis. No fracture is present. The hip joint spaces and pubic symphysis is normal. Right hip: No fracture or dislocation is present. The joint space is normal. There are no erosions. Left hip: No fracture or dislocation is present. The joint space is normal. There are no erosions. Right knee: No fracture or dislocation is present. The joint spaces are normal. There is very small osteophyte formation indicating early degenerative change. There are no erosions. There is no effusion. Left knee: No fracture or dislocation is present. The joint spaces are normal. There is small to moderate tricompartmental osteophyte formation. There are no erosions. There is no effusion. Right ankle: No fracture or dislocation is present. The joint spaces are normal. No erosions are seen. Bone density is normal. The soft tissues are normal. Left ankle: No fracture or dislocation is present. The joint spaces are normal. No erosions are seen. Bone density is normal. The soft tissues are normal. Right foot: No fracture or dislocation is present. The joint spaces are normal. No erosions are seen. Bone density is normal. The soft tissues are normal. Left foot: No fracture or dislocation is present. The joint spaces are normal. No erosions are seen. Bone density is normal. The soft tissues are normal. Cervical spine: The cervical lordosis is normal. No fracture or subluxation is present with flexion or extension. The intervertebral disc spaces are normal. There are small anterior osteophytes at C5-6 indicating early degenerative disc disease. Thoracic spine: The thoracic kyphosis is normal. There is no fracture or subluxation. The disc spaces are normal. Lumbar spine: The lumbar lordosis is normal. No fracture or subluxation is present. The intervertebral disc spaces are normal. There are a few small endplate osteophytes indicating early degenerative change. The facet joints are normal. Procedure Note Clyde Shrestha MD - 07/21/2024 PROCEDURE: XR HAND RIGHT 3VW OR MORE, XR PELVIS 3VW OR MORE, XR WRIST RIGHT 2VW, XR WRIST LEFT 2VW, XR SI JOINTS 3VW OR MORE, XR SHOULDERRIGHT 2VW OR MORE, XR SHOULDER LEFT 2VW OR MORE, XR KNEE RIGHT 3VW, XR KNEELEFT 3VW, XR HIP RIGHT 2VW OR MORE, XR HIP LEFT 2VW OR MORE, XR HAND LEFT 3VWOR MORE, XR FOOT RIGHT 3VW OR MORE, XR FOOT LEFT 3VW OR MORE, XR ELBOWRIGHT 2VW, XR ELBOW LEFT 2VW, XR ANKLE RIGHT 2VW, XR ANKLE LEFT 2VW, XRTHORACIC SPINE 2VW, XR LUMBAR SPINE 2 OR 3VW, XR CERVICAL SPINE 4 OR 5VW DATE/TIME OF EXAM: 07/21/2024 4:50 PM CLINICAL INFORMATION: None relevant/not provided if blank. Indication: M25.50: Polyarthralgia Additional History: COMPARISON: None. FINDINGS: Right hand: No fracture or dislocation is present. The joint spaces are normal. No erosions are seen. Bone density is normal. The soft tissues are normal. Left hand: No fracture or dislocation is present. The joint spaces are normal. No erosions are seen. Bone density is normal. The soft tissues are normal. Right wrist: No fracture or dislocation is present. The joint spaces are normal. No erosions are seen. Bone density is normal. The soft tissues are normal. Left wrist: No fracture or dislocation is present. The joint spaces are normal. No erosions are seen. Bone density is normal. The soft tissues are normal. Right elbow: No acute fracture or dislocation is present. The joint spaces arenormal. No erosions are seen. There is no effusion. Left elbow: No acute fracture or dislocation is present. The joint spaces arenormal. No erosions are seen. There is no effusion. Right shoulder: There is no fracture or dislocation. There is no acromioclavicular or glenohumeral arthritis. Left shoulder: There is no fracture or dislocation. There is no acromioclavicular or glenohumeral arthritis. Pelvis: There is no fracture. The pubic symphysis and hip joint spaces arenormal. There is mild degenerative change of the sacroiliac joints with small osteophytes. There are no erosions. There are no iliac crest enthesophytes. Sacroiliac joints: The right sacroiliac joint is normal without erosion, widening,narrowing, sclerosis, or ankylosis. The left sacroiliac joint has smallosteophytes consistent with early osteoarthritis. There is no erosion, widening, narrowing, or ankylosis. No fracture is present. The hip joint spacesand pubic symphysis is normal. Right hip: No fracture or dislocation is present. The joint space is normal. Thereare no erosions. Left hip: No fracture or dislocation is present. The joint space is normal. Thereare no erosions. Right knee: No fracture or dislocation is present. The joint spaces are normal.There is very small osteophyte formation indicating early degenerative change. There are no erosions. There is no effusion. Left knee: No fracture or dislocation is present. The joint spaces are normal.There is small to moderate tricompartmental osteophyte formation. There are no erosions. There is no effusion. Right ankle: No fracture or dislocation is present. The joint spaces are normal. No erosions are seen. Bone density is normal. The soft tissues are normal. Left ankle: No fracture or dislocation is present. The joint spaces are normal. No erosions are seen. Bone density is normal. The soft tissues arenormal. Right foot: No fracture or dislocation is present. The joint spaces are normal. No erosions are seen. Bone density is normal. The soft tissues arenormal. Left foot: No fracture or dislocation is present. The joint spaces are normal. No erosions are seen. Bone density is normal. The soft tissues are normal. Cervical spine: The cervical lordosis is normal. No fracture or subluxation is present with flexion or extension. The intervertebral disc spaces are normal. There are small anterior osteophytes at C5-6 indicating earlydegenerative disc disease. Thoracic spine: The thoracic kyphosis is normal. There is no fracture or subluxation.The disc spaces are normal. Lumbar spine: The lumbar lordosis is normal. No fracture or subluxation is present.The intervertebral disc spaces are normal. There are a few small endplate osteophytes indicating early degenerative change. The facet joints are normal. Impression: 1.Right hand: Normal. 2.Left hand: Normal. 3.Right wrist: Normal. 4.Left wrist: Normal. 5.Right elbow: Normal. 6.Left elbow: Normal. 7.Right shoulder: Normal. 8.Left shoulder: Normal. 9.Right hip: Normal. 10.Left hip: Normal. 11.Pelvis: Mild degenerative change of the left sacroiliac joint. 12.Sacroiliac joints: Mild degenerative change of the left sacroiliac joint. The left sacroiliac joint is normal. 13.Right knee: Very small osteophytes indicating degenerative change, without joint space narrowing. 14.Left knee: Small to moderate small osteophytes indicatingdegenerative change, without joint space narrowing. 15.Right ankle: Normal. 16.Left ankle: Normal. 17.Right foot: Normal. 18.Left foot: Normal. 19.Cervical spine: Mild degenerative disc disease at C5-6. 20.Thoracic spine: Normal. 21.Lumbar spine: Normal. > Interpreting Provider: Clyde Shrestha MD on 07/21/2024 5:47 PM Babatunde Lopez MD DIAGNOSTIC IMAGING ORDERABLES Fi nal Result * XR Ankle Left 2Vw (07/21/2024 4:49 PM CDT) Anatomical Region Laterality Modality Lower Extremity Digital Radiogra phy 07/21/2024 4:54 PM CDT Impressions 07/21/2024 5:47 PM CDT Impression: 1.Right hand: Normal. 2.Left hand: Normal. 3.Right wrist: Normal. 4.Left wrist: Normal. 5.Right elbow: Normal. 6.Left elbow: Normal. 7.Right shoulder: Normal. 8.Left shoulder: Normal. 9.Right hip: Normal. 10.Left hip: Normal. 11.Pelvis: Mild degenerative change of the left sacroiliac joint. 12.Sacroiliac joints: Mild degenerative change of the left sacroiliac joint. The left sacroiliac joint is normal. 13.Right knee: Very small osteophytes indicating degenerative change, without joint space narrowing. 14.Left knee: Small to moderate small osteophytes indicating degenerative change, without joint space narrowing. 15.Right ankle: Normal. 16.Left ankle: Normal. 17.Right foot: Normal. 18.Left foot: Normal. 19.Cervical spine: Mild degenerative disc disease at C5-6. 20.Thoracic spine: Normal. 21.Lumbar spine: Normal. > Interpreting Provider: Clyde Shrestha MD on 07/21/2024 5:47 PM Narrative 07/21/2024 5:47 PM CDT PROCEDURE: XR HAND RIGHT 3VW OR MORE, XR PELVIS 3VW OR MORE, XR WRIST RIGHT 2VW, XR WRIST LEFT 2VW, XR SI JOINTS 3VW OR MORE, XR SHOULDER RIGHT 2VW OR MORE, XR SHOULDER LEFT 2VW OR MORE, XR KNEE RIGHT 3VW, XR KNEE LEFT 3VW, XR HIP RIGHT 2VW OR MORE, XR HIP LEFT 2VW OR MORE, XR HAND LEFT 3VW OR MORE, XR FOOT RIGHT 3VW OR MORE, XR FOOT LEFT 3VW OR MORE, XR ELBOW RIGHT 2VW, XR ELBOW LEFT 2VW, XR ANKLE RIGHT 2VW, XR ANKLE LEFT 2VW, XR THORACIC SPINE 2VW, XR LUMBAR SPINE 2 OR 3VW, XR CERVICAL SPINE 4 OR 5VW DATE/TIME OF EXAM: 07/21/2024 4:50 PM CLINICAL INFORMATION: None relevant/not provided if blank. Indication: M25.50: Polyarthralgia Additional History: COMPARISON: None. FINDINGS: Right hand: No fracture or dislocation is present. The joint spaces are normal. No erosions are seen. Bone density is normal. The soft tissues are normal. Left hand: No fracture or dislocation is present. The joint spaces are normal. No erosions are seen. Bone density is normal. The soft tissues are normal. Right wrist: No fracture or dislocation is present. The joint spaces are normal. No erosions are seen. Bone density is normal. The soft tissues are normal. Left wrist: No fracture or dislocation is present. The joint spaces are normal. No erosions are seen. Bone density is normal. The soft tissues are normal. Right elbow: No acute fracture or dislocation is present. The joint spaces are normal. No erosions are seen. There is no effusion. Left elbow: No acute fracture or dislocation is present. The joint spaces are normal. No erosions are seen. There is no effusion. Right shoulder: There is no fracture or dislocation. There is no acromioclavicular or glenohumeral arthritis. Left shoulder: There is no fracture or dislocation. There is no acromioclavicular or glenohumeral arthritis. Pelvis: There is no fracture. The pubic symphysis and hip joint spaces are normal. There is mild degenerative change of the sacroiliac joints with small osteophytes. There are no erosions. There are no iliac crest enthesophytes. Sacroiliac joints: The right sacroiliac joint is normal without erosion, widening, narrowing, sclerosis, or ankylosis. The left sacroiliac joint has small osteophytes consistent with early osteoarthritis. There is no erosion, widening, narrowing, or ankylosis. No fracture is present. The hip joint spaces and pubic symphysis is normal. Right hip: No fracture or dislocation is present. The joint space is normal. There are no erosions. Left hip: No fracture or dislocation is present. The joint space is normal. There are no erosions. Right knee: No fracture or dislocation is present. The joint spaces are normal. There is very small osteophyte formation indicating early degenerative change. There are no erosions. There is no effusion. Left knee: No fracture or dislocation is present. The joint spaces are normal. There is small to moderate tricompartmental osteophyte formation. There are no erosions. There is no effusion. Right ankle: No fracture or dislocation is present. The joint spaces are normal. No erosions are seen. Bone density is normal. The soft tissues are normal. Left ankle: No fracture or dislocation is present. The joint spaces are normal. No erosions are seen. Bone density is normal. The soft tissues are normal. Right foot: No fracture or dislocation is present. The joint spaces are normal. No erosions are seen. Bone density is normal. The soft tissues are normal. Left foot: No fracture or dislocation is present. The joint spaces are normal. No erosions are seen. Bone density is normal. The soft tissues are normal. Cervical spine: The cervical lordosis is normal. No fracture or subluxation is present with flexion or extension. The intervertebral disc spaces are normal. There are small anterior osteophytes at C5-6 indicating early degenerative disc disease. Thoracic spine: The thoracic kyphosis is normal. There is no fracture or subluxation. The disc spaces are normal. Lumbar spine: The lumbar lordosis is normal. No fracture or subluxation is present. The intervertebral disc spaces are normal. There are a few small endplate osteophytes indicating early degenerative change. The facet joints are normal. Procedure Note Clyde Shrestha MD - 07/21/2024 PROCEDURE: XR HAND RIGHT 3VW OR MORE, XR PELVIS 3VW OR MORE, XR WRIST RIGHT 2VW, XR WRIST LEFT 2VW, XR SI JOINTS 3VW OR MORE, XR SHOULDERRIGHT 2VW OR MORE, XR SHOULDER LEFT 2VW OR MORE, XR KNEE RIGHT 3VW, XR KNEELEFT 3VW, XR HIP RIGHT 2VW OR MORE, XR HIP LEFT 2VW OR MORE, XR HAND LEFT 3VWOR MORE, XR FOOT RIGHT 3VW OR MORE, XR FOOT LEFT 3VW OR MORE, XR ELBOWRIGHT 2VW, XR ELBOW LEFT 2VW, XR ANKLE RIGHT 2VW, XR ANKLE LEFT 2VW, XRTHORACIC SPINE 2VW, XR LUMBAR SPINE 2 OR 3VW, XR CERVICAL SPINE 4 OR 5VW DATE/TIME OF EXAM: 07/21/2024 4:50 PM CLINICAL INFORMATION: None relevant/not provided if blank. Indication: M25.50: Polyarthralgia Additional History: COMPARISON: None. FINDINGS: Right hand: No fracture or dislocation is present. The joint spaces are normal. No erosions are seen. Bone density is normal. The soft tissues are normal. Left hand: No fracture or dislocation is present. The joint spaces are normal. No erosions are seen. Bone density is normal. The soft tissues are normal. Right wrist: No fracture or dislocation is present. The joint spaces are normal. No erosions are seen. Bone density is normal. The soft tissues are normal. Left wrist: No fracture or dislocation is present. The joint spaces are normal. No erosions are seen. Bone density is normal. The soft tissues are normal. Right elbow: No acute fracture or dislocation is present. The joint spaces arenormal. No erosions are seen. There is no effusion. Left elbow: No acute fracture or dislocation is present. The joint spaces arenormal. No erosions are seen. There is no effusion. Right shoulder: There is no fracture or dislocation. There is no acromioclavicular or glenohumeral arthritis. Left shoulder: There is no fracture or dislocation. There is no acromioclavicular or glenohumeral arthritis. Pelvis: There is no fracture. The pubic symphysis and hip joint spaces arenormal. There is mild degenerative change of the sacroiliac joints with small osteophytes. There are no erosions. There are no iliac crest enthesophytes. Sacroiliac joints: The right sacroiliac joint is normal without erosion, widening,narrowing, sclerosis, or ankylosis. The left sacroiliac joint has smallosteophytes consistent with early osteoarthritis. There is no erosion, widening, narrowing, or ankylosis. No fracture is present. The hip joint spacesand pubic symphysis is normal. Right hip: No fracture or dislocation is present. The joint space is normal. Thereare no erosions. Left hip: No fracture or dislocation is present. The joint space is normal. Thereare no erosions. Right knee: No fracture or dislocation is present. The joint spaces are normal.There is very small osteophyte formation indicating early degenerative change. There are no erosions. There is no effusion. Left knee: No fracture or dislocation is present. The joint spaces are normal.There is small to moderate tricompartmental osteophyte formation. There are no erosions. There is no effusion. Right ankle: No fracture or dislocation is present. The joint spaces are normal. No erosions are seen. Bone density is normal. The soft tissues are normal. Left ankle: No fracture or dislocation is present. The joint spaces are normal. No erosions are seen. Bone density is normal. The soft tissues arenormal. Right foot: No fracture or dislocation is present. The joint spaces are normal. No erosions are seen. Bone density is normal. The soft tissues arenormal. Left foot: No fracture or dislocation is present. The joint spaces are normal. No erosions are seen. Bone density is normal. The soft tissues are normal. Cervical spine: The cervical lordosis is normal. No fracture or subluxation is present with flexion or extension. The intervertebral disc spaces are normal. There are small anterior osteophytes at C5-6 indicating earlydegenerative disc disease. Thoracic spine: The thoracic kyphosis is normal. There is no fracture or subluxation.The disc spaces are normal. Lumbar spine: The lumbar lordosis is normal. No fracture or subluxation is present.The intervertebral disc spaces are normal. There are a few small endplate osteophytes indicating early degenerative change. The facet joints are normal. Impression: 1.Right hand: Normal. 2.Left hand: Normal. 3.Right wrist: Normal. 4.Left wrist: Normal. 5.Right elbow: Normal. 6.Left elbow: Normal. 7.Right shoulder: Normal. 8.Left shoulder: Normal. 9.Right hip: Normal. 10.Left hip: Normal. 11.Pelvis: Mild degenerative change of the left sacroiliac joint. 12.Sacroiliac joints: Mild degenerative change of the left sacroiliac joint. The left sacroiliac joint is normal. 13.Right knee: Very small osteophytes indicating degenerative change, without joint space narrowing. 14.Left knee: Small to moderate small osteophytes indicatingdegenerative change, without joint space narrowing. 15.Right ankle: Normal. 16.Left ankle: Normal. 17.Right foot: Normal. 18.Left foot: Normal. 19.Cervical spine: Mild degenerative disc disease at C5-6. 20.Thoracic spine: Normal. 21.Lumbar spine: Normal. > Interpreting Provider: Clyde Shrestha MD on 07/21/2024 5:47 PM Babatunde Lopez MD DIAGNOSTIC IMAGING ORDERABLES Fi nal Result * XR Knee Left 3Vw (07/21/2024 4:49 PM CDT) Anatomical Region Laterality Modality Lower Extremity Digital Radiogra phy 07/21/2024 4:54 PM CDT Impressions 07/21/2024 5:47 PM CDT Impression: 1.Right hand: Normal. 2.Left hand: Normal. 3.Right wrist: Normal. 4.Left wrist: Normal. 5.Right elbow: Normal. 6.Left elbow: Normal. 7.Right shoulder: Normal. 8.Left shoulder: Normal. 9.Right hip: Normal. 10.Left hip: Normal. 11.Pelvis: Mild degenerative change of the left sacroiliac joint. 12.Sacroiliac joints: Mild degenerative change of the left sacroiliac joint. The left sacroiliac joint is normal. 13.Right knee: Very small osteophytes indicating degenerative change, without joint space narrowing. 14.Left knee: Small to moderate small osteophytes indicating degenerative change, without joint space narrowing. 15.Right ankle: Normal. 16.Left ankle: Normal. 17.Right foot: Normal. 18.Left foot: Normal. 19.Cervical spine: Mild degenerative disc disease at C5-6. 20.Thoracic spine: Normal. 21.Lumbar spine: Normal. > Interpreting Provider: Clyde Shrestha MD on 07/21/2024 5:47 PM Narrative 07/21/2024 5:47 PM CDT PROCEDURE: XR HAND RIGHT 3VW OR MORE, XR PELVIS 3VW OR MORE, XR WRIST RIGHT 2VW, XR WRIST LEFT 2VW, XR SI JOINTS 3VW OR MORE, XR SHOULDER RIGHT 2VW OR MORE, XR SHOULDER LEFT 2VW OR MORE, XR KNEE RIGHT 3VW, XR KNEE LEFT 3VW, XR HIP RIGHT 2VW OR MORE, XR HIP LEFT 2VW OR MORE, XR HAND LEFT 3VW OR MORE, XR FOOT RIGHT 3VW OR MORE, XR FOOT LEFT 3VW OR MORE, XR ELBOW RIGHT 2VW, XR ELBOW LEFT 2VW, XR ANKLE RIGHT 2VW, XR ANKLE LEFT 2VW, XR THORACIC SPINE 2VW, XR LUMBAR SPINE 2 OR 3VW, XR CERVICAL SPINE 4 OR 5VW DATE/TIME OF EXAM: 07/21/2024 4:50 PM CLINICAL INFORMATION: None relevant/not provided if blank. Indication: M25.50: Polyarthralgia Additional History: COMPARISON: None. FINDINGS: Right hand: No fracture or dislocation is present. The joint spaces are normal. No erosions are seen. Bone density is normal. The soft tissues are normal. Left hand: No fracture or dislocation is present. The joint spaces are normal. No erosions are seen. Bone density is normal. The soft tissues are normal. Right wrist: No fracture or dislocation is present. The joint spaces are normal. No erosions are seen. Bone density is normal. The soft tissues are normal. Left wrist: No fracture or dislocation is present. The joint spaces are normal. No erosions are seen. Bone density is normal. The soft tissues are normal. Right elbow: No acute fracture or dislocation is present. The joint spaces are normal. No erosions are seen. There is no effusion. Left elbow: No acute fracture or dislocation is present. The joint spaces are normal. No erosions are seen. There is no effusion. Right shoulder: There is no fracture or dislocation. There is no acromioclavicular or glenohumeral arthritis. Left shoulder: There is no fracture or dislocation. There is no acromioclavicular or glenohumeral arthritis. Pelvis: There is no fracture. The pubic symphysis and hip joint spaces are normal. There is mild degenerative change of the sacroiliac joints with small osteophytes. There are no erosions. There are no iliac crest enthesophytes. Sacroiliac joints: The right sacroiliac joint is normal without erosion, widening, narrowing, sclerosis, or ankylosis. The left sacroiliac joint has small osteophytes consistent with early osteoarthritis. There is no erosion, widening, narrowing, or ankylosis. No fracture is present. The hip joint spaces and pubic symphysis is normal. Right hip: No fracture or dislocation is present. The joint space is normal. There are no erosions. Left hip: No fracture or dislocation is present. The joint space is normal. There are no erosions. Right knee: No fracture or dislocation is present. The joint spaces are normal. There is very small osteophyte formation indicating early degenerative change. There are no erosions. There is no effusion. Left knee: No fracture or dislocation is present. The joint spaces are normal. There is small to moderate tricompartmental osteophyte formation. There are no erosions. There is no effusion. Right ankle: No fracture or dislocation is present. The joint spaces are normal. No erosions are seen. Bone density is normal. The soft tissues are normal. Left ankle: No fracture or dislocation is present. The joint spaces are normal. No erosions are seen. Bone density is normal. The soft tissues are normal. Right foot: No fracture or dislocation is present. The joint spaces are normal. No erosions are seen. Bone density is normal. The soft tissues are normal. Left foot: No fracture or dislocation is present. The joint spaces are normal. No erosions are seen. Bone density is normal. The soft tissues are normal. Cervical spine: The cervical lordosis is normal. No fracture or subluxation is present with flexion or extension. The intervertebral disc spaces are normal. There are small anterior osteophytes at C5-6 indicating early degenerative disc disease. Thoracic spine: The thoracic kyphosis is normal. There is no fracture or subluxation. The disc spaces are normal. Lumbar spine: The lumbar lordosis is normal. No fracture or subluxation is present. The intervertebral disc spaces are normal. There are a few small endplate osteophytes indicating early degenerative change. The facet joints are normal. Procedure Note Clyde Shrestha MD - 07/21/2024 PROCEDURE: XR HAND RIGHT 3VW OR MORE, XR PELVIS 3VW OR MORE, XR WRIST RIGHT 2VW, XR WRIST LEFT 2VW, XR SI JOINTS 3VW OR MORE, XR SHOULDERRIGHT 2VW OR MORE, XR SHOULDER LEFT 2VW OR MORE, XR KNEE RIGHT 3VW, XR KNEELEFT 3VW, XR HIP RIGHT 2VW OR MORE, XR HIP LEFT 2VW OR MORE, XR HAND LEFT 3VWOR MORE, XR FOOT RIGHT 3VW OR MORE, XR FOOT LEFT 3VW OR MORE, XR ELBOWRIGHT 2VW, XR ELBOW LEFT 2VW, XR ANKLE RIGHT 2VW, XR ANKLE LEFT 2VW, XRTHORACIC SPINE 2VW, XR LUMBAR SPINE 2 OR 3VW, XR CERVICAL SPINE 4 OR 5VW DATE/TIME OF EXAM: 07/21/2024 4:50 PM CLINICAL INFORMATION: None relevant/not provided if blank. Indication: M25.50: Polyarthralgia Additional History: COMPARISON: None. FINDINGS: Right hand: No fracture or dislocation is present. The joint spaces are normal. No erosions are seen. Bone density is normal. The soft tissues are normal. Left hand: No fracture or dislocation is present. The joint spaces are normal. No erosions are seen. Bone density is normal. The soft tissues are normal. Right wrist: No fracture or dislocation is present. The joint spaces are normal. No erosions are seen. Bone density is normal. The soft tissues are normal. Left wrist: No fracture or dislocation is present. The joint spaces are normal. No erosions are seen. Bone density is normal. The soft tissues are normal. Right elbow: No acute fracture or dislocation is present. The joint spaces arenormal. No erosions are seen. There is no effusion. Left elbow: No acute fracture or dislocation is present. The joint spaces arenormal. No erosions are seen. There is no effusion. Right shoulder: There is no fracture or dislocation. There is no acromioclavicular or glenohumeral arthritis. Left shoulder: There is no fracture or dislocation. There is no acromioclavicular or glenohumeral arthritis. Pelvis: There is no fracture. The pubic symphysis and hip joint spaces arenormal. There is mild degenerative change of the sacroiliac joints with small osteophytes. There are no erosions. There are no iliac crest enthesophytes. Sacroiliac joints: The right sacroiliac joint is normal without erosion, widening,narrowing, sclerosis, or ankylosis. The left sacroiliac joint has smallosteophytes consistent with early osteoarthritis. There is no erosion, widening, narrowing, or ankylosis. No fracture is present. The hip joint spacesand pubic symphysis is normal. Right hip: No fracture or dislocation is present. The joint space is normal. Thereare no erosions. Left hip: No fracture or dislocation is present. The joint space is normal. Thereare no erosions. Right knee: No fracture or dislocation is present. The joint spaces are normal.There is very small osteophyte formation indicating early degenerative change. There are no erosions. There is no effusion. Left knee: No fracture or dislocation is present. The joint spaces are normal.There is small to moderate tricompartmental osteophyte formation. There are no erosions. There is no effusion. Right ankle: No fracture or dislocation is present. The joint spaces are normal. No erosions are seen. Bone density is normal. The soft tissues are normal. Left ankle: No fracture or dislocation is present. The joint spaces are normal. No erosions are seen. Bone density is normal. The soft tissues arenormal. Right foot: No fracture or dislocation is present. The joint spaces are normal. No erosions are seen. Bone density is normal. The soft tissues arenormal. Left foot: No fracture or dislocation is present. The joint spaces are normal. No erosions are seen. Bone density is normal. The soft tissues are normal. Cervical spine: The cervical lordosis is normal. No fracture or subluxation is present with flexion or extension. The intervertebral disc spaces are normal. There are small anterior osteophytes at C5-6 indicating earlydegenerative disc disease. Thoracic spine: The thoracic kyphosis is normal. There is no fracture or subluxation.The disc spaces are normal. Lumbar spine: The lumbar lordosis is normal. No fracture or subluxation is present.The intervertebral disc spaces are normal. There are a few small endplate osteophytes indicating early degenerative change. The facet joints are normal. Impression: 1.Right hand: Normal. 2.Left hand: Normal. 3.Right wrist: Normal. 4.Left wrist: Normal. 5.Right elbow: Normal. 6.Left elbow: Normal. 7.Right shoulder: Normal. 8.Left shoulder: Normal. 9.Right hip: Normal. 10.Left hip: Normal. 11.Pelvis: Mild degenerative change of the left sacroiliac joint. 12.Sacroiliac joints: Mild degenerative change of the left sacroiliac joint. The left sacroiliac joint is normal. 13.Right knee: Very small osteophytes indicating degenerative change, without joint space narrowing. 14.Left knee: Small to moderate small osteophytes indicatingdegenerative change, without joint space narrowing. 15.Right ankle: Normal. 16.Left ankle: Normal. 17.Right foot: Normal. 18.Left foot: Normal. 19.Cervical spine: Mild degenerative disc disease at C5-6. 20.Thoracic spine: Normal. 21.Lumbar spine: Normal. > Interpreting Provider: Clyde Shrestha MD on 07/21/2024 5:47 PM Babatunde Lopez MD DIAGNOSTIC IMAGING ORDERABLES Fi nal Result * XR Hip Right 2Vw or More (07/21/2024 4:49 PM CDT) Anatomical Region Laterality Modality Pelvis, Lower Extremity Digital Radiography 07/21/2024 4:54 PM CDT Impressions 07/21/2024 5:47 PM CDT Impression: 1.Right hand: Normal. 2.Left hand: Normal. 3.Right wrist: Normal. 4.Left wrist: Normal. 5.Right elbow: Normal. 6.Left elbow: Normal. 7.Right shoulder: Normal. 8.Left shoulder: Normal. 9.Right hip: Normal. 10.Left hip: Normal. 11.Pelvis: Mild degenerative change of the left sacroiliac joint. 12.Sacroiliac joints: Mild degenerative change of the left sacroiliac joint. The left sacroiliac joint is normal. 13.Right knee: Very small osteophytes indicating degenerative change, without joint space narrowing. 14.Left knee: Small to moderate small osteophytes indicating degenerative change, without joint space narrowing. 15.Right ankle: Normal. 16.Left ankle: Normal. 17.Right foot: Normal. 18.Left foot: Normal. 19.Cervical spine: Mild degenerative disc disease at C5-6. 20.Thoracic spine: Normal. 21.Lumbar spine: Normal. > Interpreting Provider: Clyde Shrestha MD on 07/21/2024 5:47 PM Narrative 07/21/2024 5:47 PM CDT PROCEDURE: XR HAND RIGHT 3VW OR MORE, XR PELVIS 3VW OR MORE, XR WRIST RIGHT 2VW, XR WRIST LEFT 2VW, XR SI JOINTS 3VW OR MORE, XR SHOULDER RIGHT 2VW OR MORE, XR SHOULDER LEFT 2VW OR MORE, XR KNEE RIGHT 3VW, XR KNEE LEFT 3VW, XR HIP RIGHT 2VW OR MORE, XR HIP LEFT 2VW OR MORE, XR HAND LEFT 3VW OR MORE, XR FOOT RIGHT 3VW OR MORE, XR FOOT LEFT 3VW OR MORE, XR ELBOW RIGHT 2VW, XR ELBOW LEFT 2VW, XR ANKLE RIGHT 2VW, XR ANKLE LEFT 2VW, XR THORACIC SPINE 2VW, XR LUMBAR SPINE 2 OR 3VW, XR CERVICAL SPINE 4 OR 5VW DATE/TIME OF EXAM: 07/21/2024 4:50 PM CLINICAL INFORMATION: None relevant/not provided if blank. Indication: M25.50: Polyarthralgia Additional History: COMPARISON: None. FINDINGS: Right hand: No fracture or dislocation is present. The joint spaces are normal. No erosions are seen. Bone density is normal. The soft tissues are normal. Left hand: No fracture or dislocation is present. The joint spaces are normal. No erosions are seen. Bone density is normal. The soft tissues are normal. Right wrist: No fracture or dislocation is present. The joint spaces are normal. No erosions are seen. Bone density is normal. The soft tissues are normal. Left wrist: No fracture or dislocation is present. The joint spaces are normal. No erosions are seen. Bone density is normal. The soft tissues are normal. Right elbow: No acute fracture or dislocation is present. The joint spaces are normal. No erosions are seen. There is no effusion. Left elbow: No acute fracture or dislocation is present. The joint spaces are normal. No erosions are seen. There is no effusion. Right shoulder: There is no fracture or dislocation. There is no acromioclavicular or glenohumeral arthritis. Left shoulder: There is no fracture or dislocation. There is no acromioclavicular or glenohumeral arthritis. Pelvis: There is no fracture. The pubic symphysis and hip joint spaces are normal. There is mild degenerative change of the sacroiliac joints with small osteophytes. There are no erosions. There are no iliac crest enthesophytes. Sacroiliac joints: The right sacroiliac joint is normal without erosion, widening, narrowing, sclerosis, or ankylosis. The left sacroiliac joint has small osteophytes consistent with early osteoarthritis. There is no erosion, widening, narrowing, or ankylosis. No fracture is present. The hip joint spaces and pubic symphysis is normal. Right hip: No fracture or dislocation is present. The joint space is normal. There are no erosions. Left hip: No fracture or dislocation is present. The joint space is normal. There are no erosions. Right knee: No fracture or dislocation is present. The joint spaces are normal. There is very small osteophyte formation indicating early degenerative change. There are no erosions. There is no effusion. Left knee: No fracture or dislocation is present. The joint spaces are normal. There is small to moderate tricompartmental osteophyte formation. There are no erosions. There is no effusion. Right ankle: No fracture or dislocation is present. The joint spaces are normal. No erosions are seen. Bone density is normal. The soft tissues are normal. Left ankle: No fracture or dislocation is present. The joint spaces are normal. No erosions are seen. Bone density is normal. The soft tissues are normal. Right foot: No fracture or dislocation is present. The joint spaces are normal. No erosions are seen. Bone density is normal. The soft tissues are normal. Left foot: No fracture or dislocation is present. The joint spaces are normal. No erosions are seen. Bone density is normal. The soft tissues are normal. Cervical spine: The cervical lordosis is normal. No fracture or subluxation is present with flexion or extension. The intervertebral disc spaces are normal. There are small anterior osteophytes at C5-6 indicating early degenerative disc disease. Thoracic spine: The thoracic kyphosis is normal. There is no fracture or subluxation. The disc spaces are normal. Lumbar spine: The lumbar lordosis is normal. No fracture or subluxation is present. The intervertebral disc spaces are normal. There are a few small endplate osteophytes indicating early degenerative change. The facet joints are normal. Procedure Note Clyde Shrestha MD - 07/21/2024 PROCEDURE: XR HAND RIGHT 3VW OR MORE, XR PELVIS 3VW OR MORE, XR WRIST RIGHT 2VW, XR WRIST LEFT 2VW, XR SI JOINTS 3VW OR MORE, XR SHOULDERRIGHT 2VW OR MORE, XR SHOULDER LEFT 2VW OR MORE, XR KNEE RIGHT 3VW, XR KNEELEFT 3VW, XR HIP RIGHT 2VW OR MORE, XR HIP LEFT 2VW OR MORE, XR HAND LEFT 3VWOR MORE, XR FOOT RIGHT 3VW OR MORE, XR FOOT LEFT 3VW OR MORE, XR ELBOWRIGHT 2VW, XR ELBOW LEFT 2VW, XR ANKLE RIGHT 2VW, XR ANKLE LEFT 2VW, XRTHORACIC SPINE 2VW, XR LUMBAR SPINE 2 OR 3VW, XR CERVICAL SPINE 4 OR 5VW DATE/TIME OF EXAM: 07/21/2024 4:50 PM CLINICAL INFORMATION: None relevant/not provided if blank. Indication: M25.50: Polyarthralgia Additional History: COMPARISON: None. FINDINGS: Right hand: No fracture or dislocation is present. The joint spaces are normal. No erosions are seen. Bone density is normal. The soft tissues are normal. Left hand: No fracture or dislocation is present. The joint spaces are normal. No erosions are seen. Bone density is normal. The soft tissues are normal. Right wrist: No fracture or dislocation is present. The joint spaces are normal. No erosions are seen. Bone density is normal. The soft tissues are normal. Left wrist: No fracture or dislocation is present. The joint spaces are normal. No erosions are seen. Bone density is normal. The soft tissues are normal. Right elbow: No acute fracture or dislocation is present. The joint spaces arenormal. No erosions are seen. There is no effusion. Left elbow: No acute fracture or dislocation is present. The joint spaces arenormal. No erosions are seen. There is no effusion. Right shoulder: There is no fracture or dislocation. There is no acromioclavicular or glenohumeral arthritis. Left shoulder: There is no fracture or dislocation. There is no acromioclavicular or glenohumeral arthritis. Pelvis: There is no fracture. The pubic symphysis and hip joint spaces arenormal. There is mild degenerative change of the sacroiliac joints with small osteophytes. There are no erosions. There are no iliac crest enthesophytes. Sacroiliac joints: The right sacroiliac joint is normal without erosion, widening,narrowing, sclerosis, or ankylosis. The left sacroiliac joint has smallosteophytes consistent with early osteoarthritis. There is no erosion, widening, narrowing, or ankylosis. No fracture is present. The hip joint spacesand pubic symphysis is normal. Right hip: No fracture or dislocation is present. The joint space is normal. Thereare no erosions. Left hip: No fracture or dislocation is present. The joint space is normal. Thereare no erosions. Right knee: No fracture or dislocation is present. The joint spaces are normal.There is very small osteophyte formation indicating early degenerative change. There are no erosions. There is no effusion. Left knee: No fracture or dislocation is present. The joint spaces are normal.There is small to moderate tricompartmental osteophyte formation. There are no erosions. There is no effusion. Right ankle: No fracture or dislocation is present. The joint spaces are normal. No erosions are seen. Bone density is normal. The soft tissues are normal. Left ankle: No fracture or dislocation is present. The joint spaces are normal. No erosions are seen. Bone density is normal. The soft tissues arenormal. Right foot: No fracture or dislocation is present. The joint spaces are normal. No erosions are seen. Bone density is normal. The soft tissues arenormal. Left foot: No fracture or dislocation is present. The joint spaces are normal. No erosions are seen. Bone density is normal. The soft tissues are normal. Cervical spine: The cervical lordosis is normal. No fracture or subluxation is present with flexion or extension. The intervertebral disc spaces are normal. There are small anterior osteophytes at C5-6 indicating earlydegenerative disc disease. Thoracic spine: The thoracic kyphosis is normal. There is no fracture or subluxation.The disc spaces are normal. Lumbar spine: The lumbar lordosis is normal. No fracture or subluxation is present.The intervertebral disc spaces are normal. There are a few small endplate osteophytes indicating early degenerative change. The facet joints are normal. Impression: 1.Right hand: Normal. 2.Left hand: Normal. 3.Right wrist: Normal. 4.Left wrist: Normal. 5.Right elbow: Normal. 6.Left elbow: Normal. 7.Right shoulder: Normal. 8.Left shoulder: Normal. 9.Right hip: Normal. 10.Left hip: Normal. 11.Pelvis: Mild degenerative change of the left sacroiliac joint. 12.Sacroiliac joints: Mild degenerative change of the left sacroiliac joint. The left sacroiliac joint is normal. 13.Right knee: Very small osteophytes indicating degenerative change, without joint space narrowing. 14.Left knee: Small to moderate small osteophytes indicatingdegenerative change, without joint space narrowing. 15.Right ankle: Normal. 16.Left ankle: Normal. 17.Right foot: Normal. 18.Left foot: Normal. 19.Cervical spine: Mild degenerative disc disease at C5-6. 20.Thoracic spine: Normal. 21.Lumbar spine: Normal. > Interpreting Provider: Clyde Shrestha MD on 07/21/2024 5:47 PM Babatunde Lopez MD DIAGNOSTIC IMAGING ORDERABLES Fi nal Result * XR Hip Left 2Vw or More (07/21/2024 4:49 PM CDT) Anatomical Region Laterality Modality Pelvis, Lower Extremity Digital Radiography 07/21/2024 4:54 PM CDT Impressions 07/21/2024 5:47 PM CDT Impression: 1.Right hand: Normal. 2.Left hand: Normal. 3.Right wrist: Normal. 4.Left wrist: Normal. 5.Right elbow: Normal. 6.Left elbow: Normal. 7.Right shoulder: Normal. 8.Left shoulder: Normal. 9.Right hip: Normal. 10.Left hip: Normal. 11.Pelvis: Mild degenerative change of the left sacroiliac joint. 12.Sacroiliac joints: Mild degenerative change of the left sacroiliac joint. The left sacroiliac joint is normal. 13.Right knee: Very small osteophytes indicating degenerative change, without joint space narrowing. 14.Left knee: Small to moderate small osteophytes indicating degenerative change, without joint space narrowing. 15.Right ankle: Normal. 16.Left ankle: Normal. 17.Right foot: Normal. 18.Left foot: Normal. 19.Cervical spine: Mild degenerative disc disease at C5-6. 20.Thoracic spine: Normal. 21.Lumbar spine: Normal. > Interpreting Provider: Clyde Shrestha MD on 07/21/2024 5:47 PM Narrative 07/21/2024 5:47 PM CDT PROCEDURE: XR HAND RIGHT 3VW OR MORE, XR PELVIS 3VW OR MORE, XR WRIST RIGHT 2VW, XR WRIST LEFT 2VW, XR SI JOINTS 3VW OR MORE, XR SHOULDER RIGHT 2VW OR MORE, XR SHOULDER LEFT 2VW OR MORE, XR KNEE RIGHT 3VW, XR KNEE LEFT 3VW, XR HIP RIGHT 2VW OR MORE, XR HIP LEFT 2VW OR MORE, XR HAND LEFT 3VW OR MORE, XR FOOT RIGHT 3VW OR MORE, XR FOOT LEFT 3VW OR MORE, XR ELBOW RIGHT 2VW, XR ELBOW LEFT 2VW, XR ANKLE RIGHT 2VW, XR ANKLE LEFT 2VW, XR THORACIC SPINE 2VW, XR LUMBAR SPINE 2 OR 3VW, XR CERVICAL SPINE 4 OR 5VW DATE/TIME OF EXAM: 07/21/2024 4:50 PM CLINICAL INFORMATION: None relevant/not provided if blank. Indication: M25.50: Polyarthralgia Additional History: COMPARISON: None. FINDINGS: Right hand: No fracture or dislocation is present. The joint spaces are normal. No erosions are seen. Bone density is normal. The soft tissues are normal. Left hand: No fracture or dislocation is present. The joint spaces are normal. No erosions are seen. Bone density is normal. The soft tissues are normal. Right wrist: No fracture or dislocation is present. The joint spaces are normal. No erosions are seen. Bone density is normal. The soft tissues are normal. Left wrist: No fracture or dislocation is present. The joint spaces are normal. No erosions are seen. Bone density is normal. The soft tissues are normal. Right elbow: No acute fracture or dislocation is present. The joint spaces are normal. No erosions are seen. There is no effusion. Left elbow: No acute fracture or dislocation is present. The joint spaces are normal. No erosions are seen. There is no effusion. Right shoulder: There is no fracture or dislocation. There is no acromioclavicular or glenohumeral arthritis. Left shoulder: There is no fracture or dislocation. There is no acromioclavicular or glenohumeral arthritis. Pelvis: There is no fracture. The pubic symphysis and hip joint spaces are normal. There is mild degenerative change of the sacroiliac joints with small osteophytes. There are no erosions. There are no iliac crest enthesophytes. Sacroiliac joints: The right sacroiliac joint is normal without erosion, widening, narrowing, sclerosis, or ankylosis. The left sacroiliac joint has small osteophytes consistent with early osteoarthritis. There is no erosion, widening, narrowing, or ankylosis. No fracture is present. The hip joint spaces and pubic symphysis is normal. Right hip: No fracture or dislocation is present. The joint space is normal. There are no erosions. Left hip: No fracture or dislocation is present. The joint space is normal. There are no erosions. Right knee: No fracture or dislocation is present. The joint spaces are normal. There is very small osteophyte formation indicating early degenerative change. There are no erosions. There is no effusion. Left knee: No fracture or dislocation is present. The joint spaces are normal. There is small to moderate tricompartmental osteophyte formation. There are no erosions. There is no effusion. Right ankle: No fracture or dislocation is present. The joint spaces are normal. No erosions are seen. Bone density is normal. The soft tissues are normal. Left ankle: No fracture or dislocation is present. The joint spaces are normal. No erosions are seen. Bone density is normal. The soft tissues are normal. Right foot: No fracture or dislocation is present. The joint spaces are normal. No erosions are seen. Bone density is normal. The soft tissues are normal. Left foot: No fracture or dislocation is present. The joint spaces are normal. No erosions are seen. Bone density is normal. The soft tissues are normal. Cervical spine: The cervical lordosis is normal. No fracture or subluxation is present with flexion or extension. The intervertebral disc spaces are normal. There are small anterior osteophytes at C5-6 indicating early degenerative disc disease. Thoracic spine: The thoracic kyphosis is normal. There is no fracture or subluxation. The disc spaces are normal. Lumbar spine: The lumbar lordosis is normal. No fracture or subluxation is present. The intervertebral disc spaces are normal. There are a few small endplate osteophytes indicating early degenerative change. The facet joints are normal. Procedure Note Clyde Shrestha MD - 07/21/2024 PROCEDURE: XR HAND RIGHT 3VW OR MORE, XR PELVIS 3VW OR MORE, XR WRIST RIGHT 2VW, XR WRIST LEFT 2VW, XR SI JOINTS 3VW OR MORE, XR SHOULDERRIGHT 2VW OR MORE, XR SHOULDER LEFT 2VW OR MORE, XR KNEE RIGHT 3VW, XR KNEELEFT 3VW, XR HIP RIGHT 2VW OR MORE, XR HIP LEFT 2VW OR MORE, XR HAND LEFT 3VWOR MORE, XR FOOT RIGHT 3VW OR MORE, XR FOOT LEFT 3VW OR MORE, XR ELBOWRIGHT 2VW, XR ELBOW LEFT 2VW, XR ANKLE RIGHT 2VW, XR ANKLE LEFT 2VW, XRTHORACIC SPINE 2VW, XR LUMBAR SPINE 2 OR 3VW, XR CERVICAL SPINE 4 OR 5VW DATE/TIME OF EXAM: 07/21/2024 4:50 PM CLINICAL INFORMATION: None relevant/not provided if blank. Indication: M25.50: Polyarthralgia Additional History: COMPARISON: None. FINDINGS: Right hand: No fracture or dislocation is present. The joint spaces are normal. No erosions are seen. Bone density is normal. The soft tissues are normal. Left hand: No fracture or dislocation is present. The joint spaces are normal. No erosions are seen. Bone density is normal. The soft tissues are normal. Right wrist: No fracture or dislocation is present. The joint spaces are normal. No erosions are seen. Bone density is normal. The soft tissues are normal. Left wrist: No fracture or dislocation is present. The joint spaces are normal. No erosions are seen. Bone density is normal. The soft tissues are normal. Right elbow: No acute fracture or dislocation is present. The joint spaces arenormal. No erosions are seen. There is no effusion. Left elbow: No acute fracture or dislocation is present. The joint spaces arenormal. No erosions are seen. There is no effusion. Right shoulder: There is no fracture or dislocation. There is no acromioclavicular or glenohumeral arthritis. Left shoulder: There is no fracture or dislocation. There is no acromioclavicular or glenohumeral arthritis. Pelvis: There is no fracture. The pubic symphysis and hip joint spaces arenormal. There is mild degenerative change of the sacroiliac joints with small osteophytes. There are no erosions. There are no iliac crest enthesophytes. Sacroiliac joints: The right sacroiliac joint is normal without erosion, widening,narrowing, sclerosis, or ankylosis. The left sacroiliac joint has smallosteophytes consistent with early osteoarthritis. There is no erosion, widening, narrowing, or ankylosis. No fracture is present. The hip joint spacesand pubic symphysis is normal. Right hip: No fracture or dislocation is present. The joint space is normal. Thereare no erosions. Left hip: No fracture or dislocation is present. The joint space is normal. Thereare no erosions. Right knee: No fracture or dislocation is present. The joint spaces are normal.There is very small osteophyte formation indicating early degenerative change. There are no erosions. There is no effusion. Left knee: No fracture or dislocation is present. The joint spaces are normal.There is small to moderate tricompartmental osteophyte formation. There are no erosions. There is no effusion. Right ankle: No fracture or dislocation is present. The joint spaces are normal. No erosions are seen. Bone density is normal. The soft tissues are normal. Left ankle: No fracture or dislocation is present. The joint spaces are normal. No erosions are seen. Bone density is normal. The soft tissues arenormal. Right foot: No fracture or dislocation is present. The joint spaces are normal. No erosions are seen. Bone density is normal. The soft tissues arenormal. Left foot: No fracture or dislocation is present. The joint spaces are normal. No erosions are seen. Bone density is normal. The soft tissues are normal. Cervical spine: The cervical lordosis is normal. No fracture or subluxation is present with flexion or extension. The intervertebral disc spaces are normal. There are small anterior osteophytes at C5-6 indicating earlydegenerative disc disease. Thoracic spine: The thoracic kyphosis is normal. There is no fracture or subluxation.The disc spaces are normal. Lumbar spine: The lumbar lordosis is normal. No fracture or subluxation is present.The intervertebral disc spaces are normal. There are a few small endplate osteophytes indicating early degenerative change. The facet joints are normal. Impression: 1.Right hand: Normal. 2.Left hand: Normal. 3.Right wrist: Normal. 4.Left wrist: Normal. 5.Right elbow: Normal. 6.Left elbow: Normal. 7.Right shoulder: Normal. 8.Left shoulder: Normal. 9.Right hip: Normal. 10.Left hip: Normal. 11.Pelvis: Mild degenerative change of the left sacroiliac joint. 12.Sacroiliac joints: Mild degenerative change of the left sacroiliac joint. The left sacroiliac joint is normal. 13.Right knee: Very small osteophytes indicating degenerative change, without joint space narrowing. 14.Left knee: Small to moderate small osteophytes indicatingdegenerative change, without joint space narrowing. 15.Right ankle: Normal. 16.Left ankle: Normal. 17.Right foot: Normal. 18.Left foot: Normal. 19.Cervical spine: Mild degenerative disc disease at C5-6. 20.Thoracic spine: Normal. 21.Lumbar spine: Normal. > Interpreting Provider: Clyde Shrestha MD on 07/21/2024 5:47 PM Babatunde Lopez MD DIAGNOSTIC IMAGING ORDERABLES Fi nal Result * XR Hand Right 3Vw or More (07/21/2024 4:49 PM CDT) Anatomical Region Laterality Modality Wrist / Hand Digital Radiogra phy 07/21/2024 4:54 PM CDT Impressions 07/21/2024 5:47 PM CDT Impression: 1.Right hand: Normal. 2.Left hand: Normal. 3.Right wrist: Normal. 4.Left wrist: Normal. 5.Right elbow: Normal. 6.Left elbow: Normal. 7.Right shoulder: Normal. 8.Left shoulder: Normal. 9.Right hip: Normal. 10.Left hip: Normal. 11.Pelvis: Mild degenerative change of the left sacroiliac joint. 12.Sacroiliac joints: Mild degenerative change of the left sacroiliac joint. The left sacroiliac joint is normal. 13.Right knee: Very small osteophytes indicating degenerative change, without joint space narrowing. 14.Left knee: Small to moderate small osteophytes indicating degenerative change, without joint space narrowing. 15.Right ankle: Normal. 16.Left ankle: Normal. 17.Right foot: Normal. 18.Left foot: Normal. 19.Cervical spine: Mild degenerative disc disease at C5-6. 20.Thoracic spine: Normal. 21.Lumbar spine: Normal. > Interpreting Provider: Clyde Shrestha MD on 07/21/2024 5:47 PM Narrative 07/21/2024 5:47 PM CDT PROCEDURE: XR HAND RIGHT 3VW OR MORE, XR PELVIS 3VW OR MORE, XR WRIST RIGHT 2VW, XR WRIST LEFT 2VW, XR SI JOINTS 3VW OR MORE, XR SHOULDER RIGHT 2VW OR MORE, XR SHOULDER LEFT 2VW OR MORE, XR KNEE RIGHT 3VW, XR KNEE LEFT 3VW, XR HIP RIGHT 2VW OR MORE, XR HIP LEFT 2VW OR MORE, XR HAND LEFT 3VW OR MORE, XR FOOT RIGHT 3VW OR MORE, XR FOOT LEFT 3VW OR MORE, XR ELBOW RIGHT 2VW, XR ELBOW LEFT 2VW, XR ANKLE RIGHT 2VW, XR ANKLE LEFT 2VW, XR THORACIC SPINE 2VW, XR LUMBAR SPINE 2 OR 3VW, XR CERVICAL SPINE 4 OR 5VW DATE/TIME OF EXAM: 07/21/2024 4:50 PM CLINICAL INFORMATION: None relevant/not provided if blank. Indication: M25.50: Polyarthralgia Additional History: COMPARISON: None. FINDINGS: Right hand: No fracture or dislocation is present. The joint spaces are normal. No erosions are seen. Bone density is normal. The soft tissues are normal. Left hand: No fracture or dislocation is present. The joint spaces are normal. No erosions are seen. Bone density is normal. The soft tissues are normal. Right wrist: No fracture or dislocation is present. The joint spaces are normal. No erosions are seen. Bone density is normal. The soft tissues are normal. Left wrist: No fracture or dislocation is present. The joint spaces are normal. No erosions are seen. Bone density is normal. The soft tissues are normal. Right elbow: No acute fracture or dislocation is present. The joint spaces are normal. No erosions are seen. There is no effusion. Left elbow: No acute fracture or dislocation is present. The joint spaces are normal. No erosions are seen. There is no effusion. Right shoulder: There is no fracture or dislocation. There is no acromioclavicular or glenohumeral arthritis. Left shoulder: There is no fracture or dislocation. There is no acromioclavicular or glenohumeral arthritis. Pelvis: There is no fracture. The pubic symphysis and hip joint spaces are normal. There is mild degenerative change of the sacroiliac joints with small osteophytes. There are no erosions. There are no iliac crest enthesophytes. Sacroiliac joints: The right sacroiliac joint is normal without erosion, widening, narrowing, sclerosis, or ankylosis. The left sacroiliac joint has small osteophytes consistent with early osteoarthritis. There is no erosion, widening, narrowing, or ankylosis. No fracture is present. The hip joint spaces and pubic symphysis is normal. Right hip: No fracture or dislocation is present. The joint space is normal. There are no erosions. Left hip: No fracture or dislocation is present. The joint space is normal. There are no erosions. Right knee: No fracture or dislocation is present. The joint spaces are normal. There is very small osteophyte formation indicating early degenerative change. There are no erosions. There is no effusion. Left knee: No fracture or dislocation is present. The joint spaces are normal. There is small to moderate tricompartmental osteophyte formation. There are no erosions. There is no effusion. Right ankle: No fracture or dislocation is present. The joint spaces are normal. No erosions are seen. Bone density is normal. The soft tissues are normal. Left ankle: No fracture or dislocation is present. The joint spaces are normal. No erosions are seen. Bone density is normal. The soft tissues are normal. Right foot: No fracture or dislocation is present. The joint spaces are normal. No erosions are seen. Bone density is normal. The soft tissues are normal. Left foot: No fracture or dislocation is present. The joint spaces are normal. No erosions are seen. Bone density is normal. The soft tissues are normal. Cervical spine: The cervical lordosis is normal. No fracture or subluxation is present with flexion or extension. The intervertebral disc spaces are normal. There are small anterior osteophytes at C5-6 indicating early degenerative disc disease. Thoracic spine: The thoracic kyphosis is normal. There is no fracture or subluxation. The disc spaces are normal. Lumbar spine: The lumbar lordosis is normal. No fracture or subluxation is present. The intervertebral disc spaces are normal. There are a few small endplate osteophytes indicating early degenerative change. The facet joints are normal. Procedure Note Clyde Shrestha MD - 07/21/2024 PROCEDURE: XR HAND RIGHT 3VW OR MORE, XR PELVIS 3VW OR MORE, XR WRIST RIGHT 2VW, XR WRIST LEFT 2VW, XR SI JOINTS 3VW OR MORE, XR SHOULDERRIGHT 2VW OR MORE, XR SHOULDER LEFT 2VW OR MORE, XR KNEE RIGHT 3VW, XR KNEELEFT 3VW, XR HIP RIGHT 2VW OR MORE, XR HIP LEFT 2VW OR MORE, XR HAND LEFT 3VWOR MORE, XR FOOT RIGHT 3VW OR MORE, XR FOOT LEFT 3VW OR MORE, XR ELBOWRIGHT 2VW, XR ELBOW LEFT 2VW, XR ANKLE RIGHT 2VW, XR ANKLE LEFT 2VW, XRTHORACIC SPINE 2VW, XR LUMBAR SPINE 2 OR 3VW, XR CERVICAL SPINE 4 OR 5VW DATE/TIME OF EXAM: 07/21/2024 4:50 PM CLINICAL INFORMATION: None relevant/not provided if blank. Indication: M25.50: Polyarthralgia Additional History: COMPARISON: None. FINDINGS: Right hand: No fracture or dislocation is present. The joint spaces are normal. No erosions are seen. Bone density is normal. The soft tissues are normal. Left hand: No fracture or dislocation is present. The joint spaces are normal. No erosions are seen. Bone density is normal. The soft tissues are normal. Right wrist: No fracture or dislocation is present. The joint spaces are normal. No erosions are seen. Bone density is normal. The soft tissues are normal. Left wrist: No fracture or dislocation is present. The joint spaces are normal. No erosions are seen. Bone density is normal. The soft tissues are normal. Right elbow: No acute fracture or dislocation is present. The joint spaces arenormal. No erosions are seen. There is no effusion. Left elbow: No acute fracture or dislocation is present. The joint spaces arenormal. No erosions are seen. There is no effusion. Right shoulder: There is no fracture or dislocation. There is no acromioclavicular or glenohumeral arthritis. Left shoulder: There is no fracture or dislocation. There is no acromioclavicular or glenohumeral arthritis. Pelvis: There is no fracture. The pubic symphysis and hip joint spaces arenormal. There is mild degenerative change of the sacroiliac joints with small osteophytes. There are no erosions. There are no iliac crest enthesophytes. Sacroiliac joints: The right sacroiliac joint is normal without erosion, widening,narrowing, sclerosis, or ankylosis. The left sacroiliac joint has smallosteophytes consistent with early osteoarthritis. There is no erosion, widening, narrowing, or ankylosis. No fracture is present. The hip joint spacesand pubic symphysis is normal. Right hip: No fracture or dislocation is present. The joint space is normal. Thereare no erosions. Left hip: No fracture or dislocation is present. The joint space is normal. Thereare no erosions. Right knee: No fracture or dislocation is present. The joint spaces are normal.There is very small osteophyte formation indicating early degenerative change. There are no erosions. There is no effusion. Left knee: No fracture or dislocation is present. The joint spaces are normal.There is small to moderate tricompartmental osteophyte formation. There are no erosions. There is no effusion. Right ankle: No fracture or dislocation is present. The joint spaces are normal. No erosions are seen. Bone density is normal. The soft tissues are normal. Left ankle: No fracture or dislocation is present. The joint spaces are normal. No erosions are seen. Bone density is normal. The soft tissues arenormal. Right foot: No fracture or dislocation is present. The joint spaces are normal. No erosions are seen. Bone density is normal. The soft tissues arenormal. Left foot: No fracture or dislocation is present. The joint spaces are normal. No erosions are seen. Bone density is normal. The soft tissues are normal. Cervical spine: The cervical lordosis is normal. No fracture or subluxation is present with flexion or extension. The intervertebral disc spaces are normal. There are small anterior osteophytes at C5-6 indicating earlydegenerative disc disease. Thoracic spine: The thoracic kyphosis is normal. There is no fracture or subluxation.The disc spaces are normal. Lumbar spine: The lumbar lordosis is normal. No fracture or subluxation is present.The intervertebral disc spaces are normal. There are a few small endplate osteophytes indicating early degenerative change. The facet joints are normal. Impression: 1.Right hand: Normal. 2.Left hand: Normal. 3.Right wrist: Normal. 4.Left wrist: Normal. 5.Right elbow: Normal. 6.Left elbow: Normal. 7.Right shoulder: Normal. 8.Left shoulder: Normal. 9.Right hip: Normal. 10.Left hip: Normal. 11.Pelvis: Mild degenerative change of the left sacroiliac joint. 12.Sacroiliac joints: Mild degenerative change of the left sacroiliac joint. The left sacroiliac joint is normal. 13.Right knee: Very small osteophytes indicating degenerative change, without joint space narrowing. 14.Left knee: Small to moderate small osteophytes indicatingdegenerative change, without joint space narrowing. 15.Right ankle: Normal. 16.Left ankle: Normal. 17.Right foot: Normal. 18.Left foot: Normal. 19.Cervical spine: Mild degenerative disc disease at C5-6. 20.Thoracic spine: Normal. 21.Lumbar spine: Normal. > Interpreting Provider: Clyde Shrestha MD on 07/21/2024 5:47 PM Babatunde Lopez MD DIAGNOSTIC IMAGING ORDERABLES Fi nal Result * XR Hand Left 3Vw or More (07/21/2024 4:49 PM CDT) Anatomical Region Laterality Modality Wrist / Hand Digital Radiogra phy 07/21/2024 4:54 PM CDT Impressions 07/21/2024 5:47 PM CDT Impression: 1.Right hand: Normal. 2.Left hand: Normal. 3.Right wrist: Normal. 4.Left wrist: Normal. 5.Right elbow: Normal. 6.Left elbow: Normal. 7.Right shoulder: Normal. 8.Left shoulder: Normal. 9.Right hip: Normal. 10.Left hip: Normal. 11.Pelvis: Mild degenerative change of the left sacroiliac joint. 12.Sacroiliac joints: Mild degenerative change of the left sacroiliac joint. The left sacroiliac joint is normal. 13.Right knee: Very small osteophytes indicating degenerative change, without joint space narrowing. 14.Left knee: Small to moderate small osteophytes indicating degenerative change, without joint space narrowing. 15.Right ankle: Normal. 16.Left ankle: Normal. 17.Right foot: Normal. 18.Left foot: Normal. 19.Cervical spine: Mild degenerative disc disease at C5-6. 20.Thoracic spine: Normal. 21.Lumbar spine: Normal. > Interpreting Provider: Clyde Shrestha MD on 07/21/2024 5:47 PM Narrative 07/21/2024 5:47 PM CDT PROCEDURE: XR HAND RIGHT 3VW OR MORE, XR PELVIS 3VW OR MORE, XR WRIST RIGHT 2VW, XR WRIST LEFT 2VW, XR SI JOINTS 3VW OR MORE, XR SHOULDER RIGHT 2VW OR MORE, XR SHOULDER LEFT 2VW OR MORE, XR KNEE RIGHT 3VW, XR KNEE LEFT 3VW, XR HIP RIGHT 2VW OR MORE, XR HIP LEFT 2VW OR MORE, XR HAND LEFT 3VW OR MORE, XR FOOT RIGHT 3VW OR MORE, XR FOOT LEFT 3VW OR MORE, XR ELBOW RIGHT 2VW, XR ELBOW LEFT 2VW, XR ANKLE RIGHT 2VW, XR ANKLE LEFT 2VW, XR THORACIC SPINE 2VW, XR LUMBAR SPINE 2 OR 3VW, XR CERVICAL SPINE 4 OR 5VW DATE/TIME OF EXAM: 07/21/2024 4:50 PM CLINICAL INFORMATION: None relevant/not provided if blank. Indication: M25.50: Polyarthralgia Additional History: COMPARISON: None. FINDINGS: Right hand: No fracture or dislocation is present. The joint spaces are normal. No erosions are seen. Bone density is normal. The soft tissues are normal. Left hand: No fracture or dislocation is present. The joint spaces are normal. No erosions are seen. Bone density is normal. The soft tissues are normal. Right wrist: No fracture or dislocation is present. The joint spaces are normal. No erosions are seen. Bone density is normal. The soft tissues are normal. Left wrist: No fracture or dislocation is present. The joint spaces are normal. No erosions are seen. Bone density is normal. The soft tissues are normal. Right elbow: No acute fracture or dislocation is present. The joint spaces are normal. No erosions are seen. There is no effusion. Left elbow: No acute fracture or dislocation is present. The joint spaces are normal. No erosions are seen. There is no effusion. Right shoulder: There is no fracture or dislocation. There is no acromioclavicular or glenohumeral arthritis. Left shoulder: There is no fracture or dislocation. There is no acromioclavicular or glenohumeral arthritis. Pelvis: There is no fracture. The pubic symphysis and hip joint spaces are normal. There is mild degenerative change of the sacroiliac joints with small osteophytes. There are no erosions. There are no iliac crest enthesophytes. Sacroiliac joints: The right sacroiliac joint is normal without erosion, widening, narrowing, sclerosis, or ankylosis. The left sacroiliac joint has small osteophytes consistent with early osteoarthritis. There is no erosion, widening, narrowing, or ankylosis. No fracture is present. The hip joint spaces and pubic symphysis is normal. Right hip: No fracture or dislocation is present. The joint space is normal. There are no erosions. Left hip: No fracture or dislocation is present. The joint space is normal. There are no erosions. Right knee: No fracture or dislocation is present. The joint spaces are normal. There is very small osteophyte formation indicating early degenerative change. There are no erosions. There is no effusion. Left knee: No fracture or dislocation is present. The joint spaces are normal. There is small to moderate tricompartmental osteophyte formation. There are no erosions. There is no effusion. Right ankle: No fracture or dislocation is present. The joint spaces are normal. No erosions are seen. Bone density is normal. The soft tissues are normal. Left ankle: No fracture or dislocation is present. The joint spaces are normal. No erosions are seen. Bone density is normal. The soft tissues are normal. Right foot: No fracture or dislocation is present. The joint spaces are normal. No erosions are seen. Bone density is normal. The soft tissues are normal. Left foot: No fracture or dislocation is present. The joint spaces are normal. No erosions are seen. Bone density is normal. The soft tissues are normal. Cervical spine: The cervical lordosis is normal. No fracture or subluxation is present with flexion or extension. The intervertebral disc spaces are normal. There are small anterior osteophytes at C5-6 indicating early degenerative disc disease. Thoracic spine: The thoracic kyphosis is normal. There is no fracture or subluxation. The disc spaces are normal. Lumbar spine: The lumbar lordosis is normal. No fracture or subluxation is present. The intervertebral disc spaces are normal. There are a few small endplate osteophytes indicating early degenerative change. The facet joints are normal. Procedure Note Clyde Shrestha MD - 07/21/2024 PROCEDURE: XR HAND RIGHT 3VW OR MORE, XR PELVIS 3VW OR MORE, XR WRIST RIGHT 2VW, XR WRIST LEFT 2VW, XR SI JOINTS 3VW OR MORE, XR SHOULDERRIGHT 2VW OR MORE, XR SHOULDER LEFT 2VW OR MORE, XR KNEE RIGHT 3VW, XR KNEELEFT 3VW, XR HIP RIGHT 2VW OR MORE, XR HIP LEFT 2VW OR MORE, XR HAND LEFT 3VWOR MORE, XR FOOT RIGHT 3VW OR MORE, XR FOOT LEFT 3VW OR MORE, XR ELBOWRIGHT 2VW, XR ELBOW LEFT 2VW, XR ANKLE RIGHT 2VW, XR ANKLE LEFT 2VW, XRTHORACIC SPINE 2VW, XR LUMBAR SPINE 2 OR 3VW, XR CERVICAL SPINE 4 OR 5VW DATE/TIME OF EXAM: 07/21/2024 4:50 PM CLINICAL INFORMATION: None relevant/not provided if blank. Indication: M25.50: Polyarthralgia Additional History: COMPARISON: None. FINDINGS: Right hand: No fracture or dislocation is present. The joint spaces are normal. No erosions are seen. Bone density is normal. The soft tissues are normal. Left hand: No fracture or dislocation is present. The joint spaces are normal. No erosions are seen. Bone density is normal. The soft tissues are normal. Right wrist: No fracture or dislocation is present. The joint spaces are normal. No erosions are seen. Bone density is normal. The soft tissues are normal. Left wrist: No fracture or dislocation is present. The joint spaces are normal. No erosions are seen. Bone density is normal. The soft tissues are normal. Right elbow: No acute fracture or dislocation is present. The joint spaces arenormal. No erosions are seen. There is no effusion. Left elbow: No acute fracture or dislocation is present. The joint spaces arenormal. No erosions are seen. There is no effusion. Right shoulder: There is no fracture or dislocation. There is no acromioclavicular or glenohumeral arthritis. Left shoulder: There is no fracture or dislocation. There is no acromioclavicular or glenohumeral arthritis. Pelvis: There is no fracture. The pubic symphysis and hip joint spaces arenormal. There is mild degenerative change of the sacroiliac joints with small osteophytes. There are no erosions. There are no iliac crest enthesophytes. Sacroiliac joints: The right sacroiliac joint is normal without erosion, widening,narrowing, sclerosis, or ankylosis. The left sacroiliac joint has smallosteophytes consistent with early osteoarthritis. There is no erosion, widening, narrowing, or ankylosis. No fracture is present. The hip joint spacesand pubic symphysis is normal. Right hip: No fracture or dislocation is present. The joint space is normal. Thereare no erosions. Left hip: No fracture or dislocation is present. The joint space is normal. Thereare no erosions. Right knee: No fracture or dislocation is present. The joint spaces are normal.There is very small osteophyte formation indicating early degenerative change. There are no erosions. There is no effusion. Left knee: No fracture or dislocation is present. The joint spaces are normal.There is small to moderate tricompartmental osteophyte formation. There are no erosions. There is no effusion. Right ankle: No fracture or dislocation is present. The joint spaces are normal. No erosions are seen. Bone density is normal. The soft tissues are normal. Left ankle: No fracture or dislocation is present. The joint spaces are normal. No erosions are seen. Bone density is normal. The soft tissues arenormal. Right foot: No fracture or dislocation is present. The joint spaces are normal. No erosions are seen. Bone density is normal. The soft tissues arenormal. Left foot: No fracture or dislocation is present. The joint spaces are normal. No erosions are seen. Bone density is normal. The soft tissues are normal. Cervical spine: The cervical lordosis is normal. No fracture or subluxation is present with flexion or extension. The intervertebral disc spaces are normal. There are small anterior osteophytes at C5-6 indicating earlydegenerative disc disease. Thoracic spine: The thoracic kyphosis is normal. There is no fracture or subluxation.The disc spaces are normal. Lumbar spine: The lumbar lordosis is normal. No fracture or subluxation is present.The intervertebral disc spaces are normal. There are a few small endplate osteophytes indicating early degenerative change. The facet joints are normal. Impression: 1.Right hand: Normal. 2.Left hand: Normal. 3.Right wrist: Normal. 4.Left wrist: Normal. 5.Right elbow: Normal. 6.Left elbow: Normal. 7.Right shoulder: Normal. 8.Left shoulder: Normal. 9.Right hip: Normal. 10.Left hip: Normal. 11.Pelvis: Mild degenerative change of the left sacroiliac joint. 12.Sacroiliac joints: Mild degenerative change of the left sacroiliac joint. The left sacroiliac joint is normal. 13.Right knee: Very small osteophytes indicating degenerative change, without joint space narrowing. 14.Left knee: Small to moderate small osteophytes indicatingdegenerative change, without joint space narrowing. 15.Right ankle: Normal. 16.Left ankle: Normal. 17.Right foot: Normal. 18.Left foot: Normal. 19.Cervical spine: Mild degenerative disc disease at C5-6. 20.Thoracic spine: Normal. 21.Lumbar spine: Normal. > Interpreting Provider: Clyde Shrestha MD on 07/21/2024 5:47 PM Babatunde Lopez MD DIAGNOSTIC IMAGING ORDERABLES Fi nal Result * XR Wrist Right 2Vw (07/21/2024 4:49 PM CDT) Anatomical Region Laterality Modality Wrist / Hand Digital Radiogra phy 07/21/2024 4:54 PM CDT Impressions 07/21/2024 5:47 PM CDT Impression: 1.Right hand: Normal. 2.Left hand: Normal. 3.Right wrist: Normal. 4.Left wrist: Normal. 5.Right elbow: Normal. 6.Left elbow: Normal. 7.Right shoulder: Normal. 8.Left shoulder: Normal. 9.Right hip: Normal. 10.Left hip: Normal. 11.Pelvis: Mild degenerative change of the left sacroiliac joint. 12.Sacroiliac joints: Mild degenerative change of the left sacroiliac joint. The left sacroiliac joint is normal. 13.Right knee: Very small osteophytes indicating degenerative change, without joint space narrowing. 14.Left knee: Small to moderate small osteophytes indicating degenerative change, without joint space narrowing. 15.Right ankle: Normal. 16.Left ankle: Normal. 17.Right foot: Normal. 18.Left foot: Normal. 19.Cervical spine: Mild degenerative disc disease at C5-6. 20.Thoracic spine: Normal. 21.Lumbar spine: Normal. > Interpreting Provider: Clyde Shrestha MD on 07/21/2024 5:47 PM Narrative 07/21/2024 5:47 PM CDT PROCEDURE: XR HAND RIGHT 3VW OR MORE, XR PELVIS 3VW OR MORE, XR WRIST RIGHT 2VW, XR WRIST LEFT 2VW, XR SI JOINTS 3VW OR MORE, XR SHOULDER RIGHT 2VW OR MORE, XR SHOULDER LEFT 2VW OR MORE, XR KNEE RIGHT 3VW, XR KNEE LEFT 3VW, XR HIP RIGHT 2VW OR MORE, XR HIP LEFT 2VW OR MORE, XR HAND LEFT 3VW OR MORE, XR FOOT RIGHT 3VW OR MORE, XR FOOT LEFT 3VW OR MORE, XR ELBOW RIGHT 2VW, XR ELBOW LEFT 2VW, XR ANKLE RIGHT 2VW, XR ANKLE LEFT 2VW, XR THORACIC SPINE 2VW, XR LUMBAR SPINE 2 OR 3VW, XR CERVICAL SPINE 4 OR 5VW DATE/TIME OF EXAM: 07/21/2024 4:50 PM CLINICAL INFORMATION: None relevant/not provided if blank. Indication: M25.50: Polyarthralgia Additional History: COMPARISON: None. FINDINGS: Right hand: No fracture or dislocation is present. The joint spaces are normal. No erosions are seen. Bone density is normal. The soft tissues are normal. Left hand: No fracture or dislocation is present. The joint spaces are normal. No erosions are seen. Bone density is normal. The soft tissues are normal. Right wrist: No fracture or dislocation is present. The joint spaces are normal. No erosions are seen. Bone density is normal. The soft tissues are normal. Left wrist: No fracture or dislocation is present. The joint spaces are normal. No erosions are seen. Bone density is normal. The soft tissues are normal. Right elbow: No acute fracture or dislocation is present. The joint spaces are normal. No erosions are seen. There is no effusion. Left elbow: No acute fracture or dislocation is present. The joint spaces are normal. No erosions are seen. There is no effusion. Right shoulder: There is no fracture or dislocation. There is no acromioclavicular or glenohumeral arthritis. Left shoulder: There is no fracture or dislocation. There is no acromioclavicular or glenohumeral arthritis. Pelvis: There is no fracture. The pubic symphysis and hip joint spaces are normal. There is mild degenerative change of the sacroiliac joints with small osteophytes. There are no erosions. There are no iliac crest enthesophytes. Sacroiliac joints: The right sacroiliac joint is normal without erosion, widening, narrowing, sclerosis, or ankylosis. The left sacroiliac joint has small osteophytes consistent with early osteoarthritis. There is no erosion, widening, narrowing, or ankylosis. No fracture is present. The hip joint spaces and pubic symphysis is normal. Right hip: No fracture or dislocation is present. The joint space is normal. There are no erosions. Left hip: No fracture or dislocation is present. The joint space is normal. There are no erosions. Right knee: No fracture or dislocation is present. The joint spaces are normal. There is very small osteophyte formation indicating early degenerative change. There are no erosions. There is no effusion. Left knee: No fracture or dislocation is present. The joint spaces are normal. There is small to moderate tricompartmental osteophyte formation. There are no erosions. There is no effusion. Right ankle: No fracture or dislocation is present. The joint spaces are normal. No erosions are seen. Bone density is normal. The soft tissues are normal. Left ankle: No fracture or dislocation is present. The joint spaces are normal. No erosions are seen. Bone density is normal. The soft tissues are normal. Right foot: No fracture or dislocation is present. The joint spaces are normal. No erosions are seen. Bone density is normal. The soft tissues are normal. Left foot: No fracture or dislocation is present. The joint spaces are normal. No erosions are seen. Bone density is normal. The soft tissues are normal. Cervical spine: The cervical lordosis is normal. No fracture or subluxation is present with flexion or extension. The intervertebral disc spaces are normal. There are small anterior osteophytes at C5-6 indicating early degenerative disc disease. Thoracic spine: The thoracic kyphosis is normal. There is no fracture or subluxation. The disc spaces are normal. Lumbar spine: The lumbar lordosis is normal. No fracture or subluxation is present. The intervertebral disc spaces are normal. There are a few small endplate osteophytes indicating early degenerative change. The facet joints are normal. Procedure Note Clyde Shrestha MD - 07/21/2024 PROCEDURE: XR HAND RIGHT 3VW OR MORE, XR PELVIS 3VW OR MORE, XR WRIST RIGHT 2VW, XR WRIST LEFT 2VW, XR SI JOINTS 3VW OR MORE, XR SHOULDERRIGHT 2VW OR MORE, XR SHOULDER LEFT 2VW OR MORE, XR KNEE RIGHT 3VW, XR KNEELEFT 3VW, XR HIP RIGHT 2VW OR MORE, XR HIP LEFT 2VW OR MORE, XR HAND LEFT 3VWOR MORE, XR FOOT RIGHT 3VW OR MORE, XR FOOT LEFT 3VW OR MORE, XR ELBOWRIGHT 2VW, XR ELBOW LEFT 2VW, XR ANKLE RIGHT 2VW, XR ANKLE LEFT 2VW, XRTHORACIC SPINE 2VW, XR LUMBAR SPINE 2 OR 3VW, XR CERVICAL SPINE 4 OR 5VW DATE/TIME OF EXAM: 07/21/2024 4:50 PM CLINICAL INFORMATION: None relevant/not provided if blank. Indication: M25.50: Polyarthralgia Additional History: COMPARISON: None. FINDINGS: Right hand: No fracture or dislocation is present. The joint spaces are normal. No erosions are seen. Bone density is normal. The soft tissues are normal. Left hand: No fracture or dislocation is present. The joint spaces are normal. No erosions are seen. Bone density is normal. The soft tissues are normal. Right wrist: No fracture or dislocation is present. The joint spaces are normal. No erosions are seen. Bone density is normal. The soft tissues are normal. Left wrist: No fracture or dislocation is present. The joint spaces are normal. No erosions are seen. Bone density is normal. The soft tissues are normal. Right elbow: No acute fracture or dislocation is present. The joint spaces arenormal. No erosions are seen. There is no effusion. Left elbow: No acute fracture or dislocation is present. The joint spaces arenormal. No erosions are seen. There is no effusion. Right shoulder: There is no fracture or dislocation. There is no acromioclavicular or glenohumeral arthritis. Left shoulder: There is no fracture or dislocation. There is no acromioclavicular or glenohumeral arthritis. Pelvis: There is no fracture. The pubic symphysis and hip joint spaces arenormal. There is mild degenerative change of the sacroiliac joints with small osteophytes. There are no erosions. There are no iliac crest enthesophytes. Sacroiliac joints: The right sacroiliac joint is normal without erosion, widening,narrowing, sclerosis, or ankylosis. The left sacroiliac joint has smallosteophytes consistent with early osteoarthritis. There is no erosion, widening, narrowing, or ankylosis. No fracture is present. The hip joint spacesand pubic symphysis is normal. Right hip: No fracture or dislocation is present. The joint space is normal. Thereare no erosions. Left hip: No fracture or dislocation is present. The joint space is normal. Thereare no erosions. Right knee: No fracture or dislocation is present. The joint spaces are normal.There is very small osteophyte formation indicating early degenerative change. There are no erosions. There is no effusion. Left knee: No fracture or dislocation is present. The joint spaces are normal.There is small to moderate tricompartmental osteophyte formation. There are no erosions. There is no effusion. Right ankle: No fracture or dislocation is present. The joint spaces are normal. No erosions are seen. Bone density is normal. The soft tissues are normal. Left ankle: No fracture or dislocation is present. The joint spaces are normal. No erosions are seen. Bone density is normal. The soft tissues arenormal. Right foot: No fracture or dislocation is present. The joint spaces are normal. No erosions are seen. Bone density is normal. The soft tissues arenormal. Left foot: No fracture or dislocation is present. The joint spaces are normal. No erosions are seen. Bone density is normal. The soft tissues are normal. Cervical spine: The cervical lordosis is normal. No fracture or subluxation is present with flexion or extension. The intervertebral disc spaces are normal. There are small anterior osteophytes at C5-6 indicating earlydegenerative disc disease. Thoracic spine: The thoracic kyphosis is normal. There is no fracture or subluxation.The disc spaces are normal. Lumbar spine: The lumbar lordosis is normal. No fracture or subluxation is present.The intervertebral disc spaces are normal. There are a few small endplate osteophytes indicating early degenerative change. The facet joints are normal. Impression: 1.Right hand: Normal. 2.Left hand: Normal. 3.Right wrist: Normal. 4.Left wrist: Normal. 5.Right elbow: Normal. 6.Left elbow: Normal. 7.Right shoulder: Normal. 8.Left shoulder: Normal. 9.Right hip: Normal. 10.Left hip: Normal. 11.Pelvis: Mild degenerative change of the left sacroiliac joint. 12.Sacroiliac joints: Mild degenerative change of the left sacroiliac joint. The left sacroiliac joint is normal. 13.Right knee: Very small osteophytes indicating degenerative change, without joint space narrowing. 14.Left knee: Small to moderate small osteophytes indicatingdegenerative change, without joint space narrowing. 15.Right ankle: Normal. 16.Left ankle: Normal. 17.Right foot: Normal. 18.Left foot: Normal. 19.Cervical spine: Mild degenerative disc disease at C5-6. 20.Thoracic spine: Normal. 21.Lumbar spine: Normal. > Interpreting Provider: Clyde Shrestha MD on 07/21/2024 5:47 PM Babatuned Lopez MD DIAGNOSTIC IMAGING ORDERABLES Fi nal Result * XR Wrist Left 2Vw (07/21/2024 4:49 PM CDT) Anatomical Region Laterality Modality Wrist / Hand Digital Radiogra phy 07/21/2024 4:54 PM CDT Impressions 07/21/2024 5:47 PM CDT Impression: 1.Right hand: Normal. 2.Left hand: Normal. 3.Right wrist: Normal. 4.Left wrist: Normal. 5.Right elbow: Normal. 6.Left elbow: Normal. 7.Right shoulder: Normal. 8.Left shoulder: Normal. 9.Right hip: Normal. 10.Left hip: Normal. 11.Pelvis: Mild degenerative change of the left sacroiliac joint. 12.Sacroiliac joints: Mild degenerative change of the left sacroiliac joint. The left sacroiliac joint is normal. 13.Right knee: Very small osteophytes indicating degenerative change, without joint space narrowing. 14.Left knee: Small to moderate small osteophytes indicating degenerative change, without joint space narrowing. 15.Right ankle: Normal. 16.Left ankle: Normal. 17.Right foot: Normal. 18.Left foot: Normal. 19.Cervical spine: Mild degenerative disc disease at C5-6. 20.Thoracic spine: Normal. 21.Lumbar spine: Normal. > Interpreting Provider: Clyde Shrestha MD on 07/21/2024 5:47 PM Narrative 07/21/2024 5:47 PM CDT PROCEDURE: XR HAND RIGHT 3VW OR MORE, XR PELVIS 3VW OR MORE, XR WRIST RIGHT 2VW, XR WRIST LEFT 2VW, XR SI JOINTS 3VW OR MORE, XR SHOULDER RIGHT 2VW OR MORE, XR SHOULDER LEFT 2VW OR MORE, XR KNEE RIGHT 3VW, XR KNEE LEFT 3VW, XR HIP RIGHT 2VW OR MORE, XR HIP LEFT 2VW OR MORE, XR HAND LEFT 3VW OR MORE, XR FOOT RIGHT 3VW OR MORE, XR FOOT LEFT 3VW OR MORE, XR ELBOW RIGHT 2VW, XR ELBOW LEFT 2VW, XR ANKLE RIGHT 2VW, XR ANKLE LEFT 2VW, XR THORACIC SPINE 2VW, XR LUMBAR SPINE 2 OR 3VW, XR CERVICAL SPINE 4 OR 5VW DATE/TIME OF EXAM: 07/21/2024 4:50 PM CLINICAL INFORMATION: None relevant/not provided if blank. Indication: M25.50: Polyarthralgia Additional History: COMPARISON: None. FINDINGS: Right hand: No fracture or dislocation is present. The joint spaces are normal. No erosions are seen. Bone density is normal. The soft tissues are normal. Left hand: No fracture or dislocation is present. The joint spaces are normal. No erosions are seen. Bone density is normal. The soft tissues are normal. Right wrist: No fracture or dislocation is present. The joint spaces are normal. No erosions are seen. Bone density is normal. The soft tissues are normal. Left wrist: No fracture or dislocation is present. The joint spaces are normal. No erosions are seen. Bone density is normal. The soft tissues are normal. Right elbow: No acute fracture or dislocation is present. The joint spaces are normal. No erosions are seen. There is no effusion. Left elbow: No acute fracture or dislocation is present. The joint spaces are normal. No erosions are seen. There is no effusion. Right shoulder: There is no fracture or dislocation. There is no acromioclavicular or glenohumeral arthritis. Left shoulder: There is no fracture or dislocation. There is no acromioclavicular or glenohumeral arthritis. Pelvis: There is no fracture. The pubic symphysis and hip joint spaces are normal. There is mild degenerative change of the sacroiliac joints with small osteophytes. There are no erosions. There are no iliac crest enthesophytes. Sacroiliac joints: The right sacroiliac joint is normal without erosion, widening, narrowing, sclerosis, or ankylosis. The left sacroiliac joint has small osteophytes consistent with early osteoarthritis. There is no erosion, widening, narrowing, or ankylosis. No fracture is present. The hip joint spaces and pubic symphysis is normal. Right hip: No fracture or dislocation is present. The joint space is normal. There are no erosions. Left hip: No fracture or dislocation is present. The joint space is normal. There are no erosions. Right knee: No fracture or dislocation is present. The joint spaces are normal. There is very small osteophyte formation indicating early degenerative change. There are no erosions. There is no effusion. Left knee: No fracture or dislocation is present. The joint spaces are normal. There is small to moderate tricompartmental osteophyte formation. There are no erosions. There is no effusion. Right ankle: No fracture or dislocation is present. The joint spaces are normal. No erosions are seen. Bone density is normal. The soft tissues are normal. Left ankle: No fracture or dislocation is present. The joint spaces are normal. No erosions are seen. Bone density is normal. The soft tissues are normal. Right foot: No fracture or dislocation is present. The joint spaces are normal. No erosions are seen. Bone density is normal. The soft tissues are normal. Left foot: No fracture or dislocation is present. The joint spaces are normal. No erosions are seen. Bone density is normal. The soft tissues are normal. Cervical spine: The cervical lordosis is normal. No fracture or subluxation is present with flexion or extension. The intervertebral disc spaces are normal. There are small anterior osteophytes at C5-6 indicating early degenerative disc disease. Thoracic spine: The thoracic kyphosis is normal. There is no fracture or subluxation. The disc spaces are normal. Lumbar spine: The lumbar lordosis is normal. No fracture or subluxation is present. The intervertebral disc spaces are normal. There are a few small endplate osteophytes indicating early degenerative change. The facet joints are normal. Procedure Note Clyde Shrestha MD - 07/21/2024 PROCEDURE: XR HAND RIGHT 3VW OR MORE, XR PELVIS 3VW OR MORE, XR WRIST RIGHT 2VW, XR WRIST LEFT 2VW, XR SI JOINTS 3VW OR MORE, XR SHOULDERRIGHT 2VW OR MORE, XR SHOULDER LEFT 2VW OR MORE, XR KNEE RIGHT 3VW, XR KNEELEFT 3VW, XR HIP RIGHT 2VW OR MORE, XR HIP LEFT 2VW OR MORE, XR HAND LEFT 3VWOR MORE, XR FOOT RIGHT 3VW OR MORE, XR FOOT LEFT 3VW OR MORE, XR ELBOWRIGHT 2VW, XR ELBOW LEFT 2VW, XR ANKLE RIGHT 2VW, XR ANKLE LEFT 2VW, XRTHORACIC SPINE 2VW, XR LUMBAR SPINE 2 OR 3VW, XR CERVICAL SPINE 4 OR 5VW DATE/TIME OF EXAM: 07/21/2024 4:50 PM CLINICAL INFORMATION: None relevant/not provided if blank. Indication: M25.50: Polyarthralgia Additional History: COMPARISON: None. FINDINGS: Right hand: No fracture or dislocation is present. The joint spaces are normal. No erosions are seen. Bone density is normal. The soft tissues are normal. Left hand: No fracture or dislocation is present. The joint spaces are normal. No erosions are seen. Bone density is normal. The soft tissues are normal. Right wrist: No fracture or dislocation is present. The joint spaces are normal. No erosions are seen. Bone density is normal. The soft tissues are normal. Left wrist: No fracture or dislocation is present. The joint spaces are normal. No erosions are seen. Bone density is normal. The soft tissues are normal. Right elbow: No acute fracture or dislocation is present. The joint spaces arenormal. No erosions are seen. There is no effusion. Left elbow: No acute fracture or dislocation is present. The joint spaces arenormal. No erosions are seen. There is no effusion. Right shoulder: There is no fracture or dislocation. There is no acromioclavicular or glenohumeral arthritis. Left shoulder: There is no fracture or dislocation. There is no acromioclavicular or glenohumeral arthritis. Pelvis: There is no fracture. The pubic symphysis and hip joint spaces arenormal. There is mild degenerative change of the sacroiliac joints with small osteophytes. There are no erosions. There are no iliac crest enthesophytes. Sacroiliac joints: The right sacroiliac joint is normal without erosion, widening,narrowing, sclerosis, or ankylosis. The left sacroiliac joint has smallosteophytes consistent with early osteoarthritis. There is no erosion, widening, narrowing, or ankylosis. No fracture is present. The hip joint spacesand pubic symphysis is normal. Right hip: No fracture or dislocation is present. The joint space is normal. Thereare no erosions. Left hip: No fracture or dislocation is present. The joint space is normal. Thereare no erosions. Right knee: No fracture or dislocation is present. The joint spaces are normal.There is very small osteophyte formation indicating early degenerative change. There are no erosions. There is no effusion. Left knee: No fracture or dislocation is present. The joint spaces are normal.There is small to moderate tricompartmental osteophyte formation. There are no erosions. There is no effusion. Right ankle: No fracture or dislocation is present. The joint spaces are normal. No erosions are seen. Bone density is normal. The soft tissues are normal. Left ankle: No fracture or dislocation is present. The joint spaces are normal. No erosions are seen. Bone density is normal. The soft tissues arenormal. Right foot: No fracture or dislocation is present. The joint spaces are normal. No erosions are seen. Bone density is normal. The soft tissues arenormal. Left foot: No fracture or dislocation is present. The joint spaces are normal. No erosions are seen. Bone density is normal. The soft tissues are normal. Cervical spine: The cervical lordosis is normal. No fracture or subluxation is present with flexion or extension. The intervertebral disc spaces are normal. There are small anterior osteophytes at C5-6 indicating earlydegenerative disc disease. Thoracic spine: The thoracic kyphosis is normal. There is no fracture or subluxation.The disc spaces are normal. Lumbar spine: The lumbar lordosis is normal. No fracture or subluxation is present.The intervertebral disc spaces are normal. There are a few small endplate osteophytes indicating early degenerative change. The facet joints are normal. Impression: 1.Right hand: Normal. 2.Left hand: Normal. 3.Right wrist: Normal. 4.Left wrist: Normal. 5.Right elbow: Normal. 6.Left elbow: Normal. 7.Right shoulder: Normal. 8.Left shoulder: Normal. 9.Right hip: Normal. 10.Left hip: Normal. 11.Pelvis: Mild degenerative change of the left sacroiliac joint. 12.Sacroiliac joints: Mild degenerative change of the left sacroiliac joint. The left sacroiliac joint is normal. 13.Right knee: Very small osteophytes indicating degenerative change, without joint space narrowing. 14.Left knee: Small to moderate small osteophytes indicatingdegenerative change, without joint space narrowing. 15.Right ankle: Normal. 16.Left ankle: Normal. 17.Right foot: Normal. 18.Left foot: Normal. 19.Cervical spine: Mild degenerative disc disease at C5-6. 20.Thoracic spine: Normal. 21.Lumbar spine: Normal. > Interpreting Provider: Clyde Shrestha MD on 07/21/2024 5:47 PM Babatunde Lopez MD DIAGNOSTIC IMAGING ORDERABLES Fi nal Result * XR Elbow Right 2Vw (07/21/2024 4:49 PM CDT) Anatomical Region Laterality Modality Upper Extremity Digital Radiogra phy 07/21/2024 4:54 PM CDT Impressions 07/21/2024 5:47 PM CDT Impression: 1.Right hand: Normal. 2.Left hand: Normal. 3.Right wrist: Normal. 4.Left wrist: Normal. 5.Right elbow: Normal. 6.Left elbow: Normal. 7.Right shoulder: Normal. 8.Left shoulder: Normal. 9.Right hip: Normal. 10.Left hip: Normal. 11.Pelvis: Mild degenerative change of the left sacroiliac joint. 12.Sacroiliac joints: Mild degenerative change of the left sacroiliac joint. The left sacroiliac joint is normal. 13.Right knee: Very small osteophytes indicating degenerative change, without joint space narrowing. 14.Left knee: Small to moderate small osteophytes indicating degenerative change, without joint space narrowing. 15.Right ankle: Normal. 16.Left ankle: Normal. 17.Right foot: Normal. 18.Left foot: Normal. 19.Cervical spine: Mild degenerative disc disease at C5-6. 20.Thoracic spine: Normal. 21.Lumbar spine: Normal. > Interpreting Provider: Clyde Shrestha MD on 07/21/2024 5:47 PM Narrative 07/21/2024 5:47 PM CDT PROCEDURE: XR HAND RIGHT 3VW OR MORE, XR PELVIS 3VW OR MORE, XR WRIST RIGHT 2VW, XR WRIST LEFT 2VW, XR SI JOINTS 3VW OR MORE, XR SHOULDER RIGHT 2VW OR MORE, XR SHOULDER LEFT 2VW OR MORE, XR KNEE RIGHT 3VW, XR KNEE LEFT 3VW, XR HIP RIGHT 2VW OR MORE, XR HIP LEFT 2VW OR MORE, XR HAND LEFT 3VW OR MORE, XR FOOT RIGHT 3VW OR MORE, XR FOOT LEFT 3VW OR MORE, XR ELBOW RIGHT 2VW, XR ELBOW LEFT 2VW, XR ANKLE RIGHT 2VW, XR ANKLE LEFT 2VW, XR THORACIC SPINE 2VW, XR LUMBAR SPINE 2 OR 3VW, XR CERVICAL SPINE 4 OR 5VW DATE/TIME OF EXAM: 07/21/2024 4:50 PM CLINICAL INFORMATION: None relevant/not provided if blank. Indication: M25.50: Polyarthralgia Additional History: COMPARISON: None. FINDINGS: Right hand: No fracture or dislocation is present. The joint spaces are normal. No erosions are seen. Bone density is normal. The soft tissues are normal. Left hand: No fracture or dislocation is present. The joint spaces are normal. No erosions are seen. Bone density is normal. The soft tissues are normal. Right wrist: No fracture or dislocation is present. The joint spaces are normal. No erosions are seen. Bone density is normal. The soft tissues are normal. Left wrist: No fracture or dislocation is present. The joint spaces are normal. No erosions are seen. Bone density is normal. The soft tissues are normal. Right elbow: No acute fracture or dislocation is present. The joint spaces are normal. No erosions are seen. There is no effusion. Left elbow: No acute fracture or dislocation is present. The joint spaces are normal. No erosions are seen. There is no effusion. Right shoulder: There is no fracture or dislocation. There is no acromioclavicular or glenohumeral arthritis. Left shoulder: There is no fracture or dislocation. There is no acromioclavicular or glenohumeral arthritis. Pelvis: There is no fracture. The pubic symphysis and hip joint spaces are normal. There is mild degenerative change of the sacroiliac joints with small osteophytes. There are no erosions. There are no iliac crest enthesophytes. Sacroiliac joints: The right sacroiliac joint is normal without erosion, widening, narrowing, sclerosis, or ankylosis. The left sacroiliac joint has small osteophytes consistent with early osteoarthritis. There is no erosion, widening, narrowing, or ankylosis. No fracture is present. The hip joint spaces and pubic symphysis is normal. Right hip: No fracture or dislocation is present. The joint space is normal. There are no erosions. Left hip: No fracture or dislocation is present. The joint space is normal. There are no erosions. Right knee: No fracture or dislocation is present. The joint spaces are normal. There is very small osteophyte formation indicating early degenerative change. There are no erosions. There is no effusion. Left knee: No fracture or dislocation is present. The joint spaces are normal. There is small to moderate tricompartmental osteophyte formation. There are no erosions. There is no effusion. Right ankle: No fracture or dislocation is present. The joint spaces are normal. No erosions are seen. Bone density is normal. The soft tissues are normal. Left ankle: No fracture or dislocation is present. The joint spaces are normal. No erosions are seen. Bone density is normal. The soft tissues are normal. Right foot: No fracture or dislocation is present. The joint spaces are normal. No erosions are seen. Bone density is normal. The soft tissues are normal. Left foot: No fracture or dislocation is present. The joint spaces are normal. No erosions are seen. Bone density is normal. The soft tissues are normal. Cervical spine: The cervical lordosis is normal. No fracture or subluxation is present with flexion or extension. The intervertebral disc spaces are normal. There are small anterior osteophytes at C5-6 indicating early degenerative disc disease. Thoracic spine: The thoracic kyphosis is normal. There is no fracture or subluxation. The disc spaces are normal. Lumbar spine: The lumbar lordosis is normal. No fracture or subluxation is present. The intervertebral disc spaces are normal. There are a few small endplate osteophytes indicating early degenerative change. The facet joints are normal. Procedure Note Clyde Shrestha MD - 07/21/2024 PROCEDURE: XR HAND RIGHT 3VW OR MORE, XR PELVIS 3VW OR MORE, XR WRIST RIGHT 2VW, XR WRIST LEFT 2VW, XR SI JOINTS 3VW OR MORE, XR SHOULDERRIGHT 2VW OR MORE, XR SHOULDER LEFT 2VW OR MORE, XR KNEE RIGHT 3VW, XR KNEELEFT 3VW, XR HIP RIGHT 2VW OR MORE, XR HIP LEFT 2VW OR MORE, XR HAND LEFT 3VWOR MORE, XR FOOT RIGHT 3VW OR MORE, XR FOOT LEFT 3VW OR MORE, XR ELBOWRIGHT 2VW, XR ELBOW LEFT 2VW, XR ANKLE RIGHT 2VW, XR ANKLE LEFT 2VW, XRTHORACIC SPINE 2VW, XR LUMBAR SPINE 2 OR 3VW, XR CERVICAL SPINE 4 OR 5VW DATE/TIME OF EXAM: 07/21/2024 4:50 PM CLINICAL INFORMATION: None relevant/not provided if blank. Indication: M25.50: Polyarthralgia Additional History: COMPARISON: None. FINDINGS: Right hand: No fracture or dislocation is present. The joint spaces are normal. No erosions are seen. Bone density is normal. The soft tissues are normal. Left hand: No fracture or dislocation is present. The joint spaces are normal. No erosions are seen. Bone density is normal. The soft tissues are normal. Right wrist: No fracture or dislocation is present. The joint spaces are normal. No erosions are seen. Bone density is normal. The soft tissues are normal. Left wrist: No fracture or dislocation is present. The joint spaces are normal. No erosions are seen. Bone density is normal. The soft tissues are normal. Right elbow: No acute fracture or dislocation is present. The joint spaces arenormal. No erosions are seen. There is no effusion. Left elbow: No acute fracture or dislocation is present. The joint spaces arenormal. No erosions are seen. There is no effusion. Right shoulder: There is no fracture or dislocation. There is no acromioclavicular or glenohumeral arthritis. Left shoulder: There is no fracture or dislocation. There is no acromioclavicular or glenohumeral arthritis. Pelvis: There is no fracture. The pubic symphysis and hip joint spaces arenormal. There is mild degenerative change of the sacroiliac joints with small osteophytes. There are no erosions. There are no iliac crest enthesophytes. Sacroiliac joints: The right sacroiliac joint is normal without erosion, widening,narrowing, sclerosis, or ankylosis. The left sacroiliac joint has smallosteophytes consistent with early osteoarthritis. There is no erosion, widening, narrowing, or ankylosis. No fracture is present. The hip joint spacesand pubic symphysis is normal. Right hip: No fracture or dislocation is present. The joint space is normal. Thereare no erosions. Left hip: No fracture or dislocation is present. The joint space is normal. Thereare no erosions. Right knee: No fracture or dislocation is present. The joint spaces are normal.There is very small osteophyte formation indicating early degenerative change. There are no erosions. There is no effusion. Left knee: No fracture or dislocation is present. The joint spaces are normal.There is small to moderate tricompartmental osteophyte formation. There are no erosions. There is no effusion. Right ankle: No fracture or dislocation is present. The joint spaces are normal. No erosions are seen. Bone density is normal. The soft tissues are normal. Left ankle: No fracture or dislocation is present. The joint spaces are normal. No erosions are seen. Bone density is normal. The soft tissues arenormal. Right foot: No fracture or dislocation is present. The joint spaces are normal. No erosions are seen. Bone density is normal. The soft tissues arenormal. Left foot: No fracture or dislocation is present. The joint spaces are normal. No erosions are seen. Bone density is normal. The soft tissues are normal. Cervical spine: The cervical lordosis is normal. No fracture or subluxation is present with flexion or extension. The intervertebral disc spaces are normal. There are small anterior osteophytes at C5-6 indicating earlydegenerative disc disease. Thoracic spine: The thoracic kyphosis is normal. There is no fracture or subluxation.The disc spaces are normal. Lumbar spine: The lumbar lordosis is normal. No fracture or subluxation is present.The intervertebral disc spaces are normal. There are a few small endplate osteophytes indicating early degenerative change. The facet joints are normal. Impression: 1.Right hand: Normal. 2.Left hand: Normal. 3.Right wrist: Normal. 4.Left wrist: Normal. 5.Right elbow: Normal. 6.Left elbow: Normal. 7.Right shoulder: Normal. 8.Left shoulder: Normal. 9.Right hip: Normal. 10.Left hip: Normal. 11.Pelvis: Mild degenerative change of the left sacroiliac joint. 12.Sacroiliac joints: Mild degenerative change of the left sacroiliac joint. The left sacroiliac joint is normal. 13.Right knee: Very small osteophytes indicating degenerative change, without joint space narrowing. 14.Left knee: Small to moderate small osteophytes indicatingdegenerative change, without joint space narrowing. 15.Right ankle: Normal. 16.Left ankle: Normal. 17.Right foot: Normal. 18.Left foot: Normal. 19.Cervical spine: Mild degenerative disc disease at C5-6. 20.Thoracic spine: Normal. 21.Lumbar spine: Normal. > Interpreting Provider: Clyde Shrestha MD on 07/21/2024 5:47 PM Babatunde Lopez MD DIAGNOSTIC IMAGING ORDERABLES Fi nal Result * XR Elbow Left 2Vw (07/21/2024 4:49 PM CDT) Anatomical Region Laterality Modality Upper Extremity Digital Radiogra phy 07/21/2024 4:54 PM CDT Impressions 07/21/2024 5:47 PM CDT Impression: 1.Right hand: Normal. 2.Left hand: Normal. 3.Right wrist: Normal. 4.Left wrist: Normal. 5.Right elbow: Normal. 6.Left elbow: Normal. 7.Right shoulder: Normal. 8.Left shoulder: Normal. 9.Right hip: Normal. 10.Left hip: Normal. 11.Pelvis: Mild degenerative change of the left sacroiliac joint. 12.Sacroiliac joints: Mild degenerative change of the left sacroiliac joint. The left sacroiliac joint is normal. 13.Right knee: Very small osteophytes indicating degenerative change, without joint space narrowing. 14.Left knee: Small to moderate small osteophytes indicating degenerative change, without joint space narrowing. 15.Right ankle: Normal. 16.Left ankle: Normal. 17.Right foot: Normal. 18.Left foot: Normal. 19.Cervical spine: Mild degenerative disc disease at C5-6. 20.Thoracic spine: Normal. 21.Lumbar spine: Normal. > Interpreting Provider: Clyde Shrestha MD on 07/21/2024 5:47 PM Narrative 07/21/2024 5:47 PM CDT PROCEDURE: XR HAND RIGHT 3VW OR MORE, XR PELVIS 3VW OR MORE, XR WRIST RIGHT 2VW, XR WRIST LEFT 2VW, XR SI JOINTS 3VW OR MORE, XR SHOULDER RIGHT 2VW OR MORE, XR SHOULDER LEFT 2VW OR MORE, XR KNEE RIGHT 3VW, XR KNEE LEFT 3VW, XR HIP RIGHT 2VW OR MORE, XR HIP LEFT 2VW OR MORE, XR HAND LEFT 3VW OR MORE, XR FOOT RIGHT 3VW OR MORE, XR FOOT LEFT 3VW OR MORE, XR ELBOW RIGHT 2VW, XR ELBOW LEFT 2VW, XR ANKLE RIGHT 2VW, XR ANKLE LEFT 2VW, XR THORACIC SPINE 2VW, XR LUMBAR SPINE 2 OR 3VW, XR CERVICAL SPINE 4 OR 5VW DATE/TIME OF EXAM: 07/21/2024 4:50 PM CLINICAL INFORMATION: None relevant/not provided if blank. Indication: M25.50: Polyarthralgia Additional History: COMPARISON: None. FINDINGS: Right hand: No fracture or dislocation is present. The joint spaces are normal. No erosions are seen. Bone density is normal. The soft tissues are normal. Left hand: No fracture or dislocation is present. The joint spaces are normal. No erosions are seen. Bone density is normal. The soft tissues are normal. Right wrist: No fracture or dislocation is present. The joint spaces are normal. No erosions are seen. Bone density is normal. The soft tissues are normal. Left wrist: No fracture or dislocation is present. The joint spaces are normal. No erosions are seen. Bone density is normal. The soft tissues are normal. Right elbow: No acute fracture or dislocation is present. The joint spaces are normal. No erosions are seen. There is no effusion. Left elbow: No acute fracture or dislocation is present. The joint spaces are normal. No erosions are seen. There is no effusion. Right shoulder: There is no fracture or dislocation. There is no acromioclavicular or glenohumeral arthritis. Left shoulder: There is no fracture or dislocation. There is no acromioclavicular or glenohumeral arthritis. Pelvis: There is no fracture. The pubic symphysis and hip joint spaces are normal. There is mild degenerative change of the sacroiliac joints with small osteophytes. There are no erosions. There are no iliac crest enthesophytes. Sacroiliac joints: The right sacroiliac joint is normal without erosion, widening, narrowing, sclerosis, or ankylosis. The left sacroiliac joint has small osteophytes consistent with early osteoarthritis. There is no erosion, widening, narrowing, or ankylosis. No fracture is present. The hip joint spaces and pubic symphysis is normal. Right hip: No fracture or dislocation is present. The joint space is normal. There are no erosions. Left hip: No fracture or dislocation is present. The joint space is normal. There are no erosions. Right knee: No fracture or dislocation is present. The joint spaces are normal. There is very small osteophyte formation indicating early degenerative change. There are no erosions. There is no effusion. Left knee: No fracture or dislocation is present. The joint spaces are normal. There is small to moderate tricompartmental osteophyte formation. There are no erosions. There is no effusion. Right ankle: No fracture or dislocation is present. The joint spaces are normal. No erosions are seen. Bone density is normal. The soft tissues are normal. Left ankle: No fracture or dislocation is present. The joint spaces are normal. No erosions are seen. Bone density is normal. The soft tissues are normal. Right foot: No fracture or dislocation is present. The joint spaces are normal. No erosions are seen. Bone density is normal. The soft tissues are normal. Left foot: No fracture or dislocation is present. The joint spaces are normal. No erosions are seen. Bone density is normal. The soft tissues are normal. Cervical spine: The cervical lordosis is normal. No fracture or subluxation is present with flexion or extension. The intervertebral disc spaces are normal. There are small anterior osteophytes at C5-6 indicating early degenerative disc disease. Thoracic spine: The thoracic kyphosis is normal. There is no fracture or subluxation. The disc spaces are normal. Lumbar spine: The lumbar lordosis is normal. No fracture or subluxation is present. The intervertebral disc spaces are normal. There are a few small endplate osteophytes indicating early degenerative change. The facet joints are normal. Procedure Note Clyde Shrestha MD - 07/21/2024 PROCEDURE: XR HAND RIGHT 3VW OR MORE, XR PELVIS 3VW OR MORE, XR WRIST RIGHT 2VW, XR WRIST LEFT 2VW, XR SI JOINTS 3VW OR MORE, XR SHOULDERRIGHT 2VW OR MORE, XR SHOULDER LEFT 2VW OR MORE, XR KNEE RIGHT 3VW, XR KNEELEFT 3VW, XR HIP RIGHT 2VW OR MORE, XR HIP LEFT 2VW OR MORE, XR HAND LEFT 3VWOR MORE, XR FOOT RIGHT 3VW OR MORE, XR FOOT LEFT 3VW OR MORE, XR ELBOWRIGHT 2VW, XR ELBOW LEFT 2VW, XR ANKLE RIGHT 2VW, XR ANKLE LEFT 2VW, XRTHORACIC SPINE 2VW, XR LUMBAR SPINE 2 OR 3VW, XR CERVICAL SPINE 4 OR 5VW DATE/TIME OF EXAM: 07/21/2024 4:50 PM CLINICAL INFORMATION: None relevant/not provided if blank. Indication: M25.50: Polyarthralgia Additional History: COMPARISON: None. FINDINGS: Right hand: No fracture or dislocation is present. The joint spaces are normal. No erosions are seen. Bone density is normal. The soft tissues are normal. Left hand: No fracture or dislocation is present. The joint spaces are normal. No erosions are seen. Bone density is normal. The soft tissues are normal. Right wrist: No fracture or dislocation is present. The joint spaces are normal. No erosions are seen. Bone density is normal. The soft tissues are normal. Left wrist: No fracture or dislocation is present. The joint spaces are normal. No erosions are seen. Bone density is normal. The soft tissues are normal. Right elbow: No acute fracture or dislocation is present. The joint spaces arenormal. No erosions are seen. There is no effusion. Left elbow: No acute fracture or dislocation is present. The joint spaces arenormal. No erosions are seen. There is no effusion. Right shoulder: There is no fracture or dislocation. There is no acromioclavicular or glenohumeral arthritis. Left shoulder: There is no fracture or dislocation. There is no acromioclavicular or glenohumeral arthritis. Pelvis: There is no fracture. The pubic symphysis and hip joint spaces arenormal. There is mild degenerative change of the sacroiliac joints with small osteophytes. There are no erosions. There are no iliac crest enthesophytes. Sacroiliac joints: The right sacroiliac joint is normal without erosion, widening,narrowing, sclerosis, or ankylosis. The left sacroiliac joint has smallosteophytes consistent with early osteoarthritis. There is no erosion, widening, narrowing, or ankylosis. No fracture is present. The hip joint spacesand pubic symphysis is normal. Right hip: No fracture or dislocation is present. The joint space is normal. Thereare no erosions. Left hip: No fracture or dislocation is present. The joint space is normal. Thereare no erosions. Right knee: No fracture or dislocation is present. The joint spaces are normal.There is very small osteophyte formation indicating early degenerative change. There are no erosions. There is no effusion. Left knee: No fracture or dislocation is present. The joint spaces are normal.There is small to moderate tricompartmental osteophyte formation. There are no erosions. There is no effusion. Right ankle: No fracture or dislocation is present. The joint spaces are normal. No erosions are seen. Bone density is normal. The soft tissues are normal. Left ankle: No fracture or dislocation is present. The joint spaces are normal. No erosions are seen. Bone density is normal. The soft tissues arenormal. Right foot: No fracture or dislocation is present. The joint spaces are normal. No erosions are seen. Bone density is normal. The soft tissues arenormal. Left foot: No fracture or dislocation is present. The joint spaces are normal. No erosions are seen. Bone density is normal. The soft tissues are normal. Cervical spine: The cervical lordosis is normal. No fracture or subluxation is present with flexion or extension. The intervertebral disc spaces are normal. There are small anterior osteophytes at C5-6 indicating earlydegenerative disc disease. Thoracic spine: The thoracic kyphosis is normal. There is no fracture or subluxation.The disc spaces are normal. Lumbar spine: The lumbar lordosis is normal. No fracture or subluxation is present.The intervertebral disc spaces are normal. There are a few small endplate osteophytes indicating early degenerative change. The facet joints are normal. Impression: 1.Right hand: Normal. 2.Left hand: Normal. 3.Right wrist: Normal. 4.Left wrist: Normal. 5.Right elbow: Normal. 6.Left elbow: Normal. 7.Right shoulder: Normal. 8.Left shoulder: Normal. 9.Right hip: Normal. 10.Left hip: Normal. 11.Pelvis: Mild degenerative change of the left sacroiliac joint. 12.Sacroiliac joints: Mild degenerative change of the left sacroiliac joint. The left sacroiliac joint is normal. 13.Right knee: Very small osteophytes indicating degenerative change, without joint space narrowing. 14.Left knee: Small to moderate small osteophytes indicatingdegenerative change, without joint space narrowing. 15.Right ankle: Normal. 16.Left ankle: Normal. 17.Right foot: Normal. 18.Left foot: Normal. 19.Cervical spine: Mild degenerative disc disease at C5-6. 20.Thoracic spine: Normal. 21.Lumbar spine: Normal. > Interpreting Provider: Clyde Shrestha MD on 07/21/2024 5:47 PM Babatunde Lopez MD DIAGNOSTIC IMAGING ORDERABLES Fi nal Result * XR Shoulder Right 2Vw or More (07/21/2024 4:49 PM CDT) Anatomical Region Laterality Modality Upper Extremity Digital Radiogra phy 07/21/2024 4:54 PM CDT Impressions 07/21/2024 5:47 PM CDT Impression: 1.Right hand: Normal. 2.Left hand: Normal. 3.Right wrist: Normal. 4.Left wrist: Normal. 5.Right elbow: Normal. 6.Left elbow: Normal. 7.Right shoulder: Normal. 8.Left shoulder: Normal. 9.Right hip: Normal. 10.Left hip: Normal. 11.Pelvis: Mild degenerative change of the left sacroiliac joint. 12.Sacroiliac joints: Mild degenerative change of the left sacroiliac joint. The left sacroiliac joint is normal. 13.Right knee: Very small osteophytes indicating degenerative change, without joint space narrowing. 14.Left knee: Small to moderate small osteophytes indicating degenerative change, without joint space narrowing. 15.Right ankle: Normal. 16.Left ankle: Normal. 17.Right foot: Normal. 18.Left foot: Normal. 19.Cervical spine: Mild degenerative disc disease at C5-6. 20.Thoracic spine: Normal. 21.Lumbar spine: Normal. > Interpreting Provider: Clyde Shrestha MD on 07/21/2024 5:47 PM Narrative 07/21/2024 5:47 PM CDT PROCEDURE: XR HAND RIGHT 3VW OR MORE, XR PELVIS 3VW OR MORE, XR WRIST RIGHT 2VW, XR WRIST LEFT 2VW, XR SI JOINTS 3VW OR MORE, XR SHOULDER RIGHT 2VW OR MORE, XR SHOULDER LEFT 2VW OR MORE, XR KNEE RIGHT 3VW, XR KNEE LEFT 3VW, XR HIP RIGHT 2VW OR MORE, XR HIP LEFT 2VW OR MORE, XR HAND LEFT 3VW OR MORE, XR FOOT RIGHT 3VW OR MORE, XR FOOT LEFT 3VW OR MORE, XR ELBOW RIGHT 2VW, XR ELBOW LEFT 2VW, XR ANKLE RIGHT 2VW, XR ANKLE LEFT 2VW, XR THORACIC SPINE 2VW, XR LUMBAR SPINE 2 OR 3VW, XR CERVICAL SPINE 4 OR 5VW DATE/TIME OF EXAM: 07/21/2024 4:50 PM CLINICAL INFORMATION: None relevant/not provided if blank. Indication: M25.50: Polyarthralgia Additional History: COMPARISON: None. FINDINGS: Right hand: No fracture or dislocation is present. The joint spaces are normal. No erosions are seen. Bone density is normal. The soft tissues are normal. Left hand: No fracture or dislocation is present. The joint spaces are normal. No erosions are seen. Bone density is normal. The soft tissues are normal. Right wrist: No fracture or dislocation is present. The joint spaces are normal. No erosions are seen. Bone density is normal. The soft tissues are normal. Left wrist: No fracture or dislocation is present. The joint spaces are normal. No erosions are seen. Bone density is normal. The soft tissues are normal. Right elbow: No acute fracture or dislocation is present. The joint spaces are normal. No erosions are seen. There is no effusion. Left elbow: No acute fracture or dislocation is present. The joint spaces are normal. No erosions are seen. There is no effusion. Right shoulder: There is no fracture or dislocation. There is no acromioclavicular or glenohumeral arthritis. Left shoulder: There is no fracture or dislocation. There is no acromioclavicular or glenohumeral arthritis. Pelvis: There is no fracture. The pubic symphysis and hip joint spaces are normal. There is mild degenerative change of the sacroiliac joints with small osteophytes. There are no erosions. There are no iliac crest enthesophytes. Sacroiliac joints: The right sacroiliac joint is normal without erosion, widening, narrowing, sclerosis, or ankylosis. The left sacroiliac joint has small osteophytes consistent with early osteoarthritis. There is no erosion, widening, narrowing, or ankylosis. No fracture is present. The hip joint spaces and pubic symphysis is normal. Right hip: No fracture or dislocation is present. The joint space is normal. There are no erosions. Left hip: No fracture or dislocation is present. The joint space is normal. There are no erosions. Right knee: No fracture or dislocation is present. The joint spaces are normal. There is very small osteophyte formation indicating early degenerative change. There are no erosions. There is no effusion. Left knee: No fracture or dislocation is present. The joint spaces are normal. There is small to moderate tricompartmental osteophyte formation. There are no erosions. There is no effusion. Right ankle: No fracture or dislocation is present. The joint spaces are normal. No erosions are seen. Bone density is normal. The soft tissues are normal. Left ankle: No fracture or dislocation is present. The joint spaces are normal. No erosions are seen. Bone density is normal. The soft tissues are normal. Right foot: No fracture or dislocation is present. The joint spaces are normal. No erosions are seen. Bone density is normal. The soft tissues are normal. Left foot: No fracture or dislocation is present. The joint spaces are normal. No erosions are seen. Bone density is normal. The soft tissues are normal. Cervical spine: The cervical lordosis is normal. No fracture or subluxation is present with flexion or extension. The intervertebral disc spaces are normal. There are small anterior osteophytes at C5-6 indicating early degenerative disc disease. Thoracic spine: The thoracic kyphosis is normal. There is no fracture or subluxation. The disc spaces are normal. Lumbar spine: The lumbar lordosis is normal. No fracture or subluxation is present. The intervertebral disc spaces are normal. There are a few small endplate osteophytes indicating early degenerative change. The facet joints are normal. Procedure Note Clyde Shrestha MD - 07/21/2024 PROCEDURE: XR HAND RIGHT 3VW OR MORE, XR PELVIS 3VW OR MORE, XR WRIST RIGHT 2VW, XR WRIST LEFT 2VW, XR SI JOINTS 3VW OR MORE, XR SHOULDERRIGHT 2VW OR MORE, XR SHOULDER LEFT 2VW OR MORE, XR KNEE RIGHT 3VW, XR KNEELEFT 3VW, XR HIP RIGHT 2VW OR MORE, XR HIP LEFT 2VW OR MORE, XR HAND LEFT 3VWOR MORE, XR FOOT RIGHT 3VW OR MORE, XR FOOT LEFT 3VW OR MORE, XR ELBOWRIGHT 2VW, XR ELBOW LEFT 2VW, XR ANKLE RIGHT 2VW, XR ANKLE LEFT 2VW, XRTHORACIC SPINE 2VW, XR LUMBAR SPINE 2 OR 3VW, XR CERVICAL SPINE 4 OR 5VW DATE/TIME OF EXAM: 07/21/2024 4:50 PM CLINICAL INFORMATION: None relevant/not provided if blank. Indication: M25.50: Polyarthralgia Additional History: COMPARISON: None. FINDINGS: Right hand: No fracture or dislocation is present. The joint spaces are normal. No erosions are seen. Bone density is normal. The soft tissues are normal. Left hand: No fracture or dislocation is present. The joint spaces are normal. No erosions are seen. Bone density is normal. The soft tissues are normal. Right wrist: No fracture or dislocation is present. The joint spaces are normal. No erosions are seen. Bone density is normal. The soft tissues are normal. Left wrist: No fracture or dislocation is present. The joint spaces are normal. No erosions are seen. Bone density is normal. The soft tissues are normal. Right elbow: No acute fracture or dislocation is present. The joint spaces arenormal. No erosions are seen. There is no effusion. Left elbow: No acute fracture or dislocation is present. The joint spaces arenormal. No erosions are seen. There is no effusion. Right shoulder: There is no fracture or dislocation. There is no acromioclavicular or glenohumeral arthritis. Left shoulder: There is no fracture or dislocation. There is no acromioclavicular or glenohumeral arthritis. Pelvis: There is no fracture. The pubic symphysis and hip joint spaces arenormal. There is mild degenerative change of the sacroiliac joints with small osteophytes. There are no erosions. There are no iliac crest enthesophytes. Sacroiliac joints: The right sacroiliac joint is normal without erosion, widening,narrowing, sclerosis, or ankylosis. The left sacroiliac joint has smallosteophytes consistent with early osteoarthritis. There is no erosion, widening, narrowing, or ankylosis. No fracture is present. The hip joint spacesand pubic symphysis is normal. Right hip: No fracture or dislocation is present. The joint space is normal. Thereare no erosions. Left hip: No fracture or dislocation is present. The joint space is normal. Thereare no erosions. Right knee: No fracture or dislocation is present. The joint spaces are normal.There is very small osteophyte formation indicating early degenerative change. There are no erosions. There is no effusion. Left knee: No fracture or dislocation is present. The joint spaces are normal.There is small to moderate tricompartmental osteophyte formation. There are no erosions. There is no effusion. Right ankle: No fracture or dislocation is present. The joint spaces are normal. No erosions are seen. Bone density is normal. The soft tissues are normal. Left ankle: No fracture or dislocation is present. The joint spaces are normal. No erosions are seen. Bone density is normal. The soft tissues arenormal. Right foot: No fracture or dislocation is present. The joint spaces are normal. No erosions are seen. Bone density is normal. The soft tissues arenormal. Left foot: No fracture or dislocation is present. The joint spaces are normal. No erosions are seen. Bone density is normal. The soft tissues are normal. Cervical spine: The cervical lordosis is normal. No fracture or subluxation is present with flexion or extension. The intervertebral disc spaces are normal. There are small anterior osteophytes at C5-6 indicating earlydegenerative disc disease. Thoracic spine: The thoracic kyphosis is normal. There is no fracture or subluxation.The disc spaces are normal. Lumbar spine: The lumbar lordosis is normal. No fracture or subluxation is present.The intervertebral disc spaces are normal. There are a few small endplate osteophytes indicating early degenerative change. The facet joints are normal. Impression: 1.Right hand: Normal. 2.Left hand: Normal. 3.Right wrist: Normal. 4.Left wrist: Normal. 5.Right elbow: Normal. 6.Left elbow: Normal. 7.Right shoulder: Normal. 8.Left shoulder: Normal. 9.Right hip: Normal. 10.Left hip: Normal. 11.Pelvis: Mild degenerative change of the left sacroiliac joint. 12.Sacroiliac joints: Mild degenerative change of the left sacroiliac joint. The left sacroiliac joint is normal. 13.Right knee: Very small osteophytes indicating degenerative change, without joint space narrowing. 14.Left knee: Small to moderate small osteophytes indicatingdegenerative change, without joint space narrowing. 15.Right ankle: Normal. 16.Left ankle: Normal. 17.Right foot: Normal. 18.Left foot: Normal. 19.Cervical spine: Mild degenerative disc disease at C5-6. 20.Thoracic spine: Normal. 21.Lumbar spine: Normal. > Interpreting Provider: Clyde Shrestha MD on 07/21/2024 5:47 PM Babatunde Lopez MD DIAGNOSTIC IMAGING ORDERABLES Fi nal Result * XR Shoulder Left 2Vw or More (07/21/2024 4:49 PM CDT) Anatomical Region Laterality Modality Upper Extremity Digital Radiogra phy 07/21/2024 4:54 PM CDT Impressions 07/21/2024 5:47 PM CDT Impression: 1.Right hand: Normal. 2.Left hand: Normal. 3.Right wrist: Normal. 4.Left wrist: Normal. 5.Right elbow: Normal. 6.Left elbow: Normal. 7.Right shoulder: Normal. 8.Left shoulder: Normal. 9.Right hip: Normal. 10.Left hip: Normal. 11.Pelvis: Mild degenerative change of the left sacroiliac joint. 12.Sacroiliac joints: Mild degenerative change of the left sacroiliac joint. The left sacroiliac joint is normal. 13.Right knee: Very small osteophytes indicating degenerative change, without joint space narrowing. 14.Left knee: Small to moderate small osteophytes indicating degenerative change, without joint space narrowing. 15.Right ankle: Normal. 16.Left ankle: Normal. 17.Right foot: Normal. 18.Left foot: Normal. 19.Cervical spine: Mild degenerative disc disease at C5-6. 20.Thoracic spine: Normal. 21.Lumbar spine: Normal. > Interpreting Provider: Clyde Shrestha MD on 07/21/2024 5:47 PM Narrative 07/21/2024 5:47 PM CDT PROCEDURE: XR HAND RIGHT 3VW OR MORE, XR PELVIS 3VW OR MORE, XR WRIST RIGHT 2VW, XR WRIST LEFT 2VW, XR SI JOINTS 3VW OR MORE, XR SHOULDER RIGHT 2VW OR MORE, XR SHOULDER LEFT 2VW OR MORE, XR KNEE RIGHT 3VW, XR KNEE LEFT 3VW, XR HIP RIGHT 2VW OR MORE, XR HIP LEFT 2VW OR MORE, XR HAND LEFT 3VW OR MORE, XR FOOT RIGHT 3VW OR MORE, XR FOOT LEFT 3VW OR MORE, XR ELBOW RIGHT 2VW, XR ELBOW LEFT 2VW, XR ANKLE RIGHT 2VW, XR ANKLE LEFT 2VW, XR THORACIC SPINE 2VW, XR LUMBAR SPINE 2 OR 3VW, XR CERVICAL SPINE 4 OR 5VW DATE/TIME OF EXAM: 07/21/2024 4:50 PM CLINICAL INFORMATION: None relevant/not provided if blank. Indication: M25.50: Polyarthralgia Additional History: COMPARISON: None. FINDINGS: Right hand: No fracture or dislocation is present. The joint spaces are normal. No erosions are seen. Bone density is normal. The soft tissues are normal. Left hand: No fracture or dislocation is present. The joint spaces are normal. No erosions are seen. Bone density is normal. The soft tissues are normal. Right wrist: No fracture or dislocation is present. The joint spaces are normal. No erosions are seen. Bone density is normal. The soft tissues are normal. Left wrist: No fracture or dislocation is present. The joint spaces are normal. No erosions are seen. Bone density is normal. The soft tissues are normal. Right elbow: No acute fracture or dislocation is present. The joint spaces are normal. No erosions are seen. There is no effusion. Left elbow: No acute fracture or dislocation is present. The joint spaces are normal. No erosions are seen. There is no effusion. Right shoulder: There is no fracture or dislocation. There is no acromioclavicular or glenohumeral arthritis. Left shoulder: There is no fracture or dislocation. There is no acromioclavicular or glenohumeral arthritis. Pelvis: There is no fracture. The pubic symphysis and hip joint spaces are normal. There is mild degenerative change of the sacroiliac joints with small osteophytes. There are no erosions. There are no iliac crest enthesophytes. Sacroiliac joints: The right sacroiliac joint is normal without erosion, widening, narrowing, sclerosis, or ankylosis. The left sacroiliac joint has small osteophytes consistent with early osteoarthritis. There is no erosion, widening, narrowing, or ankylosis. No fracture is present. The hip joint spaces and pubic symphysis is normal. Right hip: No fracture or dislocation is present. The joint space is normal. There are no erosions. Left hip: No fracture or dislocation is present. The joint space is normal. There are no erosions. Right knee: No fracture or dislocation is present. The joint spaces are normal. There is very small osteophyte formation indicating early degenerative change. There are no erosions. There is no effusion. Left knee: No fracture or dislocation is present. The joint spaces are normal. There is small to moderate tricompartmental osteophyte formation. There are no erosions. There is no effusion. Right ankle: No fracture or dislocation is present. The joint spaces are normal. No erosions are seen. Bone density is normal. The soft tissues are normal. Left ankle: No fracture or dislocation is present. The joint spaces are normal. No erosions are seen. Bone density is normal. The soft tissues are normal. Right foot: No fracture or dislocation is present. The joint spaces are normal. No erosions are seen. Bone density is normal. The soft tissues are normal. Left foot: No fracture or dislocation is present. The joint spaces are normal. No erosions are seen. Bone density is normal. The soft tissues are normal. Cervical spine: The cervical lordosis is normal. No fracture or subluxation is present with flexion or extension. The intervertebral disc spaces are normal. There are small anterior osteophytes at C5-6 indicating early degenerative disc disease. Thoracic spine: The thoracic kyphosis is normal. There is no fracture or subluxation. The disc spaces are normal. Lumbar spine: The lumbar lordosis is normal. No fracture or subluxation is present. The intervertebral disc spaces are normal. There are a few small endplate osteophytes indicating early degenerative change. The facet joints are normal. Procedure Note Clyde Shrestha MD - 07/21/2024 PROCEDURE: XR HAND RIGHT 3VW OR MORE, XR PELVIS 3VW OR MORE, XR WRIST RIGHT 2VW, XR WRIST LEFT 2VW, XR SI JOINTS 3VW OR MORE, XR SHOULDERRIGHT 2VW OR MORE, XR SHOULDER LEFT 2VW OR MORE, XR KNEE RIGHT 3VW, XR KNEELEFT 3VW, XR HIP RIGHT 2VW OR MORE, XR HIP LEFT 2VW OR MORE, XR HAND LEFT 3VWOR MORE, XR FOOT RIGHT 3VW OR MORE, XR FOOT LEFT 3VW OR MORE, XR ELBOWRIGHT 2VW, XR ELBOW LEFT 2VW, XR ANKLE RIGHT 2VW, XR ANKLE LEFT 2VW, XRTHORACIC SPINE 2VW, XR LUMBAR SPINE 2 OR 3VW, XR CERVICAL SPINE 4 OR 5VW DATE/TIME OF EXAM: 07/21/2024 4:50 PM CLINICAL INFORMATION: None relevant/not provided if blank. Indication: M25.50: Polyarthralgia Additional History: COMPARISON: None. FINDINGS: Right hand: No fracture or dislocation is present. The joint spaces are normal. No erosions are seen. Bone density is normal. The soft tissues are normal. Left hand: No fracture or dislocation is present. The joint spaces are normal. No erosions are seen. Bone density is normal. The soft tissues are normal. Right wrist: No fracture or dislocation is present. The joint spaces are normal. No erosions are seen. Bone density is normal. The soft tissues are normal. Left wrist: No fracture or dislocation is present. The joint spaces are normal. No erosions are seen. Bone density is normal. The soft tissues are normal. Right elbow: No acute fracture or dislocation is present. The joint spaces arenormal. No erosions are seen. There is no effusion. Left elbow: No acute fracture or dislocation is present. The joint spaces arenormal. No erosions are seen. There is no effusion. Right shoulder: There is no fracture or dislocation. There is no acromioclavicular or glenohumeral arthritis. Left shoulder: There is no fracture or dislocation. There is no acromioclavicular or glenohumeral arthritis. Pelvis: There is no fracture. The pubic symphysis and hip joint spaces arenormal. There is mild degenerative change of the sacroiliac joints with small osteophytes. There are no erosions. There are no iliac crest enthesophytes. Sacroiliac joints: The right sacroiliac joint is normal without erosion, widening,narrowing, sclerosis, or ankylosis. The left sacroiliac joint has smallosteophytes consistent with early osteoarthritis. There is no erosion, widening, narrowing, or ankylosis. No fracture is present. The hip joint spacesand pubic symphysis is normal. Right hip: No fracture or dislocation is present. The joint space is normal. Thereare no erosions. Left hip: No fracture or dislocation is present. The joint space is normal. Thereare no erosions. Right knee: No fracture or dislocation is present. The joint spaces are normal.There is very small osteophyte formation indicating early degenerative change. There are no erosions. There is no effusion. Left knee: No fracture or dislocation is present. The joint spaces are normal.There is small to moderate tricompartmental osteophyte formation. There are no erosions. There is no effusion. Right ankle: No fracture or dislocation is present. The joint spaces are normal. No erosions are seen. Bone density is normal. The soft tissues are normal. Left ankle: No fracture or dislocation is present. The joint spaces are normal. No erosions are seen. Bone density is normal. The soft tissues arenormal. Right foot: No fracture or dislocation is present. The joint spaces are normal. No erosions are seen. Bone density is normal. The soft tissues arenormal. Left foot: No fracture or dislocation is present. The joint spaces are normal. No erosions are seen. Bone density is normal. The soft tissues are normal. Cervical spine: The cervical lordosis is normal. No fracture or subluxation is present with flexion or extension. The intervertebral disc spaces are normal. There are small anterior osteophytes at C5-6 indicating earlydegenerative disc disease. Thoracic spine: The thoracic kyphosis is normal. There is no fracture or subluxation.The disc spaces are normal. Lumbar spine: The lumbar lordosis is normal. No fracture or subluxation is present.The intervertebral disc spaces are normal. There are a few small endplate osteophytes indicating early degenerative change. The facet joints are normal. Impression: 1.Right hand: Normal. 2.Left hand: Normal. 3.Right wrist: Normal. 4.Left wrist: Normal. 5.Right elbow: Normal. 6.Left elbow: Normal. 7.Right shoulder: Normal. 8.Left shoulder: Normal. 9.Right hip: Normal. 10.Left hip: Normal. 11.Pelvis: Mild degenerative change of the left sacroiliac joint. 12.Sacroiliac joints: Mild degenerative change of the left sacroiliac joint. The left sacroiliac joint is normal. 13.Right knee: Very small osteophytes indicating degenerative change, without joint space narrowing. 14.Left knee: Small to moderate small osteophytes indicatingdegenerative change, without joint space narrowing. 15.Right ankle: Normal. 16.Left ankle: Normal. 17.Right foot: Normal. 18.Left foot: Normal. 19.Cervical spine: Mild degenerative disc disease at C5-6. 20.Thoracic spine: Normal. 21.Lumbar spine: Normal. > Interpreting Provider: Clyde Shrestha MD on 07/21/2024 5:47 PM Babatunde Lopez MD DIAGNOSTIC IMAGING ORDERABLES Fi nal Result * XR SI Joints 3Vw or More (07/21/2024 4:49 PM CDT) Anatomical Region Laterality Modality Pelvis, Lower Extremity Digital Radiography 07/21/2024 4:54 PM CDT Impressions 07/21/2024 5:47 PM CDT Impression: 1.Right hand: Normal. 2.Left hand: Normal. 3.Right wrist: Normal. 4.Left wrist: Normal. 5.Right elbow: Normal. 6.Left elbow: Normal. 7.Right shoulder: Normal. 8.Left shoulder: Normal. 9.Right hip: Normal. 10.Left hip: Normal. 11.Pelvis: Mild degenerative change of the left sacroiliac joint. 12.Sacroiliac joints: Mild degenerative change of the left sacroiliac joint. The left sacroiliac joint is normal. 13.Right knee: Very small osteophytes indicating degenerative change, without joint space narrowing. 14.Left knee: Small to moderate small osteophytes indicating degenerative change, without joint space narrowing. 15.Right ankle: Normal. 16.Left ankle: Normal. 17.Right foot: Normal. 18.Left foot: Normal. 19.Cervical spine: Mild degenerative disc disease at C5-6. 20.Thoracic spine: Normal. 21.Lumbar spine: Normal. > Interpreting Provider: Clyde Shrestha MD on 07/21/2024 5:47 PM Narrative 07/21/2024 5:47 PM CDT PROCEDURE: XR HAND RIGHT 3VW OR MORE, XR PELVIS 3VW OR MORE, XR WRIST RIGHT 2VW, XR WRIST LEFT 2VW, XR SI JOINTS 3VW OR MORE, XR SHOULDER RIGHT 2VW OR MORE, XR SHOULDER LEFT 2VW OR MORE, XR KNEE RIGHT 3VW, XR KNEE LEFT 3VW, XR HIP RIGHT 2VW OR MORE, XR HIP LEFT 2VW OR MORE, XR HAND LEFT 3VW OR MORE, XR FOOT RIGHT 3VW OR MORE, XR FOOT LEFT 3VW OR MORE, XR ELBOW RIGHT 2VW, XR ELBOW LEFT 2VW, XR ANKLE RIGHT 2VW, XR ANKLE LEFT 2VW, XR THORACIC SPINE 2VW, XR LUMBAR SPINE 2 OR 3VW, XR CERVICAL SPINE 4 OR 5VW DATE/TIME OF EXAM: 07/21/2024 4:50 PM CLINICAL INFORMATION: None relevant/not provided if blank. Indication: M25.50: Polyarthralgia Additional History: COMPARISON: None. FINDINGS: Right hand: No fracture or dislocation is present. The joint spaces are normal. No erosions are seen. Bone density is normal. The soft tissues are normal. Left hand: No fracture or dislocation is present. The joint spaces are normal. No erosions are seen. Bone density is normal. The soft tissues are normal. Right wrist: No fracture or dislocation is present. The joint spaces are normal. No erosions are seen. Bone density is normal. The soft tissues are normal. Left wrist: No fracture or dislocation is present. The joint spaces are normal. No erosions are seen. Bone density is normal. The soft tissues are normal. Right elbow: No acute fracture or dislocation is present. The joint spaces are normal. No erosions are seen. There is no effusion. Left elbow: No acute fracture or dislocation is present. The joint spaces are normal. No erosions are seen. There is no effusion. Right shoulder: There is no fracture or dislocation. There is no acromioclavicular or glenohumeral arthritis. Left shoulder: There is no fracture or dislocation. There is no acromioclavicular or glenohumeral arthritis. Pelvis: There is no fracture. The pubic symphysis and hip joint spaces are normal. There is mild degenerative change of the sacroiliac joints with small osteophytes. There are no erosions. There are no iliac crest enthesophytes. Sacroiliac joints: The right sacroiliac joint is normal without erosion, widening, narrowing, sclerosis, or ankylosis. The left sacroiliac joint has small osteophytes consistent with early osteoarthritis. There is no erosion, widening, narrowing, or ankylosis. No fracture is present. The hip joint spaces and pubic symphysis is normal. Right hip: No fracture or dislocation is present. The joint space is normal. There are no erosions. Left hip: No fracture or dislocation is present. The joint space is normal. There are no erosions. Right knee: No fracture or dislocation is present. The joint spaces are normal. There is very small osteophyte formation indicating early degenerative change. There are no erosions. There is no effusion. Left knee: No fracture or dislocation is present. The joint spaces are normal. There is small to moderate tricompartmental osteophyte formation. There are no erosions. There is no effusion. Right ankle: No fracture or dislocation is present. The joint spaces are normal. No erosions are seen. Bone density is normal. The soft tissues are normal. Left ankle: No fracture or dislocation is present. The joint spaces are normal. No erosions are seen. Bone density is normal. The soft tissues are normal. Right foot: No fracture or dislocation is present. The joint spaces are normal. No erosions are seen. Bone density is normal. The soft tissues are normal. Left foot: No fracture or dislocation is present. The joint spaces are normal. No erosions are seen. Bone density is normal. The soft tissues are normal. Cervical spine: The cervical lordosis is normal. No fracture or subluxation is present with flexion or extension. The intervertebral disc spaces are normal. There are small anterior osteophytes at C5-6 indicating early degenerative disc disease. Thoracic spine: The thoracic kyphosis is normal. There is no fracture or subluxation. The disc spaces are normal. Lumbar spine: The lumbar lordosis is normal. No fracture or subluxation is present. The intervertebral disc spaces are normal. There are a few small endplate osteophytes indicating early degenerative change. The facet joints are normal. Procedure Note Clyde Shrestha MD - 07/21/2024 PROCEDURE: XR HAND RIGHT 3VW OR MORE, XR PELVIS 3VW OR MORE, XR WRIST RIGHT 2VW, XR WRIST LEFT 2VW, XR SI JOINTS 3VW OR MORE, XR SHOULDERRIGHT 2VW OR MORE, XR SHOULDER LEFT 2VW OR MORE, XR KNEE RIGHT 3VW, XR KNEELEFT 3VW, XR HIP RIGHT 2VW OR MORE, XR HIP LEFT 2VW OR MORE, XR HAND LEFT 3VWOR MORE, XR FOOT RIGHT 3VW OR MORE, XR FOOT LEFT 3VW OR MORE, XR ELBOWRIGHT 2VW, XR ELBOW LEFT 2VW, XR ANKLE RIGHT 2VW, XR ANKLE LEFT 2VW, XRTHORACIC SPINE 2VW, XR LUMBAR SPINE 2 OR 3VW, XR CERVICAL SPINE 4 OR 5VW DATE/TIME OF EXAM: 07/21/2024 4:50 PM CLINICAL INFORMATION: None relevant/not provided if blank. Indication: M25.50: Polyarthralgia Additional History: COMPARISON: None. FINDINGS: Right hand: No fracture or dislocation is present. The joint spaces are normal. No erosions are seen. Bone density is normal. The soft tissues are normal. Left hand: No fracture or dislocation is present. The joint spaces are normal. No erosions are seen. Bone density is normal. The soft tissues are normal. Right wrist: No fracture or dislocation is present. The joint spaces are normal. No erosions are seen. Bone density is normal. The soft tissues are normal. Left wrist: No fracture or dislocation is present. The joint spaces are normal. No erosions are seen. Bone density is normal. The soft tissues are normal. Right elbow: No acute fracture or dislocation is present. The joint spaces arenormal. No erosions are seen. There is no effusion. Left elbow: No acute fracture or dislocation is present. The joint spaces arenormal. No erosions are seen. There is no effusion. Right shoulder: There is no fracture or dislocation. There is no acromioclavicular or glenohumeral arthritis. Left shoulder: There is no fracture or dislocation. There is no acromioclavicular or glenohumeral arthritis. Pelvis: There is no fracture. The pubic symphysis and hip joint spaces arenormal. There is mild degenerative change of the sacroiliac joints with small osteophytes. There are no erosions. There are no iliac crest enthesophytes. Sacroiliac joints: The right sacroiliac joint is normal without erosion, widening,narrowing, sclerosis, or ankylosis. The left sacroiliac joint has smallosteophytes consistent with early osteoarthritis. There is no erosion, widening, narrowing, or ankylosis. No fracture is present. The hip joint spacesand pubic symphysis is normal. Right hip: No fracture or dislocation is present. The joint space is normal. Thereare no erosions. Left hip: No fracture or dislocation is present. The joint space is normal. Thereare no erosions. Right knee: No fracture or dislocation is present. The joint spaces are normal.There is very small osteophyte formation indicating early degenerative change. There are no erosions. There is no effusion. Left knee: No fracture or dislocation is present. The joint spaces are normal.There is small to moderate tricompartmental osteophyte formation. There are no erosions. There is no effusion. Right ankle: No fracture or dislocation is present. The joint spaces are normal. No erosions are seen. Bone density is normal. The soft tissues are normal. Left ankle: No fracture or dislocation is present. The joint spaces are normal. No erosions are seen. Bone density is normal. The soft tissues arenormal. Right foot: No fracture or dislocation is present. The joint spaces are normal. No erosions are seen. Bone density is normal. The soft tissues arenormal. Left foot: No fracture or dislocation is present. The joint spaces are normal. No erosions are seen. Bone density is normal. The soft tissues are normal. Cervical spine: The cervical lordosis is normal. No fracture or subluxation is present with flexion or extension. The intervertebral disc spaces are normal. There are small anterior osteophytes at C5-6 indicating earlydegenerative disc disease. Thoracic spine: The thoracic kyphosis is normal. There is no fracture or subluxation.The disc spaces are normal. Lumbar spine: The lumbar lordosis is normal. No fracture or subluxation is present.The intervertebral disc spaces are normal. There are a few small endplate osteophytes indicating early degenerative change. The facet joints are normal. Impression: 1.Right hand: Normal. 2.Left hand: Normal. 3.Right wrist: Normal. 4.Left wrist: Normal. 5.Right elbow: Normal. 6.Left elbow: Normal. 7.Right shoulder: Normal. 8.Left shoulder: Normal. 9.Right hip: Normal. 10.Left hip: Normal. 11.Pelvis: Mild degenerative change of the left sacroiliac joint. 12.Sacroiliac joints: Mild degenerative change of the left sacroiliac joint. The left sacroiliac joint is normal. 13.Right knee: Very small osteophytes indicating degenerative change, without joint space narrowing. 14.Left knee: Small to moderate small osteophytes indicatingdegenerative change, without joint space narrowing. 15.Right ankle: Normal. 16.Left ankle: Normal. 17.Right foot: Normal. 18.Left foot: Normal. 19.Cervical spine: Mild degenerative disc disease at C5-6. 20.Thoracic spine: Normal. 21.Lumbar spine: Normal. > Interpreting Provider: Clyde Shrestha MD on 07/21/2024 5:47 PM Babatunde Lopez MD DIAGNOSTIC IMAGING ORDERABLES Fi nal Result * XR Pelvis 3Vw or More (07/21/2024 4:49 PM CDT) Anatomical Region Laterality Modality Pelvis Digital Radiogra phy 07/21/2024 4:54 PM CDT Impressions 07/21/2024 5:47 PM CDT Impression: 1.Right hand: Normal. 2.Left hand: Normal. 3.Right wrist: Normal. 4.Left wrist: Normal. 5.Right elbow: Normal. 6.Left elbow: Normal. 7.Right shoulder: Normal. 8.Left shoulder: Normal. 9.Right hip: Normal. 10.Left hip: Normal. 11.Pelvis: Mild degenerative change of the left sacroiliac joint. 12.Sacroiliac joints: Mild degenerative change of the left sacroiliac joint. The left sacroiliac joint is normal. 13.Right knee: Very small osteophytes indicating degenerative change, without joint space narrowing. 14.Left knee: Small to moderate small osteophytes indicating degenerative change, without joint space narrowing. 15.Right ankle: Normal. 16.Left ankle: Normal. 17.Right foot: Normal. 18.Left foot: Normal. 19.Cervical spine: Mild degenerative disc disease at C5-6. 20.Thoracic spine: Normal. 21.Lumbar spine: Normal. > Interpreting Provider: Clyde Shrestha MD on 07/21/2024 5:47 PM Narrative 07/21/2024 5:47 PM CDT PROCEDURE: XR HAND RIGHT 3VW OR MORE, XR PELVIS 3VW OR MORE, XR WRIST RIGHT 2VW, XR WRIST LEFT 2VW, XR SI JOINTS 3VW OR MORE, XR SHOULDER RIGHT 2VW OR MORE, XR SHOULDER LEFT 2VW OR MORE, XR KNEE RIGHT 3VW, XR KNEE LEFT 3VW, XR HIP RIGHT 2VW OR MORE, XR HIP LEFT 2VW OR MORE, XR HAND LEFT 3VW OR MORE, XR FOOT RIGHT 3VW OR MORE, XR FOOT LEFT 3VW OR MORE, XR ELBOW RIGHT 2VW, XR ELBOW LEFT 2VW, XR ANKLE RIGHT 2VW, XR ANKLE LEFT 2VW, XR THORACIC SPINE 2VW, XR LUMBAR SPINE 2 OR 3VW, XR CERVICAL SPINE 4 OR 5VW DATE/TIME OF EXAM: 07/21/2024 4:50 PM CLINICAL INFORMATION: None relevant/not provided if blank. Indication: M25.50: Polyarthralgia Additional History: COMPARISON: None. FINDINGS: Right hand: No fracture or dislocation is present. The joint spaces are normal. No erosions are seen. Bone density is normal. The soft tissues are normal. Left hand: No fracture or dislocation is present. The joint spaces are normal. No erosions are seen. Bone density is normal. The soft tissues are normal. Right wrist: No fracture or dislocation is present. The joint spaces are normal. No erosions are seen. Bone density is normal. The soft tissues are normal. Left wrist: No fracture or dislocation is present. The joint spaces are normal. No erosions are seen. Bone density is normal. The soft tissues are normal. Right elbow: No acute fracture or dislocation is present. The joint spaces are normal. No erosions are seen. There is no effusion. Left elbow: No acute fracture or dislocation is present. The joint spaces are normal. No erosions are seen. There is no effusion. Right shoulder: There is no fracture or dislocation. There is no acromioclavicular or glenohumeral arthritis. Left shoulder: There is no fracture or dislocation. There is no acromioclavicular or glenohumeral arthritis. Pelvis: There is no fracture. The pubic symphysis and hip joint spaces are normal. There is mild degenerative change of the sacroiliac joints with small osteophytes. There are no erosions. There are no iliac crest enthesophytes. Sacroiliac joints: The right sacroiliac joint is normal without erosion, widening, narrowing, sclerosis, or ankylosis. The left sacroiliac joint has small osteophytes consistent with early osteoarthritis. There is no erosion, widening, narrowing, or ankylosis. No fracture is present. The hip joint spaces and pubic symphysis is normal. Right hip: No fracture or dislocation is present. The joint space is normal. There are no erosions. Left hip: No fracture or dislocation is present. The joint space is normal. There are no erosions. Right knee: No fracture or dislocation is present. The joint spaces are normal. There is very small osteophyte formation indicating early degenerative change. There are no erosions. There is no effusion. Left knee: No fracture or dislocation is present. The joint spaces are normal. There is small to moderate tricompartmental osteophyte formation. There are no erosions. There is no effusion. Right ankle: No fracture or dislocation is present. The joint spaces are normal. No erosions are seen. Bone density is normal. The soft tissues are normal. Left ankle: No fracture or dislocation is present. The joint spaces are normal. No erosions are seen. Bone density is normal. The soft tissues are normal. Right foot: No fracture or dislocation is present. The joint spaces are normal. No erosions are seen. Bone density is normal. The soft tissues are normal. Left foot: No fracture or dislocation is present. The joint spaces are normal. No erosions are seen. Bone density is normal. The soft tissues are normal. Cervical spine: The cervical lordosis is normal. No fracture or subluxation is present with flexion or extension. The intervertebral disc spaces are normal. There are small anterior osteophytes at C5-6 indicating early degenerative disc disease. Thoracic spine: The thoracic kyphosis is normal. There is no fracture or subluxation. The disc spaces are normal. Lumbar spine: The lumbar lordosis is normal. No fracture or subluxation is present. The intervertebral disc spaces are normal. There are a few small endplate osteophytes indicating early degenerative change. The facet joints are normal. Procedure Note Clyde Shrestha MD - 07/21/2024 PROCEDURE: XR HAND RIGHT 3VW OR MORE, XR PELVIS 3VW OR MORE, XR WRIST RIGHT 2VW, XR WRIST LEFT 2VW, XR SI JOINTS 3VW OR MORE, XR SHOULDERRIGHT 2VW OR MORE, XR SHOULDER LEFT 2VW OR MORE, XR KNEE RIGHT 3VW, XR KNEELEFT 3VW, XR HIP RIGHT 2VW OR MORE, XR HIP LEFT 2VW OR MORE, XR HAND LEFT 3VWOR MORE, XR FOOT RIGHT 3VW OR MORE, XR FOOT LEFT 3VW OR MORE, XR ELBOWRIGHT 2VW, XR ELBOW LEFT 2VW, XR ANKLE RIGHT 2VW, XR ANKLE LEFT 2VW, XRTHORACIC SPINE 2VW, XR LUMBAR SPINE 2 OR 3VW, XR CERVICAL SPINE 4 OR 5VW DATE/TIME OF EXAM: 07/21/2024 4:50 PM CLINICAL INFORMATION: None relevant/not provided if blank. Indication: M25.50: Polyarthralgia Additional History: COMPARISON: None. FINDINGS: Right hand: No fracture or dislocation is present. The joint spaces are normal. No erosions are seen. Bone density is normal. The soft tissues are normal. Left hand: No fracture or dislocation is present. The joint spaces are normal. No erosions are seen. Bone density is normal. The soft tissues are normal. Right wrist: No fracture or dislocation is present. The joint spaces are normal. No erosions are seen. Bone density is normal. The soft tissues are normal. Left wrist: No fracture or dislocation is present. The joint spaces are normal. No erosions are seen. Bone density is normal. The soft tissues are normal. Right elbow: No acute fracture or dislocation is present. The joint spaces arenormal. No erosions are seen. There is no effusion. Left elbow: No acute fracture or dislocation is present. The joint spaces arenormal. No erosions are seen. There is no effusion. Right shoulder: There is no fracture or dislocation. There is no acromioclavicular or glenohumeral arthritis. Left shoulder: There is no fracture or dislocation. There is no acromioclavicular or glenohumeral arthritis. Pelvis: There is no fracture. The pubic symphysis and hip joint spaces arenormal. There is mild degenerative change of the sacroiliac joints with small osteophytes. There are no erosions. There are no iliac crest enthesophytes. Sacroiliac joints: The right sacroiliac joint is normal without erosion, widening,narrowing, sclerosis, or ankylosis. The left sacroiliac joint has smallosteophytes consistent with early osteoarthritis. There is no erosion, widening, narrowing, or ankylosis. No fracture is present. The hip joint spacesand pubic symphysis is normal. Right hip: No fracture or dislocation is present. The joint space is normal. Thereare no erosions. Left hip: No fracture or dislocation is present. The joint space is normal. Thereare no erosions. Right knee: No fracture or dislocation is present. The joint spaces are normal.There is very small osteophyte formation indicating early degenerative change. There are no erosions. There is no effusion. Left knee: No fracture or dislocation is present. The joint spaces are normal.There is small to moderate tricompartmental osteophyte formation. There are no erosions. There is no effusion. Right ankle: No fracture or dislocation is present. The joint spaces are normal. No erosions are seen. Bone density is normal. The soft tissues are normal. Left ankle: No fracture or dislocation is present. The joint spaces are normal. No erosions are seen. Bone density is normal. The soft tissues arenormal. Right foot: No fracture or dislocation is present. The joint spaces are normal. No erosions are seen. Bone density is normal. The soft tissues arenormal. Left foot: No fracture or dislocation is present. The joint spaces are normal. No erosions are seen. Bone density is normal. The soft tissues are normal. Cervical spine: The cervical lordosis is normal. No fracture or subluxation is present with flexion or extension. The intervertebral disc spaces are normal. There are small anterior osteophytes at C5-6 indicating earlydegenerative disc disease. Thoracic spine: The thoracic kyphosis is normal. There is no fracture or subluxation.The disc spaces are normal. Lumbar spine: The lumbar lordosis is normal. No fracture or subluxation is present.The intervertebral disc spaces are normal. There are a few small endplate osteophytes indicating early degenerative change. The facet joints are normal. Impression: 1.Right hand: Normal. 2.Left hand: Normal. 3.Right wrist: Normal. 4.Left wrist: Normal. 5.Right elbow: Normal. 6.Left elbow: Normal. 7.Right shoulder: Normal. 8.Left shoulder: Normal. 9.Right hip: Normal. 10.Left hip: Normal. 11.Pelvis: Mild degenerative change of the left sacroiliac joint. 12.Sacroiliac joints: Mild degenerative change of the left sacroiliac joint. The left sacroiliac joint is normal. 13.Right knee: Very small osteophytes indicating degenerative change, without joint space narrowing. 14.Left knee: Small to moderate small osteophytes indicatingdegenerative change, without joint space narrowing. 15.Right ankle: Normal. 16.Left ankle: Normal. 17.Right foot: Normal. 18.Left foot: Normal. 19.Cervical spine: Mild degenerative disc disease at C5-6. 20.Thoracic spine: Normal. 21.Lumbar spine: Normal. > Interpreting Provider: Clyde Shrestha MD on 07/21/2024 5:47 PM Babatunde Lopez MD DIAGNOSTIC IMAGING ORDERABLES Fi nal Result * XR Lumbar Spine 2 or 3Vw (07/21/2024 4:49 PM CDT) Anatomical Region Laterality Modality Spine Digital Radiogra phy 07/21/2024 4:54 PM CDT Impressions 07/21/2024 5:47 PM CDT Impression: 1.Right hand: Normal. 2.Left hand: Normal. 3.Right wrist: Normal. 4.Left wrist: Normal. 5.Right elbow: Normal. 6.Left elbow: Normal. 7.Right shoulder: Normal. 8.Left shoulder: Normal. 9.Right hip: Normal. 10.Left hip: Normal. 11.Pelvis: Mild degenerative change of the left sacroiliac joint. 12.Sacroiliac joints: Mild degenerative change of the left sacroiliac joint. The left sacroiliac joint is normal. 13.Right knee: Very small osteophytes indicating degenerative change, without joint space narrowing. 14.Left knee: Small to moderate small osteophytes indicating degenerative change, without joint space narrowing. 15.Right ankle: Normal. 16.Left ankle: Normal. 17.Right foot: Normal. 18.Left foot: Normal. 19.Cervical spine: Mild degenerative disc disease at C5-6. 20.Thoracic spine: Normal. 21.Lumbar spine: Normal. > Interpreting Provider: Clyde Shrestha MD on 07/21/2024 5:47 PM Narrative 07/21/2024 5:47 PM CDT PROCEDURE: XR HAND RIGHT 3VW OR MORE, XR PELVIS 3VW OR MORE, XR WRIST RIGHT 2VW, XR WRIST LEFT 2VW, XR SI JOINTS 3VW OR MORE, XR SHOULDER RIGHT 2VW OR MORE, XR SHOULDER LEFT 2VW OR MORE, XR KNEE RIGHT 3VW, XR KNEE LEFT 3VW, XR HIP RIGHT 2VW OR MORE, XR HIP LEFT 2VW OR MORE, XR HAND LEFT 3VW OR MORE, XR FOOT RIGHT 3VW OR MORE, XR FOOT LEFT 3VW OR MORE, XR ELBOW RIGHT 2VW, XR ELBOW LEFT 2VW, XR ANKLE RIGHT 2VW, XR ANKLE LEFT 2VW, XR THORACIC SPINE 2VW, XR LUMBAR SPINE 2 OR 3VW, XR CERVICAL SPINE 4 OR 5VW DATE/TIME OF EXAM: 07/21/2024 4:50 PM CLINICAL INFORMATION: None relevant/not provided if blank. Indication: M25.50: Polyarthralgia Additional History: COMPARISON: None. FINDINGS: Right hand: No fracture or dislocation is present. The joint spaces are normal. No erosions are seen. Bone density is normal. The soft tissues are normal. Left hand: No fracture or dislocation is present. The joint spaces are normal. No erosions are seen. Bone density is normal. The soft tissues are normal. Right wrist: No fracture or dislocation is present. The joint spaces are normal. No erosions are seen. Bone density is normal. The soft tissues are normal. Left wrist: No fracture or dislocation is present. The joint spaces are normal. No erosions are seen. Bone density is normal. The soft tissues are normal. Right elbow: No acute fracture or dislocation is present. The joint spaces are normal. No erosions are seen. There is no effusion. Left elbow: No acute fracture or dislocation is present. The joint spaces are normal. No erosions are seen. There is no effusion. Right shoulder: There is no fracture or dislocation. There is no acromioclavicular or glenohumeral arthritis. Left shoulder: There is no fracture or dislocation. There is no acromioclavicular or glenohumeral arthritis. Pelvis: There is no fracture. The pubic symphysis and hip joint spaces are normal. There is mild degenerative change of the sacroiliac joints with small osteophytes. There are no erosions. There are no iliac crest enthesophytes. Sacroiliac joints: The right sacroiliac joint is normal without erosion, widening, narrowing, sclerosis, or ankylosis. The left sacroiliac joint has small osteophytes consistent with early osteoarthritis. There is no erosion, widening, narrowing, or ankylosis. No fracture is present. The hip joint spaces and pubic symphysis is normal. Right hip: No fracture or dislocation is present. The joint space is normal. There are no erosions. Left hip: No fracture or dislocation is present. The joint space is normal. There are no erosions. Right knee: No fracture or dislocation is present. The joint spaces are normal. There is very small osteophyte formation indicating early degenerative change. There are no erosions. There is no effusion. Left knee: No fracture or dislocation is present. The joint spaces are normal. There is small to moderate tricompartmental osteophyte formation. There are no erosions. There is no effusion. Right ankle: No fracture or dislocation is present. The joint spaces are normal. No erosions are seen. Bone density is normal. The soft tissues are normal. Left ankle: No fracture or dislocation is present. The joint spaces are normal. No erosions are seen. Bone density is normal. The soft tissues are normal. Right foot: No fracture or dislocation is present. The joint spaces are normal. No erosions are seen. Bone density is normal. The soft tissues are normal. Left foot: No fracture or dislocation is present. The joint spaces are normal. No erosions are seen. Bone density is normal. The soft tissues are normal. Cervical spine: The cervical lordosis is normal. No fracture or subluxation is present with flexion or extension. The intervertebral disc spaces are normal. There are small anterior osteophytes at C5-6 indicating early degenerative disc disease. Thoracic spine: The thoracic kyphosis is normal. There is no fracture or subluxation. The disc spaces are normal. Lumbar spine: The lumbar lordosis is normal. No fracture or subluxation is present. The intervertebral disc spaces are normal. There are a few small endplate osteophytes indicating early degenerative change. The facet joints are normal. Procedure Note Clyde Shrestha MD - 07/21/2024 PROCEDURE: XR HAND RIGHT 3VW OR MORE, XR PELVIS 3VW OR MORE, XR WRIST RIGHT 2VW, XR WRIST LEFT 2VW, XR SI JOINTS 3VW OR MORE, XR SHOULDERRIGHT 2VW OR MORE, XR SHOULDER LEFT 2VW OR MORE, XR KNEE RIGHT 3VW, XR KNEELEFT 3VW, XR HIP RIGHT 2VW OR MORE, XR HIP LEFT 2VW OR MORE, XR HAND LEFT 3VWOR MORE, XR FOOT RIGHT 3VW OR MORE, XR FOOT LEFT 3VW OR MORE, XR ELBOWRIGHT 2VW, XR ELBOW LEFT 2VW, XR ANKLE RIGHT 2VW, XR ANKLE LEFT 2VW, XRTHORACIC SPINE 2VW, XR LUMBAR SPINE 2 OR 3VW, XR CERVICAL SPINE 4 OR 5VW DATE/TIME OF EXAM: 07/21/2024 4:50 PM CLINICAL INFORMATION: None relevant/not provided if blank. Indication: M25.50: Polyarthralgia Additional History: COMPARISON: None. FINDINGS: Right hand: No fracture or dislocation is present. The joint spaces are normal. No erosions are seen. Bone density is normal. The soft tissues are normal. Left hand: No fracture or dislocation is present. The joint spaces are normal. No erosions are seen. Bone density is normal. The soft tissues are normal. Right wrist: No fracture or dislocation is present. The joint spaces are normal. No erosions are seen. Bone density is normal. The soft tissues are normal. Left wrist: No fracture or dislocation is present. The joint spaces are normal. No erosions are seen. Bone density is normal. The soft tissues are normal. Right elbow: No acute fracture or dislocation is present. The joint spaces arenormal. No erosions are seen. There is no effusion. Left elbow: No acute fracture or dislocation is present. The joint spaces arenormal. No erosions are seen. There is no effusion. Right shoulder: There is no fracture or dislocation. There is no acromioclavicular or glenohumeral arthritis. Left shoulder: There is no fracture or dislocation. There is no acromioclavicular or glenohumeral arthritis. Pelvis: There is no fracture. The pubic symphysis and hip joint spaces arenormal. There is mild degenerative change of the sacroiliac joints with small osteophytes. There are no erosions. There are no iliac crest enthesophytes. Sacroiliac joints: The right sacroiliac joint is normal without erosion, widening,narrowing, sclerosis, or ankylosis. The left sacroiliac joint has smallosteophytes consistent with early osteoarthritis. There is no erosion, widening, narrowing, or ankylosis. No fracture is present. The hip joint spacesand pubic symphysis is normal. Right hip: No fracture or dislocation is present. The joint space is normal. Thereare no erosions. Left hip: No fracture or dislocation is present. The joint space is normal. Thereare no erosions. Right knee: No fracture or dislocation is present. The joint spaces are normal.There is very small osteophyte formation indicating early degenerative change. There are no erosions. There is no effusion. Left knee: No fracture or dislocation is present. The joint spaces are normal.There is small to moderate tricompartmental osteophyte formation. There are no erosions. There is no effusion. Right ankle: No fracture or dislocation is present. The joint spaces are normal. No erosions are seen. Bone density is normal. The soft tissues are normal. Left ankle: No fracture or dislocation is present. The joint spaces are normal. No erosions are seen. Bone density is normal. The soft tissues arenormal. Right foot: No fracture or dislocation is present. The joint spaces are normal. No erosions are seen. Bone density is normal. The soft tissues arenormal. Left foot: No fracture or dislocation is present. The joint spaces are normal. No erosions are seen. Bone density is normal. The soft tissues are normal. Cervical spine: The cervical lordosis is normal. No fracture or subluxation is present with flexion or extension. The intervertebral disc spaces are normal. There are small anterior osteophytes at C5-6 indicating earlydegenerative disc disease. Thoracic spine: The thoracic kyphosis is normal. There is no fracture or subluxation.The disc spaces are normal. Lumbar spine: The lumbar lordosis is normal. No fracture or subluxation is present.The intervertebral disc spaces are normal. There are a few small endplate osteophytes indicating early degenerative change. The facet joints are normal. Impression: 1.Right hand: Normal. 2.Left hand: Normal. 3.Right wrist: Normal. 4.Left wrist: Normal. 5.Right elbow: Normal. 6.Left elbow: Normal. 7.Right shoulder: Normal. 8.Left shoulder: Normal. 9.Right hip: Normal. 10.Left hip: Normal. 11.Pelvis: Mild degenerative change of the left sacroiliac joint. 12.Sacroiliac joints: Mild degenerative change of the left sacroiliac joint. The left sacroiliac joint is normal. 13.Right knee: Very small osteophytes indicating degenerative change, without joint space narrowing. 14.Left knee: Small to moderate small osteophytes indicatingdegenerative change, without joint space narrowing. 15.Right ankle: Normal. 16.Left ankle: Normal. 17.Right foot: Normal. 18.Left foot: Normal. 19.Cervical spine: Mild degenerative disc disease at C5-6. 20.Thoracic spine: Normal. 21.Lumbar spine: Normal. > Interpreting Provider: Clyde Shrestha MD on 07/21/2024 5:47 PM Babatunde Lopez MD DIAGNOSTIC IMAGING ORDERABLES Fi nal Result * XR Thoracic Spine 2Vw (07/21/2024 4:49 PM CDT) Anatomical Region Laterality Modality Spine Digital Radiogra phy 07/21/2024 4:54 PM CDT Impressions 07/21/2024 5:47 PM CDT Impression: 1.Right hand: Normal. 2.Left hand: Normal. 3.Right wrist: Normal. 4.Left wrist: Normal. 5.Right elbow: Normal. 6.Left elbow: Normal. 7.Right shoulder: Normal. 8.Left shoulder: Normal. 9.Right hip: Normal. 10.Left hip: Normal. 11.Pelvis: Mild degenerative change of the left sacroiliac joint. 12.Sacroiliac joints: Mild degenerative change of the left sacroiliac joint. The left sacroiliac joint is normal. 13.Right knee: Very small osteophytes indicating degenerative change, without joint space narrowing. 14.Left knee: Small to moderate small osteophytes indicating degenerative change, without joint space narrowing. 15.Right ankle: Normal. 16.Left ankle: Normal. 17.Right foot: Normal. 18.Left foot: Normal. 19.Cervical spine: Mild degenerative disc disease at C5-6. 20.Thoracic spine: Normal. 21.Lumbar spine: Normal. > Interpreting Provider: Clyde Shrestha MD on 07/21/2024 5:47 PM Narrative 07/21/2024 5:47 PM CDT PROCEDURE: XR HAND RIGHT 3VW OR MORE, XR PELVIS 3VW OR MORE, XR WRIST RIGHT 2VW, XR WRIST LEFT 2VW, XR SI JOINTS 3VW OR MORE, XR SHOULDER RIGHT 2VW OR MORE, XR SHOULDER LEFT 2VW OR MORE, XR KNEE RIGHT 3VW, XR KNEE LEFT 3VW, XR HIP RIGHT 2VW OR MORE, XR HIP LEFT 2VW OR MORE, XR HAND LEFT 3VW OR MORE, XR FOOT RIGHT 3VW OR MORE, XR FOOT LEFT 3VW OR MORE, XR ELBOW RIGHT 2VW, XR ELBOW LEFT 2VW, XR ANKLE RIGHT 2VW, XR ANKLE LEFT 2VW, XR THORACIC SPINE 2VW, XR LUMBAR SPINE 2 OR 3VW, XR CERVICAL SPINE 4 OR 5VW DATE/TIME OF EXAM: 07/21/2024 4:50 PM CLINICAL INFORMATION: None relevant/not provided if blank. Indication: M25.50: Polyarthralgia Additional History: COMPARISON: None. FINDINGS: Right hand: No fracture or dislocation is present. The joint spaces are normal. No erosions are seen. Bone density is normal. The soft tissues are normal. Left hand: No fracture or dislocation is present. The joint spaces are normal. No erosions are seen. Bone density is normal. The soft tissues are normal. Right wrist: No fracture or dislocation is present. The joint spaces are normal. No erosions are seen. Bone density is normal. The soft tissues are normal. Left wrist: No fracture or dislocation is present. The joint spaces are normal. No erosions are seen. Bone density is normal. The soft tissues are normal. Right elbow: No acute fracture or dislocation is present. The joint spaces are normal. No erosions are seen. There is no effusion. Left elbow: No acute fracture or dislocation is present. The joint spaces are normal. No erosions are seen. There is no effusion. Right shoulder: There is no fracture or dislocation. There is no acromioclavicular or glenohumeral arthritis. Left shoulder: There is no fracture or dislocation. There is no acromioclavicular or glenohumeral arthritis. Pelvis: There is no fracture. The pubic symphysis and hip joint spaces are normal. There is mild degenerative change of the sacroiliac joints with small osteophytes. There are no erosions. There are no iliac crest enthesophytes. Sacroiliac joints: The right sacroiliac joint is normal without erosion, widening, narrowing, sclerosis, or ankylosis. The left sacroiliac joint has small osteophytes consistent with early osteoarthritis. There is no erosion, widening, narrowing, or ankylosis. No fracture is present. The hip joint spaces and pubic symphysis is normal. Right hip: No fracture or dislocation is present. The joint space is normal. There are no erosions. Left hip: No fracture or dislocation is present. The joint space is normal. There are no erosions. Right knee: No fracture or dislocation is present. The joint spaces are normal. There is very small osteophyte formation indicating early degenerative change. There are no erosions. There is no effusion. Left knee: No fracture or dislocation is present. The joint spaces are normal. There is small to moderate tricompartmental osteophyte formation. There are no erosions. There is no effusion. Right ankle: No fracture or dislocation is present. The joint spaces are normal. No erosions are seen. Bone density is normal. The soft tissues are normal. Left ankle: No fracture or dislocation is present. The joint spaces are normal. No erosions are seen. Bone density is normal. The soft tissues are normal. Right foot: No fracture or dislocation is present. The joint spaces are normal. No erosions are seen. Bone density is normal. The soft tissues are normal. Left foot: No fracture or dislocation is present. The joint spaces are normal. No erosions are seen. Bone density is normal. The soft tissues are normal. Cervical spine: The cervical lordosis is normal. No fracture or subluxation is present with flexion or extension. The intervertebral disc spaces are normal. There are small anterior osteophytes at C5-6 indicating early degenerative disc disease. Thoracic spine: The thoracic kyphosis is normal. There is no fracture or subluxation. The disc spaces are normal. Lumbar spine: The lumbar lordosis is normal. No fracture or subluxation is present. The intervertebral disc spaces are normal. There are a few small endplate osteophytes indicating early degenerative change. The facet joints are normal. Procedure Note Clyde Shrestha MD - 07/21/2024 PROCEDURE: XR HAND RIGHT 3VW OR MORE, XR PELVIS 3VW OR MORE, XR WRIST RIGHT 2VW, XR WRIST LEFT 2VW, XR SI JOINTS 3VW OR MORE, XR SHOULDERRIGHT 2VW OR MORE, XR SHOULDER LEFT 2VW OR MORE, XR KNEE RIGHT 3VW, XR KNEELEFT 3VW, XR HIP RIGHT 2VW OR MORE, XR HIP LEFT 2VW OR MORE, XR HAND LEFT 3VWOR MORE, XR FOOT RIGHT 3VW OR MORE, XR FOOT LEFT 3VW OR MORE, XR ELBOWRIGHT 2VW, XR ELBOW LEFT 2VW, XR ANKLE RIGHT 2VW, XR ANKLE LEFT 2VW, XRTHORACIC SPINE 2VW, XR LUMBAR SPINE 2 OR 3VW, XR CERVICAL SPINE 4 OR 5VW DATE/TIME OF EXAM: 07/21/2024 4:50 PM CLINICAL INFORMATION: None relevant/not provided if blank. Indication: M25.50: Polyarthralgia Additional History: COMPARISON: None. FINDINGS: Right hand: No fracture or dislocation is present. The joint spaces are normal. No erosions are seen. Bone density is normal. The soft tissues are normal. Left hand: No fracture or dislocation is present. The joint spaces are normal. No erosions are seen. Bone density is normal. The soft tissues are normal. Right wrist: No fracture or dislocation is present. The joint spaces are normal. No erosions are seen. Bone density is normal. The soft tissues are normal. Left wrist: No fracture or dislocation is present. The joint spaces are normal. No erosions are seen. Bone density is normal. The soft tissues are normal. Right elbow: No acute fracture or dislocation is present. The joint spaces arenormal. No erosions are seen. There is no effusion. Left elbow: No acute fracture or dislocation is present. The joint spaces arenormal. No erosions are seen. There is no effusion. Right shoulder: There is no fracture or dislocation. There is no acromioclavicular or glenohumeral arthritis. Left shoulder: There is no fracture or dislocation. There is no acromioclavicular or glenohumeral arthritis. Pelvis: There is no fracture. The pubic symphysis and hip joint spaces arenormal. There is mild degenerative change of the sacroiliac joints with small osteophytes. There are no erosions. There are no iliac crest enthesophytes. Sacroiliac joints: The right sacroiliac joint is normal without erosion, widening,narrowing, sclerosis, or ankylosis. The left sacroiliac joint has smallosteophytes consistent with early osteoarthritis. There is no erosion, widening, narrowing, or ankylosis. No fracture is present. The hip joint spacesand pubic symphysis is normal. Right hip: No fracture or dislocation is present. The joint space is normal. Thereare no erosions. Left hip: No fracture or dislocation is present. The joint space is normal. Thereare no erosions. Right knee: No fracture or dislocation is present. The joint spaces are normal.There is very small osteophyte formation indicating early degenerative change. There are no erosions. There is no effusion. Left knee: No fracture or dislocation is present. The joint spaces are normal.There is small to moderate tricompartmental osteophyte formation. There are no erosions. There is no effusion. Right ankle: No fracture or dislocation is present. The joint spaces are normal. No erosions are seen. Bone density is normal. The soft tissues are normal. Left ankle: No fracture or dislocation is present. The joint spaces are normal. No erosions are seen. Bone density is normal. The soft tissues arenormal. Right foot: No fracture or dislocation is present. The joint spaces are normal. No erosions are seen. Bone density is normal. The soft tissues arenormal. Left foot: No fracture or dislocation is present. The joint spaces are normal. No erosions are seen. Bone density is normal. The soft tissues are normal. Cervical spine: The cervical lordosis is normal. No fracture or subluxation is present with flexion or extension. The intervertebral disc spaces are normal. There are small anterior osteophytes at C5-6 indicating earlydegenerative disc disease. Thoracic spine: The thoracic kyphosis is normal. There is no fracture or subluxation.The disc spaces are normal. Lumbar spine: The lumbar lordosis is normal. No fracture or subluxation is present.The intervertebral disc spaces are normal. There are a few small endplate osteophytes indicating early degenerative change. The facet joints are normal. Impression: 1.Right hand: Normal. 2.Left hand: Normal. 3.Right wrist: Normal. 4.Left wrist: Normal. 5.Right elbow: Normal. 6.Left elbow: Normal. 7.Right shoulder: Normal. 8.Left shoulder: Normal. 9.Right hip: Normal. 10.Left hip: Normal. 11.Pelvis: Mild degenerative change of the left sacroiliac joint. 12.Sacroiliac joints: Mild degenerative change of the left sacroiliac joint. The left sacroiliac joint is normal. 13.Right knee: Very small osteophytes indicating degenerative change, without joint space narrowing. 14.Left knee: Small to moderate small osteophytes indicatingdegenerative change, without joint space narrowing. 15.Right ankle: Normal. 16.Left ankle: Normal. 17.Right foot: Normal. 18.Left foot: Normal. 19.Cervical spine: Mild degenerative disc disease at C5-6. 20.Thoracic spine: Normal. 21.Lumbar spine: Normal. > Interpreting Provider: Clyde Shrestha MD on 07/21/2024 5:47 PM Babatunde Lopez MD DIAGNOSTIC IMAGING ORDERABLES Fi nal Result * XR Cervical Spine 4 or 5Vw (07/21/2024 4:49 PM CDT) Anatomical Region Laterality Modality Spine Digital Radiogra phy 07/21/2024 4:54 PM CDT Impressions 07/21/2024 5:47 PM CDT Impression: 1.Right hand: Normal. 2.Left hand: Normal. 3.Right wrist: Normal. 4.Left wrist: Normal. 5.Right elbow: Normal. 6.Left elbow: Normal. 7.Right shoulder: Normal. 8.Left shoulder: Normal. 9.Right hip: Normal. 10.Left hip: Normal. 11.Pelvis: Mild degenerative change of the left sacroiliac joint. 12.Sacroiliac joints: Mild degenerative change of the left sacroiliac joint. The left sacroiliac joint is normal. 13.Right knee: Very small osteophytes indicating degenerative change, without joint space narrowing. 14.Left knee: Small to moderate small osteophytes indicating degenerative change, without joint space narrowing. 15.Right ankle: Normal. 16.Left ankle: Normal. 17.Right foot: Normal. 18.Left foot: Normal. 19.Cervical spine: Mild degenerative disc disease at C5-6. 20.Thoracic spine: Normal. 21.Lumbar spine: Normal. > Interpreting Provider: Clyde Shrestha MD on 07/21/2024 5:47 PM Narrative 07/21/2024 5:47 PM CDT PROCEDURE: XR HAND RIGHT 3VW OR MORE, XR PELVIS 3VW OR MORE, XR WRIST RIGHT 2VW, XR WRIST LEFT 2VW, XR SI JOINTS 3VW OR MORE, XR SHOULDER RIGHT 2VW OR MORE, XR SHOULDER LEFT 2VW OR MORE, XR KNEE RIGHT 3VW, XR KNEE LEFT 3VW, XR HIP RIGHT 2VW OR MORE, XR HIP LEFT 2VW OR MORE, XR HAND LEFT 3VW OR MORE, XR FOOT RIGHT 3VW OR MORE, XR FOOT LEFT 3VW OR MORE, XR ELBOW RIGHT 2VW, XR ELBOW LEFT 2VW, XR ANKLE RIGHT 2VW, XR ANKLE LEFT 2VW, XR THORACIC SPINE 2VW, XR LUMBAR SPINE 2 OR 3VW, XR CERVICAL SPINE 4 OR 5VW DATE/TIME OF EXAM: 07/21/2024 4:50 PM CLINICAL INFORMATION: None relevant/not provided if blank. Indication: M25.50: Polyarthralgia Additional History: COMPARISON: None. FINDINGS: Right hand: No fracture or dislocation is present. The joint spaces are normal. No erosions are seen. Bone density is normal. The soft tissues are normal. Left hand: No fracture or dislocation is present. The joint spaces are normal. No erosions are seen. Bone density is normal. The soft tissues are normal. Right wrist: No fracture or dislocation is present. The joint spaces are normal. No erosions are seen. Bone density is normal. The soft tissues are normal. Left wrist: No fracture or dislocation is present. The joint spaces are normal. No erosions are seen. Bone density is normal. The soft tissues are normal. Right elbow: No acute fracture or dislocation is present. The joint spaces are normal. No erosions are seen. There is no effusion. Left elbow: No acute fracture or dislocation is present. The joint spaces are normal. No erosions are seen. There is no effusion. Right shoulder: There is no fracture or dislocation. There is no acromioclavicular or glenohumeral arthritis. Left shoulder: There is no fracture or dislocation. There is no acromioclavicular or glenohumeral arthritis. Pelvis: There is no fracture. The pubic symphysis and hip joint spaces are normal. There is mild degenerative change of the sacroiliac joints with small osteophytes. There are no erosions. There are no iliac crest enthesophytes. Sacroiliac joints: The right sacroiliac joint is normal without erosion, widening, narrowing, sclerosis, or ankylosis. The left sacroiliac joint has small osteophytes consistent with early osteoarthritis. There is no erosion, widening, narrowing, or ankylosis. No fracture is present. The hip joint spaces and pubic symphysis is normal. Right hip: No fracture or dislocation is present. The joint space is normal. There are no erosions. Left hip: No fracture or dislocation is present. The joint space is normal. There are no erosions. Right knee: No fracture or dislocation is present. The joint spaces are normal. There is very small osteophyte formation indicating early degenerative change. There are no erosions. There is no effusion. Left knee: No fracture or dislocation is present. The joint spaces are normal. There is small to moderate tricompartmental osteophyte formation. There are no erosions. There is no effusion. Right ankle: No fracture or dislocation is present. The joint spaces are normal. No erosions are seen. Bone density is normal. The soft tissues are normal. Left ankle: No fracture or dislocation is present. The joint spaces are normal. No erosions are seen. Bone density is normal. The soft tissues are normal. Right foot: No fracture or dislocation is present. The joint spaces are normal. No erosions are seen. Bone density is normal. The soft tissues are normal. Left foot: No fracture or dislocation is present. The joint spaces are normal. No erosions are seen. Bone density is normal. The soft tissues are normal. Cervical spine: The cervical lordosis is normal. No fracture or subluxation is present with flexion or extension. The intervertebral disc spaces are normal. There are small anterior osteophytes at C5-6 indicating early degenerative disc disease. Thoracic spine: The thoracic kyphosis is normal. There is no fracture or subluxation. The disc spaces are normal. Lumbar spine: The lumbar lordosis is normal. No fracture or subluxation is present. The intervertebral disc spaces are normal. There are a few small endplate osteophytes indicating early degenerative change. The facet joints are normal. Procedure Note Clyde Shrestha MD - 07/21/2024 PROCEDURE: XR HAND RIGHT 3VW OR MORE, XR PELVIS 3VW OR MORE, XR WRIST RIGHT 2VW, XR WRIST LEFT 2VW, XR SI JOINTS 3VW OR MORE, XR SHOULDERRIGHT 2VW OR MORE, XR SHOULDER LEFT 2VW OR MORE, XR KNEE RIGHT 3VW, XR KNEELEFT 3VW, XR HIP RIGHT 2VW OR MORE, XR HIP LEFT 2VW OR MORE, XR HAND LEFT 3VWOR MORE, XR FOOT RIGHT 3VW OR MORE, XR FOOT LEFT 3VW OR MORE, XR ELBOWRIGHT 2VW, XR ELBOW LEFT 2VW, XR ANKLE RIGHT 2VW, XR ANKLE LEFT 2VW, XRTHORACIC SPINE 2VW, XR LUMBAR SPINE 2 OR 3VW, XR CERVICAL SPINE 4 OR 5VW DATE/TIME OF EXAM: 07/21/2024 4:50 PM CLINICAL INFORMATION: None relevant/not provided if blank. Indication: M25.50: Polyarthralgia Additional History: COMPARISON: None. FINDINGS: Right hand: No fracture or dislocation is present. The joint spaces are normal. No erosions are seen. Bone density is normal. The soft tissues are normal. Left hand: No fracture or dislocation is present. The joint spaces are normal. No erosions are seen. Bone density is normal. The soft tissues are normal. Right wrist: No fracture or dislocation is present. The joint spaces are normal. No erosions are seen. Bone density is normal. The soft tissues are normal. Left wrist: No fracture or dislocation is present. The joint spaces are normal. No erosions are seen. Bone density is normal. The soft tissues are normal. Right elbow: No acute fracture or dislocation is present. The joint spaces arenormal. No erosions are seen. There is no effusion. Left elbow: No acute fracture or dislocation is present. The joint spaces arenormal. No erosions are seen. There is no effusion. Right shoulder: There is no fracture or dislocation. There is no acromioclavicular or glenohumeral arthritis. Left shoulder: There is no fracture or dislocation. There is no acromioclavicular or glenohumeral arthritis. Pelvis: There is no fracture. The pubic symphysis and hip joint spaces arenormal. There is mild degenerative change of the sacroiliac joints with small osteophytes. There are no erosions. There are no iliac crest enthesophytes. Sacroiliac joints: The right sacroiliac joint is normal without erosion, widening,narrowing, sclerosis, or ankylosis. The left sacroiliac joint has smallosteophytes consistent with early osteoarthritis. There is no erosion, widening, narrowing, or ankylosis. No fracture is present. The hip joint spacesand pubic symphysis is normal. Right hip: No fracture or dislocation is present. The joint space is normal. Thereare no erosions. Left hip: No fracture or dislocation is present. The joint space is normal. Thereare no erosions. Right knee: No fracture or dislocation is present. The joint spaces are normal.There is very small osteophyte formation indicating early degenerative change. There are no erosions. There is no effusion. Left knee: No fracture or dislocation is present. The joint spaces are normal.There is small to moderate tricompartmental osteophyte formation. There are no erosions. There is no effusion. Right ankle: No fracture or dislocation is present. The joint spaces are normal. No erosions are seen. Bone density is normal. The soft tissues are normal. Left ankle: No fracture or dislocation is present. The joint spaces are normal. No erosions are seen. Bone density is normal. The soft tissues arenormal. Right foot: No fracture or dislocation is present. The joint spaces are normal. No erosions are seen. Bone density is normal. The soft tissues arenormal. Left foot: No fracture or dislocation is present. The joint spaces are normal. No erosions are seen. Bone density is normal. The soft tissues are normal. Cervical spine: The cervical lordosis is normal. No fracture or subluxation is present with flexion or extension. The intervertebral disc spaces are normal. There are small anterior osteophytes at C5-6 indicating earlydegenerative disc disease. Thoracic spine: The thoracic kyphosis is normal. There is no fracture or subluxation.The disc spaces are normal. Lumbar spine: The lumbar lordosis is normal. No fracture or subluxation is present.The intervertebral disc spaces are normal. There are a few small endplate osteophytes indicating early degenerative change. The facet joints are normal. Impression: 1.Right hand: Normal. 2.Left hand: Normal. 3.Right wrist: Normal. 4.Left wrist: Normal. 5.Right elbow: Normal. 6.Left elbow: Normal. 7.Right shoulder: Normal. 8.Left shoulder: Normal. 9.Right hip: Normal. 10.Left hip: Normal. 11.Pelvis: Mild degenerative change of the left sacroiliac joint. 12.Sacroiliac joints: Mild degenerative change of the left sacroiliac joint. The left sacroiliac joint is normal. 13.Right knee: Very small osteophytes indicating degenerative change, without joint space narrowing. 14.Left knee: Small to moderate small osteophytes indicatingdegenerative change, without joint space narrowing. 15.Right ankle: Normal. 16.Left ankle: Normal. 17.Right foot: Normal. 18.Left foot: Normal. 19.Cervical spine: Mild degenerative disc disease at C5-6. 20.Thoracic spine: Normal. 21.Lumbar spine: Normal. > Interpreting Provider: Clyde Shrestha MD on 07/21/2024 5:47 PM Babatunde Lopez MD DIAGNOSTIC IMAGING ORDERABLES Fi nal Result * Mammo Bilat Implant Screen W Kirby [...] Dictated and interpreted by Charly Zurita MD (director of radiology). I, Gladis Duran DO have personally reviewed and interpreted this examination/study. > Interpreting Provider: Gladis Duran DO on 02/18/2024 1:48 PM Narrative 02/18/2024 1:48 PM CDT EXAMINATIONS: BILATERAL DIGITAL SCREENING MAMMOGRAM WITH IMPLANTS AND BILATERAL BREAST TOMOSYNTHESIS LOCATION: [facility] EXAM DATE: 02/18/2024 HISTORY: Screening. History of [...] from prior. Keith Briceño MD MAMMO ORDERABLES Final Result from Last 3 Months or Most Recently Relevant to Health Maintenance Insurance [facility] SELF PAY NO INSURANCE Member Subscriber Plan / Payer (Ef fective for All Dates) Name:Joselyn Caraballo Member ID:Not on file Relation to Subscriber:Not on file Name:JOSELYN CARABALLO Subscriber ID:Not on file Address: [address] [place] [address] Payer ID:Not on file Group ID:Not on file Type:Self Pay Address: [place], [place] * Guarantor: JOSELYN CARABALLO Account Type Relation to Patient Date of Phone Billing Address Personal/Family Spouse Care Teams 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
== END 2024-09-09 12:44 | disposition home or self-care (01) ==
PROVIDERS: PCP Internal Medicine; Visit Provider Internal Medicine
DX: N18.31 Chronic kidney disease, stage 3a (principal)
CPT/HCPCS: 76775